=== PATIENT | male | born 1970 | race Caucasian/White ===

== ENCOUNTER 2016-06-27 03:46 | Emergency (ER) | payer OTHER, MEDICARE ==
[~2016-06-27] VITALS: Ht 172.7 cm; Wt 83.0 kg
[~2016-06-27 03:46] MED LIST: CEPH500C PO; D-ME118S7 PO; IBP800T PO; LISI-591 PO; MECL-106 PO; PRD20T PO
[2016-06-27] MEDS ORDERED: KETOROLAC 30 MG/ML VIAL IVP STA (04:07)
[2016-06-27] MEDS ORDERED: NS IV 1000 ML 1,000 ML IV ONE ×2 (04:07→04:50)
--- NOTE | 2016-06-27 04:14 | ED Neurological Problem ---
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 they then became tingly et got numb. symptoms are improved, but not resolved at this time. Nursing Sepsis Screen: No Definite Risk Source: patient Exam Limitations: no limitations History of Present Illness Time seen by provider: 03:59 Initial Comments Here with report of bilateral arms that are numb and cramping and started at work approximately one hour ago. This is his third night at the [employer]. 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 He states that he lifts approximately 10 bags of melena and works 12 hour shifts. After the first night he states he was sore but he was feeling better tonight and then was at work when he started feeling pain in his arms and then the tingling. He states that is better now. Retains full range of motion and strength. Timing/Duration: 1 hour Severity: moderate Associated Symptoms: No fever/chills, No numbness in legs/feet, paresthesiaNo slurred speech, No tingling in legs/feet, No trouble walking Allergies and Home Medications Allergies Coded Allergies: Penicillins (Unverified Adverse Reaction, Unknown, 06/27/16) Home Medications Lisinopril/Hydrochlorothiazide 1 Each Tablet #14 1 EACH PO DAILY Prescribed by: SHARMILA BE on 03/20/16 1330 Constitutional: see HPI Eyes: No Symptoms Reported Ears, Nose, Mouth, Throat: no symptoms reported Respiratory: no symptoms reported Cardiovascular: no symptoms reported Gastrointestinal: no symptoms reported Genitourinary: no symptoms reported Musculoskeletal: see HPI muscle pain muscle stiffness muscle cramps Skin: no symptoms reported Psychiatric/Neurological: See HPI Numbness Tingling Past Fbquocg-[id number]-[id number] Hx Patient Social History Alcohol Use: Denies Use Recreational Drug Use: No Smoking Status: Never a Smoker Type Used: Smokeless Tobacco Recent Foreign Travel: No Contact w/Someone Who Travel: No Recent Infectious Disease Expo: No Recent Hopitalizations: No Physical Abuse Screen: No Sexual Abuse: No Immunizations Up To Date Date of Influenza Vaccine: Apr 01, 2012 Seasonal Allergies Seasonal Allergies: Yes Surgeries HX Surgeries: Yes (Esophagus surgery for hernia) Surgeries: Abdominal Respiratory Hx Respiratory Disorders: No Cardiovascular Hx Cardiac Disorders: No Neurological Hx Neurological Disorders: No Reproductive System Hx Reproductive Disorders: No Genitourinary Hx Genitourinary Disorders: Yes Genitourinary Disorders: Kidney Stones Gastrointestinal Hx Gastrointestinal Disorders: Yes Gastrointestinal Disorders: Gastroesophageal Reflux, Hiatal Hernia Musculoskeletal Hx Musculoskeletal Disorders: No Endocrine Hx Endocrine Disorders: No HEENT HX ENT Disorders: No Cancer Hx Cancer: No Psychosocial Hx Psychiatric Problems: No Integumentary HX Skin/Integumentary Disorder: No Blood Transfusions Hx Blood Disorders: No Reviewed Nursing Assessment Reviewed/Agree w Nursing PMH: Yes Family Medical History Significant Family History: No Pertinent Family Hx Physical Exam Vital Signs Vital Sign - Last 12Hours 06/27/16 03:54 Temp 97.0 Pulse 122 Resp 16 B/P 134/102 Capillary Refill : Less Than 3 Seconds General Appearance: WD/WN no apparent distress HEENT: PERRL/EOMI pharynx normal Neck: full range of motion supple Respiratory: lungs clear normal breath sounds Cardiovascular: no murmur tachycardia Gastrointestinal: non tender soft Back: normal inspection no CVA tenderness no vertebral tenderness Extremities: normal range of motion other (tender along the anterior arm bilateral from biceps to forearm.) 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 as tested alertNo motor weakness, sensory deficit (reports some tingling in his hands bilateral) Crainal Nerves: normal hearing normal speech PERRL Coordination/Gait: normal gait Motor/Sensory: no motor deficit no pronator drift Skin: normal color warm/dry Progress/Results/Core Measures Results/Orders Lab Results Laboratory Tests Test 06/27/16 04:05 Range/Units Alanine Aminotransferase (ALT/SGPT) 29 0-55 U/L Albumin 4.8 H 3.2-4.5 G/DL Alkaline Phosphatase 38 L 40-136 U/L Anion Gap 13 5-14 MMOL/L Aspartate Amino Transf (AST/SGOT) 45 H 5-34 U/L BUN/Creatinine Ratio 26 Band Neutrophils 2 % Basophils # (Auto) 0.2 H 0.0-0.1 10^3/uL Basophils % (Manual) 1 % Basophils (%) (Auto) 1 0-10 % Blood Morphology Comment NORMAL Blood Urea Nitrogen 30 H 7-18 MG/DL Calcium Level 9.8 8.5-10.1 MG/DL Carbon Dioxide Level 22 21-32 MMOL/L Chloride Level 105 98-107 MMOL/L Creatinine 1.17 0.60-1.30 MG/DL Eosinophils # (Auto) 0.0 0.0-0.3 10^3/uL Eosinophils % (Manual) 0 % Eosinophils (%) (Auto) 0 0-10 % Estimat Glomerular Filtration Rate > 60 Glucose Level 98 70-105 MG/DL Hematocrit 45 40-54 % Hemoglobin 15.8 13.3-17.7 G/DL Lymphocytes # (Auto) 1.0 1.0-4.0 X 10^3 Lymphocytes % (Manual) 8 % Lymphocytes (%) (Auto) 7 L 12-44 % Mean Corpuscular Hemoglobin 30 25-34 PG Mean Corpuscular Hemoglobin Concent 35 32-36 G/DL Mean Corpuscular Volume 84 80-99 FL Mean Platelet Volume 10.6 H 7.4-10.4 FL Monocytes # (Auto) 1.0 0.0-1.0 X 10^3 Monocytes % (Manual) 5 % Monocytes (%) (Auto) 7 0-12 % Neutrophils # (Auto) 13.5 H 1.8-7.8 X 10^3 Neutrophils % (Manual) 78 % Neutrophils (%) (Auto) 86 H 42-75 % Platelet Count 448 H 130-400 10^3/uL Potassium Level 4.4 3.6-5.0 MMOL/L Reactive Lymphocytes 6 % Red Blood Count 5.32 4.35-5.85 10^6/uL Red Cell Distribution Width 13.5 10.0-14.5 % Sodium Level 140 135-145 MMOL/L Total Bilirubin 0.8 0.1-1.0 MG/DL Total Creatine Kinase 1056 H 30-200 U/L Total Protein 7.5 6.4-8.2 G/DL Troponin I < 0.30 <0.30 NG/ML White Blood Count 15.7 H 4.3-11.0 10^3/uL My Orders Orders-TESSIE BEARD MD Cbc With Automated Diff (06/27/16 04:07) Comprehensive Metabolic Panel (06/27/16 04:07) Creatine Kinase (06/27/16 04:07) Saline Lock/Iv-Start (06/27/16 04:07) Ns Iv 1000 Ml (Sodium Chloride 0.9%) (06/27/16 04:07) Ketorolac Injection (Toradol Injection) (06/27/16 04:07) Manual Differential (06/27/16 04:05) Ns Iv 1000 Ml (Sodium Chloride 0.9%) (06/27/16 04:50) Ekg Tracing (06/27/16 04:50) Troponin I (06/27/16 04:50) Medications Given in ED Current Medications Medications Dose Ordered Sig/Yobany Route Start Time Stop Time Status Last Admin Dose Admin Sodium Chloride 1,000 ml @ 0 mls/hr Q0M ONCE IV 06/27/16 04:07 06/27/16 04:09 DC 06/27/16 04:16 1,000 MLS/HR Sodium Chloride 1,000 ml @ 0 mls/hr Q0M ONCE IV 06/27/16 04:50 06/27/16 04:51 DC 06/27/16 05:05 1,000 MLS/HR Vital Signs/I&O Vital Sign - Last 12Hours 06/27/16 03:54 Temp 97.0 Pulse 122 Resp 16 B/P 134/102 Blood Pressure Mean: 113 Progress Note : Progress Note Seen and evaluated. IV, labs and normal saline 1 L bolus. Toradol 30 mg IV. Monitor patient. Concerns for symptoms related to new occupational exposure of lifting quite a bit repetitively. Heart rate would indicate potential for dehydration. Normal saline ordered. We will check CK. 0530: Total CK noted to be elevated. Repeat normal saline 1 L bolus ordered. Kidney function is okay. Patient did have resolution of his numbness on the right arm. Stroke scale is 0. 0545: Patient is much better. Discharged home with return precautions. Patient verbalize understanding instructions and agreement with plan. ECG Initial ECG Impression Date: Jun 27, 2016 Initial ECG Impression Time: 04:57 Initial ECG Rate: 100 Initial ECG Rhythm: S.Tach Comment Sinus tachycardia with a rate of 100. Normal axis. No evidence of ST elevation IN. Similar to previous but increased rate. Interpreted by me. Departure Impression Impression: Primary Impression: Rhabdomyolysis Qualified Code: M62.82 - Rhabdomyolysis Additional Impression: Dehydration Disposition: 01 HOME, SELF-CARE Condition: Improved Departure-Patient Inst. Decision time for Depature: 05:52 Referrals: SONA MCKINNEY MD (PCP/Family) Primary Care Physician Patient Instructions: Dehydration, Rhabdomyolysis (DC) Add. Discharge Instructions: All discharge instructions reviewed with patient and/or family. Voiced understanding. Drink plenty of fluids. Avoid caffeinated beverages. Follow up with your Dr. in a few days for recheck. Return for worse pain, fever, vomiting, weakness, breathing problems or other concerns as needed. Work/School Note: Work Release Form Date Seen in the Emergency Department: Jun 27, 2016 Return to Work: Jun 27, 2016 Restrictions: No Restrictions TESSIE BEARD MD Jun 27, 2016 04:13
[2016-06-27 04:18] LABS: BASOPHILS # (AUTO) 0.2 10^3/uL (0.0-0.1); BASOPHILS % (AUTO) 1 % (0-10); EOSINOPHILS % (AUTO) 0 % (0-10); LYMPHOCYTES % (AUTO) 7 % (12-44); MEAN CORPUSCULAR HEMOGLOBIN 30 PG (25-34); MEAN CORPUSCULAR HGB CONC 35 G/DL (32-36); MEAN CORPUSCULAR VOLUME 84 FL (80-99); MEAN PLATELET VOLUME 10.6 FL (7.4-10.4); MONOCYTES % (AUTO) 7 % (0-12); NEUTROPHILS # (AUTO) 13.5 X 10^3 (1.8-7.8); NEUTROPHILS % (AUTO) 86 % (42-75); PLATELET COUNT 448 10^3/uL (130-400); RED BLOOD COUNT 5.32 10^6/uL (4.35-5.85); RED CELL DISTRIBUTION WIDTH 13.5 % (10.0-14.5); WHITE BLOOD COUNT 15.7 10^3/uL (4.3-11.0)
[2016-06-27 04:42] LABS: ALANINE AMINOTRANSFERASE 29 U/L (0-55); ALBUMIN 4.8 G/DL (3.2-4.5); ANION GAP 13 MMOL/L (5-14); ASPARTATE AMINO TRANSFERASE 45 U/L (5-34); BILIRUBIN,TOTAL 0.8 MG/DL (0.1-1.0); BLOOD UREA NITROGEN 30 MG/DL (7-18); BUN/CREATININE RATIO 26; CALCIUM 9.8 MG/DL (8.5-10.1); CARBON DIOXIDE 22 MMOL/L (21-32); CHLORIDE 105 MMOL/L (98-107); CREATINE KINASE 1056 U/L (30-200); CREATININE SERUM 1.17 MG/DL (0.60-1.30); GFR ESTIMATED > 60; GLUCOSE 98 MG/DL (70-105); POTASSIUM 4.4 MMOL/L (3.6-5.0); SODIUM 140 MMOL/L (135-145); TOTAL PROTEIN 7.5 G/DL (6.4-8.2)
[2016-06-27 04:47] LABS: BAND NEUTROPHILS 2 %; BASOPHILS % (MANUAL) 1 %; EOSINOPHILS % (MANUAL) 0 %; LYMPHOCYTES % (MANUAL) 8 %; NEUTROPHILS % (MANUAL) 78 %; REACTIVE LYMPHOCYTES 6 %
[2016-06-27 06:00] VITALS: BP 126/91
== END 2016-06-27 06:04 | disposition home or self-care (01) ==
LOC: EDUNIT# 03:46 → ER 03:49
DX: M62.82 Rhabdomyolysis (principal); E86.0 Dehydration
CPT/HCPCS: 36415; 80053; 82550; 84484; 85007; 85027; 93005; 96361; 96374

== ENCOUNTER 2016-07-24 04:19 | Observation (INO) | payer MEDICARE, OTHER ==
[2016-07-24] VITALS (8 sets, daily range): BP systolic 104–136; BP diastolic 68–89
[~2016-07-24] VITALS: Ht 172.7 cm; Wt 80.9 kg
--- OUTSIDE RECORDS SUMMARY | 2016-07-24 04:24 | XMS REPORT | Continuity of Care Document ---
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 Name Role Phone SONA MCKINNEY MD PCP Insurance Providers Payer Name Policy Number Subscriber Name Relationship [employer] [id number] Aries Lazaro Self / Same As Patient Wps Medicare [id number] Aries Lazaro Self / Same As Patient Advance Directives Directive Response Recorded Date/Time Advance Directives No 06/27/16 3:58am Health Care Power of Loin Trimmer No 06/27/16 3:58am Organ Donor No 06/27/16 3:58am Resuscitation Status Full Code 06/27/16 3:58am Chief Complaint and Reason for Visit Chief Complaint Neurological Problems Reason for Visit Rhabdomyolysis Dehydration Problems Active Problems Medical Problem Onset Date Status Bronchitis Unknown Acute Dehydration Unknown Acute Hypertensive urgency Unknown Acute Rhabdomyolysis Unknown Acute Medications Current Home Medications Medication Dose Units Route Directions Days/Qty Instructions Start Date Lisinopril/Hydrochlorothiazide 1 Each 1 Each Oral Daily 14 03/20/16 Past Home Medications Medication Directions Ordered Status Ibuprofen 800 Mg Tab, 800 Mg Oral Give Every 8 Hrs On Schedule as needed Discontinued Meclizine Hcl 25 Mg Tablet, 25 Mg Oral Daily 03/20/16 Discontinued Cephalexin 500 Mg Capsule, 500 Mg Oral Three Times A Day 04/19/16 Discontinued D-Methorphan Hb/Prometh Hcl 118 Ml Syrup, 5 Ml Oral Every 6 Hours as needed for Cough 04/19/16 Discontinued Prednisone 20 Mg Tab, 40 Mg Oral Daily 04/19/16 Discontinued Social History Social History Problem Response Recorded Date/Time Alcohol Use Denies Use 11/03/2014 11:51pm Recreational Drug Use No 11/03/2014 11:51pm Recent Foreign Travel No 06/27/2016 3:54am Recent Infectious Disease Exposure No 06/27/2016 3:54am Smoking Status Never a Smoker 06/27/2016 3:58am Type Used Smokeless Tobacco 06/27/2016 3:58am Recent Hopitalizations No 04/19/2016 10:28pm Query Response Start Date Stop Date Smoking Status Never a Smoker Hospital Discharge Instructions No hospital discharge instructions. Plan of Care Discharge Date 06/27/16 6:04am Disposition 01 HOME, SELF-CARE Condition at Discharge Improved Instructions/Education Provided Dehydration Rhabdomyolysis (DC) Forms Provided Work Release Form Prescriptions See Medication Section Referrals SONA MCKINNEY MD - Primary Care Physician Additional Instructions/Education All discharge instructions reviewed with patient and/or family. Voiced understanding. Drink plenty of fluids. Avoid caffeinated beverages. Follow up with your Dr. in a few days for recheck. Return for worse pain, fever, vomiting, weakness, breathing problems or other concerns as needed. Functional Status Query Response Date Recorded Patient Orientation Person Time Situation June 27, 2016 4:22am Comprehension Ability Understands Concepts June 27, 2016 4:22am Allergies, Adverse Reactions, Alerts Allergen Type Severity Reaction Status Last Updated Penicillins ([id number]) Adverse Reaction Unknown Active 06/27/16 Immunizations No immunization records. Vital Signs Acute Vital Signs Vital Response Date/Time Temperature (Fahrenheit) 97.0 degrees F (97.6 - 99.5) 06/27/2016 3:54am Temperature (Calculated Celsius) 36.77947 degrees C (36.4 - 37.5) 06/27/2016 3:54am Pulse Rate (adult) 122 bpm (60 - 90) 06/27/2016 3:54am Respiratory Rate 16 bpm (12 - 24) 06/27/2016 3:54am Blood Pressure 134/102 mm Hg 06/27/2016 3:54am Blood Pressure Mean 113 mm Hg 06/27/2016 3:54am Pain Numeric Pain Scale 9 06/27/2016 4:16am Height (Feet) 5 feet 06/27/2016 3:54am Height (Inches) 8 inches 06/27/2016 3:54am Height (Calculated Centimeters) 172.901236 cm 06/27/2016 3:54am Weight (Pounds) 183 pounds 06/27/2016 3:54am Weight (Calculated Kilograms) 83.551388 kilograms 06/27/2016 3:54am Capillary Refill Capillary Refill Less Than 3 Seconds 06/27/2016 3:54am Height 5 ft 8 in Weight 183 lb Body Mass Index 27.8 kg/m^2 Results Laboratory Results Test Name Result Units Flags Reference Collection Date/Time Result Date/ Time Comments White Blood Count 15.7 10^3/uL H 4.3-11.0 06/27/2016 4:05am 06/27/2016 4: 22am Red Blood Count 5.32 10^6/uL 4.35-5.85 06/27/2016 4:05am 06/27/2016 4: 22am Hemoglobin 15.8 G/DL 13.3-17.7 06/27/2016 4:05am 06/27/2016 4:22am Hematocrit 45 % 40-54 06/27/2016 4:05am 06/27/2016 4:22am Mean Corpuscular Volume 84 FL 80-99 06/27/2016 4:05am 06/27/2016 4: 22am Mean Corpuscular Hemoglobin 30 PG 25-34 06/27/2016 4:05am 06/27/2016 4: 22am Mean Corpuscular Hemoglobin Concent 35 G/DL 32-36 06/27/2016 4:05am 4:22am Red Cell Distribution Width 13.5 % 10.0-14.5 06/27/2016 4:05am 2016 4:22am Platelet Count 448 10^3/uL H 130-400 06/27/2016 4:05am 06/27/2016 4:22am Mean Platelet Volume 10.6 FL H 7.4-10.4 06/27/2016 4:05am 06/27/2016 4: 22am Neutrophils (%) (Auto) 86 % H 42-75 06/27/2016 4:05am 06/27/2016 4:22am Lymphocytes (%) (Auto) 7 % L 12-44 06/27/2016 4:05am 06/27/2016 4:22am Monocytes (%) (Auto) 7 % 0-12 06/27/2016 4:05am 06/27/2016 4:22am Eosinophils (%) (Auto) 0 % 0-10 06/27/2016 4:05am 06/27/2016 4:22am Basophils (%) (Auto) 1 % 0-10 06/27/2016 4:05am 06/27/2016 4:22am Neutrophils # (Auto) 13.5 X 10^3 H 1.8-7.8 06/27/2016 4:05am 06/27/2016 4 :22am Lymphocytes # (Auto) 1.0 X 10^3 1.0-4.0 06/27/2016 4:05am 06/27/2016 4: 22am Monocytes # (Auto) 1.0 X 10^3 0.0-1.0 06/27/2016 4:05am 06/27/2016 4: 22am Eosinophils # (Auto) 0.0 10^3/uL 0.0-0.3 06/27/2016 4:05am 06/27/2016 4 :22am Basophils # (Auto) 0.2 10^3/uL H 0.0-0.1 06/27/2016 4:05am 06/27/2016 4: 22am Neutrophils % (Manual) 78 % 06/27/2016 4:05am 06/27/2016 4:47am Band Neutrophils 2 % 06/27/2016 4:05am 06/27/2016 4:47am Lymphocytes % (Manual) 8 % 06/27/2016 4:05am 06/27/2016 4:47am Monocytes % (Manual) 5 % 06/27/2016 4:05am 06/27/2016 4:47am Eosinophils % (Manual) 0 % 06/27/2016 4:05am 06/27/2016 4:47am Basophils % (Manual) 1 % 06/27/2016 4:05am 06/27/2016 4:47am Reactive Lymphocytes 6 % 06/27/2016 4:05am 06/27/2016 4:47am Blood Morphology Comment NORMAL 06/27/2016 4:05am 06/27/2016 4: 47am Sodium Level 140 MMOL/L 135-145 06/27/2016 4:05am 06/27/2016 4:44am Potassium Level 4.4 MMOL/L 3.6-5.0 06/27/2016 4:0506/27/2016 4:44am Chloride Level 105 MMOL/L 98-107 06/27/2016 4:0506/27/2016 4:44am Carbon Dioxide Level 22 MMOL/L 21-32 06/27/2016 4:0506/27/2016 4: 44am Anion Gap 13 MMOL/L 5-14 06/27/2016 4:06/27/2016 4:44am Blood Urea Nitrogen 30 MG/DL H 7-18 06/27/2016 4:0506/27/2016 4:44am Creatinine 1.17 MG/DL 0.60-1.30 06/27/2016 4:06/27/2016 4:44am BUN/Creatinine Ratio 06/27/2016 4:0506/27/2016 4:44am Estimat Glomerular Filtration Rate > 60 06/27/2016 4:2016 4:44am GFR INTERPRETIVE DATA UNITS FOR ESTIMATED GFR (eGFR): mL/min/1.73 M2 REFERENCE RANGE FOR ESTIMATED GFR (eGFR) eGFR NORMAL eGFR >60 MODERATELY DECREASED eGFR 30-59 SEVERLY DECREASED eGFR 15-29 KIDNEY FAILURE <15 (OR DIALYSIS) Glucose Level 98 MG/DL 70-105 06/27/2016 4:06/27/2016 4:44am Calcium Level 9.8 MG/DL 8.5-10.1 06/27/2016 4:06/27/2016 4:44am Total Bilirubin 0.8 MG/DL 0.1-1.0 06/27/2016 4:06/27/2016 4:44am Alkaline Phosphatase 38 U/L L 40-136 06/27/2016 4:0506/27/2016 4:44am Aspartate Amino Transf (AST/SGOT) 45 U/L H 5-34 06/27/2016 4:052016 4:44am Alanine Aminotransferase (ALT/SGPT) 29 U/L 0-55 06/27/2016 4:0506/27 4:44am Total Creatine Kinase 1056 U/L H 30-200 06/27/2016 4:0506/27/2016 4: 44am Troponin I < 0.30 NG/ML <0.30 06/27/2016 4:05am 06/27/2016 5:18am Total Protein 7.5 G/DL 6.4-8.2 06/27/2016 4:05am 06/27/2016 4:44am Albumin 4.8 G/DL H 3.2-4.5 06/27/2016 4:05am 06/27/2016 4:44am Procedures Procedure Status Date Provider(s) Tracing only of electrocardiogram Active 06/27/16 TESSIE BEARD MD Encounters Encounter Location Arrival/Admit Date Discharge/Depart Date Attending Provider Registered Emergency Room [facility] 06/27/16 3:49am TESSIE BEARD MD Recent Diagnosis
[2016-07-24] MEDS ORDERED: NS IV 1000 ML 1,000 ML IV ONE (04:33)
[2016-07-24 04:40] LABS: BASOPHILS # (AUTO) 0.2 10^3/uL (0.0-0.1); BASOPHILS % (AUTO) 2 % (0-10); EOSINOPHILS # (AUTO) 0.1 10^3/uL (0.0-0.3); EOSINOPHILS % (AUTO) 1 % (0-10); LYMPHOCYTES # (AUTO) 1.6 X 10^3 (1.0-4.0); LYMPHOCYTES % (AUTO) 12 % (12-44); MEAN CORPUSCULAR HEMOGLOBIN 30 PG (25-34); MEAN CORPUSCULAR HGB CONC 35 G/DL (32-36); MEAN CORPUSCULAR VOLUME 85 FL (80-99); MEAN PLATELET VOLUME 10.8 FL (7.4-10.4); MONOCYTES % (AUTO) 7 % (0-12); NEUTROPHILS # (AUTO) 10.7 X 10^3 (1.8-7.8); NEUTROPHILS % (AUTO) 79 % (42-75); PLATELET COUNT 508 10^3/uL (130-400); RED BLOOD COUNT 5.41 10^6/uL (4.35-5.85); RED CELL DISTRIBUTION WIDTH 13.3 % (10.0-14.5); WHITE BLOOD COUNT 13.6 10^3/uL (4.3-11.0)
--- NOTE | 2016-07-24 04:43 | ED Cardiac General ---
History of Present Illness General Chief Complaint: Chest Pain Stated Complaint: CP Nursing Triage Note: patient reports chest pain starting at 0300, patient denies pain radiating or other symptoms. patient reports pain is intermittent Source: patient Exam Limitations: no limitations (TESSIE BEARD MD) History of Present Illness Time seen by provider: 04:27 Initial Comments Here with report of left-sided chest pain that started at approximately 3 am and has continued until now. Reports that it is left sided and moves across the lower chest. Denies nausea, vomiting, dizziness or sweating. Occurred while at work at [employer]. Timing/Duration: 1-3 hours Severity: moderate Location: central Activities at Onset: activity Prior CP/Workup: non-cardiac, stress test Modifying Factors: improves with exercise NTG SL WATER INSPECTOR: No ASA po WATER INSPECTOR: No Associated Systoms: Chest Pain (TESSIE BEARD MD) Allergies and Home Medications Allergies Coded Allergies: Penicillins (Unverified Adverse Reaction, Unknown, 06/27/16) Home Medications Lisinopril/Hydrochlorothiazide 1 Each Tablet #14 1 EACH PO DAILY Prescribed by: SHARMILA BE on 03/20/16 1330 Review of Systems Constitutional: see HPINo chills, No diaphoresis, No fever EENTM: No Symptoms Reported Respiratory: No Symptoms ReportedDenies Shortness of Air, Denies Wheezing Cardiovascular: Chest PainDenies Edema, Denies Palpitations Gastrointestinal: No Symptoms ReportedDenies Nausea, Denies Vomiting Genitourinary: No Symptoms Reported Musculoskeletal: No back pain, muscle painNo neck pain Skin: no symptoms reportedNo change in color Psychiatric/Neurological: No Symptoms ReportedDenies Headache, Denies Numbness , Denies Tingling, Denies Weakness Endocrine: No Symptoms Reported (TESSIE BEARD MD) All Other Systems Reviewed Negative Unless Noted: Yes (TESSIE BEARD MD) Past Dekiaxy-Kgqijr-Hyvrrg Hx Patient Social History Alcohol Use: Denies Use Recreational Drug Use: No Smoking Status: Former Smoker Type Used: Smokeless Tobacco Recent Foreign Travel: No Contact w/Someone Who Travel: No Recent Infectious Disease Expo: No Recent Hopitalizations: No (TESSIE BEARD MD) Immunizations Up To Date Date of Influenza Vaccine: Apr 01, 2012 (TESSIE BEARD MD) Seasonal Allergies Seasonal Allergies: Yes (TESSIE BEARD MD) Surgeries HX Surgeries: Yes (Esophagus surgery for hernia) Surgeries: Abdominal (TESSIE BEARD MD) Respiratory Hx Respiratory Disorders: No (TESSIE BEARD MD) Cardiovascular Hx Cardiac Disorders: No (TESSIE BEARD MD) Cardiac Disorders: Hypertension (SONA STEVEN DO) Neurological Hx Neurological Disorders: No (TESSIE BEARD MD) Reproductive System Hx Reproductive Disorders: No (TESSIE BEARD MD) Genitourinary Hx Genitourinary Disorders: Yes Genitourinary Disorders: Kidney Stones (TESSIE BEARD MD) Gastrointestinal Hx Gastrointestinal Disorders: Yes Gastrointestinal Disorders: Gastroesophageal Reflux, Hiatal Hernia (TESSIE BEARD MD) Musculoskeletal Hx Musculoskeletal Disorders: No (TESSIE BEARD MD) Endocrine Hx Endocrine Disorders: No (TESSIE BEARD MD) HEENT HX ENT Disorders: No (TESSIE BEARD MD) Cancer Hx Cancer: No (TESSIE BEARD MD) Psychosocial Hx Psychiatric Problems: No (TESSIE BEARD MD) Integumentary HX Skin/Integumentary Disorder: No (TESSIE BEARD MD) Blood Transfusions Hx Blood Disorders: No (TESSIE BEARD MD) Reviewed Nursing Assessment Reviewed/Agree w Nursing PMH: Yes (TESSIE BEARD MD) Family Medical History Significant Family History: No Pertinent Family Hx (TESSIE BEARD MD) Physical Exam Vital Signs Vital Sign - Last 12Hours 07/24/16 07/24/16 04:25 04:28 Temp 99.0 Pulse 96 Resp 24 B/P 114/92 Pulse Ox 95 O2 Delivery Room Air (BERTO STEVENA K DO) Vital Signs Capillary Refill : Less Than 3 Seconds (TESSIE BEARD MD) General Appearance: No Apparent Distress WD/WN HEENT: PERRL/EOMI Pharynx Normal Neck: Non Tender Supple Respiratory: Lungs Clear Normal Breath Sounds Cardiovascular: Regular Rate, Rhythm No Murmur Gastrointestinal: Non Tender Soft Extremity: Normal Range of Motion Non Tender No Calf Tenderness Neurologic/Psychiatric: Alert Oriented x3 Skin: Normal Color Warm/Dry (TESSIE BEARD MD) Progress/Results/Core Measures Results/Orders Lab Results Laboratory Tests Test 07/24/16 04:25 Range/Units Activated Partial Thromboplast Time 25 24-35 SEC Alanine Aminotransferase (ALT/SGPT) 23 0-55 U/L Albumin 5.3 H 3.2-4.5 G/DL Alkaline Phosphatase 42 40-136 U/L Amylase Level 43 25-125 U/L Anion Gap 16 H 5-14 MMOL/L Aspartate Amino Transf (AST/SGOT) 25 5-34 U/L BUN/Creatinine Ratio 20 Basophils # (Auto) 0.2 H 0.0-0.1 10^3/uL Basophils (%) (Auto) 2 0-10 % Blood Urea Nitrogen 26 H 7-18 MG/DL Calcium Level 10.2 H 8.5-10.1 MG/DL Carbon Dioxide Level 19 L 21-32 MMOL/L Chloride Level 104 98-107 MMOL/L Creatinine 1.32 H 0.60-1.30 MG/DL D-Dimer 0.57 H 0.00-0.49 UG/ML Eosinophils # (Auto) 0.1 0.0-0.3 10^3/uL Eosinophils (%) (Auto) 1 0-10 % Estimat Glomerular Filtration Rate 58 Glucose Level 87 70-105 MG/DL Hematocrit 46 40-54 % Hemoglobin 16.2 13.3-17.7 G/DL INR Comment 1.0 0.8-1.4 Lipase 13 8-78 U/L Lymphocytes # (Auto) 1.6 1.0-4.0 X 10^3 Lymphocytes (%) (Auto) 12 12-44 % Magnesium Level 3.0 H 1.8-2.4 MG/DL Mean Corpuscular Hemoglobin 30 25-34 PG Mean Corpuscular Hemoglobin Concent 35 32-36 G/DL Mean Corpuscular Volume 85 80-99 FL Mean Platelet Volume 10.8 H 7.4-10.4 FL Monocytes # (Auto) 1.0 0.0-1.0 X 10^3 Monocytes (%) (Auto) 7 0-12 % Myoglobin 137.4 H 10.0-92.0 NG/ML Neutrophils # (Auto) 10.7 H 1.8-7.8 X 10^3 Neutrophils (%) (Auto) 79 H 42-75 % Platelet Count 508 H 130-400 10^3/uL Potassium Level 4.1 3.6-5.0 MMOL/L Prothrombin Time 13.1 12.2-14.7 SEC Red Blood Count 5.41 4.35-5.85 10^6/uL Red Cell Distribution Width 13.3 10.0-14.5 % Sodium Level 139 135-145 MMOL/L Total Bilirubin 0.6 0.1-1.0 MG/DL Total Protein 8.3 H 6.4-8.2 G/DL Troponin I < 0.30 <0.30 NG/ML White Blood Count 13.6 H 4.3-11.0 10^3/uL (MAURIZIO,SONA K DO) Lab Results Laboratory Tests Test 07/24/16 04:25 Range/Units Activated Partial Thromboplast Time 25 24-35 SEC Alanine Aminotransferase (ALT/SGPT) 23 0-55 U/L Albumin 5.3 H 3.2-4.5 G/DL Alkaline Phosphatase 42 40-136 U/L Amylase Level 43 25-125 U/L Anion Gap 16 H 5-14 MMOL/L Aspartate Amino Transf (AST/SGOT) 25 5-34 U/L BUN/Creatinine Ratio 20 Basophils # (Auto) 0.2 H 0.0-0.1 10^3/uL Basophils (%) (Auto) 2 0-10 % Blood Urea Nitrogen 26 H 7-18 MG/DL Calcium Level 10.2 H 8.5-10.1 MG/DL Carbon Dioxide Level 19 L 21-32 MMOL/L Chloride Level 104 98-107 MMOL/L Creatinine 1.32 H 0.60-1.30 MG/DL D-Dimer 0.57 H 0.00-0.49 UG/ML Eosinophils # (Auto) 0.1 0.0-0.3 10^3/uL Eosinophils (%) (Auto) 1 0-10 % Estimat Glomerular Filtration Rate 58 Glucose Level 87 70-105 MG/DL Hematocrit 46 40-54 % Hemoglobin 16.2 13.3-17.7 G/DL INR Comment 1.0 0.8-1.4 Lipase 13 8-78 U/L Lymphocytes # (Auto) 1.6 1.0-4.0 X 10^3 Lymphocytes (%) (Auto) 12 12-44 % Magnesium Level 3.0 H 1.8-2.4 MG/DL Mean Corpuscular Hemoglobin 30 25-34 PG Mean Corpuscular Hemoglobin Concent 35 32-36 G/DL Mean Corpuscular Volume 85 80-99 FL Mean Platelet Volume 10.8 H 7.4-10.4 FL Monocytes # (Auto) 1.0 0.0-1.0 X 10^3 Monocytes (%) (Auto) 7 0-12 % Myoglobin 137.4 H 10.0-92.0 NG/ML Neutrophils # (Auto) 10.7 H 1.8-7.8 X 10^3 Neutrophils (%) (Auto) 79 H 42-75 % Platelet Count 508 H 130-400 10^3/uL Potassium Level 4.1 3.6-5.0 MMOL/L Prothrombin Time 13.1 12.2-14.7 SEC Red Blood Count 5.41 4.35-5.85 10^6/uL Red Cell Distribution Width 13.3 10.0-14.5 % Sodium Level 139 135-145 MMOL/L Total Bilirubin 0.6 0.1-1.0 MG/DL Total Protein 8.3 H 6.4-8.2 G/DL Troponin I < 0.30 <0.30 NG/ML White Blood Count 13.6 H 4.3-11.0 10^3/uL (TESSIE BEARD MD) My Orders Orders-SONA STEVEN DO Iohexol Injection (Omnipaque 350 Mg/Ml 1 (07/24/16 06:15) Ns (Ivpb) (Sodium Chloride 0.9% Ivpb Bag (07/24/16 06:15) Morphine Injection (Morphine Injection (07/24/16 06:44) (SONA STEVEN DO) Medications Given in ED Current Medications Medications Dose Ordered Sig/Yobany Route Start Time Stop Time Status Last Admin Dose Admin Al Hydrox/Mg Hydrox/ Simethicone 30 ml 30 ml ONCE ONCE PO 07/24/16 05:00 07/24/16 05:01 DC 07/24/16 04:56 30 ML Aspirin 324 mg 324 mg ONCE ONCE PO 07/24/16 04:45 07/24/16 04:46 DC 07/24/16 04:43 324 MG Iohexol 150 ml ONCE ONCE IV 07/24/16 06:15 07/24/16 06:16 DC 07/24/16 06:03 125 ML Lidocaine HCl 15 ml ONCE ONCE PO 07/24/16 05:00 07/24/16 05:01 DC 07/24/16 04:56 15 ML Nitroglycerin 0.4 mg UD ONCE SL 07/24/16 04:45 07/24/16 04:46 DC 07/24/16 04:43 0.4 MG Sodium Chloride 100 ml ONCE ONCE IV 07/24/16 06:15 07/24/16 06:16 DC 07/24/16 06:03 80 ML Sodium Chloride 500 ml @ 0 mls/hr Q0M ONCE IV 07/24/16 05:36 07/24/16 05:38 DC 07/24/16 05:41 0 MLS/HR Sodium Chloride 1,000 ml @ 0 mls/hr Q0M ONCE IV 07/24/16 04:33 07/24/16 04:36 DC 07/24/16 04:43 0 MLS/HR (SONA STEVEN DO) Medications Given in ED Current Medications Medications Dose Ordered Sig/Yobany Route Start Time Stop Time Status Last Admin Dose Admin Al Hydrox/Mg Hydrox/Simethicone 30 ml ONCE ONCE PO 07/24/16 05:00 07/24/16 05:01 DC 07/24/16 04:56 30 ML Aspirin 324 mg 324 mg ONCE ONCE PO 07/24/16 04:45 07/24/16 04:46 DC 07/24/16 04:43 324 MG Lidocaine HCl 15 ml ONCE ONCE PO 07/24/16 05:00 07/24/16 05:01 DC 07/24/16 04:56 15 ML Nitroglycerin 0.4 mg UD ONCE SL 07/24/16 04:45 07/24/16 04:46 DC 07/24/16 04:43 0.4 MG Sodium Chloride 1,000 ml @ 0 mls/hr Q0M ONCE IV 07/24/16 04:33 07/24/16 04:36 DC 07/24/16 04:43 0 MLS/HR (TESSIE BEARD MD) Vital Signs/I&O Vital Sign - Last 12Hours 07/24/16 07/24/16 07/24/16 07/24/16 04:25 04:28 04:31 05:34 Temp 99.0 Pulse 96 80 Resp 24 14 B/P 114/92 117/79 Pulse Ox 95 98 O2 Delivery Room Air Room Air Room Air (SONA STEVEN DO) Blood Pressure Mean: 99 Progress Note : Progress Note Seen and evaluated. IV, labs, EKG, chest x-ray, ASA 324 mg by mouth and nitroglycerin sublingual ordered. Normal saline 1 L bolus. Monitor patient. Toradol 30 mg IV and GI cocktail given. 0530: Patient states the pain is better but then rates it at the same level. He then states it is better. Patient does have some reproducible left anterior chest wall pain. Due to conflicting symptoms and mildly elevated d-dimer, we will get CT angiogram chest. He will need repeat enzymes evaluated as well. Patient does have history of stress test in the past 2 years ago that was negative at this time. (TESSIE BEARD MD) Progress Note : Progress Note 0600--ASSUMED CARE FROM DR. BEARD, CT CHEST ANGIOGRAM PENDING. STILL RATING PAIN 6-7/10, STATES "A LITTLE BETTER", BUT PT IS RESTING QUIETLY AND DOES NOT APPEAR TO BE IN ANY DISCOMFORT (SONA STEVEN DO) ECG Initial ECG Impression Date: Jul 24, 2016 Initial ECG Impression Time: 04:25 Initial ECG Rate: 95 Initial ECG Rhythm: Normal Sinus Comment Sinus rhythm with normal axis. No evidence of ST elevation [place]. Similar to previous done 06/27/16. Interpreted by me. (TESSIE BEARD MD) Diagnostic Imaging Diagonstic Imaging: Xray Plain Films/CT/US/NM/MRI: chest Comments No acute findings Reviewed: Reviewed by Me (TESSIE BEARD MD) Comments CT CHEST ANGIOGRAM--NO ACUTE PROCESS, NO P.E. PER [facility] VIA FAX @ [id number] Reviewed: Reviewed by Me (SONA STEVEN DO) Departure Communication Progress Notes 0643--SPOKE WITH DR. EVANS, ACCEPTS PT FOR ADMIT. WILL CONSULT CARDIOLOGY 0645--ATTEMPTING TO CONTACT DR. LOWE, MESSAGE LEFT ON CELL 0705--SPOKE WITH DR. LOWE, INFORMED HIM OF CONSULT. NO ADDITIONAL ORDERS AT THIS TIME (SONA STEVEN DO) Impression Impression: Primary Impression: Chest pain Disposition: ADMITTED INPATIENT Condition: Stable Decision to Admit Reason: Admit from ER (General) Decision to Admit/Date: Jul 24, 2016 Time/Decision to Admit Time: 06:45 (SONA STEVEN DO) Departure-Patient Inst. Referrals: SONA MCKINNEY MD (PCP/Family) Primary Care Physician TESSIE BEARD MD Jul 24, 2016 04:42 SONA STEVEN DO Jul 24, 2016 06:00
[2016-07-24 04:45] LABS: PROTHROMBIN TIME PATIENT 13.1 SEC (12.2-14.7)
[2016-07-24] MEDS ORDERED: RX-NITROGLYCERIN 0.4 MG TAB BTL 25'S SL ONE (04:45)
[2016-07-24] MEDS ORDERED: ASPIRIN 81 MG CHEW (CHILDREN'S ASA) PO ONE (04:45)
[2016-07-24] MEDS ORDERED: KETOROLAC 30 MG/ML VIAL IVP STA (04:50)
[2016-07-24 04:54] LABS: ALANINE AMINOTRANSFERASE 23 U/L (0-55); ALBUMIN 5.3 G/DL (3.2-4.5); AMYLASE 43 U/L (25-125); ANION GAP 16 MMOL/L (5-14); ASPARTATE AMINO TRANSFERASE 25 U/L (5-34); BILIRUBIN,TOTAL 0.6 MG/DL (0.1-1.0); BLOOD UREA NITROGEN 26 MG/DL (7-18); BUN/CREATININE RATIO 20; CALCIUM 10.2 MG/DL (8.5-10.1); CARBON DIOXIDE 19 MMOL/L (21-32); CHLORIDE 104 MMOL/L (98-107); CREATININE SERUM 1.32 MG/DL (0.60-1.30); GFR ESTIMATED 58; GLUCOSE 87 MG/DL (70-105); LIPASE 13 U/L (8-78); POTASSIUM 4.1 MMOL/L (3.6-5.0); SODIUM 139 MMOL/L (135-145); TOTAL PROTEIN 8.3 G/DL (6.4-8.2)
[2016-07-24] MEDS ORDERED: ANTACID SUSP 30 ML UDC (MYLANTA) PO ONE (05:00)
[2016-07-24] MEDS ORDERED: LIDOCAINE 2% VISCOUS 15 ML UDC PO ONE (05:00)
[2016-07-24 05:01] LABS: MYOGLOBIN SERUM 137.4 NG/ML (10.0-92.0)
[2016-07-24] MEDS ORDERED: NS IV 500 ML 500 ML IV ONE (05:36)
--- NOTE | 2016-07-24 06:00 | Diagnostic Imaging Report ---
INDICATION: New onset chest pain.. TECHNIQUE: Single view chest 4:40 AM. CORRELATION STUDY: 03/20/2016 FINDINGS: Heart size and mediastinum relatively stable given differences in technique. Minimal atelectasis right mid lung. Lungs are clear of infiltrate. No pleural effusion. IMPRESSION: 1. Relatively stable chest apart from minimal right perihilar atelectasis. Dictated by: Dictated on workstation # [id number]
[2016-07-24] MEDS ORDERED: NS 100 ML (IVPB) BAG IV ONE (06:15)
[2016-07-24] MEDS ORDERED: IOHEXOL 350 MG/ML 150 ML (OMNIPAQUE 350) VIAL IV ONE (06:15)
[2016-07-24] MEDS ORDERED: morphine INJ 10 MG/ML 1ML (SYR OR VIAL) IVP STA (06:44)
[2016-07-24] MEDS ORDERED: ENOXAPARIN 100 MG/1 ML (LOVENOX) SYR SC ONE (07:00)
--- NOTE | 2016-07-24 07:31 | Diagnostic Imaging Report ---
PROCEDURE: CT angiography of the chest with contrast. TECHNIQUE: Multiple contiguous axial images were obtained through the chest after uneventful bolus administration of intravenous contrast. Reconstructed CTA MIP acquisitions were also performed. INDICATION: Chest pain starting 3 hours prior. FINDINGS: Pulmonary arteries without filling defect to suggest pulmonary embolism. Thoracic aorta unremarkable. Heart size normal. A 14 x 11 mm nodule in the anterior mediastinum anterior to the aortic arch is present. Lung garces are clear of infiltrate. No significant pleural or pericardial effusion. Visualized portion of the upper abdomen demonstrate hepatic steatosis. Probable small hepatic cyst at the dome. IMPRESSION: No CT evidence for pulmonary embolism or otherwise acute findings of the chest. Nodule in the anterior mediastinum nonspecific, but favors a borderline enlarged lymph node. Followup imaging evaluation would be recommended. Dictated by: Dictated on workstation # [id number]
[2016-07-24] MEDS ORDERED: LISI1TAB8 PO (09:30)
[2016-07-24] MEDS ORDERED: NITROGLYCERIN SUBLINGUAL 0.4 MG TAB (NITROSTAT) SL PRN (09:30)
[2016-07-24] MEDS ORDERED: FLU TRIvalent (5 YOA+) 2016-17 (AFLURIA) 0.5 ML IM ONE (09:30)
[2016-07-24] MEDS ORDERED: morphine INJ 4 MG/ML 1 ML (VIAL/SYRINGE) IV PRN (09:30)
--- NOTE | 2016-07-24 10:00 | Consultation-Cardiology ---
HPI-Cardiology Cardiology Consultation: Date of Consultation 07/24/16 Date of Admission Attending Physician Lynette Yoo DO Admitting Physician Chary Noriega MD Consulting Physician Dat MARINELLI MD HPI: Chief Complaint: Prolonged chest pain This is a 45-year-old gentleman with history of hypertension. He presents with a prolonged episode of chest pain. Chest pain lasted for 2 hours. It was substernal with no radiation. There was no exacerbation or relieving factors. However it was brought on after he was lifting boxes. No other associated cardiac symptoms. This is his first episode. Patient denies smoking, diabetes , hyperlipidemia. Since he was adopted he does not know his family history of premature coronary artery disease. Review of Systems-Cardiology Review of Systems Constitutional: No As described under HPI, No no symptoms reported, No chills, No fever, No lightheadedness, No malaise, No tiredness, No weight loss, No weight gain, No other Eyes: No As described under HPI, No no symptoms reported, No blindness, No blurred vision, No contact lenses, No drainage, No decreased acuity, No foreign body sensation, No glasses, No inflammation, No pain, No photophobia, No previous injury, No shadows, No tunnel vision, No other, No vision change Ears/Nose/Throat: No As described under HPI, No no symptoms reported, No chronic hearing loss, No epistaxis, No ear discharge, No ear pain, No loose teeth, No mouth pain, No mouth swelling, No nasal drainage, No nose pain, No recent hearing loss, No throat pain, No throat swelling, No ulcerations, No other Respiratory: No no symptoms reported, No As described under HPI, No cough, No orthopnea, No shortness of breath, No SOB with excertion, No SOB at rest, No stridor, No wheezing, No other Cardiovascular: No no symptoms reported, No As described under HPI, chest painNo edema, No irregular heart rate, No lightheadedness, No palpitations, No syncope, No other Gastrointestinal: No no symptoms reported, No As described under HPI, No abdomen distended, No abdominal pain, No blood streaked bowels, No constipation , No diarrhea, No difficulty swallowing, No nausea, No poor appetite, No poor fluid intake, No rectal bleeding, No vomiting, No other, No nausea/vomiting/ diarrhea, No stool coloration changes Genitourinary: No no symptoms reported, No As described under HPI, No burning, No dysuria, No discharge, No frequency, No flank pain, No hematuria, No incontinence, No pain, No urgency, No other, No urine frequency changes, No urine coloration changes Musculoskeletal: No no symptoms reported, No As describe under HPI, No back pain, No gout, No joint pain, No joint swelling, No muscle pain, No muscle stiffness, No neck pain, No other Skin: No no symptoms reported, No As described under HPI, No change in color, No change in hair/nails, No dryness, No lesions, No lumps, No rash, No other, No skin related problems, No ulcerations, No rash on exposed areas, No ulcerations on exposed areas Psychiatric/Neurological: No As described under HPI, No anxiety, No depression , No emotional problems, No focal weakness, No headache, No no symptoms reported , No numbness, No other, No pre-existing deficit, No seizure, No syncope, No tingling, No tremors, No weakness All Other Systems Reviewed Negative Unless Noted: Yes ZLE-Jjzcrl-Whycxj Hx Patient Social History Alcohol Use: Denies Use Recreational Drug Use: No Smoking Status: Never a Smoker Type Used: Smokeless Tobacco Recent Foreign Travel: No Recent Infectious Disease Expo: No Hospitalization with Isolation: Denies Physical Abuse Screen: No Sexual Abuse: No Immunizations Up To Date Date of Influenza Vaccine: Apr 01, 2012 Past Medical History PMH As described under Assessment. Allergies and Home Medications Allergies Coded Allergies: Penicillins (Unverified Adverse Reaction, Unknown, 06/27/16) Home Medications Lisinopril/Hydrochlorothiazide 1 Each Tablet 1 TAB PO DAILY@1700 (Reported) Physical Exam-Cardiology Physical Exam Vital Signs/I&O Vital Sign - Last 12Hours 07/24/16 07/24/16 07/24/16 07/24/16 04:25 04:28 04:31 05:34 Temp 99.0 Pulse 96 80 Resp 24 14 B/P 114/92 117/79 Pulse Ox 95 98 O2 Delivery Room Air Room Air Room Air 07/24/16 07/24/16 08:07 08:51 Temp 97.4 Pulse 79 80 Resp 18 18 B/P 136/89 Pulse Ox 98 96 O2 Delivery Room Air Capillary Refill : Less Than 3 Seconds Constitutional: No appears stated age, No AAO x 3, No apparent distress, No PERRL, No well-developed, No well-nourished, No other HEENT: No PERRL, No normal ENT inspection, No TMs normal, No pharynx normal, No scleral icterus (R), No scleral icterus (L), No pale conjunctivae (R), No pale conjunctivae (L), No photophobia, No TM abnormal (R), No TM abnormal (L), No pharyngeal erythema, No tonsillar exudate, No other, No discharge, No EOMI, No hearing is well preserved, No hard of hearing, No oral hygience is good, No ulceration, No xanthelasmas are seen Neck: No non-tender, No full range of motion, No supple, No normal inspection, No carotid bruit, No limited range of motion, No lymphadenopathy (R), No lymphadenopathy (L), No tender lateral, No tender midline, No thyromegaly, No other, No carotid pulses are 2 + bilaterally, No with good upstrokes Respiratory: No accessory muscle use, No respiratory distress, No chest tender , No chest expansion is symmetric, No chest is bilaterally symmetric, No lungs clear to percussion, No lungs clear to auscultation, No crackles, No rhonchi, No rales, No stridor, No wheezing, No pleural rub, No other Cardiovascular: No regular rate-rhythm, No irregularly irregular, No extra beats, No parasternal heave is noted, No JVD, No edema, No bradycardia, No tachycardia, No point of maximal impulse, No cardiac thrills are palpable, No S1 and S2, No gallop/S3, No gallop/S4, No diastolic murmur, No systolic murmur, No friction rub, No click, No other Gastrointestinal: No tender, No soft, No round, No distended, No pulsatile mass , No organomegaly, No guarding, No rebound, No tenderness, No hernia, No mass, No audible bowel sounds, No abnormal bowel sounds, No abdominal bruits, No spleenomegaly, No other Rectal: deferred Extremities: No normal range of motion, No non-tender, No normal inspection, No pedal edema, No calf tenderness, No normal capillary refill, No pelvis stable , No calf tenderness, No inflammation, No pedal edema, No slow capillary refill , No swelling, No other, No abrasion, No clubbing, No cyanosis, No ecchymosis, No laceration, No no lower extremity edema bilateral, No significant edema, No tenderness, No wound Neurologic/Psychiatric: No materials analyst II-XII nml as tested, No no motor/sensory deficits, No alert, No normal mood/affect, No oriented x 3, No abnormal cerebellar tests, No abnormal materials analyst II-XII, No abnormal gait, No aphasia, No EOM palsy, No facial droop, No motor weakness, No sensory deficit, No depressed affect, No disoriented x 3, No other, No grossly intact, No power is 5/5 both on sides Skin: No normal color, No warm/dry, No cyanosis, No cool, No diaphoresis, No damp, No ecchymosis, No jaundice, No mottled, No pallor, No rash, No tattoos/ piercings, No ulcerations, No rash on exposed areas, No ulcerations on exposed areas, No other Data Review Labs Laboratory Tests 07/24/16 04:25: Activated Partial Thromboplast Time 25, Alanine Aminotransferase (ALT/SGPT) 23, Albumin 5.3H, Alkaline Phosphatase 42, Amylase Level 43, Anion Gap 16H, Aspartate Amino Transf (AST/SGOT) 25, BUN/Creatinine Ratio 20, Basophils # (Auto ) 0.2H, Basophils (%) (Auto) 2, Blood Urea Nitrogen 26H, Calcium Level 10.2H, Carbon Dioxide Level 19L, Chloride Level 104, Creatinine 1.32H, D-Dimer 0.57H, Eosinophils # (Auto) 0.1, Eosinophils (%) (Auto) 1, Estimat Glomerular Filtration Rate 58, Glucose Level 87, Hematocrit 46, Hemoglobin 16.2, INR Comment 1.0, Lipase 13, Lymphocytes # (Auto) 1.6, Lymphocytes (%) (Auto) 12, Magnesium Level 3.0H, Mean Corpuscular Hemoglobin 30, Mean Corpuscular Hemoglobin Concent 35, Mean Corpuscular Volume 85, Mean Platelet Volume 10.8H, Monocytes # (Auto) 1.0, Monocytes (%) (Auto) 7, Myoglobin 137.4H, Neutrophils # (Auto) 10.7H, Neutrophils (%) (Auto) 79H, Platelet Count 508H, Potassium Level 4.1, Prothrombin Time 13.1, Red Blood Count 5.41, Red Cell Distribution Width 13.3, Sodium Level 139, Total Bilirubin 0.6, Total Protein 8.3H, Troponin I < 0.30, White Blood Count 13.6H ECG Impression ECG Initial ECG Rhythm: Normal Sinus A/P-Cardiology Assessment/Admission Diagnosis Prolonged chest pain, hypertension Plan Plavix 600 mg 1 Troponin in 6 hours. Lexiscan nuclear stress test tomorrow. No caffeine. Continue outpatient medications lisinopril/hydrochlorothiazide for hypertension. Thank you for your consultation. Please call me if you have any questions. Saul Marinelli MD, FACP, FACC, FSCAI, FHRS, CCDS Interventional Cardiology Cardiac Electrophysiology Vascular Medicine and Endovascular Interventions Clinical Quality Measures AMI/AHF: ASA po Prior to arrival: No DVT/VTE Risk/Contraindication: Risk Factor Score Per Nursin RFS Level Per Nursing on Admit: 1=Low/No VTE PPX Dat MARINELLI MD Jul 24, 2016 09:59
[2016-07-24] MEDS ORDERED: CLOPIDOGREL 300 MG (PLAVIX) TABLET PO NR (10:12)
[2016-07-24 11:03] LABS: CHOLESTEROL 129 MG/DL (< 200); DIRECT LDL 95 MG/DL (1-129); TRIGLYCERIDES 53 MG/DL (<150); VLDL CHOLESTEROL 11 MG/DL (5-40)
[2016-07-24] MEDS: 1/2 NS IV SOLUTION 1,000 ML IV SCH ×3 (11:07→21:19)
--- NOTE | 2016-07-24 11:11 | Short Stay Summary-Hospitalist ---
HPI History of Present Illness: HPI/Chief Complaint CC: Chest pain HPI: This is a 45yoWM that began to experience chest pain early this morning at 3AM while at work. Pain worsened, and pt let work at 4AM and came to [facility]. Chart Review: No fever Vitals stable WBC 13.6 Platelets 508 Creat 1.32 Ca 10.2 Troponin negative Albumin elevated at 5.3 Patient Interview: Pt states that PCP is Dr. Mckinney. Pt sees Dr. Mckinney prn. Pt states that he no longer has chest pain. Pt denies hx of cardiac or lung complications. Pt denies smoking and drinking excessive ETOH. Pt works at [employer]. Pt states that he was at work during the evening shift and began to experience chest pain around 3am. Pt lives with his at home. Physical exam stable. Scribed by Sachin Gregorio under the direct supervision of Dr. Evans. Source: patient Date Seen 07/24/16 Attending Physician Lynette Evans Lisa A MD Referring Physician Date of Admission Jul 24, 2016 at 06:45 Home Medications & Allergies Home Medications Reviewed patient Home Medication Reconciliation Form Allergies Coded Allergies: Penicillins (Unverified Adverse Reaction, Unknown, 06/27/16) Past Cgiqezk-Tmaqfz-Skyobt Hx Patient Social History Marrital Status: Employed/Student: employed ([employer]) Alcohol Use: Denies Use Recreational Drug Use: No Smoking Status: Never a Smoker Type Used: Smokeless Tobacco Physical Abuse Screen: No Sexual Abuse: No Recent Foreign Travel: No Contact w/other who traveled: No Recent Hopitalizations: No Recent Infectious Disease Expo: No Immunizations Up To Date Date of Influenza Vaccine: Apr 01, 2012 Seasonal Allergies Seasonal Allergies: Yes Surgeries HX Surgeries: Yes (Esophagus surgery for hernia Gabriel) Surgeries: Abdominal Respiratory Hx Respiratory Disorders: No Cardiovascular Hx Cardiovascular Disorders: Yes Cardiac Disorders: Hypertension Neurological Hx Neurological Disorders: No Reproductive System Hx Reproductive Disorders: No Genitourinary Hx Genitourinary Disorders: Yes Genitourinary Disorders: Kidney Stones Gastrointestinal Hx Gastrointestinal Disorders: Yes Gastrointestinal Disorders: Gastroesophageal Reflux, Hiatal Hernia Musculoskeletal Hx Musculoskeletal Disorders: No Endocrine Hx Endocrine Disorders: No HEENT HX ENT Disorders: No Cancer Hx Cancer: No Psychosocial Hx Psychiatric Problems: No Integumentary HX Skin/Integumentary Disorder: No Blood Transfusions Hx Blood Disorders: No Reviewed Nursing Assessment Reviewed/Agree w Nursing PMH: Yes Family Medical History Significant Family History: No Pertinent Family Hx Review of Systems Constitutional: see HPI EENTM: no symptoms reported Respiratory: no symptoms reported Cardiovascular: chest pain Gastrointestinal: no symptoms reported Genitourinary: no symptoms reported Musculoskeletal: no symptoms reported Skin: no symptoms reported Psychiatric/Neurological: No Symptoms Reported All Other Systems Reviewed Negative Unless Noted: Yes Physical Exam Physical Exam Vital Signs Vital Sign - Last 12Hours 07/24/16 07/24/16 04:25 04:28 Temp 99.0 Pulse 96 Resp 24 B/P 114/92 Pulse Ox 95 O2 Delivery Room Air Capillary Refill : Less Than 3 Seconds General Appearance: No Apparent Distress WD/WN Eyes: Bilateral Eye Normal Inspection, Bilateral Eye PERRL HEENT: PERRL/EOMI Normal ENT Inspection Pharynx Normal Neck: Full Range of Motion Normal Inspection Non Tender Supple Carotid Bruit Respiratory: Chest Non Tender Lungs Clear Normal Breath Sounds No Accessory Muscle Use No Respiratory Distress Cardiovascular: Regular Rate, Rhythm No Edema No Gallop No JVD No Murmur Normal Peripheral Pulses Gastrointestinal: Normal Bowel Sounds No Organomegaly No Pulsatile Mass Non Tender Soft Back: Normal Inspection No CVA Tenderness No Vertebral Tenderness Extremity: Normal Capillary Refill Normal Inspection Normal Range of Motion Non Tender No Calf Tenderness No Pedal Edema Neurologic/Psychiatric: Alert Oriented x3 No Motor/Sensory Deficits Normal Mood/Affect Skin: Normal Color Warm/Dry Lymphatic: No Adenopathy Results Results/Procedures Lab Laboratory Tests 07/24/16 04:25 Short Stay Diagnosis Discharge Diagnosis-Short Stay Admission Diagnosis Assessment: Chest pain of uncertain etiology Leukocytosis Thrombocytosis GERD s/p Gabriel HTN Final Discharge Diagnosis Assessment: Chest pain of uncertain etiology Leukocytosis Thrombocytosis GERD s/p Gabriel HTN Conclusion Plan Plan: Stress test check labs in a.m. due to leukocytosis and thrombocytosis may be subtle lab abnormality only Copy Copies To 1: SONA MCKINNEY MD Clinical Quality Measures AMI/AHF: ASA po Prior to arrival: No DVT/VTE Risk/Contraindication: Risk Factor Score Per Nursin RFS Level Per Nursing on Admit: 1=Low/No VTE PPX LYNETTE EVANS DO Jul 24, 2016 11:11
[2016-07-24] MEDS ORDERED: PATIENT MAY USE OWN MEDS, ALL MC SCH (12:00)
[2016-07-24] MEDS: CATHETER FLUSH 10 ML SYR IV PRN ×2 (12:32→13:26)
[2016-07-24] MEDS ORDERED: REGADENOSON 0.4 MG/5 ML SYR (LEXISCAN) IV ONE ×2 (13:20→13:30)
[2016-07-24] MEDS ORDERED: HYDROCHLOROTHIAZIDE 12.5 MG (HCTZ) CAP PO SCH (17:00)
[2016-07-24] MEDS ORDERED: LISINOPRIL/HCTZ 20/12.5 MG TABLET PO SCH (17:00)
[2016-07-24] MEDS ORDERED: lisINopril 20 MG (ZESTRIL) TAB PO SCH (17:00)
[2016-07-25] VITALS: BP 108/71
[2016-07-25] MEDS: 1/2 NS IV SOLUTION 1,000 ML IV SCH (03:45)
[2016-07-25 04:00] VITALS: BP 106/68
[2016-07-25 04:50] LABS: BASOPHILS # (AUTO) 0.2 10^3/uL (0.0-0.1); BASOPHILS % (AUTO) 3 % (0-10); EOSINOPHILS # (AUTO) 0.2 10^3/uL (0.0-0.3); EOSINOPHILS % (AUTO) 4 % (0-10); LYMPHOCYTES # (AUTO) 1.5 X 10^3 (1.0-4.0); LYMPHOCYTES % (AUTO) 25 % (12-44); MEAN CORPUSCULAR HEMOGLOBIN 30 PG (25-34); MEAN CORPUSCULAR HGB CONC 34 G/DL (32-36); MEAN CORPUSCULAR VOLUME 87 FL (80-99); MONOCYTES # (AUTO) 0.5 X 10^3 (0.0-1.0); MONOCYTES % (AUTO) 8 % (0-12); NEUTROPHILS # (AUTO) 3.5 X 10^3 (1.8-7.8); NEUTROPHILS % (AUTO) 60 % (42-75); PLATELET COUNT 345 10^3/uL (130-400); RED BLOOD COUNT 4.57 10^6/uL (4.35-5.85); RED CELL DISTRIBUTION WIDTH 13.3 % (10.0-14.5); WHITE BLOOD COUNT 5.9 10^3/uL (4.3-11.0)
[2016-07-25 05:11] LABS: ALANINE AMINOTRANSFERASE 16 U/L (0-55); ALBUMIN 3.4 G/DL (3.2-4.5); ANION GAP 7 MMOL/L (5-14); ASPARTATE AMINO TRANSFERASE 16 U/L (5-34); BILIRUBIN,TOTAL 0.6 MG/DL (0.1-1.0); BLOOD UREA NITROGEN 11 MG/DL (7-18); BUN/CREATININE RATIO 14; CALCIUM 8.2 MG/DL (8.5-10.1); CARBON DIOXIDE 23 MMOL/L (21-32); CHLORIDE 108 MMOL/L (98-107); CREATININE SERUM 0.76 MG/DL (0.60-1.30); GFR ESTIMATED > 60; GLUCOSE 99 MG/DL (70-105); POTASSIUM 4.4 MMOL/L (3.6-5.0); SODIUM 138 MMOL/L (135-145); TOTAL PROTEIN 5.3 G/DL (6.4-8.2)
[2016-07-25 08:00] VITALS: BP 122/73
[2016-07-25] MEDS ORDERED: ASPIRIN E.C. 325 MG (ECOTRIN) TABLET PO SCH (09:00)
--- NOTE | 2016-07-25 11:54 | Discharge Summary-Hospitalist ---
Diagnosis/Chief Complaint Date of Admission Jul 24, 2016 at 06:45 Date of Discharge Discharge Date: Jul 25, 2016 Admission Diagnosis Assessment: Chest pain of uncertain etiology Leukocytosis Thrombocytosis GERD s/p Gabriel HTN Discharge Diagnosis Assessment: Chest pain of uncertain etiology w/normal EST Leukocytosis resolved Thrombocytosis resolved GERD s/p Gabriel HTN Plan: Stress test check labs in a.m. due to leukocytosis and thrombocytosis may be subtle lab abnormality only Reason Hospital Visit/Course CC: Chest pain HPI: This is a 45yoWM that began to experience chest pain early this morning at 3AM while at work. Pain worsened, and pt let work at 4AM and came to [facility]. Chart Review: No fever Vitals stable WBC 13.6 Platelets 508 Creat 1.32 Ca 10.2 Troponin negative Albumin elevated at 5.3 Patient Interview: Pt states that PCP is Dr. Noriega. Pt sees Dr. Noriega prn. Pt states that he no longer has chest pain. Pt denies hx of cardiac or lung complications. Pt denies smoking and drinking excessive ETOH. Pt works at [employer]. Pt states that he was at work during the evening shift and began to experience chest pain around 3am. Pt lives with his at home. Physical exam stable. Scribed by Sachin Gregorio under the direct supervision of Dr. Yoo. Notes from 07/25/2016: Chart Review: WBC normal now, down from 13.5 to 5.9 Platelets 345k Cholesterol panel stable Stress test normal Patient Interview: Pt states that he would like to go home. Physical exam stable. Dr. Yoo discusses lab results with pt, which have normalized. Plan: DC to home with PCP follow-up Scribed by Sachin Gregorio under the direct supervision of Dr. Yoo. Discharge Summary Discharge Physical Examination Allergies: Coded Allergies: Penicillins (Unverified Adverse Reaction, Unknown, 06/27/16) Vitals & I&Os Vital Signs Date Time Temp Pulse Resp B/P Pulse Ox O2 Delivery O2 Flow Rate FiO2 07/25/16 11:05 99 07/25/16 08:00 98.2 67 20 122/73 Room Air Hospital Course Labs (last 24 hrs) Pending Labs Discharge Home Medications: Active Scripts Active Reported Lisinopril-Hctz 20-12.5 mg Tab (Lisinopril/Hydrochlorothiazide) 1 Each Tablet 1 Tab PO DAILY@1700 Instructions to patient/family Please see electonic discharge instructions given to patient. Clinical Quality Measures AMI/AHF: ASA po Prior to arrival: No DVT/VTE Risk/Contraindication: Risk Factor Score Per Nursin RFS Level Per Nursing on Admit: 1=Low/No VTE PPX MANOLO YOO DO Jul 25, 2016 11:54 Protein 5.3 Discharge Home Medications: Active Scripts Active Reported Lisinopril-Hctz 20-12.5 mg Tab (Lisinopril/Hydrochlorothiazide) 1 Each Tablet 1 Tab PO DAILY@1700 Instructions to patient/family Please see electonic discharge instructions given to patient. Clinical Quality Measures AMI/AHF: ASA po Prior to arrival: No DVT/VTE Risk/Contraindication: Risk Factor Score Per Nursin RFS Level Per Nursing on Admit: 1=Low/No VTE PPX MANOLO YOO DO Jul 25, 2016 11:54
--- NOTE | 2016-07-26 08:16 | STRESS TEST ---
PROCEDURE PHYSICIAN: RAMAN MARINELLI DATE OF PROCEDURE: 07/24/2016 PHARMACOLOGICAL STRESS TEST REPORT: ATTENDING PHYSICIAN: Dr. Lynette oYo. PRIMARY PHYSICIAN: Dr. Chary Noriega PERFORMING PHYSICIAN: Dr. Saul Marinelli. INDICATION: Chest pain. PROCEDURE: The patient was brought to the stress lab after informed consent was taken. Lexiscan stress test was administered according to the protocol. Low grade exercise was performed with Lexiscan administration. 0.4 mg of Lexiscan was given intravenously. Baseline electrocardiogram showed sinus rhythm with a heart rate of 69 bpm. Blood pressure was 122/71 mmHg. Maximum heart rate was 123 bpm and blood pressure was 133/73 mmHg. The patient did not complain of any chest pain during the stress test. The stress test was stopped secondary to completion of protocol. No ST changes were noted. There were no arrhythmias. Radionuclide isotope was given at peak vasodilatation for stress images. 9.28 mCi of Myoview were given for rest and 28 mCi of Myoview for stress imaging. Review of myocardial perfusion imaging shows TID of 0.93. Gated images show an EF of 75% with no wall motion abnormality. No perfusion abnormalities were noted at rest or stress. CONCLUSIONS: 1. Pharmacological stress test was negative for ischemia. 2. Myocardial perfusion imaging shows no infarct or ischemia. Job ID: [id number] Dictated Date: 07/25/2016 10:02:11 Beef Trimmer Date: 07/26/2016 08:12:14 / verónica
== END 2016-07-25 11:12 | disposition home or self-care (01) ==
LOC: EDUNIT# 04:19 → ER 04:21 → CSD 06:45 → UNDOADMOB 06:45 → CSD 08:20 → ICU 07-25 03:29 → UNDODISOB 07-25 11:40
PROVIDERS: ADMIT Internal Medicine; ATTEND Internal Medicine
DX: R07.9 Chest pain, unspecified (principal); I10 Essential (primary) hypertension; D72.829 Elevated white blood cell count, unspecified; D47.3 Essential (hemorrhagic) thrombocythemia
CPT/HCPCS: 36415; 71010; 71275; 78452; 80053; 80061; 82150; 83690; 83735; 83874; 84484; 85025; 85379; 85610; 85730; 93005; 93017; 93041; 96361; 96372; 96374; 96376; G0378

== ENCOUNTER 2018-06-23 13:15 | Emergency (ER) | payer BC, MEDICARE ==
[~2018-06-23] VITALS: Ht 172.7 cm; Wt 78.9 kg
[~2018-06-23 13:15] MED LIST changes: +LISI1TAB8 PO
--- OUTSIDE RECORDS SUMMARY | 2018-06-23 13:22 | XMS REPORT | Continuity of Care Document ---
Author Author [facility] Address Unknown Phone Unavailable Allergies Active Description Code Type Severity Reaction Onset Reported/Identified Relationship to Patient Clinical Status Yes PENICILLIN PENICILLIN MODERATE Yes NO KNOWN DRUG ALLERGIES UNKNOWN NO KNOWN DRUG ALLERG Yes PENICILLIN MODERATE DERMATOLOGICAL - THEODORE Yes No Known Drug Allergies [id number] Drug Allergy Unknown N/A 06/21/2012 Yes Penicillins [id number] Drug Allergy Unknown N/A 06/27/2016 Medications Medication Packaging Start Date Stop Date Route Dosage Sig NITROSTAT 0.4MG TAB SL 201610/24/2016 SL 0.4 MG .STK-MED LACTATED RINGERS 1000CC IV BAG INJ ml 12/15/2017 12/15/2017 ONCE&1408 KETOROLAC VIAL INJ 30 MG/CC (TORADOL VIAL) MG 12/15/2017 12/15/2017 ONCE&1539 METOPROLOL TAB 25 MG (LOPRESSOR) MG 12/16/2017 12/22/2017 Daily&0900 LACTATED RINGERS 1000CC IV BAG INJ ml 01/29/2018 01/29/2018 ONCE&1440 LACTATED RINGERS 500CC IV BAG INJ ml 01/29/2018 01/29/2018 ONCE&1529 KETOROLAC VIAL INJ 30 MG/CC (TORADOL VIAL) MG 01/29/2018 01/29/2018 ONCE&1532 KETOROLAC VIAL INJ 30 MG/CC (TORADOL VIAL) MG 03/29/2018 03/29/2018 ONCE&1058 Problems Date Dx Coded Attending Type Code Diagnosis Diagnosed By 06/21/2012 Ot 487.1 FLU W RESP MANIFEST NEC 06/21/2012 Ot 780.60 FEVER, UNSPECIFIED 11/04/2014 JACK NORMAN MD Ot 786.50 CHEST PAIN NOS 11/04/2014 JACK NORMAN MD Ot 786.52 PAINFUL RESPIRATION 12/05/2014 CARMELO ALICEA APRN Ot 530.81 12/05/2014 NWAGWU, ISIDORE O SHELL ASSEMBLER Ot 786.59 12/13/2014 NWAGWU, ISIDORE O SHELL ASSEMBLER Ot 530.81 12/13/2014 NWAGWU, ISIDORE O SHELL ASSEMBLER Ot 786.59 12/14/2014 NWAGWU, ISIDORE O SHELL ASSEMBLER Ot 530.81 12/14/2014 NWAGWU, ISIDORE O SHELL ASSEMBLER Ot 786.59 03/20/2016 [place] LEZAMA, SHARMILA A Ot I16.0 HYPERTENSIVE URGENCY 03/20/2016 [place] LEZAMA, SHARMILA A Ot R07.9 CHEST PAIN, UNSPECIFIED 03/20/2016 NWAGWU, ISIDORE O SHELL ASSEMBLER Ot 530.81 ESOPHAGEAL REFLUX 03/20/2016 NWAGWU, ISIDORE O SHELL ASSEMBLER Ot 786.59 CHEST PAIN NEC 03/21/2016 [place] LEZAMA, SHARMILA A Ot I16.0 HYPERTENSIVE URGENCY 03/21/2016 [place] LEZAMA, SHARMILA A Ot R07.9 CHEST PAIN, UNSPECIFIED 03/22/2016 NWAGWU, ISIDORE O SHELL ASSEMBLER Ot 530.81 ESOPHAGEAL REFLUX 03/22/2016 NWAGWU, ISIDORE O SHELL ASSEMBLER Ot 786.59 CHEST PAIN NEC 04/19/2016 GISELL HOU Ot J40 BRONCHITIS, NOT SPECIFIED ACUTE OR CH 04/19/2016 GISELL HOU Ot R05 COUGH 04/22/2016 GISELL HOU Ot J40 BRONCHITIS, NOT SPECIFIED ACUTE OR CH 04/22/2016 GISELL HOU Ot R05 COUGH 06/27/2016 NWAGWU, ISIDORE O SHELL ASSEMBLER Ot 530.81 ESOPHAGEAL REFLUX 06/27/2016 NWAGWU, ISIDORE O SHELL ASSEMBLER Ot 786.59 CHEST PAIN NEC 06/27/2016 TESSIE BEARD MD Ot E86.0 DEHYDRATION 06/27/2016 TESSIE BEARD MD Ot M62.82 RHABDOMYOLYSIS 06/27/2016 TESSIE BERAD MD Ot R20.0 ANESTHESIA OF SKIN 07/04/2016 TESSIE BEARD MD Ot E86.0 DEHYDRATION 07/04/2016 TESSIE BEARD MD Ot M62.82 RHABDOMYOLYSIS 07/04/2016 TESSIE BEARD MD Ot R20.0 ANESTHESIA OF SKIN 07/25/2016 EVANSMANOLO SOTELO DO Ot 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 (HEMORRHAGIC) THROMBOCYTHEMIA 07/25/2016 EVANSMANOLO SOTELO DO Ot D72.829 ELEVATED WHITE BLOOD CELL COUNT, UNSPECI 07/25/2016 EVANS DO MANOLO Ot I10 ESSENTIAL (PRIMARY) HYPERTENSION 07/25/2016 EVANSASHLEIGH DO MANOLO Ot R07.9 CHEST PAIN, UNSPECIFIED 07/31/2016 TESSIE BEARD MD Ot E86.0 DEHYDRATION 07/31/2016 TESSIE BEARD MD Ot M62.82 RHABDOMYOLYSIS 07/31/2016 TESSIE BEARD MD Ot R20.0 ANESTHESIA OF SKIN 10/24/2016 FRANKLYN BENTLEY MD Other I10 ESSENTIAL (PRIMARY) HYPERTENSION 10/24/2016 FRANKLYN BENTLEY MD Other K21.9 GASTRO-ESOPHAGEAL REFLUX DISEASE WITHOUT ESOPHAGITIS 10/24/2016 FRANKLYN BENTLEY MD Other R07.9 CHEST PAIN, UNSPECIFIED 10/24/2016 FRANKLYN BENTLEY MD Other S29.011A STRAIN OF MUSCLE AND TENDON OF FRONT WALL OF THORAX, INIT 10/24/2016 FRANKLYN BENTLEY MD Other X50.9XXA OTHER AND UNSPECIFIED OVREXRTN OR STRNOUS MOVE/PSTR, INIT 10/24/2016 FRANKLYN BENTLEY MD Other Y92.[address] OF OCCURRENCE OF THE EXTERNAL CAUSE 10/24/2016 FRANKLYN BENTLEY MD Other Y93.89 ACTIVITY, OTHER SPECIFIED 10/24/2016 FRANKLYN BENTLEY MD Other Y99.0 CIVILIAN ACTIVITY DONE FOR INCOME OR PAY 03/12/2017 Inna Mar 785.1 PALPITATIONS 03/12/2017 Inna Mar R00.2 PALPITATIONS 07/12/2017 Ramakrishna Marcelino 466.0 ACUTE BRONCHITIS 07/12/2017 Ramakrishna Marcelino J20.9 ACUTE BRONCHITIS, UNSPECIFIED 12/15/2017 Aelx Baig 276.51 DEHYDRATION 12/15/2017 Alex Baig 992.5 HEAT EXHAUSTION, UNSPECIFIED 12/15/2017 Alex Baig E86.0 DEHYDRATION 12/15/2017 Alex Baig T67.5XXA HEAT EXHAUSTION, UNSPECIFIED, INITIAL ENCOUNTER 01/29/2018 Alex Baig 276.51 DEHYDRATION 01/29/2018 Alex Baig 786.5 CHEST PAIN 01/29/2018 Alex Baig E86.0 DEHYDRATION 01/29/2018 Alex Baig R07.89 OTHER CHEST PAIN 03/29/2018 AGUSTO OROZCO 786.52 PAINFUL RESPIRATION 03/29/2018 AGUSTO OROZCO R07.81 PLEURODYNIA Procedures There is no data. Results Test Result Range Complete blood count (CBC) with automated white blood cell (WBC) differential - 03/20/16 12:34 Blood leukocytes automated count (number/volume) 8.0 10*3/uL 4.3-11.0 Blood erythrocytes automated count (number/volume) 5.41 10*6/uL 4.35-5.85 Venous blood hemoglobin measurement (mass/volume) 16.0 g/dL 13.3-17.7 Blood hematocrit (volume fraction) 46 % 40-54 Automated erythrocyte mean corpuscular volume 86 [foz_us] 80-99 Automated erythrocyte mean corpuscular hemoglobin (mass per erythrocyte) 30 pg 25-34 Automated erythrocyte mean corpuscular hemoglobin concentration measurement ( mass/volume) 35 g/dL 32-36 Automated erythrocyte distribution width ratio 13.3 % 10.0-14.5 Automated blood platelet count (count/volume) 359 10*3/uL 130-400 Automated blood platelet mean volume measurement 11.1 [foz_us] 7.4-10.4 Automated blood neutrophils/100 leukocytes 73 % 42-75 Automated blood lymphocytes/100 leukocytes 15 % 12-44 Blood monocytes/100 leukocytes 7 % 0-12 Automated blood eosinophils/100 leukocytes 3 % 0-10 Automated blood basophils/100 leukocytes 2 % 0-10 Blood neutrophils automated count (number/volume) 5.8 10*3 1.8-7.8 Blood lymphocytes automated count (number/volume) 1.2 10*3 1.0-4.0 Blood monocytes automated count (number/volume) 0.6 10*3 0.0-1.0 Automated eosinophil count 0.2 10*3/uL 0.0-0.3 Automated blood basophil count (count/volume) 0.2 10*3/uL 0.0-0.1 PT panel in platelet poor plasma by coagulation assay - 03/20/16 12:34 Prothrombin time (PT) in platelet poor plasma by coagulation assay 13.4 s 12.2-14.7 INR in platelet poor plasma or blood by coagulation assay 1.1 0.8-1.4 Activated partial thromboplastin time (aPTT) in platelet poor plasma bycoagulation assay - 03/20/16 12:34 Activated partial thromboplastin time (aPTT) in platelet poor plasma bycoagulation assay 26 s 24-35 Comprehensive metabolic panel - 03/20/16 12:34 Serum or plasma sodium measurement (moles/volume) 139 mmol/L 135-145 Serum or plasma potassium measurement (moles/volume) 4.2 mmol/L 3.6-5.0 Serum or plasma chloride measurement (moles/volume) 106 mmol/L 98-107 Carbon dioxide 28 mmol/L 21-32 Serum or plasma anion gap determination (moles/volume) 5 mmol/L 5-14 Serum or plasma urea nitrogen measurement (mass/volume) 12 mg/dL 7-18 Serum or plasma creatinine measurement (mass/volume) 0.83 mg/dL 0.60-1.30 Serum or plasma urea nitrogen/creatinine mass ratio 14 NRG Serum or plasma creatinine measurement with calculation of estimated glomerular filtration rate > NRG Serum or plasma glucose measurement (mass/volume) 88 mg/dL 70-105 Serum or plasma calcium measurement (mass/volume) 9.1 mg/dL 8.5-10.1 Serum or plasma total bilirubin measurement (mass/volume) 0.7 mg/dL 0.1-1.0 Serum or plasma alkaline phosphatase measurement (enzymatic activity/volume) 37 U/L 40-136 Serum or plasma aspartate aminotransferase measurement (enzymatic activity/ volume) 27 U/L 5-34 Serum or plasma alanine aminotransferase measurement (enzymatic activity/volume ) 21 U/L 0-55 Serum or plasma protein measurement (mass/volume) 7.2 g/dL 6.4-8.2 Serum or plasma albumin measurement (mass/volume) 4.5 g/dL 3.2-4.5 Magnesium - 03/20/16 12:34 Magnesium 2.4 mg/dL 1.8-2.4 Serum or plasma troponin i.cardiac measurement (mass/volume) - 03/20/16 12:34 Serum or plasma troponin i.cardiac measurement (mass/volume) < ng/ mL <0.30 Complete blood count (CBC) with automated white blood cell (WBC) differential - 06/27/16 04:05 Blood leukocytes automated count (number/volume) 15.7 10*3/uL 4.3-11.0 Blood erythrocytes automated count (number/volume) 5.32 10*6/uL 4.35-5.85 Venous blood hemoglobin measurement (mass/volume) 15.8 g/dL 13.3-17.7 Blood hematocrit (volume fraction) 45 % 40-54 Automated erythrocyte mean corpuscular volume 84 [foz_us] 80-99 Automated erythrocyte mean corpuscular hemoglobin (mass per erythrocyte) 30 pg 25-34 Automated erythrocyte mean corpuscular hemoglobin concentration measurement ( mass/volume) 35 g/dL 32-36 Automated erythrocyte distribution width ratio 13.5 % 10.0-14.5 Automated blood platelet count (count/volume) 448 10*3/uL 130-400 Automated blood platelet mean volume measurement 10.6 [foz_us] 7.4-10.4 Automated blood neutrophils/100 leukocytes 86 % 42-75 Automated blood lymphocytes/100 leukocytes 7 % 12-44 Blood monocytes/100 leukocytes 7 % 0-12 Automated blood eosinophils/100 leukocytes 0 % 0-10 Automated blood basophils/100 leukocytes 1 % 0-10 Blood neutrophils automated count (number/volume) 13.5 10*3 1.8-7.8 Blood lymphocytes automated count (number/volume) 1.0 10*3 1.0-4.0 Blood monocytes automated count (number/volume) 1.0 10*3 0.0-1.0 Automated eosinophil count 0.0 10*3/uL 0.0-0.3 Automated blood basophil count (count/volume) 0.2 10*3/uL 0.0-0.1 Comprehensive metabolic panel - 06/27/16 04:05 Serum or plasma sodium measurement (moles/volume) 140 mmol/L 135-145 Serum or plasma potassium measurement (moles/volume) 4.4 mmol/L 3.6-5.0 Serum or plasma chloride measurement (moles/volume) 105 mmol/L 98-107 Carbon dioxide 22 mmol/L 21-32 Serum or plasma anion gap determination (moles/volume) 13 mmol/L 5-14 Serum or plasma urea nitrogen measurement (mass/volume) 30 mg/dL 7-18 Serum or plasma creatinine measurement (mass/volume) 1.17 mg/dL 0.60-1.30 Serum or plasma urea nitrogen/creatinine mass ratio 26 NRG Serum or plasma creatinine measurement with calculation of estimated glomerular filtration rate > NRG Serum or plasma glucose measurement (mass/volume) 98 mg/dL 70-105 Serum or plasma calcium measurement (mass/volume) 9.8 mg/dL 8.5-10.1 Serum or plasma total bilirubin measurement (mass/volume) 0.8 mg/dL 0.1-1.0 Serum or plasma alkaline phosphatase measurement (enzymatic activity/volume) 38 U/L 40-136 Serum or plasma aspartate aminotransferase measurement (enzymatic activity/ volume) 45 U/L 5-34 Serum or plasma alanine aminotransferase measurement (enzymatic activity/volume ) 29 U/L 0-55 Serum or plasma protein measurement (mass/volume) 7.5 g/dL 6.4-8.2 Serum or plasma albumin measurement (mass/volume) 4.8 g/dL 3.2-4.5 Serum or plasma creatine kinase measurement (enzymatic activity/volume) - 06/27 04:05 Serum or plasma creatine kinase measurement (enzymatic activity/volume) 1056 U/L 30-200 Blood manual differential performed detection - 06/27/16 04:05 Blood monocytes/100 leukocytes 5 % NRG Manual blood segmented neutrophils/100 leukocytes 78 % NRG Blood band neutrophils/100 leukocytes 2 % NRG Manual blood lymphocytes/100 leukocytes 8 % NRG Manual eosinophils/100 leukocytes in nose 0 % NRG Manual blood basophils/100 leukocytes 1 % NRG Blood lymphocytes variant/100 leukocytes 6 % NRG Blood erythrocyte morphology finding identification NORMAL NRG Serum or plasma troponin i.cardiac measurement (mass/volume) - 06/27/16 04:05 Serum or plasma troponin i.cardiac measurement (mass/volume) < ng/ mL <0.30 Complete blood count (CBC) with automated white blood cell (WBC) differential - 07/24/16 04:25 Blood leukocytes automated count (number/volume) 13.6 10*3/uL 4.3-11.0 Blood erythrocytes automated count (number/volume) 5.41 10*6/uL 4.35-5.85 Venous blood hemoglobin measurement (mass/volume) 16.2 g/dL 13.3-17.7 Blood hematocrit (volume fraction) 46 % 40-54 Automated erythrocyte mean corpuscular volume 85 [foz_us] 80-99 Automated erythrocyte mean corpuscular hemoglobin (mass per erythrocyte) 30 pg 25-34 Automated erythrocyte mean corpuscular hemoglobin concentration measurement ( mass/volume) 35 g/dL 32-36 Automated erythrocyte distribution width ratio 13.3 % 10.0-14.5 Automated blood platelet count (count/volume) 508 10*3/uL 130-400 Automated blood platelet mean volume measurement 10.8 [foz_us] 7.4-10.4 Automated blood neutrophils/100 leukocytes 79 % 42-75 Automated blood lymphocytes/100 leukocytes 12 % 12-44 Blood monocytes/100 leukocytes 7 % 0-12 Automated blood eosinophils/100 leukocytes 1 % 0-10 Automated blood basophils/100 leukocytes 2 % 0-10 Blood neutrophils automated count (number/volume) 10.7 10*3 1.8-7.8 Blood lymphocytes automated count (number/volume) 1.6 10*3 1.0-4.0 Blood monocytes automated count (number/volume) 1.0 10*3 0.0-1.0 Automated eosinophil count 0.1 10*3/uL 0.0-0.3 Automated blood basophil count (count/volume) 0.2 10*3/uL 0.0-0.1 PT panel in platelet poor plasma by coagulation assay - 07/24/16 04:25 Prothrombin time (PT) in platelet poor plasma by coagulation assay 13.1 s 12.2-14.7 INR in platelet poor plasma or blood by coagulation assay 1.0 0.8-1.4 Activated partial thromboplastin time (aPTT) in platelet poor plasma bycoagulation assay - 07/24/16 04:25 Activated partial thromboplastin time (aPTT) in platelet poor plasma bycoagulation assay 25 s 24-35 Comprehensive metabolic panel - 07/24/16 04:25 Serum or plasma sodium measurement (moles/volume) 139 mmol/L 135-145 Serum or plasma potassium measurement (moles/volume) 4.1 mmol/L 3.6-5.0 Serum or plasma chloride measurement (moles/volume) 104 mmol/L 98-107 Carbon dioxide 19 mmol/L 21-32 Serum or plasma anion gap determination (moles/volume) 16 mmol/L 5-14 Serum or plasma urea nitrogen measurement (mass/volume) 26 mg/dL 7-18 Serum or plasma creatinine measurement (mass/volume) 1.32 mg/dL 0.60-1.30 Serum or plasma urea nitrogen/creatinine mass ratio 20 NRG Serum or plasma creatinine measurement with calculation of estimated glomerular filtration rate 58 NRG Serum or plasma glucose measurement (mass/volume) 87 mg/dL 70-105 Serum or plasma calcium measurement (mass/volume) 10.2 mg/dL 8.5-10.1 Serum or plasma total bilirubin measurement (mass/volume) 0.6 mg/dL 0.1-1.0 Serum or plasma alkaline phosphatase measurement (enzymatic activity/volume) 42 U/L 40-136 Serum or plasma aspartate aminotransferase measurement (enzymatic activity/ volume) 25 U/L 5-34 Serum or plasma alanine aminotransferase measurement (enzymatic activity/volume ) 23 U/L 0-55 Serum or plasma protein measurement (mass/volume) 8.3 g/dL 6.4-8.2 Serum or plasma albumin measurement (mass/volume) 5.3 g/dL 3.2-4.5 Magnesium - 07/24/16 04:25 Magnesium 3.0 mg/dL 1.8-2.4 Serum or plasma troponin i.cardiac measurement (mass/volume) - 07/24/16 04:25 Serum or plasma troponin i.cardiac measurement (mass/volume) < ng/ mL <0.30 Myoglobin, serum - 07/24/16 04:25 Myoglobin, serum 137.4 ng/mL 10.0-92.0 Fibrin D-dimer FEU measurement in platelet poor plasma (mass/volume) - 04:25 Fibrin D-dimer FEU measurement in platelet poor plasma (mass/volume) 0.57 ug/mL 0.00-0.49 Serum or plasma amylase measurement (enzymatic activity/volume) - 07/24/16 04: 25 Serum or plasma amylase measurement (enzymatic activity/volume) 43 U /L 25-125 Lipase - 07/24/16 04:25 Lipase 13 U/L 8-78 Lipid 1996 panel - 07/24/16 10:38 Serum or plasma triglyceride measurement (mass/volume) 53 mg/dL <150 Serum or plasma cholesterol measurement (mass/volume) 129 mg/dL < 200 Serum or plasma cholesterol in HDL measurement (mass/volume) 27 mg/ dL 40-60 Cholesterol in LDL [mass/volume] in serum or plasma by direct assay 95 mg/dL 1-129 Serum or plasma cholesterol in VLDL measurement (mass/volume) 11 mg/ dL 5-40 Serum or plasma troponin i.cardiac measurement (mass/volume) - 07/24/16 10:38 Serum or plasma troponin i.cardiac measurement (mass/volume) < ng/ mL <0.30 Serum or plasma troponin i.cardiac measurement (mass/volume) - 07/24/16 16:45 Serum or plasma troponin i.cardiac measurement (mass/volume) < ng/ mL <0.30 Complete blood count (CBC) with automated white blood cell (WBC) differential - 07/25/16 04:23 Blood leukocytes automated count (number/volume) 5.9 10*3/uL 4.3-11.0 Blood erythrocytes automated count (number/volume) 4.57 10*6/uL 4.35-5.85 Venous blood hemoglobin measurement (mass/volume) 13.6 g/dL 13.3-17.7 Blood hematocrit (volume fraction) 40 % 40-54 Automated erythrocyte mean corpuscular volume 87 [foz_us] 80-99 Automated erythrocyte mean corpuscular hemoglobin (mass per erythrocyte) 30 pg 25-34 Automated erythrocyte mean corpuscular hemoglobin concentration measurement ( mass/volume) 34 g/dL 32-36 Automated erythrocyte distribution width ratio 13.3 % 10.0-14.5 Automated blood platelet count (count/volume) 345 10*3/uL 130-400 Automated blood platelet mean volume measurement 11.0 [foz_us] 7.4-10.4 Automated blood neutrophils/100 leukocytes 60 % 42-75 Automated blood lymphocytes/100 leukocytes 25 % 12-44 Blood monocytes/100 leukocytes 8 % 0-12 Automated blood eosinophils/100 leukocytes 4 % 0-10 Automated blood basophils/100 leukocytes 3 % 0-10 Blood neutrophils automated count (number/volume) 3.5 10*3 1.8-7.8 Blood lymphocytes automated count (number/volume) 1.5 10*3 1.0-4.0 Blood monocytes automated count (number/volume) 0.5 10*3 0.0-1.0 Automated eosinophil count 0.2 10*3/uL 0.0-0.3 Automated blood basophil count (count/volume) 0.2 10*3/uL 0.0-0.1 Comprehensive metabolic panel - 07/25/16 04:33 Serum or plasma sodium measurement (moles/volume) 138 mmol/L 135-145 Serum or plasma potassium measurement (moles/volume) 4.4 mmol/L 3.6-5.0 Serum or plasma chloride measurement (moles/volume) 108 mmol/L 98-107 Carbon dioxide 23 mmol/L 21-32 Serum or plasma anion gap determination (moles/volume) 7 mmol/L 5-14 Serum or plasma urea nitrogen measurement (mass/volume) 11 mg/dL 7-18 Serum or plasma creatinine measurement (mass/volume) 0.76 mg/dL 0.60-1.30 Serum or plasma urea nitrogen/creatinine mass ratio 14 NRG Serum or plasma creatinine measurement with calculation of estimated glomerular filtration rate > NRG Serum or plasma glucose measurement (mass/volume) 99 mg/dL 70-105 Serum or plasma calcium measurement (mass/volume) 8.2 mg/dL 8.5-10.1 Serum or plasma total bilirubin measurement (mass/volume) 0.6 mg/dL 0.1-1.0 Serum or plasma alkaline phosphatase measurement (enzymatic activity/volume) 25 U/L 40-136 Serum or plasma aspartate aminotransferase measurement (enzymatic activity/ volume) 16 U/L 5-34 Serum or plasma alanine aminotransferase measurement (enzymatic activity/volume ) 16 U/L 0-55 Serum or plasma protein measurement (mass/volume) 5.3 g/dL 6.4-8.2 Serum or plasma albumin measurement (mass/volume) 3.4 g/dL 3.2-4.5 Creatine Kinase - 07/26/16 15:32 CK 84 U/L 26-174 CBC - 10/24/16 09:11 DIFFTYPE AUTOMATED NRG WBC # Bld Auto 11.6 4.5-10.5 RBC # Bld Auto 5.03 ng/mL{rbc} 4.60-6.20 Hgb Bld-mCnc 14.8 g/dL 13.0-19.0 Hct VFr Bld Auto 43.3 %{vol} 39.0-55.0 MCV RBC Auto 86.1 fL 80.0-97.0 MCH RBC Qn Auto 29.4 pg 27.0-31.0 MCHC RBC Auto-mCnc 34.2 g/dL 31.0-36.0 RDW RBC Auto-Rto 13.8 %{vol} 11.5-14.5 Platelet # Bld Auto 451 150-450 MPV Bld Auto 10.5 fL 8.0-11.0 Neutrophils NFr Bld Auto 79.9 %{vol} 55.0-75.0 Lymphocytes NFr Bld Auto 10.0 %{vol} 20.0-40.0 Monocytes NFr Bld Auto 8.2 %{vol} 0.0-9.0 Eosinophil NFr Bld Auto 1.0 %{vol} 0.0-4.0 Basophils NFr Bld Auto 0.9 %{vol} 0.0-1.0 Neutrophils # Bld Auto 9.2 2.5-7.8 Lymphocytes # Bld Auto 1.2 0.9-4.7 Monocytes # Bld Auto 1.0 0.0-0.7 Eosinophil # Bld Auto 0.1 0.0-0.3 Basophils # Bld Auto 0.1 0.0-0.1 D-DIMER - 10/24/16 09:11 D-Dimer 0.20 mg/L 0.19-0.50 COMPREHENSIVE METABOLIC PANEL - 10/24/16 09:11 SERUM OSMOLALITY 273 mosm/L 266-301 Sodium SerPl-sCnc 136 mmol/L 136-145 Potassium SerPl-sCnc 3.6 mmol/L 3.5-5.1 Chloride SerPl-sCnc 102 mmol/L 98-107 CO2 SerPl-sCnc 24.0 mmol/L 22.0-29.0 BUN SerPl-mCnc 19.0 mg/dL 8.9-20.6 Creat SerPl-mCnc 0.82 mg/dL 0.72-1.25 Glucose SerPl-mCnc 83 mg/dL 70-110 Calcium SerPl-mCnc 8.9 mg/dL 9.0-10.6 Prot SerPl-mCnc 7.0 g/dL 6.0-8.3 Albumin SerPl-mCnc 4.1 g/dL 3.5-5.0 AST SerPl-cCnc 19 U/L 5-34 ALT SerPl-cCnc 18 U/L 0-55 ALP SerPl-cCnc 29 U/L 40-150 Bilirub SerPl-mCnc 0.8 mg/dL 0.2-1.2 Anion Gap SerPl-sCnc 13.6 10-20 BUN/Creat SerPl-mRto 23.20 9.00-30.00 GFR/BSA.pred SerPl MDRD-ArVRat >=60 NRG CK SerPl-cCnc - 10/24/16 09:11 CK SerPl-cCnc 181 U/L 30-199 Magnesium SerPl-mCnc - 10/24/16 09:11 Magnesium SerPl-mCnc 2.5 mg/dL 1.6-2.6 BNP SerPl-mCnc - 10/24/16 09:11 BNP SerPl-mCnc 17 pg/mL 0-100 Troponin I Bld-mCnc - 10/24/16 09:11 Troponin I Bld-mCnc <0.03 ng/mL 0-0.60 Drug Screen + ETOH - 03/10/17 10:44 Manager Management Aye Awan Donor ID By Photo ID Ethanol, Urine <10.00 mg/dL 20.00-80.00 Location [employer] Reason For Test Pre-Employment Temperature In Range YES Deg F 90.00-100.00 Urine Amphetamines NEGATIVE Urine Barbiturates NEGATIVE Urine Benzodiazepines NEGATIVE Urine Cocaine NEGATIVE Urine MDMA NEGATIVE Urine Methadone NEGATIVE Urine Methamphetamines NEGATIVE Urine Opiates NEGATIVE Urine Oxycodone NEGATIVE Urine PCP NEGATIVE Urine THC Metabolite NEGATIVE Urinalysis - 03/12/17 15:50 Icotest N/A Negative Urine Volume Urine Volume Sufficient (10mL) Urine Yeast No Yeast present Urine-Appearance Clear Clear Urine-Bacteria Negative Urine-Bilirubin Negative Negative Urine-Blood Negative Negative Urine-Color Yellow Colorless-Lt. Yellow Urine-Epithelial Cells 0-5/HPF Urine-Glucose Negative Negative Urine-Ketones Negative Negative Urine-Leukocytes Negative Negative Urine-Mucus 1+ Urine-Nitrite Negative Negative Urine-Other Urine Saved if Culture Needed (48hrs from time of collection) Urine-pH 6.0 5-8.5 Urine-Protein Negative Negative Urine-RBC Negative Urine-Specific [place] 1.025 1.000-1.030 Urine-WBC Negative Urobilinogen 1.0 0.2-1.0 Troponin I - 12/15/17 14:08 Troponin <0.020 ng/mL 0.0-0.4 EKG - 01/29/18 13:33 EKG Complete Troponin I - 01/29/18 15:40 Troponin <0.020 ng/mL 0.0-0.4 BMP - 01/30/18 08:35 Anion Gap 13 6-14 BUN 18 mg/dL 5-25 Calcium 9.4 mg/dL 8.3-10.4 Chloride 101 mmol/L 95-114 CO2 28 mEq/L 22-33 Creat 0.87 mg/dL 0.50-1.50 eGFR 94 mL/min/1.73m2 >59 Glucose 93 mg/dL 70-110 Osmo 285 280-295 Potassium 5.0 mmol/L 3.5-5.3 Sodium 137 mmol/L 134-148 Encounters ACCT No. Visit Date/Time Discharge Status Pt. Type Provider Facility Loc./Unit Complaint [id number] 04/02/2012 09:45:25 04/02/2012 23:59:59 CLS Outpatient PHONG DOBAUTISTA Deanna [id number] 03/29/2018 10:34:00 03/29/2018 12:32:00 DIS Outpatient ERNESTO [facility] ER [id number] 02/26/2018 12:20:00 02/26/2018 23:59:00 DIS Outpatient SELF, PHY [id number] 01/30/2018 08:31:00 01/30/2018 23:59:00 DIS Outpatient Chary Noriega [id number] 01/29/2018 13:07:00 01/29/2018 16:42:00 [id number] 12/15/2017 13:42:00 12/15/2017 16[facility]17[id number] 07/12/2017 10:52:00 07/12/2017 11:24:00 DIS Outpatient Ryland [facility] ER [id number] 03/12/2017 14:52:00 03/12/2017 17:25:00 DIS Outpatient Inna Mar [facility] ER [id number] 03/10/2017 10:32:00 03/10/2017 23:59:00 DIS Outpatient UNLISTED, DEEJAYISTED [id number] 07/26/2016 15:21:00 07/26/2016 23:59:00 DIS Outpatient Chary Noriega [id number] 12/15/2017 14:09:49 Document Registration [id number] 07/24/2016 06:45:00 07/25/2016 11:40:00 DIS Inpatient MANOLO EVANS DO [facility] ICU CHEST PAIN [id number] 06/27/2016 03:49:00 06/27/2016 06:04:00 DIS Emergency KISHA LEZAMA, TESSIE Rangel [facility] ER BOTH ARMS NUMB [id number] 04/19/2016 22:20:00 04/19/2016 23:27:00 DIS Emergency GISELL HOU [facility] ER PRODUCTIVE COUGH [id number] 03/20/2016 12:29:00 03/20/2016 14:33:00 DIS Emergency SHARMILA BE MD [facility] ER ELEV BP CHEST PAIN [id number] 11/11/2014 08:00:00 11/11/2014 23:59:59 CLS Outpatient CARMELO ALICEA APRN [facility] CARD CP, ESOPHOGEAL REFLUX [id number] 11/03/2014 23:28:00 11/04/2014 01:38:00 DIS Emergency ESTER LEZAMA, JACK Coleman [facility] ER CHEST PAIN [id number] 06/21/2012 14:08:00 Document Registration [id number] 10/24/2016 09:00:00 10/24/2016 10:10:00 DIS Emergency MC LEZAMA, FRANKLYN [facility] ED
[2018-06-23] MEDS ORDERED: ASPIRIN 81 MG CHEW (CHILDREN'S ASA) PO ONE (13:30)
[2018-06-23 13:37] LABS: BASOPHILS # (AUTO) 0.2 10^3/uL (0.0-0.1); BASOPHILS % (AUTO) 2 % (0-10); EOSINOPHILS # (AUTO) 0.3 10^3/uL (0.0-0.3); EOSINOPHILS % (AUTO) 4 % (0-10); HEMATOCRIT 48 % (40-54); HEMOGLOBIN 16.6 G/DL (13.3-17.7); LYMPHOCYTES # (AUTO) 1.3 X 10^3 (1.0-4.0); LYMPHOCYTES % (AUTO) 17 % (12-44); MEAN CORPUSCULAR HEMOGLOBIN 30 PG (25-34); MEAN CORPUSCULAR HGB CONC 35 G/DL (32-36); MEAN CORPUSCULAR VOLUME 85 FL (80-99); MONOCYTES # (AUTO) 0.7 X 10^3 (0.0-1.0); MONOCYTES % (AUTO) 9 % (0-12); NEUTROPHILS # (AUTO) 5.3 X 10^3 (1.8-7.8); NEUTROPHILS % (AUTO) 68 % (42-75); PLATELET COUNT 431 10^3/uL (130-400); RED BLOOD COUNT 5.61 10^6/uL (4.35-5.85); RED CELL DISTRIBUTION WIDTH 13.6 % (10.0-14.5); WHITE BLOOD COUNT 7.9 10^3/uL (4.3-11.0)
[2018-06-23 13:43] LABS: PROTHROMBIN TIME PATIENT 13.5 SEC (12.2-14.7)
[2018-06-23 13:50] LABS: ALANINE AMINOTRANSFERASE 15 U/L (0-55); ALBUMIN 4.4 GM/DL (3.2-4.5); ALKALINE PHOSPHATASE 33 U/L (40-136); BILIRUBIN,TOTAL 0.7 MG/DL (0.1-1.0); BUN/CREATININE RATIO 18; CALCIUM 9.7 MG/DL (8.5-10.1); CARBON DIOXIDE 31 MMOL/L (21-32); CHLORIDE 107 MMOL/L (98-107); CREATININE SERUM 0.94 MG/DL (0.60-1.30); GFR ESTIMATED > 60; GLUCOSE 74 MG/DL (70-105); LIPASE 12 U/L (8-78); MAGNESIUM 2.5 MG/DL (1.8-2.4); POTASSIUM 4.8 MMOL/L (3.6-5.0); SODIUM 144 MMOL/L (135-145); TOTAL PROTEIN 7.2 GM/DL (6.4-8.2)
--- NOTE | 2018-06-23 13:54 | Diagnostic Imaging Report ---
INDICATION: Chest pain and left arm numbness. TIME OF EXAMINATION: 01:38 p.m. COMPARISON: Correlation is made with prior study from 07/24/2016. FINDINGS: The heart size is normal. The pulmonary vascularity is unremarkable. The lungs are clear. No infiltrate, effusion or pneumothorax is detected. IMPRESSION: No acute cardiopulmonary process is detected. Dictated by: Dictated on workstation # [id number]
[2018-06-23 13:56] LABS: MYOGLOBIN SERUM 47.5 NG/ML (10.0-92.0)
[2018-06-23] MEDS ORDERED: ANTACID SUSP 30 ML UDC (MYLANTA) PO ONE (14:30)
[2018-06-23] MEDS ORDERED: LIDOCAINE 2% VISCOUS 15 ML UDC PO ONE (14:30)
--- NOTE | 2018-06-23 15:06 | ED Chest Pain ---
General Chief Complaint: Chest Pain Stated Complaint: CHEST/LEFT ARM PAIN IRR HEART RATE Nursing Triage Note: pt presents to ed with complaints of cp since yesterday. pt reports l sided cp with l arm numbness. Pt was seen in [place] ER last night and released home. Nursing Sepsis Screen: No Definite Risk History of Present Illness Date Seen by Provider: Jun 23, 2018 Time Seen by Provider: 13:25 Initial Comments 47-year-old male presents for chest and left arm pain. He reports feeling palpations. He was seen at [place] ED for similar symptoms and released to home, last evening. He does report having an EKG and lab work. He denies a history of cardiac disease and no family known history of cardiac disease. He does have a history of heartburn and has taken PPIs over the years, he reports the symptoms to be different at this time. He denies any nausea vomiting or diaphoresis. He has not taken aspirin today. He does have increased stress in life related to financial issues. Timing/Duration: 1-2 days Severity/Quality: dull Location: substernal Radiation: arms (left arm) Prior CP/Workup: other (ED visit in [place] yesterday. ) ASA po BROOMCORN SCRAPER: No NTG SL BROOMCORN SCRAPER: No Associated Symptoms: denies symptoms Allergies and Home Medications Allergies Coded Allergies: Penicillins (Unverified Adverse Reaction, Unknown, 06/23/18) Home Medications Lisinopril/Hydrochlorothiazide 1 Each Tablet, 1 TAB PO DAILY@1700, (Reported) Patient Home Medication List Home Medication List Reviewed: Yes Review of Systems Review of Systems Constitutional: no symptoms reported, see HPI Cardiovascular: See HPI, Chest Pain All Other Systems Reviewed Negative Unless Noted: Yes Past Lhdtfyu-Wycgee-Etdcly Hx Past Med/Social Hx: Reviewed Nursing Past Med/Soc Hx Patient Social History Alcohol Use: Denies Use Recreational Drug Use: No Type Used: Smokeless Tobacco Former Smoker, Quit: Jun 02, 2011 Recent Foreign Travel: No Contact w/Someone Who Travel: No Recent Infectious Disease Expo: No Recent Hopitalizations: No Physical Abuse: No Sexual Abuse: No Immunizations Up To Date Date of Influenza Vaccine: Apr 01, 2018 Seasonal Allergies Seasonal Allergies: Yes Past Medical History Surgeries: Yes (Esophagus surgery for hernia) Abdominal Respiratory: No Cardiac: Yes Hypertension Neurological: No Reproductive Disorders: No Genitourinary: No Kidney Stones Gastrointestinal: Yes Gastroesophageal Reflux, Hiatal Hernia Musculoskeletal: No Endocrine: No HEENT: No Cancer: No Psychosocial: No Integumentary: No Blood Disorders: No Family Medical History No Pertinent Family Hx Physical Exam Vital Signs Vital Signs - First Documented 06/23/18 13:22 Temp 98.4 Pulse 77 Resp 18 B/P (MAP) 127/79 (95) Pulse Ox 97 O2 Delivery Room Air Capillary Refill : Less Than 3 Seconds Height, Weight, BMI Height: 5'8.00" Weight: 174lbs. 5.0oz. [id number]; 28.3 BMI Method:Stated General Appearance: No Apparent Distress, WD/WN HEENT: PERRL/EOMI, TMs Normal, Normal ENT Inspection, Pharynx Normal Neck: Full Range of Motion, Normal Inspection, Non Tender Respiratory: Lungs Clear, Normal Breath Sounds Cardiovascular: Regular Rate, Rhythm, No Edema, No Murmur, Normal Peripheral Pulses, Other (Tender to palpation along left mid-sternal border, patient reports this is the pain he is feeling. ) Gastrointestinal: Normal Bowel Sounds, Non Tender, Soft Extremity: Normal Capillary Refill, Normal Inspection, Normal Range of Motion, Non Tender Neurologic/Psychiatric: Alert, Oriented x3, No Motor/Sensory Deficits, Normal Mood/Affect Skin: Normal Color, Warm/Dry Progress/Results/Core Measures Results/Orders Lab Results Laboratory Tests Test 06/23/18 13:20 Range/Units White Blood Count 7.9 4.3-11.0 10^3/uL Red Blood Count 5.61 4.35-5.85 10^6/uL Hemoglobin 16.6 13.3-17.7 G/DL Hematocrit 48 40-54 % Mean Corpuscular Volume 85 80-99 FL Mean Corpuscular Hemoglobin 30 25-34 PG Mean Corpuscular Hemoglobin Concent 35 32-36 G/DL Red Cell Distribution Width 13.6 10.0-14.5 % Platelet Count 431 H 130-400 10^3/uL Mean Platelet Volume 11.0 H 7.4-10.4 FL Neutrophils (%) (Auto) 68 42-75 % Lymphocytes (%) (Auto) 17 12-44 % Monocytes (%) (Auto) 9 0-12 % Eosinophils (%) (Auto) 4 0-10 % Basophils (%) (Auto) 2 0-10 % Neutrophils # (Auto) 5.3 1.8-7.8 X 10^3 Lymphocytes # (Auto) 1.3 1.0-4.0 X 10^3 Monocytes # (Auto) 0.7 0.0-1.0 X 10^3 Eosinophils # (Auto) 0.3 0.0-0.3 10^3/uL Basophils # (Auto) 0.2 H 0.0-0.1 10^3/uL Prothrombin Time 13.5 12.2-14.7 SEC INR Comment 1.0 0.8-1.4 Activated Partial Thromboplast Time 28 24-35 SEC D-Dimer 0.28 0.00-0.49 UG/ML Sodium Level 144 135-145 MMOL/L Potassium Level 4.8 3.6-5.0 MMOL/L Chloride Level 107 98-107 MMOL/L Carbon Dioxide Level 31 21-32 MMOL/L Anion Gap 6 5-14 MMOL/L Blood Urea Nitrogen 17 7-18 MG/DL Creatinine 0.94 0.60-1.30 MG/DL Estimat Glomerular Filtration Rate > 60 BUN/Creatinine Ratio 18 Glucose Level 74 70-105 MG/DL Calcium Level 9.7 8.5-10.1 MG/DL Corrected Calcium 9.4 8.5-10.1 MG/DL Magnesium Level 2.5 H 1.8-2.4 MG/DL Total Bilirubin 0.7 0.1-1.0 MG/DL Aspartate Amino Transf (AST/SGOT) 21 5-34 U/L Alanine Aminotransferase (ALT/SGPT) 15 0-55 U/L Alkaline Phosphatase 33 L 40-136 U/L Myoglobin 47.5 10.0-92.0 NG/ML Troponin I < 0.028 <0.028 NG/ML Total Protein 7.2 6.4-8.2 GM/DL Albumin 4.4 3.2-4.5 GM/DL Lipase 12 8-78 U/L My Orders Orders - RANDOLPH KENNEDY Lidocaine 2% Viscous 15 Ml (Xylocaine Vi (06/23/18 14:30) Antacid Suspension (Mylanta Suspension (06/23/18 14:30) Ketorolac Injection (Toradol Injection) (06/23/18 15:25) Medications Given in ED Current Medications Medications Dose Ordered Sig/Yobany Route Start Time Stop Time Status Last Admin Dose Admin Al Hydrox/Mg Hydrox/Simethicone 30 ml ONCE ONCE PO 06/23/18 14:30 06/23/18 14:31 DC 06/23/18 14:31 30 ML Aspirin 324 mg ONCE ONCE PO 06/23/18 13:30 06/23/18 13:31 DC 06/23/18 13:37 324 MG Lidocaine HCl 15 ml ONCE ONCE PO 06/23/18 14:30 06/23/18 14:31 DC 06/23/18 14:32 15 ML Vital Signs/I&O 06/23/18 06/23/18 06/23/18 13:22 13:22 16:30 Temp 98.4 98.4 Pulse 77 64 Resp 18 20 B/P (MAP) 127/79 (95) 108/71 (83) Pulse Ox 97 98 O2 Delivery Room Air Room Air Blood Pressure Mean: 95 Progress Progress Note : Time: 13:25 Progress Note Patient seen and evaluated, will obtain labs, chest x-ray and EKG. aspirin 324 mg orally. 1415 all of his workup is normal to this point, we'll try a GI cocktail and reevaluate. 1445 agent had minimal improvement after the GI cocktail. Since the pain is palpable and probably from costochondritis will try Toradol 30 mg IV. 1515 patient reports symptoms are improving slightly. 1530 discharge instructions and return precautions reviewed with the patient. All questions answered. Initial ECG Impression Date: Jun 23, 2018 Initial ECG Impression Time: 13:20 Initial ECG Rate: 73 Initial ECG Rhythm: Normal Sinus Initial ECG Intervals: Normal Initial ECG Intervals [place] 132, QRSD 84, QT 356, QTC 393. [place] P 23, QRS 6, T 38. Initial ECG Impression: Normal Initial ECG Comparisson: No Previous ECG Available Comment Reviewed with Dr. Beard, agreed with interpretation. Diagnostic Imaging Diagonstic Imaging: Xray Plain Films/CT/US/NM/MRI: chest Comments NAME: ARIES LAZARO MED REC#: [id number] PT STATUS: REG ER : 1970 PHYSICIAN: TESSIE BEARD MD ADMIT DATE: 06/23/18/ER Draft Date of Exam:06/23/18 CHEST 1 VIEW, AP/PA ONLY INDICATION: Chest pain and left arm numbness. TIME OF EXAMINATION: 01:38 p.m. COMPARISON: Correlation is made with prior study from 07/24/2016. FINDINGS: The heart size is normal. The pulmonary vascularity is unremarkable. The lungs are clear. No infiltrate, effusion or pneumothorax is detected. IMPRESSION: No acute cardiopulmonary process is detected. Dictated on workstation # [id number] Dict: 06/23/18 1349 Trans: 06/23/18 1354 [facility] [id number] Interpreted by: MARTIN Reviewed: Reviewed by Me Departure Impression Primary Impression: Costochondral chest pain Disposition: HOME, SELF-CARE Condition: Improved Departure-Patient Inst. Decision time for Depature: 15:30 Referrals: SONA MCKINNEY MD (PCP/Family) Primary Care Physician Patient Instructions: Chest Pain That Is Not Caused by the Heart (DC), Costochondritis (DC) Add. Discharge Instructions: Continue to take aspirin 81 mg once daily. Take ibuprofen 600 mg every 8 hours. For additional pain he may take Tylenol 650 mg every 6 hours. Follow-up with Dr. Mckinney. Return to emergency department if symptoms worsen, new complaints or concerns. All discharge instructions reviewed with patient and/or family. Voiced understanding. Work/School Note: Work Release Form Date Seen in the Emergency Department: Jun 23, 2018 Return to Work: Jun 25, 2018 Restrictions: No Restrictions RANDOLPH KENNEDY Jun 23, 2018 15:06
[2018-06-23] MEDS ORDERED: KETOROLAC 30 MG/ML VIAL IVP STA (15:25)
[2018-06-23 16:30] VITALS: BP 108/71
== END 2018-06-23 16:38 | disposition home or self-care (01) ==
LOC: EDUNIT# 13:15 → ER 13:17
DX: R07.1 Chest pain on breathing (principal); I10 Essential (primary) hypertension; K21.9 Gastro-esophageal reflux disease without esophagitis; Z87.442 Personal history of urinary calculi; Z87.19 Personal history of other diseases of the digestive system; Z88.0 Allergy status to penicillin; Z87.891 Personal history of nicotine dependence; Z98.890 Other specified postprocedural states
CPT/HCPCS: 36415; 71045; 80053; 83690; 83735; 83874; 84484; 85025; 85379; 85610; 85730; 93005; 93041

== ENCOUNTER 2018-11-05 07:00 | Emergency (ER) | payer MEDICARE, BC ==
[~2018-11-05] VITALS: Ht 172.7 cm; Wt 77.1 kg
[2018-11-05] MEDS: NITROGLYCERIN 0.4 MG SL TABS BTL 25'S SL PRN ×2 (07:11→07:18)
[2018-11-05] MEDS ORDERED: ASPIRIN 81 MG CHEW (CHILDREN'S ASA) PO ONE (07:15)
--- NOTE | 2018-11-05 07:18 | NUR ---
Pt now reports CP 12/09. Second nitro given.
--- NOTE | 2018-11-05 07:20 | ED Chest Pain ---
General Chief Complaint: Chest Pain Stated Complaint: CHEST PAIN;LEFT ARM NUMBNESS Source: patient Exam Limitations: no limitations History of Present Illness Date Seen by Provider: Nov 05, 2018 Time Seen by Provider: 07:00 Initial Comments The patient presents to ER by private conveyance with chief complaint of chest pain that started when he woke up in his left chest 1-1/2 hours prior to arrival radiated to his left shoulder and also had some numbness and tingling down his left arm. Had some nausea but none right now. No sweats chills shortness of breath cough fever. No history of lung disease. Does not smoke but used to. No history of heart disease. Family history significant for stroke and his brother when he was in his 50s. No hypercholesterolemia, hypothyroidism but he does have a history of high blood pressure and takes lisinopril. He also uses omeprazole. He said he used to have a problem with indigestion but had a scope and some medicines and now he just takes the omeprazole routinely. Movement of his left arm and shoulder or direct palpation make the chest pain worse. He does not remember any particular injury or trauma. He rates the pain as a 9 out of 10. Allergies and Home Medications Allergies Coded Allergies: Penicillins (Unverified Adverse Reaction, Unknown, 06/23/18) Home Medications Lisinopril/Hydrochlorothiazide 1 Each Tablet, 1 TAB PO DAILY@1700, (Reported) Patient Home Medication List Home Medication List Reviewed: Yes Review of Systems Review of Systems Constitutional: No chills, No diaphoresis EENTM: No Blurred Vision, No Double Vision Respiratory: Denies Cough, Denies Shortness of Air Cardiovascular: See HPI, Chest Pain; Denies Edema, Denies Irregular Heart Rate, Denies Lightheadedness Gastrointestinal: Denies Abdominal Pain, Denies Constipated, Denies Diarrhea, Denies Nausea Genitourinary: Denies Burning, Denies Discharge Musculoskeletal: No back pain, No joint pain Past [place]-Vgdohx-Onglas Hx Patient Social History Alcohol Use: Denies Use Recreational Drug Use: No Smoking Status: Former Smoker Type Used: Smokeless Tobacco Former Smoker, Quit: Jun 02, 2011 Recent Foreign Travel: No Contact w/Someone Who Travel: No Recent Hopitalizations: No Immunizations Up To Date Date of Influenza Vaccine: Apr 01, 2018 Seasonal Allergies Seasonal Allergies: Yes Past Medical History Surgeries: Yes (Esophagus surgery for hernia) Abdominal Respiratory: No Cardiac: Yes Hypertension Neurological: No Reproductive Disorders: No Genitourinary: No Kidney Stones Gastrointestinal: Yes Gastroesophageal Reflux, Hiatal Hernia Musculoskeletal: No Endocrine: No HEENT: No Cancer: No Psychosocial: No Integumentary: No Blood Disorders: No Family Medical History No Pertinent Family Hx Physical Exam Vital Signs Vital Signs - First Documented Capillary Refill : Height, Weight, BMI Height: 5'8.00" Weight: 174lbs. 5.0oz. 78.367601ux; 28.3 BMI Method:Stated General Appearance: WD/WN, Anxious HEENT: PERRL/EOMI, Normal ENT Inspection, Pharynx Normal, Moist Mucous Membranes Neck: Full Range of Motion, Normal Inspection Respiratory: No Chest Non Tender; Lungs Clear, Normal Breath Sounds, No Accessory Muscle Use, No Respiratory Distress Cardiovascular: Regular Rate, Rhythm, No Edema, No JVD, No Murmur, Normal Peripheral Pulses Gastrointestinal: Normal Bowel Sounds, Non Tender, Soft Extremity: Normal Capillary Refill, Normal Inspection, No Calf Tenderness, No Pedal Edema Neurologic/Psychiatric: Alert, Oriented x3, No Motor/Sensory Deficits Skin: Normal Color, Warm/Dry Progress/Results/Core Measures Results/Orders Lab Results Laboratory Tests Test 11/05/18 07:04 11/05/18 09:00 Range/Units White Blood Count 7.7 4.3-11.0 10^3/uL Red Blood Count 5.31 4.35-5.85 10^6/uL Hemoglobin 15.6 13.3-17.7 G/DL Hematocrit 45 40-54 % Mean Corpuscular Volume 85 80-99 FL Mean Corpuscular Hemoglobin 29 25-34 PG Mean Corpuscular Hemoglobin Concent 35 32-36 G/DL Red Cell Distribution Width 13.8 10.0-14.5 % Platelet Count 433 H 130-400 10^3/uL Mean Platelet Volume 11.0 H 7.4-10.4 FL Neutrophils (%) (Auto) 66 42-75 % Lymphocytes (%) (Auto) 20 12-44 % Monocytes (%) (Auto) 9 0-12 % Eosinophils (%) (Auto) 3 0-10 % Basophils (%) (Auto) 2 0-10 % Neutrophils # (Auto) 5.1 1.8-7.8 X 10^3 Lymphocytes # (Auto) 1.5 1.0-4.0 X 10^3 Monocytes # (Auto) 0.7 0.0-1.0 X 10^3 Eosinophils # (Auto) 0.2 0.0-0.3 10^3/uL Basophils # (Auto) 0.1 0.0-0.1 10^3/uL Prothrombin Time 13.4 12.2-14.7 SEC INR Comment 1.0 0.8-1.4 Activated Partial Thromboplast Time 28 24-35 SEC Sodium Level 141 135-145 MMOL/L Potassium Level 4.0 3.6-5.0 MMOL/L Chloride Level 107 98-107 MMOL/L Carbon Dioxide Level 23 21-32 MMOL/L Anion Gap 11 5-14 MMOL/L Blood Urea Nitrogen 18 7-18 MG/DL Creatinine 0.82 0.60-1.30 MG/DL Estimat Glomerular Filtration Rate > 60 BUN/Creatinine Ratio 22 Glucose Level 105 70-105 MG/DL Calcium Level 9.4 8.5-10.1 MG/DL Corrected Calcium 9.0 8.5-10.1 MG/DL Magnesium Level 2.2 1.8-2.4 MG/DL Total Bilirubin 0.5 0.1-1.0 MG/DL Aspartate Amino Transf (AST/SGOT) 25 5-34 U/L Alanine Aminotransferase (ALT/SGPT) 20 0-55 U/L Alkaline Phosphatase 40 40-136 U/L Myoglobin 74.0 10.0-92.0 NG/ML Troponin I < 0.028 0.028 <0.028 NG/ML Total Protein 7.3 6.4-8.2 GM/DL Albumin 4.5 3.2-4.5 GM/DL My Orders Orders - ANA LYONS Cbc With Automated Diff (11/05/18 07:07) Magnesium (11/05/18 07:07) Chest 1 View, Ap/Pa Only (11/05/18 07:07) Ekg Tracing (11/05/18 07:07) Cardiac Profile 1 (11/05/18 07:07) Comprehensive Metabolic Panel (11/05/18 07:07) Myoglobin Serum (11/05/18 07:07) Protime With Inr (11/05/18 07:07) Partial Thromboplastin Time (11/05/18 07:07) O2 (11/05/18 07:07) Monitor-Rhythm Ecg Trace Only (11/05/18 07:07) Lipid Panel (11/06/18 06:00) Ed Iv/Invasive Line Start (11/05/18 07:07) Nitroglycerin 0.4 Mg Btl 25's (Nitrostat (11/05/18 07:15) Aspirin Chewable Tablet (Baby Aspirin Ch (11/05/18 07:15) Albuterol/Ipra Inhalation Soln (Duoneb I (11/05/18 07:30) Svn Small Volume Nebulizer (11/05/18 07:29) Ketorolac Injection (Toradol Injection) (11/05/18 08:00) Troponin I (11/05/18 09:00) Morphine Injection (Morphine Injection (11/05/18 08:41) Ns Iv 1000 Ml (Sodium Chloride 0.9%) (11/05/18 09:24) Ed Iv/Invasive Line Start (11/05/18 09:30) Ns Iv 1000 Ml (Sodium Chloride 0.9%) (11/05/18 09:30) Medications Given in ED Current Medications Medications Dose Ordered Sig/Yobany Route Start Time Stop Time Status Last Admin Dose Admin Albuterol/ Ipratropium 3 ml ONCE ONCE INH 11/05/18 07:30 11/05/18 07:31 DC 11/05/18 07:42 3 ML Aspirin 324 mg ONCE ONCE PO 11/05/18 07:15 11/05/18 07:16 DC 11/05/18 07:11 324 MG Ketorolac Tromethamine 30 mg ONCE ONCE IVP 11/05/18 08:00 11/05/18 08:01 DC 11/05/18 08:14 30 MG Nitroglycerin 0.4 mg UD PRN SL 11/05/18 07:15 11/05/18 07:18 0.4 MG Vital Signs/I&O 11/05/18 11/05/18 07:00 07:00 Temp 97.7 Pulse 70 Resp 14 B/P (MAP) 135/96 (109) Pulse Ox 98 O2 Delivery Room Air Room Air Progress Progress Note #1: Time: 07:17 Progress Note Patient presents with pain to direct palpation or movement of his chest which places Musculoskeletal on the top of the list. He rates his pain as a 9 out of 10 and after being given nitroglycerin he says it's about a 10 out of 10 sharp spasms that are intermittent. Lung sounds are clear. He has a history of GERD. His pains are in the mornings also as possible could be reflux driven bronchospasm. Heart rate and oxygen saturation are good. No EKG changes. DuoNeb. First troponin was drawn about an hour and a half after the initiation of pain so we'll need a delta troponin. Discussed the case and plan with his over the phone and answered questions. Patient was here in June, 5 months ago with same report of chest and left arm pain and palpitations. The night Prior to that he was seen in [place] ED for similar symptoms and was released. He was diagnosed with costochondral pain at that time. 18 months ago the patient was here for chest pain at a history of GERD status post Gabriel fundoplication. Negative Stress test was performed at that time. 19 months ago the patient presented to the ER for numbness in bilateral arms. With his numbness tingling and musculoskeletal chest pain in addition to his history multiple workups for chest pain and upper extremity paresthesias it would be reasonable to work him up for possible cervical radiculopathy outpatient. ED ACS score is 9 points. Low risk by the EDACS Score. If the patient also has: (1) EKG without new ischemic changes and (2) negative initial and 2-hour troponins, then this patient is safe for discharge to early outpatient follow-up investigation (or proceed to earlier inpatient testing). If EKG with ischemic changes or positive troponin, they are not low risk and require normal risk stratification. Progress Note #2: Time: 09:28 Progress Note Patient's pain was nitroglycerin, duoneb or Toradol 60 mg morphine his pain completely away. Blood pressure little softer morphine so we'll give him a liter fluids while he waits for the results of the troponin. Initial ECG Impression Date: Nov 05, 2018 Initial ECG Impression Time: 07:06 Initial ECG Rate: 69 Initial ECG Rhythm: Normal Sinus Initial ECG Intervals: Normal Initial ECG Impression: Normal Initial ECG Comparisson: Unchanged Comment No significant ST elevation or depression. Diagnostic Imaging Diagonstic Imaging: Xray Plain Films/CT/US/NM/MRI: chest (1v) Comments No acute cardiopulmonary process noted. [facility] [place], [place] NAME: ARIES LAZARO [facility] REC#: [id number] PT STATUS: REG ER : 1970 PHYSICIAN: ANA LYONS MD ADMIT DATE: 11/05/18/ER Draft Date of Exam:11/05/18 CHEST 1 VIEW, AP/PA ONLY INDICATION: Chest pain. Comparison made with prior examination 06/23/2018. FINDINGS: The heart size, mediastinal configuration, and pulmonary vascularity are within normal limits. There is no pleural effusion, pneumothorax, or pneumonia. The osseous structures are unremarkable. IMPRESSION: No acute cardiopulmonary abnormality. Dictated on workstation # [id number] Dict: 11/05/1831 Trans: 11/05/18 0733 [id number] Interpreted by: ALYCE MORALES MD Electronically signed by: Reviewed: Reviewed by Me Departure Impression Primary Impression: Paresthesia of left upper extremity Additional Impressions: Chest wall pain Costochondritis, acute Disposition: HOME, SELF-CARE Condition: Improved Departure-Patient Inst. Decision time for Depature: 09:35 Referrals: ROSARIO OJEDA MD, LISA A MD (PCP/Family) Primary Care Physician Patient Instructions: Chest Pain That Is Not Caused by the Heart (DC), Costochondritis Add. Discharge Instructions: Use Tylenol one thousand milligrams every 8 hours for your chest wall and shoulder pain. Follow-up with your primary doctor to discuss possibility of a neck related nerve compression syndrome. Call the sleep technologist and request an appointment within next week to continue working up the possibility of any heart disease. Pick the prescription Naprosyn one capsule twice a day for the next 2 weeks. You can also use cgjs-zrb-qnzytfu 2 tablets twice a day for the next 2 weeks. Take the tramadol 1 tablet every 6 hours as necessary for breakthrough pain. All discharge instructions reviewed with patient and/or family. Voiced understanding. Scripts Tramadol HCl (Tramadol HCl) 50 Mg Tablet 50 MG PO Q6H PRN for BREAKTHROUGH PAIN, #20 TAB 0 Refills Prov: ANA LYONS 11/05/18 Work/School Note: Work Release Form Date Seen in the Emergency Department: Nov 05, 2018 Return to Work: Nov 06, 2018 Restrictions: Need Release from Doctor Other Restrictions Listed Below: Do not lift more than 20 pounds with the left arm until 11/12/18. Copy Copies To 1: ROSARIO OJEDA MD, TITUS J Nov 05, 2018 07:20
[2018-11-05 07:22] LABS: BASOPHILS # (AUTO) 0.1 10^3/uL (0.0-0.1); BASOPHILS % (AUTO) 2 % (0-10); EOSINOPHILS # (AUTO) 0.2 10^3/uL (0.0-0.3); EOSINOPHILS % (AUTO) 3 % (0-10); HEMATOCRIT 45 % (40-54); HEMOGLOBIN 15.6 G/DL (13.3-17.7); LYMPHOCYTES # (AUTO) 1.5 X 10^3 (1.0-4.0); LYMPHOCYTES % (AUTO) 20 % (12-44); MEAN CORPUSCULAR HEMOGLOBIN 29 PG (25-34); MEAN CORPUSCULAR HGB CONC 35 G/DL (32-36); MEAN CORPUSCULAR VOLUME 85 FL (80-99); MONOCYTES # (AUTO) 0.7 X 10^3 (0.0-1.0); MONOCYTES % (AUTO) 9 % (0-12); NEUTROPHILS # (AUTO) 5.1 X 10^3 (1.8-7.8); NEUTROPHILS % (AUTO) 66 % (42-75); PLATELET COUNT 433 10^3/uL (130-400); RED CELL DISTRIBUTION WIDTH 13.8 % (10.0-14.5); WHITE BLOOD COUNT 7.7 10^3/uL (4.3-11.0)
--- NOTE | 2018-11-05 07:25 | NUR ---
Pt reports increase of pain 8/10 after second nitro.
[2018-11-05 07:26] LABS: PROTHROMBIN TIME PATIENT 13.4 SEC (12.2-14.7)
[2018-11-05] MEDS ORDERED: RT-ALBUTEROL/IPRATROPIUM 3 ML (DUONEB) VIAL INH ONE (07:30)
[2018-11-05 07:33] LABS: ALANINE AMINOTRANSFERASE 20 U/L (0-55); ALBUMIN 4.5 GM/DL (3.2-4.5); ALKALINE PHOSPHATASE 40 U/L (40-136); BILIRUBIN,TOTAL 0.5 MG/DL (0.1-1.0); BUN/CREATININE RATIO 22; CALCIUM 9.4 MG/DL (8.5-10.1); CARBON DIOXIDE 23 MMOL/L (21-32); CHLORIDE 107 MMOL/L (98-107); CREATININE SERUM 0.82 MG/DL (0.60-1.30); GFR ESTIMATED > 60; GLUCOSE 105 MG/DL (70-105); MAGNESIUM 2.2 MG/DL (1.8-2.4); SODIUM 141 MMOL/L (135-145); TOTAL PROTEIN 7.3 GM/DL (6.4-8.2)
--- NOTE | 2018-11-05 07:34 | Diagnostic Imaging Report ---
INDICATION: Chest pain. Comparison made with prior examination 06/23/2018. FINDINGS: The heart size, mediastinal configuration, and pulmonary vascularity are within normal limits. There is no pleural effusion, pneumothorax, or pneumonia. The osseous structures are unremarkable. IMPRESSION: No acute cardiopulmonary abnormality. Dictated by: Dictated on workstation # [id number]
--- NOTE | 2018-11-05 07:51 | NUR ---
Pt reports minor relief after breathing treatment. Pt now reports feeling dizzy. Dr. Reddy in room.
[2018-11-05] MEDS ORDERED: KETOROLAC 30 MG/ML VIAL IVP ONE (08:00)
--- NOTE | 2018-11-05 08:39 | NUR ---
Called to pt room, where pt reports increase in chest discomfort. Pt repositioned. Dr. Reddy notified.
[2018-11-05] MEDS ORDERED: morphine INJ 10 MG/ML 1ML (SYR OR VIAL) IVP STA (08:41)
--- NOTE | 2018-11-05 08:59 | NUR ---
Pt reports 0/[address] this time[address] Dr[address] Reddy notified.
[2018-11-05] MEDS ORDERED: NS IV 1000 ML 1,000 ML ONE (09:24)
[2018-11-05] MEDS ORDERED: NS IV 1000 ML 1,000 ML IV SCH (09:30)
[2018-11-05] MEDS ORDERED: TRAM50TA2 PO (09:45)
[2018-11-05] MEDS ORDERED: NAPR-1071 PO (09:56)
[2018-11-05 10:25] VITALS: BP 101/74
== END 2018-11-05 10:25 | disposition home or self-care (01) ==
LOC: EDUNIT# 07:00 → ER 07:01
DX: R07.89 Other chest pain (principal); M94.0 Chondrocostal junction syndrome [Tietze]; R20.2 Paresthesia of skin; I10 Essential (primary) hypertension; K21.9 Gastro-esophageal reflux disease without esophagitis; Z87.19 Personal history of other diseases of the digestive system; Z87.442 Personal history of urinary calculi; Z88.0 Allergy status to penicillin; Z87.891 Personal history of nicotine dependence; Z98.890 Other specified postprocedural states
CPT/HCPCS: 36415; 71045; 80053; 83735; 83874; 84484; 85025; 85610; 85730; 93005; 93041; 96361; 96374; 96375

== ENCOUNTER 2019-02-07 16:48 | Emergency (ER) | payer MEDICARE, BC ==
[~2019-02-07] VITALS: Ht 177.8 cm; Wt 81.2 kg
[~2019-02-07 16:48] MED LIST changes: -D-ME118S7 PO; +NAPR-1071 PO; +PROM118S4 PO; +TRAM50TA2 PO
--- NOTE | 2019-02-07 17:21 | ED EENT ---
History of Present Illness General Chief Complaint: Dental Problems/Pain Stated Complaint: DENTAL PAIN Nursing Triage Note: Pt presents with C/O left sided dental pain x1 wk, rating pain 9/10. Pt reports taking ibuprofen for the pain but is unrelieved. Source: patient Exam Limitations: no limitations History of Present Illness Date Seen by Provider: Feb 07, 2019 Time Seen by Provider: 17:16 Initial Comments This 48-year-old white male presents with dental caries. Patient is complaining of pain in the left second molar in the maxillary area. He's had no purulent drainage. He's had no difficulty with his secretions or oral swelling. He's had no headache, photophobia, or stiff neck. Allergies and Home Medications Allergies Coded Allergies: Penicillins (Unverified Adverse Reaction, Unknown, 06/23/18) Home Medications Lisinopril/Hydrochlorothiazide 1 Each Tablet, 1 TAB PO DAILY@1700, (Reported) Naproxen 500 Mg Tablet, 500 MG PO BID Prescribed by: ANA LYONS on 11/05/18 0956 Tramadol HCl 50 Mg Tablet, 50 MG PO Q6H PRN for BREAKTHROUGH PAIN Prescribed by: ANA LYONS on 11/05/18 0945 Patient Home Medication List Home Medication List Reviewed: Yes Review of Systems Review of Systems Constitutional: No chills, No fever Eyes: Denies Blurred Vision Ears: Denies Dizziness Nose: denies clots, denies epistaxis Mouth: see HPI, other (dental caries) Throat: denies pain, denies swelling Respiratory: No cough Cardiovascular: No chest pain Gastrointestinal: No abdominal pain, No diarrhea, No nausea, No vomiting Musculoskeletal: no symptoms reported; No back pain Skin: no symptoms reported Neurological: No Symptoms Reported Hematologic/Lymphatic: No Symptoms Reported Immunological/Allergic: no symptoms reported Past Kxvpmui-Exubps-Hodpmm Hx Past Med/Social Hx: Reviewed Nursing Past Med/Soc Hx Patient Social History Alcohol Use: Denies Use Recreational Drug Use: No Smoking Status: Never a Smoker Type Used: Smokeless Tobacco Former Smoker, Quit: Jun 02, 2011 2nd Hand Smoke Exposure: No Recent Foreign Travel: No Contact w/Someone Who Travel: No Recent Infectious Disease Expo: No Recent Hopitalizations: No Physical Abuse: No Sexual Abuse: No Mistreated: No Fear: No Immunizations Up To Date Date of Influenza Vaccine: Apr 01, 2018 Seasonal Allergies Seasonal Allergies: Yes Past Medical History Surgeries: Yes (Esophagus surgery for hernia) Abdominal Respiratory: No Cardiac: Yes Hypertension Neurological: No Reproductive Disorders: No Genitourinary: No Kidney Stones Gastrointestinal: Yes Gastroesophageal Reflux, Hiatal Hernia Musculoskeletal: No Endocrine: No HEENT: No Cancer: No Psychosocial: No Integumentary: No Blood Disorders: No Family Medical History No Pertinent Family Hx Physical Exam Vital Signs Vital Signs - First Documented 02/07/19 16:52 Temp 99.6 Pulse 102 Resp 18 B/P (MAP) 128/80 (96) Pulse Ox 98 O2 Delivery Room Air Height, Weight, BMI Height: 5'10.00" Weight: 179lbs. 5.0oz. 81.097553pq; 28.3 BMI Method:Stated General Appearance: WD/WN, no apparent distress Eyes: bilateral eye normal inspection Ears: bilateral ear auricle normal Nose: normal inspection Mouth/Throat: dental tenderness (left second molar in the maxillary area); No pharynx swelling, No tongue swollen Neck: non-tender, normal inspection Cardiovascular: regular rate, rhythm Respiratory: lungs clear Gastrointestinal: normal bowel sounds Neurologic/Psychiatric: no motor/sensory deficits, alert Skin: normal color, warm/dry Progress/Results/Core Measures Results/Orders Vital Signs/I&O 02/07/19 16:52 Temp 99.6 Pulse 102 Resp 18 B/P (MAP) 128/80 (96) Pulse Ox 98 O2 Delivery Room Air Blood Pressure Mean: 96 Progress Progress Note : Time: 17:18 Progress Note I discussed treatment options with the patient. [facility]. I place patient on clindamycin and Vicodin. Has equal return if any problems or questions. Departure Impression Primary Impression: Dental caries Disposition: HOME, SELF-CARE Condition: Unchanged Departure-Patient Inst. Decision time for Depature: 17:19 Referrals: SONA MCKINNEY MD (PCP/Family) Primary Care Physician Patient Instructions: Dental Pain Add. Discharge Instructions: Vicodin and clindamycin as prescribed. Close follow-[facility] with [facility]. Return with any problems or questions. All discharge inst ructions reviewed with patient and/or family. Voiced understanding. Scripts Hydrocodone/Acetaminophen (Vicodin 5-300 mg Tablet) 1 Each Tablet 1-2 EACH PO Q6H PRN for PAIN-MODERATE MDD 10 for 7 Days, #20 TAB Prov: DWAYNE SULLIVAN MD 02/07/19 Clindamycin HCl (Clindamycin HCl) 300 Mg Capsule 600 MG PO TID for 10 Days, #60 CAP Prov: DWAYNE SULLIVAN MD 02/07/19 DWAYNE SULLIVAN MD Feb 07, 2019 17:21
[2019-02-07] MEDS ORDERED: CLIN300C11 PO (17:22)
[2019-02-07] MEDS ORDERED: HYDR-3455 PO (17:22)
[2019-02-07 17:25] VITALS: BP 128/80
== END 2019-02-07 17:25 | disposition home or self-care (01) ==
LOC: EDUNIT# 16:48 → ER 16:49
DX: K02.9 Dental caries, unspecified (principal); I10 Essential (primary) hypertension; K21.9 Gastro-esophageal reflux disease without esophagitis; Z87.442 Personal history of urinary calculi; Z88.0 Allergy status to penicillin; Z87.891 Personal history of nicotine dependence
CPT/HCPCS: 99282

== ENCOUNTER 2019-03-18 22:44 | Emergency (ER) | payer BC, MEDICARE ==
[~2019-03-18] VITALS: Ht 177.8 cm; Wt 72.7 kg
[~2019-03-18 22:44] MED LIST changes: +CLIN300C11 PO; +HYDR-3455 PO
--- NOTE | 2019-03-18 23:04 | NUR ---
INFORMED PT ERP IN DOING PROCEDURE WITH ANOTHER PATIENT ET. UNKNOWN WAIT TIME TO BE SEEN. NO NEEDS AT THIS TIME.
[2019-03-18] MEDS ORDERED: BUSP15TA60 (23:10)
[2019-03-18] MEDS ORDERED: LISI-552 (23:10)
[2019-03-19] MEDS ORDERED: RX-ONDANSETRON 4 MG ODT (ZOFRAN) PPK #4 PO STA (00:04)
[2019-03-19] MEDS ORDERED: ONDA4TAB11 PO (00:09)
--- NOTE | 2019-03-19 00:10 | ED Cough/URI ---
General Chief Complaint: Fever-Adult/Adol Stated Complaint: FEVER/VOMITING Nursing Triage Note: FEVER TODAY, VOMITTING X1, NAUSEA. Sepsis Screen: Possible Severe Sepsis Risk Source: patient Exam Limitations: no limitations History of Present Illness Date Seen by Provider: Mar 18, 2019 Time Seen by Provider: 23:58 Initial Comments Patient presents to ER by private conveyance with chief complaint that this morning he woke up not feeling well fever 100.6F. He has had some runny nose and congestion. He denies a sore throat. He's had nausea off and on and vomited once today. No significant medical history. No history of pulmonary disease, cough, shortness of breath. He says his daughter had similar symptoms last week and it lasted 2-3 days and went away. Allergies and Home Medications Allergies Coded Allergies: Penicillins (Unverified Adverse Reaction, Unknown, 06/23/18) Home Medications Ondansetron 4 Mg Tab.rapdis, 4 MG PO Q6H PRN for NAUSEA/VOMITING Prescribed by: ANA LYONS on 03/19/19 0009 Patient Home Medication List Home Medication List Reviewed: Yes Review of Systems Review of Systems Constitutional: chills; No diaphoresis; fever, malaise EENTM: see HPI; No ear discharge, No ear pain Respiratory: No cough, No short of breath Cardiovascular: No chest pain, No edema Gastrointestinal: No abdominal pain; nausea, vomiting Genitourinary: No discharge, No dysuria Past Rnaewhl-Ratsco-Vhkzak Hx Patient Social History Alcohol Use: Denies Use Recreational Drug Use: No Smoking Status: Never a Smoker Type Used: Smokeless Tobacco Former Smoker, Quit: Jun 02, 2011 2nd Hand Smoke Exposure: No Recent Foreign Travel: No Contact w/Someone Who Travel: No Recent Infectious Disease Expo: No Recent Hopitalizations: No Physical Abuse: No Sexual Abuse: No Mistreated: No Fear: No Immunizations Up To Date Tetanus Booster (TDap): Unknown Date of Influenza Vaccine: Apr 01, 2018 Seasonal Allergies Seasonal Allergies: Yes Past Medical History Surgeries: Yes (Esophagus surgery for hernia) Abdominal Respiratory: No Cardiac: Yes Hypertension Neurological: No Reproductive Disorders: No Genitourinary: No Kidney Stones Gastrointestinal: Yes Gastroesophageal Reflux, Hiatal Hernia Musculoskeletal: No Endocrine: No HEENT: No Cancer: No Psychosocial: Yes Anxiety Integumentary: No Blood Disorders: No Family Medical History No Pertinent Family Hx Physical Exam Vital Signs - First Documented 03/18/19 23:04 Temp 37.8 Pulse 94 Resp 18 B/P (MAP) 134/90 (105) Pulse Ox 97 O2 Delivery Room Air Capillary Refill : Less Than 3 Seconds Height: 5'10.00" Weight: 179lbs. 5.0oz. 81.992278xy; 22.00 BMI Method:Stated General Appearance: WD/WN, no apparent distress Eyes: Bilateral Eye Normal Inspection, Bilateral Eye PERRL, Bilateral Eye EOMI HEENT: PERRL/EOMI, normal ENT inspection, pharynx normal, TM abnormal (L) (left canal with cerumen impaction but no tenderness or erythema) Neck: non-tender, full range of motion Respiratory: lungs clear, normal breath sounds, no respiratory distress, no accessory muscle use Cardiovascular: normal peripheral pulses, regular rate, rhythm Gastrointestinal: non tender, soft Progress/Results/Core Measures Suspected Sepsis Recent Fever Within 48 Hours: Yes Infection Criteria Present: Suspected New Infection New/Unexplained Altered Menta: No Sepsis Screen: Possible Severe Sepsis Risk SIRS Temperature: Pulse: 94 Respiratory Rate: 18 Blood Pressure 134 /90 Mean: 105 Results/Orders Micro Results Microbiology 03/18/19 Influenza Types A,B Antigen (SÁNCHEZ) - Final, Complete My Orders Orders - ANA LYONS Influenza A And B Antigens (03/18/19 23:30) Rx-Ondansetron Po (Rx-Zofran Po) (03/19/19 00:04) Vital Signs/I&O 03/18/19 23:04 Temp 37.8 Pulse 94 Resp 18 B/P (MAP) 134/90 (105) Pulse Ox 97 O2 Delivery Room Air Capillary Refill : Less Than 3 Seconds Blood Pressure Mean: 105 Progress Note : Progress Note Zofran now. He is afebrile with normal vital signs. We will check an influenza swab and if it's negative treat him presumptively that he has the same viral illnesses daughter had. Departure Impression Primary Impression: Viral upper respiratory tract infection Disposition: 01 HOME, SELF-CARE Condition: Stable Departure-Patient Inst. Decision time for Depature: 00:15 Referrals: SONA MCKINNEY MD (PCP/Family) Primary Care Physician Patient Instructions: Viral Upper Respiratory Infection, Adult (DC) Add. Discharge Instructions: Drink plenty of fluids. Get some rest. Tylenol 1000 g every 8 hours as needed for body aches or fever. Ibuprofen 800 mg every 8 hours as needed for body aches and fever. Zofran 1 tablet every 6 hours as needed for nausea. All discharge instructions reviewed with patient and/or family. Voiced understanding. Scripts Ondansetron (Ondansetron Odt) 4 Mg Tab.rapdis 4 MG PO Q6H PRN for NAUSEA/VOMITING, #8 TAB 0 Refills Prov: ANA LYONS 03/19/19 Work/School Note: Work Release Form Date Seen in the Emergency Department: Mar 19, 2019 Return to Work: Mar 22, 2019 Restrictions: Return-No Fever (24hrs) ANA LYONS Mar 19, 2019 00:10
[2019-03-19 00:16] VITALS: BP 140/86
== END 2019-03-19 00:19 | disposition home or self-care (01) ==
LOC: EDUNIT# 22:44 → ER 22:45
DX: J06.9 Acute upper respiratory infection, unspecified (principal); I10 Essential (primary) hypertension; K21.9 Gastro-esophageal reflux disease without esophagitis; F41.9 Anxiety disorder, unspecified; Z87.442 Personal history of urinary calculi; Z88.0 Allergy status to penicillin; Z87.891 Personal history of nicotine dependence
CPT/HCPCS: 87804

== ENCOUNTER 2019-07-11 20:39 | Emergency (ER) | payer BC, MEDICARE ==
[~2019-07-11] VITALS: Ht 175.3 cm; Wt 80.9 kg
[~2019-07-11 20:39] MED LIST changes: +BUSP15TA60; +LISI-552; +LISI1TAB25 PO; -LISI1TAB8 PO; +ONDA4TAB11 PO; -TRAM50TA2 PO; +TRM50T PO
[2019-07-11] MEDS ORDERED: NITROGLYCERIN 2% OINT 1 GM UNIT DOSE PACKET TOP STA (20:52)
--- NOTE | 2019-07-11 20:56 | ED Chest Pain ---
General Chief Complaint: Fever-Adult/Adol Stated Complaint: CHEST PAIN RADIATING INTO LEFT ARM Source: patient History of Present Illness Date Seen by Provider: Jul 11, 2019 Time Seen by Provider: 20:43 Initial Comments 48-year-old male presenting with complaints of chest pain radiating into his left arm. He states this came on suddenly for him at home when he was resting in his chair. He denies doing anything when the pain came on. It has been constant since onset. He did not take anything for the pain at home. It is not made worse by anything. Nothing tried to make it any better. He states that he had similar symptoms with elevated blood pressure when he was first diagnosed. He has no nausea or vomiting. He denies any shortness of breath or diaphoresis. The pain does not radiate into his back, neck or jaw. He denies any family history of cardiac disease. Allergies and Home Medications Allergies Coded Allergies: Penicillins (Unverified Adverse Reaction, Unknown, 06/23/18) Home Medications Ondansetron 4 Mg Tab.rapdis, 4 MG PO Q6H PRN for NAUSEA/VOMITING Prescribed by: ANA LYONS on 03/19/19 0009 Patient Home Medication List Home Medication List Reviewed: Yes Review of Systems Review of Systems Constitutional: No chills, No diaphoresis, No dizziness, No fever, No malaise, No weakness EENTM: No Symptoms Reported Respiratory: No Symptoms Reported Cardiovascular: See HPI Gastrointestinal: No Symptoms Reported Genitourinary: No Symptoms Reported Musculoskeletal: no symptoms reported Skin: no symptoms reported Psychiatric/Neurological: Anxiety; Denies Headache, Denies Numbness, Denies Weakness Endocrine: No Symptoms Reported Past Teuwpkf-Ifwsfp-Amytdu Hx Past Med/Social Hx: Reviewed Nursing Past Med/Soc Hx Patient Social History Alcohol Use: Denies Use Recreational Drug Use: No Smoking Status: Never a Smoker Type Used: Smokeless Tobacco Former Smoker, Quit: Jun 02, 2011 2nd Hand Smoke Exposure: No Recent Foreign Travel: No Contact w/Someone Who Travel: No Recent Hopitalizations: No Physical Abuse: No Sexual Abuse: No Mistreated: No Fear: No Immunizations Up To Date Tetanus Booster (TDap): Unknown Date of Influenza Vaccine: Apr 01, 2018 Seasonal Allergies Seasonal Allergies: Yes Past Medical History Surgeries: Yes (Esophagus surgery for hernia) Abdominal Respiratory: No Cardiac: Yes Hypertension Neurological: No Reproductive Disorders: No Genitourinary: No Kidney Stones Gastrointestinal: Yes Gastroesophageal Reflux, Hiatal Hernia Musculoskeletal: No Endocrine: No HEENT: No Cancer: No Psychosocial: Yes Anxiety Integumentary: No Blood Disorders: No Family Medical History No Pertinent Family Hx Physical Exam Vital Signs Vital Signs - First Documented Capillary Refill : Height, Weight, BMI Height: 5'10.00" Weight: 179lbs. 5.0oz. 81.391681pu; 22.00 BMI Method:Stated General Appearance: No Apparent Distress, WD/WN HEENT: PERRL/EOMI, Normal ENT Inspection, Pharynx Normal Neck: Full Range of Motion, Normal Inspection, Non Tender, Supple; No Carotid Bruit Respiratory: Chest Non Tender, Lungs Clear, Normal Breath Sounds, No Accessory Muscle Use, No Respiratory Distress Cardiovascular: Regular Rate, Rhythm, No Edema, No Gallop, No JVD, No Murmur, Normal Peripheral Pulses Gastrointestinal: Normal Bowel Sounds, No Organomegaly, No Pulsatile Mass, Non Tender, Soft Rectal: Deferred Extremity: Normal Capillary Refill, Normal Inspection, No Pedal Edema Neurologic/Psychiatric: Alert, Oriented x3, No Motor/Sensory Deficits, Normal Mood/Affect, precision filer hand II-XII Norm as Tested Skin: Normal Color, Warm/Dry Progress/Results/Core Measures Results/Orders Lab Results Laboratory Tests Test 07/11/19 20:25 07/11/19 20:45 07/11/19 22:50 Range/Units Prothrombin Time 13.1 12.2-14.7 SEC INR Comment 1.0 0.8-1.4 Activated Partial Thromboplast Time 25 24-35 SEC Sodium Level 140 135-145 MMOL/L Potassium Level 4.2 3.6-5.0 MMOL/L Chloride Level 102 98-107 MMOL/L Carbon Dioxide Level 27 21-32 MMOL/L Anion Gap 11 5-14 MMOL/L Blood Urea Nitrogen 18 7-18 MG/DL Creatinine 1.12 0.60-1.30 MG/DL Estimat Glomerular Filtration Rate > 60 BUN/Creatinine Ratio 16 Glucose Level 71 70-105 MG/DL Calcium Level 9.1 8.5-10.1 MG/DL Corrected Calcium 8.9 8.5-10.1 MG/DL Magnesium Level 2.1 1.6-2.4 MG/DL Total Bilirubin 0.2 0.1-1.0 MG/DL Aspartate Amino Transf (AST/SGOT) 17 5-34 U/L Alanine Aminotransferase (ALT/SGPT) 22 0-55 U/L Alkaline Phosphatase 50 40-136 U/L Troponin I < 0.30 < 0.30 <0.30 NG/ML Pro-B-Type Natriuretic Peptide 52.7 <75.0 PG/ML Total Protein 7.0 6.4-8.2 GM/DL Albumin 4.3 3.2-4.5 GM/DL Lipase 36 8-78 U/L White Blood Count 10.5 4.3-11.0 10^3/uL Red Blood Count 5.26 4.35-5.85 10^6/uL Hemoglobin 15.3 13.3-17.7 G/DL Hematocrit 46 40-54 % Mean Corpuscular Volume 87 80-99 FL Mean Corpuscular Hemoglobin 29 25-34 PG Mean Corpuscular Hemoglobin Concent 34 32-36 G/DL Red Cell Distribution Width 13.2 10.0-14.5 % Platelet Count 431 H 130-400 10^3/uL Mean Platelet Volume 10.5 H 7.4-10.4 FL Neutrophils (%) (Auto) 69 42-75 % Lymphocytes (%) (Auto) 17 12-44 % Monocytes (%) (Auto) 8 0-12 % Eosinophils (%) (Auto) 3 0-10 % Basophils (%) (Auto) 1 0-10 % Neutrophils # (Auto) 7.2 1.8-7.8 X 10^3 Lymphocytes # (Auto) 1.8 1.0-4.0 X 10^3 Monocytes # (Auto) 0.9 0.0-1.0 X 10^3 Eosinophils # (Auto) 0.3 0.0-0.3 10^3/uL Basophils # (Auto) 0.2 H 0.0-0.1 10^3/uL My Orders Orders - TYLER BLOCK MD Cbc With Automated Diff (07/11/19 20:52) Magnesium (07/11/19 20:52) Chest 1 View Ap/Pa Only (07/11/19 20:52) Ekg Tracing (07/11/19 20:52) Comprehensive Metabolic Panel (07/11/19 20:52) Protime With Inr (07/11/19 20:52) Partial Thromboplastin Time (07/11/19 20:52) O2 (07/11/19 20:52) Monitor-Rhythm Ecg Trace Only (07/11/19 20:52) Aspirin Chewable Tablet (Baby Aspirin Ch (07/11/19 21:00) Ed Iv/Invasive Line Start (07/11/19 20:52) Lipase (07/11/19 20:52) Troponin I Fs (07/11/19 20:52) Probnp Fs (07/11/19 20:52) Nitroglycerin Ointment (Nitrobid Ointme (07/11/19 20:52) Troponin I Fs (07/11/19 22:40) Medications Given in ED Current Medications Medications Dose Ordered Sig/Yobany Route Start Time Stop Time Status Last Admin Dose Admin Aspirin 324 mg ONCE ONCE PO 07/11/19 21:00 07/11/19 21:01 DC 07/11/19 21:18 324 MG Vital Signs/I&O 07/11/19 07/11/19 07/11/19 20:48 20:48 23:45 Temp 36.5 Pulse 80 78 Resp 20 19 B/P (MAP) 142/82 (102) 131/81 Pulse Ox 97 98 O2 Delivery Room Air Room Air Room Air Progress Progress Note #1: Progress Note Obtain basic labs as well as electrocardiogram and chest x-ray. Give aspirin 324 mg as well as Nitropaste for his symptoms. Progress Note #2: Time: 21:33 Progress Note Electrocardiogram and labs as well as chest x-ray are not showing any acute significant abnormality. He has no signs of an acute CT. His symptoms are improv ed with treatment in the ED. He reports that he does have some residual sharp pain in his chest but it is improved from when he first arrived. His EKG does not show any ST elevation. His initial troponin is 0. His chest x-ray and other labs are all clear as well. Will obtain a repeat troponin at the two-hour jaspreet. He had no change in his symptoms with getting up to walk to the bathroom or moving around in the ED. Progress Note #3: Time: 23:23 Progress Note Reviewed with the patient that his repeat troponin was still negative. Counseled on follow-up and return precautions. Advised that he may need to have an EGD or stress test or other testing done. At this point there was no signs that he was having an acute CT. Counseled on follow-up and return precautions if he was having worsening symptoms or need to call 911 Initial ECG Impression Date: Jul 11, 2019 Initial ECG Impression Time: 20:46 Initial ECG Rate: 86 Initial ECG Rhythm: Normal Sinus Initial ECG Comparisson: No Previous ECG Available Comment Sinus rhythm with a heart rate of 86 beats for minute. There are PVCs present. OH interval of [address] elevation. QT interval 349 ms and a QTc interval 418 ms. There are no prior tracings available for comparison. Diagnostic Imaging Diagonstic Imaging: Xray Plain Films/CT/US/NM/MRI: chest Comments [facility], [place] NAME: ARIES LAZARO [facility] REC#: [id number] PT STATUS: REG ER : 1970 PHYSICIAN: TYLER BLOCK MD ADMIT DATE: 07/11/19/ER FS Signed Date of Exam:07/11/19 CHEST 1 VIEW AP/PA ONLY INDICATION: Chest pain and left upper extremity paresthesia. EXAMINATION: AP portable upright view of the chest was obtained. COMPARISON: Examination of 11/05/2018. FINDINGS: Heart size and pulmonary vascularity are within normal limits and the lungs are clear, bilaterally. IMPRESSION: Unremarkable chest. Dictated by: Dictated on workstation # [id number] Dict: 07/11/[id number] Trans: 07/11/192200 PJE [id number] Interpreted by: HEATH DICKINSON MD Electronically signed by: HEATH DICKINSON MD 07/11/192200 Departure Impression Primary Impression: Chest pain Qualified Codes: R07.9 - Chest pain, unspecified Disposition: 01 HOME, SELF-CARE Condition: Stable Departure-Patient Inst. Decision time for Depature: 23:44 Referrals: SONA MCKINNEY MD (PCP/Family) Primary Care Physician Patient Instructions: Chest Pain (DC), Chest Pain That Is Not Caused by the Heart (DC) Add. Discharge Instructions: Check back with the clinic about your pain. You may need to have an EGD or scope to look at your esophagus and stomach or your doctor may want to do other testing to evaluate your heart with a stress test. You could try calling Dr. Meehan with cardiology directly about having a stress test or go through your primary provider. You could try calling Dr. Granado with surgery directly about having EGD or scope to look for other sources for your pain as well, or go through your primary provider. Return immediately or call 911 if you have worsening chest pains or break out in a sweat with chest pains, nausea and shortness of breath. All discharge instructions reviewed with patient and/or family. Voiced understanding. TYLER BLOCK MD Jul 11, 2019 20:56
[2019-07-11 20:59] LABS: BASOPHILS % (AUTO) 1 % (0-10); EOSINOPHILS % (AUTO) 3 % (0-10); HEMATOCRIT 46 % (40-54); HEMOGLOBIN 15.3 G/DL (13.3-17.7); LYMPHOCYTES # (AUTO) 1.8 X 10^3 (1.0-4.0); LYMPHOCYTES % (AUTO) 17 % (12-44); MEAN CORPUSCULAR HEMOGLOBIN 29 PG (25-34); MEAN CORPUSCULAR HGB CONC 34 G/DL (32-36); MEAN CORPUSCULAR VOLUME 87 FL (80-99); MEAN PLATELET VOLUME 10.5 FL (7.4-10.4); MONOCYTES # (AUTO) 0.9 X 10^3 (0.0-1.0); MONOCYTES % (AUTO) 8 % (0-12); NEUTROPHILS # (AUTO) 7.2 X 10^3 (1.8-7.8); NEUTROPHILS % (AUTO) 69 % (42-75); PLATELET COUNT 431 10^3/uL (130-400); RED CELL DISTRIBUTION WIDTH 13.2 % (10.0-14.5); WHITE BLOOD COUNT 10.5 10^3/uL (4.3-11.0)
[2019-07-11 21:00] LABS: BASOPHILS # (AUTO) 0.2 10^3/uL (0.0-0.1); EOSINOPHILS # (AUTO) 0.3 10^3/uL (0.0-0.3)
[2019-07-11] MEDS ORDERED: ASPIRIN 81 MG CHEW (CHILDREN'S ASA) PO ONE (21:00)
--- NOTE | 2019-07-11 21:06 | Diagnostic Imaging Report ---
INDICATION: Chest pain and left upper extremity paresthesia. EXAMINATION: AP portable upright view of the chest was obtained. COMPARISON: Examination of 11/05/2018. FINDINGS: Heart size and pulmonary vascularity are within normal limits and the lungs are clear, bilaterally. IMPRESSION: Unremarkable chest. Dictated by: Dictated on workstation # [id number]
[2019-07-11 21:11] LABS: PROTHROMBIN TIME PATIENT 13.1 SEC (12.2-14.7)
[2019-07-11 21:14] LABS: ALANINE AMINOTRANSFERASE 22 U/L (0-55); ALBUMIN 4.3 GM/DL (3.2-4.5); ALKALINE PHOSPHATASE 50 U/L (40-136); BILIRUBIN,TOTAL 0.2 MG/DL (0.1-1.0); BUN/CREATININE RATIO 16; CALCIUM 9.1 MG/DL (8.5-10.1); CARBON DIOXIDE 27 MMOL/L (21-32); CHLORIDE 102 MMOL/L (98-107); CREATININE SERUM 1.12 MG/DL (0.60-1.30); GFR ESTIMATED > 60; GLUCOSE 71 MG/DL (70-105); LIPASE 36 U/L (8-78); MAGNESIUM 2.1 MG/DL (1.6-2.4); POTASSIUM 4.2 MMOL/L (3.6-5.0); SODIUM 140 MMOL/L (135-145)
[2019-07-11 23:45] VITALS: BP 131/81
== END 2019-07-11 23:45 | disposition home or self-care (01) ==
LOC: EDUNIT# 20:39 → ER FS 20:41
DX: R07.9 Chest pain, unspecified (principal); Z88.0 Allergy status to penicillin; Z87.891 Personal history of nicotine dependence
CPT/HCPCS: 36415; 71045; 80053; 83690; 83735; 83880; 84484; 85025; 85610; 85730; 93005; 93041

== ENCOUNTER → 2019-07-23 | Outpatient (CLI) | payer BC ==
[~2019-07-23] MED LIST changes: -MECL-106 PO; +MECL-149 PO
[2019-07-23 14:25] LABS: CHOLESTEROL 166 MG/DL (< 200); HDL CHOLESTEROL 34 MG/DL (40-60); TRIGLYCERIDES 83 MG/DL (<150); VLDL CHOLESTEROL 17 MG/DL (5-40)
== END ==
LOC: LAB FS 08:02
PROVIDERS: ATTEND Internal Medicine Cardiovascular Disease
DX: I10 Essential (primary) hypertension (principal); R07.9 Chest pain, unspecified
CPT/HCPCS: 36415; 80061

== ENCOUNTER → 2019-07-28 | Outpatient (CLI) | payer BC, MEDICARE ==
[~2019-07-28] VITALS: Ht 177 cm; Wt 84.0 kg
[~2019-07-28] MED LIST changes: +CATHETER FLUSH 10 ML SYR IV PRN
[2019-07-28 13:29] VITALS: BP 131/75
--- NOTE | 2019-07-28 17:49 | STRESS TEST ---
DATE OF SERVICE: 07/28/2019 EXERCISE MYOVIEW STRESS TEST REPORT REFERRING PHYSICIAN: Chary Noriega MD Baseline heart rate is 81, baseline blood pressure 131/75. Baseline EKG is sinus rhythm with no significant abnormality. In summary, the patient was injected with 10.19 mCi of technetium-99 Myoview and the resting images were obtained. Then, the patient started exercising with a baseline heart rate, blood pressure and EKG mentioned above. The patient was able to exercise for a total of 5 minutes on standard Vicente protocol. With peak exercise level, EKG was showing [address] depression in II, III, aVF, V4 and V5. During recovery, heart rate and blood pressure returned to baseline. EKG returned to baseline. The resting and stress images were reviewed and compared in the short axis, horizontal long axis, and vertical long axis views. Review of the images showed good radiotracer uptake with no significant ischemia or infarction. SSS is 2, SDS 1. TID value 0.85. On the gated images, the left ventricle appeared to be normal size with normal contractility. Calculated ejection fraction 68%. CONCLUSION: 1. Fair exercise tolerance for a total of 5 minutes on standard Vicente protocol, 7 METS achieving 95% of maximum expected heart rate. 2. Nondiagnostic EKG changes with exercise returned to baseline during recovery. 3. Mild hypertensive response to exercise with peak blood pressure 174/79 returned to baseline during recovery. 4. Diaphragmatic attenuation with no significant ischemia or infarction on SPECT images. 5. Normal left ventricular size with normal contractility. Calculated ejection fraction 68%. Job ID: [id number] DocumentID: [id number] Dictated Date: 07/28/2019 15:28:11 Chassis Engineer Date: 07/28/2019 17:48:48 Dictated By: ROSARIO OJEDA MD
== END ==
LOC: CARD 11:25
PROVIDERS: ATTEND Internal Medicine Cardiovascular Disease
DX: I10 Essential (primary) hypertension (principal); R07.9 Chest pain, unspecified
CPT/HCPCS: 78452; 93017

== ENCOUNTER → 2019-08-02 | Outpatient (CLI) | payer BC, MEDICARE ==
[~2019-08-02] MED LIST changes: -CATHETER FLUSH 10 ML SYR IV PRN
== END ==
LOC: CARD 13:39
PROVIDERS: ATTEND Internal Medicine Cardiovascular Disease
DX: I11.0 Hypertensive heart disease with heart failure (principal)
CPT/HCPCS: 93306

== ENCOUNTER 2019-09-21 11:04 | Emergency (ER) | payer MEDICARE ==
[~2019-09-21] VITALS: Ht 177.8 cm; Wt 86.9 kg
[2019-09-21 11:42] LABS: HEMATOCRIT 44 % (40-54); MEAN CORPUSCULAR HEMOGLOBIN 29 PG (25-34); MEAN CORPUSCULAR HGB CONC 34 G/DL (32-36); MEAN CORPUSCULAR VOLUME 85 FL (80-99); MEAN PLATELET VOLUME 10.4 FL (7.4-10.4); PLATELET COUNT 422 10^3/uL (130-400); RED CELL DISTRIBUTION WIDTH 13.3 % (10.0-14.5); WHITE BLOOD COUNT 9.2 10^3/uL (4.3-11.0)
[2019-09-21 11:43] LABS: BASOPHILS # (AUTO) 0.1 10^3/uL (0.0-0.1); BASOPHILS % (AUTO) 1 % (0-10); EOSINOPHILS # (AUTO) 0.1 10^3/uL (0.0-0.3); EOSINOPHILS % (AUTO) 1 % (0-10); LYMPHOCYTES # (AUTO) 1.3 X 10^3 (1.0-4.0); LYMPHOCYTES % (AUTO) 14 % (12-44); MONOCYTES # (AUTO) 0.7 X 10^3 (0.0-1.0); MONOCYTES % (AUTO) 8 % (0-12); NEUTROPHILS % (AUTO) 76 % (42-75)
--- NOTE | 2019-09-21 11:47 | ED General ---
General Stated Complaint: N,V Source of Information: Patient Exam Limitations: No Limitations History of Present Illness Date Seen by Provider: Sep 21, 2019 Time Seen by Provider: 11:25 Initial Comments The patient is a pleasant 48-year-old male who presents for evaluation of nausea which occurred at work today. He states that he was not exerting himself when this began. He did not have breakfast before work but states that this is normal for him. 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 He says he had one episode of dry heaving. Upon arrival in the emergency department he reports a small amount of nausea but no other complaints. He denies fevers or chills, chest pain or shortness of breath, diarrhea, abdominal or back pain, urinary complaints, headache, vision changes, fatigue, diaphoresis, dizziness, palpitations, or syncope. He is alert and oriented 4, calm, and appears to be in no distress at this time. He states that he felt completely normal yesterday. He has a history of anxiety but denies being anxious or under any increased stress today. Severity: Mild Associated Systoms: No Chest Pain, No Cough, No Diaphoresis, No Fever/Chills, No Headaches; Nausea/Vomiting; No Shortness of Air, No Syncope Allergies and Home Medications Allergies Coded Allergies: Penicillins (Unverified Adverse Reaction, Unknown, 06/23/18) Home Medications Ondansetron 4 Mg Tab.rapdis, 4 MG PO Q6H PRN for NAUSEA/VOMITING Prescribed by: ANA LYONS on 03/19/19 0009 Patient Home Medication List Home Medication List Reviewed: Yes Review of Systems Review of Systems Constitutional: no symptoms reported EENTM: no symptoms reported Respiratory: no symptoms reported Cardiovascular: no symptoms reported Gastrointestinal: nausea Genitourinary: no symptoms reported Musculoskeletal: no symptoms reported Skin: no symptoms reported Psychiatric/Neurological: No Symptoms Reported Hematologic/Lymphatic: No Symptoms Reported Immunological/Allergic: no symptoms reported All Other Systems Reviewed Negative Unless Noted: Yes Past Qjmppgw-Xfudja-Rebolw Hx Past Med/Social Hx: Reviewed Nursing Past Med/Soc Hx Patient Social History Type Used: Smokeless Tobacco Former Smoker, Quit: Jun 02, 2011 2nd Hand Smoke Exposure: No Recent Foreign Travel: No Contact w/Someone Who Travel: No Recent Hopitalizations: No Immunizations Up To Date Tetanus Booster (TDap): Unknown Date of Influenza Vaccine: Apr 01, 2018 Seasonal Allergies Seasonal Allergies: Yes Past Medical History Surgeries: Yes (Esophagus surgery for hernia) Abdominal Respiratory: No Cardiac: Yes Hypertension Neurological: No Reproductive Disorders: No Genitourinary: No Kidney Stones Gastrointestinal: Yes Gastroesophageal Reflux, Hiatal Hernia Musculoskeletal: No Endocrine: No HEENT: No Cancer: No Psychosocial: Yes Anxiety Integumentary: No Blood Disorders: No Family Medical History No Pertinent Family Hx Physical Exam Vital Signs Vital Signs - First Documented 09/21/19 11:06 Temp 36.1 Pulse 82 Resp 17 B/P (MAP) 145/85 (105) Pulse Ox 96 O2 Delivery Room Air Capillary Refill : Height, Weight, BMI Height: 5'10.00" Weight: 179lbs. 5.0oz. [id number]; 26.81 BMI Method:Stated General Appearance: No Apparent Distress, WD/WN HEENT: PERRL/EOMI, Pharynx Normal Respiratory: Chest Non Tender, Normal Breath Sounds Cardiovascular: Regular Rate, Rhythm, No Edema, No Murmur Gastrointestinal: Normal Bowel Sounds, No Pulsatile Mass, Non Tender, Soft Extremity: Normal Capillary Refill Neurologic/Psychiatric: Alert, Oriented x3, No Motor/Sensory Deficits, Normal Mood/Affect Skin: Normal Color, Warm/Dry Progress/Results/Core Measures Suspected Sepsis SIRS Temperature: Pulse: Respiratory Rate: Laboratory Tests 09/21/19 11:30: White Blood Count 9.2 Blood Pressure / Mean: Laboratory Tests 09/21/19 11:30: Creatinine 0.80, Platelet Count 422H, Total Bilirubin 0.8 Results/Orders Lab Results Laboratory Tests Test 09/21/19 11:30 Range/Units White Blood Count 9.2 4.3-11.0 10^3/uL Red Blood Count 5.14 4.35-5.85 10^6/uL Hemoglobin 15.0 13.3-17.7 G/DL Hematocrit 44 40-54 % Mean Corpuscular Volume 85 80-99 FL Mean Corpuscular Hemoglobin 29 25-34 PG Mean Corpuscular Hemoglobin Concent 34 32-36 G/DL Red Cell Distribution Width 13.3 10.0-14.5 % Platelet Count 422 H 130-400 10^3/uL Mean Platelet Volume 10.4 7.4-10.4 FL Neutrophils (%) (Auto) 76 H 42-75 % Lymphocytes (%) (Auto) 14 12-44 % Monocytes (%) (Auto) 8 0-12 % Eosinophils (%) (Auto) 1 0-10 % Basophils (%) (Auto) 1 0-10 % Neutrophils # (Auto) 7.0 1.8-7.8 X 10^3 Lymphocytes # (Auto) 1.3 1.0-4.0 X 10^3 Monocytes # (Auto) 0.7 0.0-1.0 X 10^3 Eosinophils # (Auto) 0.1 0.0-0.3 10^3/uL Basophils # (Auto) 0.1 0.0-0.1 10^3/uL Sodium Level 142 135-145 MMOL/L Potassium Level 4.0 3.6-5.0 MMOL/L Chloride Level 105 98-107 MMOL/L Carbon Dioxide Level 25 21-32 MMOL/L Anion Gap 12 5-14 MMOL/L Blood Urea Nitrogen 19 H 7-18 MG/DL Creatinine 0.80 0.60-1.30 MG/DL Estimat Glomerular Filtration Rate > 60 BUN/Creatinine Ratio 24 Glucose Level 107 H 70-105 MG/DL Calcium Level 9.4 8.5-10.1 MG/DL Corrected Calcium 9.0 8.5-10.1 MG/DL Total Bilirubin 0.8 0.1-1.0 MG/DL Aspartate Amino Transf (AST/SGOT) 39 H 5-34 U/L Alanine Aminotransferase (ALT/SGPT) 29 0-55 U/L Alkaline Phosphatase 37 L 40-136 U/L Troponin I < 0.30 <0.30 NG/ML Total Protein 7.2 6.4-8.2 GM/DL Albumin 4.5 3.2-4.5 GM/DL My Orders Orders - LISA PUENTE DO Cbc With Automated Diff (09/21/19 11:22) Comprehensive Metabolic Panel (09/21/19 11:22) Troponin I Fs (09/21/19 11:22) Ekg Tracing (09/21/19 11:22) 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 Her complaints and is asking to be discharged home. Advised patient to follow up with his PCP in the next 1-2 days and to take the prescribed medicine as directed, as needed. The patient expresses verbal understanding and agreement with the plan and is stable for discharge home. ECG Comment @1115 - normal sinus rhythm, rate of 88, normal axis, no acute ischemic findings noted, no STEMI, reviewed and interpreted by myself Departure Impression Primary Impression: Nausea alone Disposition: 01 HOME, SELF-CARE Condition: Stable Departure-Patient Inst. Decision time for Depature: 12:26 Referrals: [facility] [place] (PCP/Family) Primary Care Physician Patient Instructions: Nausea and Vomiting, Adult Add. Discharge Instructions: Take the prescribed medicine as directed, as needed. Follow-up with your doctor in the next 1-2 days. Return to the emergency department immediately for new or worsening symptoms. Scripts Ondansetron (Ondansetron Odt) 4 Mg Tab.rapdis 4 MG PO Q6H PRN for NAUSEA/VOMITING, #20 TAB 0 Refills Prov: LISA PUENTE DO 09/21/19 Work/School Note: Work Release Form Date Seen in the Emergency Department: Sep 21, 2019 Return to Work: Sep 22, 2019 Restrictions: No Restrictions LISA PUENTE DO Sep 21, 2019 11:47
[2019-09-21 12:05] LABS: BUN/CREATININE RATIO 24; CARBON DIOXIDE 25 MMOL/L (21-32); CHLORIDE 105 MMOL/L (98-107); GFR ESTIMATED > 60; SODIUM 142 MMOL/L (135-145)
[2019-09-21 12:06] LABS: ALANINE AMINOTRANSFERASE 29 U/L (0-55); ALBUMIN 4.5 GM/DL (3.2-4.5); ALKALINE PHOSPHATASE 37 U/L (40-136); BILIRUBIN,TOTAL 0.8 MG/DL (0.1-1.0); CALCIUM 9.4 MG/DL (8.5-10.1); GLUCOSE 107 MG/DL (70-105); TOTAL PROTEIN 7.2 GM/DL (6.4-8.2)
[2019-09-21] MEDS ORDERED: ONDANSETRON 4 MG/2 ML (SDV) Z0FRAN IVP ONE (12:15)
[2019-09-21] MEDS ORDERED: ONDA4TAB11 PO (12:27)
[2019-09-21 12:42] VITALS: BP 150/85
== END 2019-09-21 12:42 | disposition home or self-care (01) ==
LOC: EDUNIT# 11:04 → ER FS 11:08
DX: R11.0 Nausea (principal); I10 Essential (primary) hypertension; E78.5 Hyperlipidemia, unspecified; F41.9 Anxiety disorder, unspecified; Z88.0 Allergy status to penicillin; Z87.891 Personal history of nicotine dependence; K21.9 Gastro-esophageal reflux disease without esophagitis; Z87.442 Personal history of urinary calculi
CPT/HCPCS: 36415; 80053; 84484; 85025

== ENCOUNTER → 2019-11-06 | Outpatient (CLI) | payer MEDICARE ==
[~2019-11-06] MED LIST changes: -PROM118S4 PO; +PROM118S5 PO
[2019-11-06 10:22] LABS: CHLORIDE 106 MMOL/L (98-107); POTASSIUM 4.8 MMOL/L (3.6-5.0); SODIUM 139 MMOL/L (135-145)
[2019-11-06 10:23] LABS: ALANINE AMINOTRANSFERASE 18 U/L (0-55); ALKALINE PHOSPHATASE 43 U/L (40-136); BILIRUBIN,TOTAL 0.3 MG/DL (0.1-1.0); BUN/CREATININE RATIO 19; CARBON DIOXIDE 26 MMOL/L (21-32); CREATININE SERUM 0.79 MG/DL (0.60-1.30); GFR ESTIMATED > 60; GLUCOSE 109 MG/DL (70-105); TOTAL PROTEIN 6.8 GM/DL (6.4-8.2)
[2019-11-06 10:24] LABS: ALBUMIN 4.1 GM/DL (3.2-4.5)
[2019-11-06 16:03] LABS: TRIGLYCERIDES 70 MG/DL (<150); VLDL CHOLESTEROL 14 MG/DL (5-40)
[2019-11-06 16:08] LABS: CHOLESTEROL 110 MG/DL (< 200)
[2019-11-06 16:09] LABS: HDL CHOLESTEROL 30 MG/DL (40-60)
== END ==
LOC: LAB FS 09:28
PROVIDERS: ATTEND Physician Assistant
DX: E78.2 Mixed hyperlipidemia (principal); I10 Essential (primary) hypertension
CPT/HCPCS: 36415; 80053; 80061

== ENCOUNTER 2020-04-07 03:21 | Emergency (ER) | payer BC, MEDICARE ==
[~2020-04-07] VITALS: Ht 177.8 cm; Wt 87.0 kg
[~2020-04-07 03:21] MED LIST changes: -LISI1TAB25 PO; +LISI1TAB46 PO
--- NOTE | 2020-04-07 03:41 | ED GI ---
General Chief Complaint: Abdominal/GI Problems Stated Complaint: NAUSEA,SPITTING UP BLOOD Source of Information: Patient Exam Limitations: No Limitations History of Present Illness Date Seen by Provider: Apr 07, 2020 Time Seen by Provider: 03:20 Initial Comments Patient presents ER by private conveyance from work with chief complaint that within the last hour he started experiencing some nausea and retching and spitting up a little red bloody material. No active emesis. He still has some mild nausea. Last oral intake was chili for dinner at 1830 yesterday evening. He says he was just sitting at work watching gauges when this happened. He does have a history of GERD and has had a surgery for his esophagus in the past although he does not recall exactly what it was. No other abdominal surgeries. No workup of the gallbladder. No diarrhea constipation fever or chills. He does take some medicines for high blood pressure and follows with a community health doctor at [place]. He also admits to a history of anxiety. Records show he has a history of hypertension, hyperlipidemia but no coronary disease. He was here and August, 7 months ago with similar complaints of nausea while at work. He does admit to a history of anxiety. Apparently he's had endoscopy and used to be on PPIs for indigestion. Allergies and Home Medications Allergies Coded Allergies: Penicillins (Unverified Adverse Reaction, Unknown, 06/23/18) Home Medications Ondansetron 4 Mg Tab.rapdis, 4 MG PO Q6H PRN for NAUSEA/VOMITING Prescribed by: ANA LYONS on 03/19/19 0009 Ondansetron 4 Mg Tab.rapdis, 4 MG PO Q6H PRN for NAUSEA/VOMITING Prescribed by: LISA PUENTE on 09/21/19 1227 Patient Home Medication List Home Medication List Reviewed: Yes Review of Systems Review of Systems Constitutional: No chills, No fever, No malaise EENTM: No Blurred Vision, No Double Vision Respiratory: Denies Cough, Denies Shortness of Air Cardiovascular: Denies Chest Pain, Denies Edema, Denies Lightheadedness Gastrointestinal: See HPI; Denies Constipated, Denies Diarrhea; Nausea, Vomiting Genitourinary: Denies Burning, Denies Discharge Musculoskeletal: No back pain, No joint pain Psychiatric/Neurological: Anxiety; Denies Depressed All Other Systems Reviewed Negative Unless Noted: Yes Past Iexjzur-Uvbzij-Cuvgve Hx Patient Social History Alcohol Use: Denies Use Recreational Drug Use: No Smoking Status: Former Smoker Type Used: Smokeless Tobacco Former Smoker, Quit: Jun 02, 2011 2nd Hand Smoke Exposure: No Recent Foreign Travel: No Contact w/Someone Who Travel: No Recent Hopitalizations: No Immunizations Up To Date Tetanus Booster (TDap): Unknown Date of Influenza Vaccine: Apr 01, 2018 Seasonal Allergies Seasonal Allergies: Yes Past Medical History Surgeries: Yes (Esophagus surgery for hernia) Abdominal Respiratory: No Cardiac: Yes High Cholesterol, Hypertension Neurological: No Reproductive Disorders: No Genitourinary: No Kidney Stones Gastrointestinal: Yes Gastroesophageal Reflux, Hiatal Hernia Musculoskeletal: No Endocrine: No HEENT: No Cancer: No Psychosocial: Yes Anxiety Integumentary: No Blood Disorders: No Family Medical History No Pertinent Family Hx Physical Exam Vital Signs Vital Signs - First Documented 04/07/20 03:29 Temp 36.4 Pulse 84 Resp 16 B/P (MAP) 122/92 (102) Pulse Ox 95 O2 Delivery Room Air Capillary Refill : Height/Weight/BMI Height: 5'10.00" Weight: 179lbs. 5.0oz. 81.413954ds; 27.00 BMI Method:Stated General Appearance: WD/WN, mild distress (mildly anxious) HEENT: PERRL/EOMI, normal ENT inspection, pharynx normal Neck: full range of motion, normal inspection Respiratory: lungs clear, normal breath sounds, no respiratory distress, no accessory muscle use Cardiovascular: normal peripheral pulses, regular rate, rhythm, no edema Peripheral Pulses: 2+ Radial Pulses (R), 2+ Radial Pulses (L) Gastrointestinal: soft; No rebound; tenderness (right lower quadrant without re bound tenderness or mesenteric signs.), other (negative for psoas sign, Rovsing sign) Neurologic/Psychiatric: no motor/sensory deficits, alert, oriented x 3, other (anxious affect) Skin: normal color, warm/dry Progress/Results/Core Measures Results/Orders Lab Results Laboratory Tests Test 04/07/20 03:35 Range/Units White Blood Count 12.8 H 4.3-11.0 10^3/uL Red Blood Count 5.15 4.30-5.52 10^6/uL Hemoglobin 15.2 13.3-17.7 g/dL Hematocrit 45 40-54 % Mean Corpuscular Volume 88 80-99 fL Mean Corpuscular Hemoglobin 30 25-34 pg Mean Corpuscular Hemoglobin Concent 34 32-36 g/dL Red Cell Distribution Width 12.7 10.0-14.5 % Platelet Count 418 H 130-400 10^3/uL Mean Platelet Volume 11.0 9.0-12.2 fL Immature Granulocyte % (Auto) 0 % Neutrophils (%) (Auto) 79 H 42-75 % Lymphocytes (%) (Auto) 9 L 12-44 % Monocytes (%) (Auto) 8 0-12 % Eosinophils (%) (Auto) 2 0-10 % Basophils (%) (Auto) 1 0-10 % Neutrophils # (Auto) 10.1 H 1.8-7.8 10^3/uL Lymphocytes # (Auto) 1.1 1.0-4.0 10^3/uL Monocytes # (Auto) 1.1 H 0.0-1.0 10^3/uL Eosinophils # (Auto) 0.3 0.0-0.3 10^3/uL Basophils # (Auto) 0.1 0.0-0.1 10^3/uL Immature Granulocyte # (Auto) 0.1 0.0-0.1 10^3/uL Sodium Level 137 135-145 MMOL/L Potassium Level 4.4 3.6-5.0 MMOL/L Chloride Level 101 98-107 MMOL/L Carbon Dioxide Level 25 21-32 MMOL/L Anion Gap 11 5-14 MMOL/L Blood Urea Nitrogen 16 7-18 MG/DL Creatinine 0.99 0.60-1.30 MG/DL Estimat Glomerular Filtration Rate > 60 BUN/Creatinine Ratio 16 Glucose Level 112 H 70-105 MG/DL Calcium Level 9.1 8.5-10.1 MG/DL Corrected Calcium 8.7 8.5-10.1 MG/DL Total Bilirubin 0.5 0.1-1.0 MG/DL Aspartate Amino Transf (AST/SGOT) 21 5-34 U/L Alanine Aminotransferase (ALT/SGPT) 20 0-55 U/L Alkaline Phosphatase 41 40-136 U/L C-Reactive Protein High Sensitivity 0.46 0.00-0.50 MG/DL Total Protein 7.3 6.4-8.2 GM/DL Albumin 4.5 3.2-4.5 GM/DL Lipase 19 8-78 U/L My Orders Orders - ANA LYONS Cbc With Automated Diff (04/07/20 03:34) Comprehensive Metabolic Panel (04/07/20 03:34) Hs C Reactive Protein (04/07/20 03:34) Lipase (04/07/20 03:34) Pantoprazole Injection (Protonix Injecti (04/07/20 03:45) Ondansetron Injection (Zofran Injectio (04/07/20 03:45) Ed Iv/Invasive Line Start (04/07/20 03:34) Medications Given in ED Current Medications Medications Dose Ordered Sig/Yobany Route Start Time Stop Time Status Last Admin Dose Admin Ondansetron HCl 4 mg ONCE ONCE IVP 04/07/20 03:45 04/07/20 03:46 DC 04/07/20 03:45 4 MG Pantoprazole 40 mg ONCE ONCE IV 04/07/20 03:45 04/07/20 03:46 DC 04/07/20 03:45 40 MG Vital Signs/I&O 04/07/20 03:29 Temp 36.4 Pulse 84 Resp 16 B/P (MAP) 122/92 (102) Pulse Ox 95 O2 Delivery Room Air Progress Progress Note #1: Time: 03:44 Progress Note Nausea and will he denies abdominal pain he does have some tenderness and right lower quadrant which could be related to intra-abdominal infection versus hernia versus abdominal wall pain etc. At rest he is denying any pain. Plan to give him some ondansetron for his nausea and pantoprazole. Unclear if he's had esophageal surgery or an EGD. No history or reports of surgery are on file. We'll check some labs including a CRP and lipase. If his blood work is okay and his symptoms are improved then we can send him home get an ultrasound of his right upper quadrant and follow-up with general surgery. We'll give him good return precautions should his right lower quadrant abdominal pain resume spontaneously. Progress Note #2: Time: 04:19 Progress Note On reexamination the patient's symptoms are benign he has aseptic vital signs and an nonsurgical abdominal exam. We have discussed setting up follow-up with Dr. Leon as well as an ultrasound of his right upper quadrant. We have discussed return precautions. Regarding give him a prescription for some nausea medicine and omeprazole. Departure Impression Primary Impression: Nausea alone Disposition: HOME, SELF-CARE Condition: Improved Departure-Patient Inst. Decision time for Depature: 04:20 Referrals: [facility] [place]) Primary Care Physician NIKO LEON DO Patient Instructions: Nausea and Vomiting, Adult Add. Discharge Instructions: Ondansetron one tablet under the tongue every 6 hours as necessary for nausea or vomiting. Omeprazole 20 mg twice a day for the next [address] Leon, General Surgery and request a follow-up appointment to workup your nausea. Call the schedulers on the outpatient order form to set up an appointment for ultrasound of your gallbladder. All discharge instructions reviewed with patient and/or family. Voiced understanding. Scripts Omeprazole (Omeprazole) 20 Mg Tablet. 20 MG PO BID for 30 Days, #60 TAB 0 Refills Prov: ANA LYONS 04/07/20 Ondansetron (Ondansetron Odt) 4 Mg Tab.rapdis 4 MG PO Q6H PRN for NAUSEA/VOMITING, #8 TAB 0 Refills Prov: ANA LYONS 04/07/20 Work/School Note: Work Release Form Date Seen in the Emergency Department: Apr 07, 2020 Return to Work: Apr 08, 2020 Restrictions: No Restrictions Copy Copies To 1: NIKO LEON TITUS J Apr 07, 2020 03:41
[2020-04-07] MEDS ORDERED: ONDANSETRON 4 MG/2 ML (SDV) Z0FRAN IVP ONE (03:45)
[2020-04-07] MEDS ORDERED: PANTOPRAZOLE 40 MG (PROTONIX) VIAL IV ONE (03:45)
[2020-04-07 03:56] LABS: BASOPHILS # (AUTO) 0.1 10^3/uL (0.0-0.1); BASOPHILS % (AUTO) 1 % (0-10); EOSINOPHILS # (AUTO) 0.3 10^3/uL (0.0-0.3); EOSINOPHILS % (AUTO) 2 % (0-10); HEMATOCRIT 45 % (40-54); HEMOGLOBIN 15.2 g/dL (13.3-17.7); LYMPHOCYTES # (AUTO) 1.1 10^3/uL (1.0-4.0); LYMPHOCYTES % (AUTO) 9 % (12-44); MEAN CORPUSCULAR HEMOGLOBIN 30 pg (25-34); MEAN CORPUSCULAR HGB CONC 34 g/dL (32-36); MEAN CORPUSCULAR VOLUME 88 fL (80-99); MONOCYTES # (AUTO) 1.1 10^3/uL (0.0-1.0); MONOCYTES % (AUTO) 8 % (0-12); NEUTROPHILS # (AUTO) 10.1 10^3/uL (1.8-7.8); NEUTROPHILS % (AUTO) 79 % (42-75); PLATELET COUNT 418 10^3/uL (130-400); WHITE BLOOD COUNT 12.8 10^3/uL (4.3-11.0)
[2020-04-07 03:59] LABS: ALBUMIN 4.5 GM/DL (3.2-4.5); CHLORIDE 101 MMOL/L (98-107); POTASSIUM 4.4 MMOL/L (3.6-5.0); SODIUM 137 MMOL/L (135-145)
[2020-04-07 04:00] LABS: CALCIUM 9.1 MG/DL (8.5-10.1)
[2020-04-07 04:01] LABS: GLUCOSE 112 MG/DL (70-105); TOTAL PROTEIN 7.3 GM/DL (6.4-8.2)
[2020-04-07 04:02] LABS: CARBON DIOXIDE 25 MMOL/L (21-32)
[2020-04-07 04:03] LABS: BILIRUBIN,TOTAL 0.5 MG/DL (0.1-1.0)
[2020-04-07 04:05] LABS: ALKALINE PHOSPHATASE 41 U/L (40-136); CREATININE SERUM 0.99 MG/DL (0.60-1.30); GFR ESTIMATED > 60
[2020-04-07 04:06] LABS: BUN/CREATININE RATIO 16
[2020-04-07 04:08] LABS: ALANINE AMINOTRANSFERASE 20 U/L (0-55)
[2020-04-07 04:09] LABS: LIPASE 19 U/L (8-78)
[2020-04-07] MEDS ORDERED: ONDA4TAB11 PO (04:22)
[2020-04-07] MEDS ORDERED: OMEP20TA7 PO (04:22)
[2020-04-07 04:26] VITALS: BP 124/92
== END 2020-04-07 04:28 | disposition home or self-care (01) ==
LOC: EDUNIT# 03:21 → ER 03:25
DX: R11.0 Nausea (principal); F41.9 Anxiety disorder, unspecified; Z87.891 Personal history of nicotine dependence; Z88.0 Allergy status to penicillin
CPT/HCPCS: 36415; 80053; 83690; 85025; 86141

== ENCOUNTER → 2020-04-10 | Outpatient (CLI) | payer BC, MEDICARE ==
[~2020-04-10] MED LIST changes: +OMEP20TA7 PO
--- NOTE | 2020-04-10 10:59 | Diagnostic Imaging Report ---
PROCEDURE: US Gallbladder. TECHNIQUE: Multiple real-time grayscale images were obtained over the right upper quadrant in various projections. INDICATION: Abdominal pain with nausea and vomiting. COMPARISON: None available. FINDINGS: The liver measures approximately 15 cm in length. Due to overlying rib shadow and patient body habitus, portions of the liver are suboptimally seen. Where visualized, liver demonstrates normal echogenicity and is without focal lesion. Portal vein is patent with normal direction of flow. Gallbladder appears contracted without pericholecystic fluid. Gallbladder wall thickening is secondary due to incomplete distention. Common bile duct is obscured by overlying bowel gas. The majority of the pancreas is obscured by overlying bowel gas. The right kidney is normal in size. No hydronephrosis, shadowing calculi, or suspicious mass lesion. IMPRESSION: 1. Contracted gallbladder is likely due to recent eating or drinking. No gallstones are appreciated or pericholecystic fluid. 2. Due to moderate volume of bowel gas, the common bile duct is obscured. Dictated by: Dictated on workstation # [id number]
== END ==
LOC: RAD 08:15
PROVIDERS: ATTEND Emergency Medicine
DX: R11.2 Nausea with vomiting, unspecified (principal); K83.8 Other specified diseases of biliary tract; R10.9 Unspecified abdominal pain
CPT/HCPCS: 76705

== ENCOUNTER 2020-04-29 05:52 | Emergency (ER) | payer SELFPAY ==
[~2020-04-29] VITALS: Ht 177.8 cm; Wt 84.8 kg
[2020-04-29 06:29] LABS: ALBUMIN 4.3 GM/DL (3.2-4.5); BASOPHILS # (AUTO) 0.1 10^3/uL (0.0-0.1); BASOPHILS % (AUTO) 2 % (0-10); CHLORIDE 104 MMOL/L (98-107); EOSINOPHILS # (AUTO) 0.3 10^3/uL (0.0-0.3); EOSINOPHILS % (AUTO) 4 % (0-10); HEMATOCRIT 46 % (40-54); LYMPHOCYTES # (AUTO) 1.2 10^3/uL (1.0-4.0); LYMPHOCYTES % (AUTO) 15 % (12-44); MEAN CORPUSCULAR HEMOGLOBIN 29 pg (25-34); MEAN CORPUSCULAR HGB CONC 33 g/dL (32-36); MEAN CORPUSCULAR VOLUME 90 fL (80-99); MEAN PLATELET VOLUME 10.9 fL (9.0-12.2); MONOCYTES # (AUTO) 0.5 10^3/uL (0.0-1.0); MONOCYTES % (AUTO) 7 % (0-12); NEUTROPHILS # (AUTO) 5.6 10^3/uL (1.8-7.8); NEUTROPHILS % (AUTO) 72 % (42-75); PLATELET COUNT 362 10^3/uL (130-400); POTASSIUM 4.5 MMOL/L (3.6-5.0); SODIUM 138 MMOL/L (135-145); WHITE BLOOD COUNT 7.7 10^3/uL (4.3-11.0)
[2020-04-29 06:31] LABS: CALCIUM 8.8 MG/DL (8.5-10.1)
[2020-04-29 06:32] LABS: GLUCOSE 111 MG/DL (70-105); TOTAL PROTEIN 7.1 GM/DL (6.4-8.2)
[2020-04-29 06:33] LABS: CARBON DIOXIDE 25 MMOL/L (21-32)
[2020-04-29 06:34] LABS: BILIRUBIN,TOTAL 0.2 MG/DL (0.1-1.0)
[2020-04-29 06:35] LABS: ALKALINE PHOSPHATASE 41 U/L (40-136); CREATININE SERUM 0.85 MG/DL (0.60-1.30); GFR ESTIMATED > 60
[2020-04-29 06:36] LABS: BUN/CREATININE RATIO 15
[2020-04-29 06:38] LABS: ALANINE AMINOTRANSFERASE 18 U/L (0-55); MAGNESIUM 2.3 MG/DL (1.6-2.4)
[2020-04-29 06:42] LABS: FIBRIN DEGRADATION PRODUCTS < 0.27 UG/ML (0.00-0.49); INR 0.9 (0.8-1.4); PARTIAL THROMBOPLASTIN TIME 27 SEC (24-35); PROTHROMBIN TIME PATIENT 12.9 SEC (12.2-14.7)
--- NOTE | 2020-04-29 06:47 | ED Chest Pain ---
General Chief Complaint: Chest Pain Stated Complaint: CP,SOB,DIZZY Source: patient Exam Limitations: no limitations History of Present Illness Date Seen by Provider: Apr 29, 2020 Time Seen by Provider: 06:05 Initial Comments Here with report of chest pain, shortness of breath, tingling hands arms that started at about 3:30 AM and has been changing over time. States better now. He tried resting and that did help. Ultimately spoke with his boss and then ultimately was transported here via EMS. States he had a similar episode last year but no definitive diagnosis. Follows with [facility] the [facility]. Denies nausea, vomiting, sore throat, runny nose or other upper respiratory symptoms or exposure to COVID-19. 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) NTG SL NEWBORN PHOTOGRAPHER: No Associated Symptoms: No abdominal pain, No back pain, No diaphoresis; dizziness; No fatigue, No fever/chills, No nausea/vomiting; shortness of breath; No weakness Allergies and Home Medications Allergies Coded Allergies: Penicillins (Unverified Adverse Reaction, Unknown, 06/23/18) Home Medications Omeprazole 20 Mg Tablet.dr, 20 MG PO BID Prescribed by: ANA LYONS on 04/07/20421 Ondansetron 4 Mg Tab.rapdis, 4 MG PO Q6H PRN for NAUSEA/VOMITING Prescribed by: ANA LYONS on 03/19/19 0009 Ondansetron 4 Mg Tab.rapdis, 4 MG PO Q6H PRN for NAUSEA/VOMITING Prescribed by: LISA PUENTE on 09/21/19 1227 Ondansetron 4 Mg Tab.rapdis, 4 MG PO Q6H PRN for NAUSEA/VOMITING Prescribed by: ANA LYONS on 04/07/20421 Patient Home Medication List Home Medication List Reviewed: Yes Review of Systems Review of Systems Constitutional: see HPI EENTM: No Symptoms Reported Respiratory: See HPI, Shortness of Air; Denies Wheezing Cardiovascular: Chest Pain; Denies Edema Gastrointestinal: Denies Abdominal Pain, Denies Nausea, Denies Vomiting Genitourinary: No Symptoms Reported Musculoskeletal: no symptoms reported Psychiatric/Neurological: No Symptoms Reported All Other Systems Reviewed Negative Unless Noted: Yes Past Mqksdte-Jaqear-Nbmkim Hx Past Med/Social Hx: Reviewed Nursing Past Med/Soc Hx Patient Social History Alcohol Use: Denies Use Recreational Drug Use: No Smoking Status: Former Smoker Type Used: Smokeless Tobacco Former Smoker, Quit: Jun 02, 2011 2nd Hand Smoke Exposure: No Recent Hopitalizations: No Immunizations Up To Date Tetanus Booster (TDap): Unknown Date of Influenza Vaccine: Apr 01, 2018 Seasonal Allergies Seasonal Allergies: Yes Past Medical History Surgeries: Yes (hernia) Abdominal Respiratory: No Cardiac: Yes High Cholesterol, Hypertension Neurological: No Reproductive Disorders: No Genitourinary: Yes Kidney Stones Gastrointestinal: Yes Gastroesophageal Reflux, Hiatal Hernia Musculoskeletal: No Endocrine: No HEENT: No Cancer: No Psychosocial: Yes Anxiety Integumentary: No Blood Disorders: No Family Medical History Reviewed Nursing Family Hx No Pertinent Family Hx Physical Exam Vital Signs Vital Signs - First Documented 04/29/20 05:55 Temp 36.8 Pulse 70 Resp 20 B/P (MAP) 123/83 (96) Pulse Ox 97 O2 Delivery Room Air Capillary Refill : Height, Weight, BMI Height: 5'10.00" Weight: 179lbs. 5.0oz. 81.790711wa; 27.00 BMI Method:Stated General Appearance: No Apparent Distress, WD/WN HEENT: PERRL/EOMI, Pharynx Normal Neck: Non Tender, Supple Respiratory: Lungs Clear, Normal Breath Sounds Cardiovascular: Regular Rate, Rhythm, No Murmur Gastrointestinal: Non Tender, Soft Extremity: Normal Range of Motion, Non Tender Neurologic/Psychiatric: Alert, Oriented x3 Skin: Normal Color, Warm/Dry Progress/Results/Core Measures Results/Orders Lab Results Laboratory Tests Test 04/29/20 06:00 04/29/20 07:43 Range/Units White Blood Count 7.7 4.3-11.0 10^3/uL Red Blood Count 5.10 4.30-5.52 10^6/uL Hemoglobin 15.0 13.3-17.7 g/dL Hematocrit 46 40-54 % Mean Corpuscular Volume 90 80-99 fL Mean Corpuscular Hemoglobin 29 25-34 pg Mean Corpuscular Hemoglobin Concent 33 32-36 g/dL Red Cell Distribution Width 12.7 10.0-14.5 % Platelet Count 362 130-400 10^3/uL Mean Platelet Volume 10.9 9.0-12.2 fL Immature Granulocyte % (Auto) 0 % Neutrophils (%) (Auto) 72 42-75 % Lymphocytes (%) (Auto) 15 12-44 % Monocytes (%) (Auto) 7 0-12 % Eosinophils (%) (Auto) 4 0-10 % Basophils (%) (Auto) 2 0-10 % Neutrophils # (Auto) 5.6 1.8-7.8 10^3/uL Lymphocytes # (Auto) 1.2 1.0-4.0 10^3/uL Monocytes # (Auto) 0.5 0.0-1.0 10^3/uL Eosinophils # (Auto) 0.3 0.0-0.3 10^3/uL Basophils # (Auto) 0.1 0.0-0.1 10^3/uL Immature Granulocyte # (Auto) 0.0 0.0-0.1 10^3/uL Erythrocyte Sedimentation Rate 3 0-30 MM/HR Prothrombin Time 12.9 12.2-14.7 SEC INR Comment 0.9 0.8-1.4 Activated Partial Thromboplast Time 27 24-35 SEC D-Dimer < 0.27 0.00-0.49 UG/ML Sodium Level 138 135-145 MMOL/L Potassium Level 4.5 3.6-5.0 MMOL/L Chloride Level 104 98-107 MMOL/L Carbon Dioxide Level 25 21-32 MMOL/L Anion Gap 9 5-14 MMOL/L Blood Urea Nitrogen 13 7-18 MG/DL Creatinine 0.85 0.60-1.30 MG/DL Estimat Glomerular Filtration Rate > 60 BUN/Creatinine Ratio 15 Glucose Level 111 H 70-105 MG/DL Calcium Level 8.8 8.5-10.1 MG/DL Corrected Calcium 8.6 8.5-10.1 MG/DL Magnesium Level 2.3 1.6-2.4 MG/DL Total Bilirubin 0.2 0.1-1.0 MG/DL Aspartate Amino Transf (AST/SGOT) 20 5-34 U/L Alanine Aminotransferase (ALT/SGPT) 18 0-55 U/L Alkaline Phosphatase 41 40-136 U/L Myoglobin 26.6 10.0-92.0 NG/ML Troponin I < 0.028 < 0.028 <0.028 NG/ML C-Reactive Protein High Sensitivity 0.05 0.00-0.50 MG/DL Total Protein 7.1 6.4-8.2 GM/DL Albumin 4.3 3.2-4.5 GM/DL Procalcitonin 0.03 <0.10 NG/ML My Orders Orders - TESSIE BEARD MD Cbc With Automated Diff (04/29/20 06:19) Magnesium (04/29/20 06:19) Chest 1 View, Ap/Pa Only (04/29/20 06:19) Ekg Tracing (04/29/20 06:19) Comprehensive Metabolic Panel (04/29/20 06:19) Myoglobin Serum (04/29/20 06:19) Protime With Inr (04/29/20 06:19) Partial Thromboplastin Time (04/29/20 06:19) O2 (04/29/20 06:19) Monitor-Rhythm Ecg Trace Only (04/29/20 06:19) Lipid Panel (04/30/20 06:00) Ed Iv/Invasive Line Start (04/29/20 06:19) Troponin I (04/29/20 06:19) Procalcitonin (Pct) (04/29/20 06:19) Hs C Reactive Protein (04/29/20 06:19) Erythrocyte Sedimentation Rate (04/29/20 06:19) Fibrin Degradation Products (04/29/20 06:00) Troponin I (04/29/20 07:39) Lidocaine 2% Viscous 15 Ml (Xylocaine Vi (04/29/20 07:45) Antacid Suspension (Mylanta Suspension (04/29/20 07:45) Medications Given in ED Current Medications Medications Dose Ordered Sig/Yobany Route Start Time Stop Time Status Last Admin Dose Admin Al Hydrox/Mg Hydrox/Simethicone 30 ml ONCE ONCE PO 04/29/20 07:45 04/29/20 07:46 DC 04/29/20 07:44 30 ML Lidocaine HCl 15 ml ONCE ONCE PO 04/29/20 07:45 04/29/20 07:46 DC 04/29/20 07:44 15 ML Vital Signs/I&O 04/29/20 04/29/20 05:55 05:55 Temp 36.8 Pulse 70 Resp 20 B/P (MAP) 123/83 (96) Pulse Ox 97 O2 Delivery Room Air Room Air Progress Progress Note : Progress Note Seen and evaluated. Labs, chest x-ray and EKG ordered. Reviewed previous history which shows multiple stress tests and echocardiograms. These have been fine. Patient did receive aspirin 324 mg p.o. by EMS. Monitor patient. 0750: Overall doing better. GI cocktail ordered. Repeat troponin ordered. Initial set of evaluation is all negative and not concerning. Monitor patient. 0840: Repeat troponin negative. Patient without complaint. Discharged home with return precautions. Patient verbalized understanding of instructions and agreement with plan. Initial ECG Impression Date: Apr 29, 2020 Initial ECG Impression Time: 06:16 Initial ECG Rate: 71 Initial ECG Rhythm: Normal Sinus Initial ECG Impression: Normal Initial ECG Comparisson: Unchanged Comment Sinus rhythm with normal axis. No evidence of ST elevation [place]. Similar to previous of 09/21/2019. Interpreted by me. Diagnostic Imaging Diagonstic Imaging: Xray Plain Films/CT/US/NM/MRI: chest Comments [facility], [place] NAME: ARIES LAZARO [facility] REC#: [id number] PT STATUS: REG ER : 1970 PHYSICIAN: TESSIE BEARD MD ADMIT DATE: 04/29/20/ER Signed Date of Exam:04/29/20 CHEST 1 VIEW, AP/PA ONLY EXAMINATION: Chest 1 view HISTORY: Chest pain. COMPARISON: 07/11/2019. FINDINGS: The lung volumes are normal. No focal consolidation is seen. No large pleural effusion or pneumothorax is seen. The cardiomediastinal silhouette is normal in size and contour. No acute osseous abnormality is seen. IMPRESSION: 1. No acute pleuroparenchymal process. Dictated by: Dictated on workstation # [id number] Dict: 04/29/20724 Trans: 04/29/20726 [facility] [id number] Interpreted by: LISA MCGUIRE DO Electronically signed by: LISA MCGUIRE DO 04/29/2027 Departure Impression Primary Impression: Chest pain Qualified Codes: R07.9 - Chest pain, unspecified Disposition: 01 HOME, SELF-CARE Condition: Improved Departure-Patient Inst. Decision time for Depature: 08:41 Referrals: [facility] (PCP/Family) Primary Care Physician Patient Instructions: Chest Pain (DC) Add. Discharge Instructions: All discharge instructions reviewed with patient and/or family. Voiced understanding. It is important that you follow-up with your doctor this week for recheck and further evaluation and for referral to cardiology as needed. Return for worse pain, fever, vomiting, weakness, breathing problems or other concerns as needed. Continue home medications as previously prescribed. Work/School Note: Work Release Form Date Seen in the Emergency Department: Apr 29, 2020 Return to Work: Apr 29, 2020 Restrictions: No Restrictions Copy Copies To 1: BAUTISTA DARLING TIMOTHY D MD Apr 29, 2020 06:47
--- NOTE | 2020-04-29 07:25 | NUR ---
ASSUMED CARE OF PT.
--- NOTE | 2020-04-29 07:27 | Diagnostic Imaging Report ---
EXAMINATION: Chest 1 view HISTORY: Chest pain. COMPARISON: 07/11/2019. FINDINGS: The lung volumes are normal. No focal consolidation is seen. No large pleural effusion or pneumothorax is seen. The cardiomediastinal silhouette is normal in size and contour. No acute osseous abnormality is seen. IMPRESSION: 1. No acute pleuroparenchymal process. Dictated by: Dictated on workstation # [id number]
[2020-04-29] MEDS ORDERED: LIDOCAINE 2% VISCOUS 15 ML UDC PO ONE (07:45)
[2020-04-29] MEDS ORDERED: ANTACID SUSP 30 ML UDC (MYLANTA) PO ONE (07:45)
--- NOTE | 2020-04-29 08:40 | NUR ---
IN TALKING TO THE PT AT THIS TIME.
[2020-04-29 08:51] VITALS: BP 119/88
== END 2020-04-29 08:51 | disposition home or self-care (01) ==
LOC: EDUNIT# 05:52 → ER 05:53
DX: R07.9 Chest pain, unspecified (principal); K21.9 Gastro-esophageal reflux disease without esophagitis; Z87.891 Personal history of nicotine dependence; Z88.0 Allergy status to penicillin
CPT/HCPCS: 36415; 71045; 80053; 83735; 83874; 84145; 84484; 85025; 85379; 85610; 85652; 85730; 86141; 93005; 93041

== ENCOUNTER 2020-05-02 05:04 | Emergency (ER) | payer SELFPAY ==
[~2020-05-02] VITALS: Ht 177 cm; Wt 95.0 kg
--- NOTE | 2020-05-02 05:10 | NUR ---
Pt arrives after having a syncopal episode at work; pt states he started having chest/epigastric pain just prior to the syncopal epiosode. Pt denies injury from the loc and denies pain or trauma. No obvious signs of injury or trauma are noted on exam. Pt is A&Ox4 with GCS of 15. Pt reports epigastric pain which he describes as sharp and burning. States he started "breathing fast" and his fingers started to turn numb when he passed out. Pt does have hx of panic attacks.
[2020-05-02] MEDS ORDERED: FAMOTIDINE 20MG/2ML IV (PEPCID) IV STA (05:18)
[2020-05-02 05:29] LABS: BASOPHILS # (AUTO) 0.2 10^3/uL (0.0-0.1); BASOPHILS % (AUTO) 2 % (0-10); EOSINOPHILS # (AUTO) 0.4 10^3/uL (0.0-0.3); EOSINOPHILS % (AUTO) 4 % (0-10); HEMATOCRIT 45 % (40-54); HEMOGLOBIN 15.4 g/dL (13.3-17.7); LYMPHOCYTES # (AUTO) 1.2 10^3/uL (1.0-4.0); LYMPHOCYTES % (AUTO) 13 % (12-44); MEAN CORPUSCULAR HEMOGLOBIN 30 pg (25-34); MEAN CORPUSCULAR HGB CONC 34 g/dL (32-36); MEAN CORPUSCULAR VOLUME 89 fL (80-99); MEAN PLATELET VOLUME 10.8 fL (9.0-12.2); MONOCYTES # (AUTO) 0.6 10^3/uL (0.0-1.0); MONOCYTES % (AUTO) 6 % (0-12); NEUTROPHILS # (AUTO) 7.1 10^3/uL (1.8-7.8); NEUTROPHILS % (AUTO) 75 % (42-75); PLATELET COUNT 400 10^3/uL (130-400); WHITE BLOOD COUNT 9.5 10^3/uL (4.3-11.0)
[2020-05-02] MEDS ORDERED: ANTACID SUSP 30 ML UDC (MYLANTA) PO ONE (05:30)
[2020-05-02] MEDS ORDERED: ONDANSETRON 4 MG/2 ML (SDV) Z0FRAN IVP ONE (05:30)
[2020-05-02] MEDS ORDERED: LIDOCAINE 2% VISCOUS 15 ML UDC PO ONE (05:30)
[2020-05-02 05:38] LABS: ALBUMIN 4.2 GM/DL (3.2-4.5)
[2020-05-02 05:39] LABS: CHLORIDE 109 MMOL/L (98-107); POTASSIUM 5.7 MMOL/L (3.6-5.0); SODIUM 141 MMOL/L (135-145)
[2020-05-02 05:40] LABS: CALCIUM 8.4 MG/DL (8.5-10.1)
--- NOTE | 2020-05-02 05:40 | ED Chest Pain ---
General Chief Complaint: General Problems/Pain Stated Complaint: SOB,HANDS MATTHEW Nursing Triage Note: Pt here by EMS after having onset of epigastric pain followed by syncopal episode. Nursing Sepsis Screen: No Definite Risk Source: patient, old records Exam Limitations: no limitations (JACK NORMAN MD) History of Present Illness Date Seen by Provider: May 02, 2020 Time Seen by Provider: 05:07 Initial Comments This 49-year-old gentleman presents to the emergency room with complaints of chest pain followed by a syncopal episode while at work. He had a similar episode of chest pain on April 29 for which he was seen in the emergency room. He was given cardiac clearance after serial troponin measurements. Review of chart reveals 3 separate stress test performed over the last 5 years, all of which were negative for ischemia. He also has pain and tenderness in the epigastric region. He has a history of acid reflux. He also seemed anxious at the time and had tingling in the extremities. He reports no trauma with his sy ncope. He slid to the floor without significant impact. (JACK NORMAN MD) Allergies and Home Medications Allergies Coded Allergies: Penicillins (Unverified Adverse Reaction, Unknown, 06/23/18) Home Medications Omeprazole 20 Mg Tablet.dr, 20 MG PO BID Prescribed by: ANA LYONS on 04/07/20421 Ondansetron 4 Mg Tab.rapdis, 4 MG PO Q6H PRN for NAUSEA/VOMITING Prescribed by: ANA LYONS on 03/19/19 0009 Ondansetron 4 Mg Tab.rapdis, 4 MG PO Q6H PRN for NAUSEA/VOMITING Prescribed by: LISA PUENTE on 09/21/19 1227 Ondansetron 4 Mg Tab.rapdis, 4 MG PO Q6H PRN for NAUSEA/VOMITING Prescribed by: ANA LYONS on 04/07/20421 Patient Home Medication List Home Medication List Reviewed: Yes (JACK NORMAN MD) Review of Systems Review of Systems Constitutional: no symptoms reported EENTM: No Symptoms Reported Respiratory: No Symptoms Reported Cardiovascular: See HPI Gastrointestinal: See HPI Genitourinary: No Symptoms Reported Musculoskeletal: no symptoms reported Skin: no symptoms reported Psychiatric/Neurological: See HPI Endocrine: No Symptoms Reported Hematologic/Lymphatic: No Symptoms Reported (JACK NORMAN MD) Past Wwsujwk-Whgfts-Ujnllq Hx Past Med/Social Hx: Reviewed Nursing Past Med/Soc Hx (JACK NORMAN MD) Patient Social History Recreational Drug Use: No Type Used: Smokeless Tobacco Former Smoker, Quit: Jun 02, 2011 2nd Hand Smoke Exposure: No Recent Foreign Travel: No Contact w/Someone Who Travel: No Recent Infectious Disease Expo: No Recent Hopitalizations: No (JACK NORMAN MD) Immunizations Up To Date Tetanus Booster (TDap): Unknown Date of Influenza Vaccine: Apr 01, 2018 (JACK NORMAN MD) Seasonal Allergies Seasonal Allergies: Yes (JACK NORMAN MD) Past Medical History Surgeries: Yes (hernia) Abdominal Respiratory: No Cardiac: Yes High Cholesterol, Hypertension Neurological: No Reproductive Disorders: No Genitourinary: Yes Kidney Stones Gastrointestinal: Yes Gastroesophageal Reflux, Hiatal Hernia Musculoskeletal: No Endocrine: No HEENT: No Cancer: No Psychosocial: Yes Anxiety, Depression Integumentary: No Blood Disorders: No (JACK NORMAN MD) Family Medical History No Pertinent Family Hx (JACK NORMAN MD) Physical Exam Vital Signs Vital Signs - First Documented 05/02/20 05:18 Temp 36.4 Pulse 101 Resp 18 B/P (MAP) 135/90 (105) Pulse Ox 97 O2 Delivery Room Air (TESSIE BEARD MD) Vital Signs Capillary Refill : Less Than 3 Seconds (JACK NORMAN MD) Height, Weight, BMI Height: 5'10.00" Weight: 179lbs. 5.0oz. 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 Norm as Tested Skin: Normal Color, Warm/Dry (JACK NORMAN MD) Progress/Results/Core Measures Results/Orders Lab Results Laboratory Tests Test 05/02/20 05:20 Range/Units White Blood Count 9.5 4.3-11.0 10^3/uL Red Blood Count 5.08 4.30-5.52 10^6/uL Hemoglobin 15.4 13.3-17.7 g/dL Hematocrit 45 40-54 % Mean Corpuscular Volume 89 80-99 fL Mean Corpuscular Hemoglobin 30 25-34 pg Mean Corpuscular Hemoglobin Concent 34 32-36 g/dL Red Cell Distribution Width 12.9 10.0-14.5 % Platelet Count 400 130-400 10^3/uL Mean Platelet Volume 10.8 9.0-12.2 fL Immature Granulocyte % (Auto) 1 % Neutrophils (%) (Auto) 75 42-75 % Lymphocytes (%) (Auto) 13 12-44 % Monocytes (%) (Auto) 6 0-12 % Eosinophils (%) (Auto) 4 0-10 % Basophils (%) (Auto) 2 0-10 % Neutrophils # (Auto) 7.1 1.8-7.8 10^3/uL Lymphocytes # (Auto) 1.2 1.0-4.0 10^3/uL Monocytes # (Auto) 0.6 0.0-1.0 10^3/uL Eosinophils # (Auto) 0.4 H 0.0-0.3 10^3/uL Basophils # (Auto) 0.2 H 0.0-0.1 10^3/uL Immature Granulocyte # (Auto) 0.1 0.0-0.1 10^3/uL Prothrombin Time 13.4 12.2-14.7 SEC INR Comment 1.0 0.8-1.4 Activated Partial Thromboplast Time 29 24-35 SEC Sodium Level 141 135-145 MMOL/L Potassium Level 5.7 H 3.6-5.0 MMOL/L Chloride Level 109 H 98-107 MMOL/L Carbon Dioxide Level 21 21-32 MMOL/L Anion Gap 11 5-14 MMOL/L Blood Urea Nitrogen 20 H 7-18 MG/DL Creatinine 1.16 0.60-1.30 MG/DL Estimat Glomerular Filtration Rate > 60 BUN/Creatinine Ratio 17 Glucose Level 112 H 70-105 MG/DL Calcium Level 8.4 L 8.5-10.1 MG/DL Corrected Calcium 8.2 L 8.5-10.1 MG/DL Magnesium Level 2.4 1.6-2.4 MG/DL Total Bilirubin 0.2 0.1-1.0 MG/DL Aspartate Amino Transf (AST/SGOT) 43 H 5-34 U/L Alanine Aminotransferase (ALT/SGPT) 28 0-55 U/L Alkaline Phosphatase 56 40-136 U/L Myoglobin 30.0 10.0-92.0 NG/ML Troponin I < 0.028 <0.028 NG/ML Total Protein 8.7 H 6.4-8.2 GM/DL Albumin 4.2 3.2-4.5 GM/DL Lipase 28 8-78 U/L (TESSIE BEARD MD) Medications Given in ED Current Medications Medications Dose Ordered Sig/Yobany Route Start Time Stop Time Status Last Admin Dose Admin Al Hydrox/Mg Hydrox/Simethicone 30 ml ONCE ONCE PO 05/02/20 05:30 05/02/20 05:31 DC 05/02/20 05:27 30 ML Fentanyl Citrate 50 mcg ONCE ONCE IVP 05/02/20 06:30 05/02/20 06:31 AK 05/02/20 06:23 50 MCG Iohexol 100 ml ONCE ONCE IV 05/02/20 07:00 05/02/20 07:01 AK 05/02/20 06:50 100 ML Lidocaine HCl 15 ml ONCE ONCE PO 05/02/20 05:30 05/02/20 05:31 AK 05/02/20 05:27 15 ML Ondansetron HCl 4 mg ONCE ONCE IVP 05/02/20 05:30 05/02/20 05:31 DC 05/02/20 05:27 4 MG Sodium Chloride 80 ml ONCE ONCE IV 05/02/20 07:00 05/02/20 07:01 DC 05/02/20 06:50 80 ML Sodium Chloride 1,000 ml @ 0 mls/hr Q0M ONCE IV 05/02/20 06:03 05/02/20 06:04 DC 05/02/20 06:07 1,000 MLS/HR (TESSIE BEARD MD) Vital Signs/I&O 05/02/20 05:18 Temp 36.4 Pulse 101 Resp 18 B/P (MAP) 135/90 (105) Pulse Ox 97 O2 Delivery Room Air (TESSIE BERAD MD) Blood Pressure Mean: 105 Progress Progress Note #1: Time: 05:42 Progress Note Chest pain work-up in progress. He received aspirin by EMS. EKG unremarkable. GI cocktail, Pepcid, and Zofran are being given. Progress Note #2: Time: 06:19 Progress Note GI medications improved his pain a little bit but did not resolve. He is shredder tender in the epigastrium and left upper quadrant. Gaseous distention of the stomach was noted on the abdominal portion of the chest x-ray. Patient is being given fentanyl to treat the remainder of his pain. Options were discussed with the patient. He would like to pursue evaluation of the etiology further with CT scan. Bedside checkout was performed with Dr. Beard who is now assuming care. Patient asserts that he continues to be able to belch, pass gas, and have a bowel movements. Potassium was mildly elevated. There was question of hemolysis on the specimen. A liter of IV fluid is being infused. (JACK NORMAN MD) Progress Note : Progress Note 0630: Assumed care of the patient from Dr. Wise pending CT scan. Patient is doing a little better. Bedside checkup performed. Monitor patient. 0730: Patient doing a little better and tolerating p.o. fluids. CT scan negative. Encouraged him for follow-up. Discharged home with return precautions. Patient verbalized understanding of instructions and agreement with plan. (TESSIE BEARD MD) Initial ECG Impression Date: May 02, 2020 Initial ECG Impression Time: 05:09 Initial ECG Rate: 99 Initial ECG Rhythm: Normal Sinus Initial ECG Intervals: Normal Initial ECG Impression: Normal Comment Normal sinus rhythm with no ST elevation or depression. No abnormal intervals or axis deviation. (JACK NORMAN MD) Diagnostic Imaging Diagonstic Imaging: Xray Plain Films/CT/US/NM/MRI: chest Comments Chest x-ray viewed by me and report reviewed. Gaseous distention of the stomach noted. See report below: NAME: ARIES LAZRAO MED REC#: [id number] PT STATUS: REG ER : 1970 PHYSICIAN: JACK NORMAN MD ADMIT DATE: 05/02/20/ER Draft Date of Exam:05/02/20 CHEST 1 VIEW, AP/PA ONLY INDICATION: Chest pain. TECHNIQUE: Single view chest 5:47 AM. CORRELATION STUDY: 04/29/2020 FINDINGS: Given the limited depth of inspiration, heart size me stem are relatively stable. The lungs are clear with no consolidating infiltrate. There is no significant effusion or pneumothorax. There is prominent gas distention of the stomach. IMPRESSION: 1. Negative for acute abnormality of the chest. Dictated on workstation # [id number] Dict: 05/02/20 0549 Trans: 05/02/20 0550 DO [id number] Interpreted by: PHYLLIS HENDRIX DO (JACK NORMAN MD) Diagonstic Imaging: CT Plain Films/CT/US/NM/MRI: abdomen, pelvis Comments [facility]. [place], [place] NAME: ARIES LAZARO [facility] REC#: [id number] PT STATUS: REG ER : 1970 PHYSICIAN: JACK NORMAN MD ADMIT DATE: 05/02/20/ER Draft Date of Exam:05/02/20 CT ABDOMEN/PELVIS W PROCEDURE: CT abdomen and pelvis with contrast. TECHNIQUE: Multiple contiguous axial images were obtained through the abdomen and pelvis after administration of intravenous contrast. Auto Exposure Controls were utilized during the CT exam to meet ALARA standards for radiation dose reduction. All CT scans use one or more of the following dose optimizing techniques: automated exposure control, MA and/or KvP adjustment based on patient size and exam type or iterative reconstruction. INDICATION: Abdominal pain. COMPARISON: Limited overlapped views obtained during a chest CT 07/24/2016. FINDINGS: The appendix visualized and normal. There is no diverticulitis. There is no hydroureteronephrosis. Urinary tracts nonacute. Scattered hepatic cysts noted with no bile duct dilatation. No visualized gallstone. Spleen, adrenals and pancreas are unremarkable. No pneumatosis or free air. No focal inflammatory changes. No ascites, abscess, hematoma or acute fluid collection. No aneurysm adenopathy or mass. IMPRESSION: No acute-appearing abnormality. Dictated on workstation # [id number] Dict: 05/02/20704 Trans: 05/02/20 0709 [facility] [id number] Interpreted by: HEATH MCGINNIS Electronically signed by: (TESSIE BEARD MD) Departure Impression Primary Impression: Upper abdominal pain Additional Impression: Syncope Qualified Codes: R55 - Syncope and collapse Disposition: 01 HOME, SELF-CARE Condition: Stable Departure-Patient Inst. Decision time for Depature: 07:31 (TESSIE BEARD MD) Referrals: [facility] [place] Primary Care Physician NIKO LEON DO Patient Instructions: Syncope (Fainting) (DC), Severe Abdominal Pain Add. Discharge Instructions: All discharge instructions reviewed with patient and/or family. Voiced understanding. Follow-up with your doctor for recheck and further evaluation. You should follow-up with the surgeon listed or of your choosing for recheck and further evaluation as well as you may need upper and lower endoscopy (scope). Clear liquid or light diet today and then advance as tolerated. Return for worse pain, fever, vomiting, weakness, breathing problems or other concerns as needed. Work/School Note: Work Release Form Date Seen in the Emergency Department: May 02, 2020 Return to Work: May 04, 2020 Restrictions: No Restrictions JACK NORMAN MD May 02, 2020 05:40 TESSIE BEARD MD May 02, 2020 07:34
[2020-05-02 05:41] LABS: GLUCOSE 112 MG/DL (70-105); TOTAL PROTEIN 8.7 GM/DL (6.4-8.2)
[2020-05-02 05:42] LABS: CARBON DIOXIDE 21 MMOL/L (21-32)
[2020-05-02 05:43] LABS: BILIRUBIN,TOTAL 0.2 MG/DL (0.1-1.0)
[2020-05-02 05:44] LABS: ALKALINE PHOSPHATASE 56 U/L (40-136)
[2020-05-02 05:45] LABS: CREATININE SERUM 1.16 MG/DL (0.60-1.30); GFR ESTIMATED > 60
[2020-05-02 05:46] LABS: BUN/CREATININE RATIO 17
[2020-05-02 05:48] LABS: ALANINE AMINOTRANSFERASE 28 U/L (0-55); MAGNESIUM 2.4 MG/DL (1.6-2.4); PROTHROMBIN TIME PATIENT 13.4 SEC (12.2-14.7)
[2020-05-02 05:49] LABS: LIPASE 28 U/L (8-78)
--- NOTE | 2020-05-02 05:50 | NUR ---
Pt reports he is feeling better. Pain is down to 7/10.
--- NOTE | 2020-05-02 05:51 | Diagnostic Imaging Report ---
INDICATION: Chest pain. TECHNIQUE: Single view chest 5:47 AM. CORRELATION STUDY: 04/29/2020 FINDINGS: Given the limited depth of inspiration, heart size me stem are relatively stable. The lungs are clear with no consolidating infiltrate. There is no significant effusion or pneumothorax. There is prominent gas distention of the stomach. IMPRESSION: 1. Negative for acute abnormality of the chest. Dictated by: Dictated on workstation # [id number]
[2020-05-02] MEDS ORDERED: NS IV 1000 ML 1,000 ML IV ONE (06:03)
[2020-05-02] MEDS ORDERED: fentaNYL INJECTION 100 MCG/2 ML AMP IVP ONE (06:30)
[2020-05-02] MEDS ORDERED: NS 100 ML (IVPB) BAG IV ONE (07:00)
[2020-05-02] MEDS ORDERED: HOLD METFORMIN - RECEIVED CONTRAST 20 ML VIAL IV SCH (07:00)
[2020-05-02] MEDS ORDERED: IOHEXOL 350 MG/ML 100 ML (OMNIPAQUE 350) VIAL IV ONE (07:00)
--- NOTE | 2020-05-02 07:09 | Diagnostic Imaging Report ---
PROCEDURE: CT abdomen and pelvis with contrast. TECHNIQUE: Multiple contiguous axial images were obtained through the abdomen and pelvis after administration of intravenous contrast. Auto Exposure Controls were utilized during the CT exam to meet ALARA standards for radiation dose reduction. All CT scans use one or more of the following dose optimizing techniques: automated exposure control, MA and/or KvP adjustment based on patient size and exam type or iterative reconstruction. INDICATION: Abdominal pain. COMPARISON: Limited overlapped views obtained during a chest CT 07/24/2016. FINDINGS: The appendix visualized and normal. There is no diverticulitis. There is no hydroureteronephrosis. Urinary tracts nonacute. Scattered hepatic cysts noted with no bile duct dilatation. No visualized gallstone. Spleen, adrenals and pancreas are unremarkable. No pneumatosis or free air. No focal inflammatory changes. No ascites, abscess, hematoma or acute fluid collection. No aneurysm adenopathy or mass. IMPRESSION: No acute-appearing abnormality. Dictated by: Dictated on workstation # [id number]
[2020-05-02 07:41] VITALS: BP 102/67
== END 2020-05-02 07:41 | disposition home or self-care (01) ==
LOC: EDUNIT# 05:04 → ER 05:07
DX: R10.13 Epigastric pain (principal); R55 Syncope and collapse; K21.9 Gastro-esophageal reflux disease without esophagitis; Z87.891 Personal history of nicotine dependence; Z88.0 Allergy status to penicillin
CPT/HCPCS: 36415; 71045; 74177; 80053; 83690; 83735; 83874; 84484; 85025; 85610; 85730; 93005; 93041

== ENCOUNTER 2020-05-08 08:25 | Day surgery (SDC) | payer SELFPAY ==
[~2020-05-08] VITALS: Ht 178 cm; Wt 85.0 kg
[~2020-05-08 08:25] MED LIST changes: -CLIN300C11 PO; +CLIN300C12 PO
[2020-05-08] MEDS ORDERED: LIDOCAINE 1% INJ 20 ML 20 ML VIAL INJ ONE (08:30)
[2020-05-08] MEDS ORDERED: LIDOCAINE 1% INJ 20 ML 20 ML VIAL ONE (08:34)
[2020-05-08 08:50] VITALS: BP 114/78
--- NOTE | 2020-05-08 09:09 | Implantation of Loop Monitor ---
Implant of Loop Monitior IMPLANTATION OF LOOP MONITOR REPORT DATE OF PROCEDURE: 05/08/20 PREOP DIAGNOSIS: Syncope POSTOP DIAGNOSIS: Syncope PROCEDURE DETAILS: The patient is a 49 male with history of syncope, increased risk or malignant arrhythmia. Therefore implantable loop recorder was discussed and agreed with the patient. Informed consent was taken. All risks and complications were discussed at length. The patient was draped and prepped in the usual sterile fashion. Local anesthesia was lidocaine, which was given in the substernal area close to the 4th intercostal space. Loop monitor NUVETA with serial number [id number] was implanted according to the protocol. Steri-Strips were placed at the end of the procedure. There were no complications and the patient tolerated the procedure well. The device was interrogated with a voltage of. ANESTHESIA: Local anesthesia with lidocaine. COMPLICATIONS: None CONTRAST/FLUOROSCOPY: None CONCLUSION: Successful implantation of flu monitor with no complication FINAL DIAGNOSIS: Syncope ROSARIO OJEDA MD May 08, 2020 9:09 am
== END 2020-05-08 09:35 | disposition home or self-care (01) ==
LOC: CATH 08:25
PROVIDERS: ATTEND Internal Medicine Cardiovascular Disease
DX: R55 Syncope and collapse (principal); I10 Essential (primary) hypertension; E78.2 Mixed hyperlipidemia; R07.89 Other chest pain; F41.9 Anxiety disorder, unspecified; F32.9 Major depressive disorder, single episode, unspecified; K21.9 Gastro-esophageal reflux disease without esophagitis; Z79.82 Long term (current) use of aspirin; Z79.899 Other long term (current) drug therapy; Z88.0 Allergy status to penicillin
CPT/HCPCS: 33285; C1764

== ENCOUNTER 2020-05-12 03:05 | Emergency (ER) | payer SELFPAY ==
[~2020-05-12] VITALS: Ht 177 cm; Wt 85.0 kg
[2020-05-12 03:29] LABS: BASOPHILS # (AUTO) 0.2 10^3/uL (0.0-0.1); BASOPHILS % (AUTO) 2 % (0-10); EOSINOPHILS # (AUTO) 0.6 10^3/uL (0.0-0.3); EOSINOPHILS % (AUTO) 6 % (0-10); HEMATOCRIT 46 % (40-54); HEMOGLOBIN 15.3 g/dL (13.3-17.7); LYMPHOCYTES # (AUTO) 1.7 10^3/uL (1.0-4.0); LYMPHOCYTES % (AUTO) 18 % (12-44); MEAN CORPUSCULAR HEMOGLOBIN 30 pg (25-34); MEAN CORPUSCULAR HGB CONC 34 g/dL (32-36); MEAN CORPUSCULAR VOLUME 88 fL (80-99); MEAN PLATELET VOLUME 10.6 fL (9.0-12.2); MONOCYTES # (AUTO) 0.8 10^3/uL (0.0-1.0); MONOCYTES % (AUTO) 8 % (0-12); NEUTROPHILS # (AUTO) 6.6 10^3/uL (1.8-7.8); NEUTROPHILS % (AUTO) 67 % (42-75); PLATELET COUNT 418 10^3/uL (130-400); WHITE BLOOD COUNT 9.8 10^3/uL (4.3-11.0)
[2020-05-12 03:30] LABS: ALBUMIN 4.2 GM/DL (3.2-4.5); CHLORIDE 105 MMOL/L (98-107); POTASSIUM 4.2 MMOL/L (3.6-5.0); SODIUM 138 MMOL/L (135-145)
[2020-05-12 03:31] LABS: CALCIUM 8.7 MG/DL (8.5-10.1)
[2020-05-12 03:33] LABS: GLUCOSE 117 MG/DL (70-105); PROTHROMBIN TIME PATIENT 13.4 SEC (12.2-14.7)
[2020-05-12 03:34] LABS: CARBON DIOXIDE 24 MMOL/L (21-32)
[2020-05-12 03:35] LABS: BILIRUBIN,TOTAL 0.4 MG/DL (0.1-1.0)
[2020-05-12 03:36] LABS: ALKALINE PHOSPHATASE 50 U/L (40-136); CREATININE SERUM 0.91 MG/DL (0.60-1.30); GFR ESTIMATED > 60
[2020-05-12 03:37] LABS: BUN/CREATININE RATIO 19
[2020-05-12 03:39] LABS: ALANINE AMINOTRANSFERASE 20 U/L (0-55); MAGNESIUM 2.1 MG/DL (1.6-2.4)
--- NOTE | 2020-05-12 05:57 | Diagnostic Imaging Report ---
INDICATION: Chest pain. TECHNIQUE: Single view chest 3:51 AM. CORRELATION STUDY: 05/02/2020 FINDINGS: Loop recorder device has been placed projecting over the left hilum. Heart size enlarged and mediastinum mildly prominent. Vasculature overall within normal limits. The lungs are clear with no consolidating infiltrate. There is no significant effusion or pneumothorax. IMPRESSION: 1. Borderline cardiac enlargement without overt heart failure. Dictated by: Dictated on workstation # [id number]
--- NOTE | 2020-05-12 06:30 | NUR ---
Lab at the bedside drawing second troponin. Patient is resting comfortably at this time.
--- NOTE | 2020-05-12 07:27 | ED Chest Pain ---
General Chief Complaint: Chest Pain Stated Complaint: CP,SOB Nursing Triage Note: Patient presented to the ER today via EMS with complaints of sudden onset chest pain and shortness of breath. Patient had a loop device placed on friday per Dr. Hernandez. Nursing Sepsis Screen: No Definite Risk Source: patient Exam Limitations: no limitations History of Present Illness Date Seen by Provider: May 12, 2020 Time Seen by Provider: 03:07 Initial Comments This 49-year-old. gentleman presents to the emergency room via EMS from work where he experienced an episode of lightheadedness followed by chest pressure at approximately 02: 15. He is not experiencing pain now. He has had numerous cardiac work-ups in the recent past including multiple stress test. No cardiac pathology has been identified. Most recently he had a loop recorder placed by Dr. Hernandez. EMS administered aspirin. Allergies and Home Medications Allergies Coded Allergies: Penicillins (Unverified Adverse Reaction, Unknown, 06/23/18) Home Medications Omeprazole 20 Mg Tablet.dr, 20 MG PO BID Prescribed by: ANA LYONS on 04/07/20 0422 Ondansetron 4 Mg Tab.rapdis, 4 MG PO Q6H PRN for NAUSEA/VOMITING Prescribed by: ANA LYONS on 03/19/19 0009 Ondansetron 4 Mg Tab.rapdis, 4 MG PO Q6H PRN for NAUSEA/VOMITING Prescribed by: LISA PUENTE on 09/21/19 1227 Ondansetron 4 Mg Tab.rapdis, 4 MG PO Q6H PRN for NAUSEA/VOMITING Prescribed by: ANA LYONS on 04/07/20 0422 Patient Home Medication List Home Medication List Reviewed: Yes Review of Systems Review of Systems Constitutional: no symptoms reported EENTM: No Symptoms Reported Respiratory: No Symptoms Reported Cardiovascular: See HPI Gastrointestinal: No Symptoms Reported Genitourinary: No Symptoms Reported Musculoskeletal: no symptoms reported Skin: no symptoms reported Psychiatric/Neurological: No Symptoms Reported Endocrine: No Symptoms Reported Past Breozuu-Xlcsxk-Dzdnyg Hx Past Med/Social Hx: Reviewed Nursing Past Med/Soc Hx Patient Social History Alcohol Use: Denies Use Recreational Drug Use: No Type Used: Smokeless Tobacco Former Smoker, Quit: Jun 02, 2011 2nd Hand Smoke Exposure: No Recent Foreign Travel: No Contact w/Someone Who Travel: No Recent Infectious Disease Expo: No Recent Hopitalizations: No Immunizations Up To Date Tetanus Booster (TDap): Unknown Date of Influenza Vaccine: Apr 01, 2018 Seasonal Allergies Seasonal Allergies: Yes Past Medical History Surgeries: Yes (hernia) Abdominal Respiratory: No Cardiac: Yes High Cholesterol, Hypertension Neurological: No Reproductive Disorders: No Genitourinary: Yes Kidney Stones Gastrointestinal: Yes Gastroesophageal Reflux, Hiatal Hernia Musculoskeletal: No Endocrine: No HEENT: No Cancer: No Psychosocial: Yes Anxiety, Depression Integumentary: No Blood Disorders: No Family Medical History No Pertinent Family Hx Physical Exam Vital Signs Vital Signs - First Documented 05/12/20 03:09 Temp 36.8 Pulse 62 Resp 14 B/P (MAP) 125/88 (100) Pulse Ox 98 O2 Delivery Room Air Capillary Refill : Less Than 3 Seconds Height, Weight, BMI Height: 5'10.00" Weight: 179lbs. 5.0oz. 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 Skin: Normal Color, Warm/Dry Progress/Results/Core Measures Results/Orders Lab Results Laboratory Tests Test 05/12/20 03:14 05/12/20 06:20 Range/Units White Blood Count 9.8 4.3-11.0 10^3/uL Red Blood Count 5.18 4.30-5.52 10^6/uL Hemoglobin 15.3 13.3-17.7 g/dL Hematocrit 46 40-54 % Mean Corpuscular Volume 88 80-99 fL Mean Corpuscular Hemoglobin 30 25-34 pg Mean Corpuscular Hemoglobin Concent 34 32-36 g/dL Red Cell Distribution Width 13.0 10.0-14.5 % Platelet Count 418 H 130-400 10^3/uL Mean Platelet Volume 10.6 9.0-12.2 fL Immature Granulocyte % (Auto) 1 % Neutrophils (%) (Auto) 67 42-75 % Lymphocytes (%) (Auto) 18 12-44 % Monocytes (%) (Auto) 8 0-12 % Eosinophils (%) (Auto) 6 0-10 % Basophils (%) (Auto) 2 0-10 % Neutrophils # (Auto) 6.6 1.8-7.8 10^3/uL Lymphocytes # (Auto) 1.7 1.0-4.0 10^3/uL Monocytes # (Auto) 0.8 0.0-1.0 10^3/uL Eosinophils # (Auto) 0.6 H 0.0-0.3 10^3/uL Basophils # (Auto) 0.2 H 0.0-0.1 10^3/uL Immature Granulocyte # (Auto) 0.1 0.0-0.1 10^3/uL Prothrombin Time 13.4 12.2-14.7 SEC INR Comment 1.0 0.8-1.4 Activated Partial Thromboplast Time 29 24-35 SEC Sodium Level 138 135-145 MMOL/L Potassium Level 4.2 3.6-5.0 MMOL/L Chloride Level 105 98-107 MMOL/L Carbon Dioxide Level 24 21-32 MMOL/L Anion Gap 9 5-14 MMOL/L Blood Urea Nitrogen 17 7-18 MG/DL Creatinine 0.91 0.60-1.30 MG/DL Estimat Glomerular Filtration Rate > 60 BUN/Creatinine Ratio 19 Glucose Level 117 H 70-105 MG/DL Calcium Level 8.7 8.5-10.1 MG/DL Corrected Calcium 8.5 8.5-10.1 MG/DL Magnesium Level 2.1 1.6-2.4 MG/DL Total Bilirubin 0.4 0.1-1.0 MG/DL Aspartate Amino Transf (AST/SGOT) 25 5-34 U/L Alanine Aminotransferase (ALT/SGPT) 20 0-55 U/L Alkaline Phosphatase 50 40-136 U/L Myoglobin 59.4 10.0-92.0 NG/ML Troponin I < 0.028 < 0.028 <0.028 NG/ML Total Protein 7.0 6.4-8.2 GM/DL Albumin 4.2 3.2-4.5 GM/DL My Orders Orders - JACK NORMAN MD Cbc With Automated Diff (05/12/20 03:10) Magnesium (05/12/20 03:10) Chest 1 View, Ap/Pa Only (05/12/20 03:10) Ekg Tracing (05/12/20 03:10) Comprehensive Metabolic Panel (05/12/20 03:10) Myoglobin Serum (05/12/20 03:10) Protime With Inr (05/12/20 03:10) Partial Thromboplastin Time (05/12/20 03:10) O2 (05/12/20 03:10) Monitor-Rhythm Ecg Trace Only (05/12/20 03:10) Ed Iv/Invasive Line Start (05/12/20 03:10) Troponin I (05/12/20 06:15) Troponin I (05/12/20 03:14) Vital Signs/I&O 05/12/20 05/12/20 05/12/20 05/12/20 03:09 03:09 03:09 08:07 Temp 36.8 36.8 Pulse 62 66 Resp 14 14 B/P (MAP) 125/88 (100) 102/76 (100) Pulse Ox 98 98 98 O2 Delivery Room Air Room Air Room Air Blood Pressure Mean: 100 Progress Progress Note : Progress Note Patient had no further significant symptoms. A repeat troponin drawn at 4 hours from onset was negative. Loop recorder was interrogated and there were no adverse events. Initial ECG Impression Date: May 12, 2020 Initial ECG Impression Time: 03:13 Initial ECG Rate: 63 Initial ECG Rhythm: Normal Sinus Initial ECG Intervals: Normal Initial ECG Impression: Normal Comment Normal sinus rhythm with no ST elevation or depression. No abnormal intervals or axis deviation. Diagnostic Imaging Diagonstic Imaging: Xray Plain Films/CT/US/NM/MRI: chest Comments Chest x-ray viewed by me and report reviewed. See report below: NAME: ARIES LAZARO [facility] REC#: [id number] PT STATUS: REG ER : 1970 PHYSICIAN: JACK NORMAN MD ADMIT DATE: 05/12/20/ER Draft Date of Exam:05/12/20 CHEST 1 VIEW, AP/PA ONLY INDICATION: Chest pain. TECHNIQUE: Single view chest 3:51 AM. CORRELATION STUDY: 05/02/2020 FINDINGS: Loop recorder device has been placed projecting over the left hilum. Heart size enlarged and mediastinum mildly prominent. Vasculature overall within normal limits. The lungs are clear with no consolidating infiltrate. There is no significant effusion or pneumothorax. IMPRESSION: 1. Borderline cardiac enlargement without overt heart failure. Dictated on workstation # [id number] Dict: 05/12/20 0548 Trans: 05/12/20 0556 [id number] Interpreted by: PHYLLIS HENDRIX DO Departure Impression Primary Impression: Chest pain Qualified Codes: R07.9 - Chest pain, unspecified Disposition: HOME, SELF-CARE Condition: Improved Departure-Patient Inst. Decision time for Depature: 07:54 Referrals: [facility] [place] (PCP/Family) Primary Care Physician Patient Instructions: Chest Pain, Adult ED Add. Discharge Instructions: Continue with your current medications as previously prescribed. Follow-up with the cardiology clinic with a phone call today for further instructions. Return to the emergency room if you have persistent or worsening chest pain or pain accompanied by other symptoms such as shortness of breath, fever, etc. All discharge instructions reviewed with patient and/or family. Voiced understanding. Work/School Note: Work Release Form Date Seen in the Emergency Department: May 12, 2020 Return to Work: May 13, 2020 Restrictions: No Restrictions Copy Copies To 1: ROSARIO HERNANDEZ MD Copies To 2: BAUTISTA DARLING JOSHUA T MD May 12, 2020 07:27
[2020-05-12 08:07] VITALS: BP 102/76
== END 2020-05-12 08:07 | disposition home or self-care (01) ==
LOC: EDUNIT# 03:05 → ER 03:07
DX: R07.9 Chest pain, unspecified (principal); K21.9 Gastro-esophageal reflux disease without esophagitis; Z87.891 Personal history of nicotine dependence; Z88.0 Allergy status to penicillin
CPT/HCPCS: 36415; 71045; 80053; 83735; 83874; 84484; 85025; 85610; 85730; 93005; 93041

== ENCOUNTER 2020-05-28 03:35 | Emergency (ER) | payer SELFPAY ==
--- NOTE | 2020-05-28 03:40 | NUR ---
LOOP RECORDER INTERROGATED.
[2020-05-28 04:05] LABS: BASOPHILS # (AUTO) 0.1 10^3/uL (0.0-0.1); BASOPHILS % (AUTO) 2 % (0-10); EOSINOPHILS # (AUTO) 0.5 10^3/uL (0.0-0.3); EOSINOPHILS % (AUTO) 6 % (0-10); HEMATOCRIT 42 % (40-54); HEMOGLOBIN 13.9 g/dL (13.3-17.7); LYMPHOCYTES # (AUTO) 1.5 10^3/uL (1.0-4.0); LYMPHOCYTES % (AUTO) 18 % (12-44); MEAN CORPUSCULAR HEMOGLOBIN 29 pg (25-34); MEAN CORPUSCULAR HGB CONC 33 g/dL (32-36); MEAN CORPUSCULAR VOLUME 88 fL (80-99); MEAN PLATELET VOLUME 10.8 fL (9.0-12.2); MONOCYTES # (AUTO) 0.6 10^3/uL (0.0-1.0); MONOCYTES % (AUTO) 7 % (0-12); NEUTROPHILS # (AUTO) 5.7 10^3/uL (1.8-7.8); NEUTROPHILS % (AUTO) 67 % (42-75); PLATELET COUNT 365 10^3/uL (130-400); WHITE BLOOD COUNT 8.6 10^3/uL (4.3-11.0)
[2020-05-28 04:09] LABS: CHLORIDE 106 MMOL/L (98-107); POTASSIUM 4.4 MMOL/L (3.6-5.0); SODIUM 141 MMOL/L (135-145)
[2020-05-28 04:11] LABS: PROTHROMBIN TIME PATIENT 13.9 SEC (12.2-14.7)
[2020-05-28 04:12] LABS: GLUCOSE 110 MG/DL (70-105); TOTAL PROTEIN 6.7 GM/DL (6.4-8.2)
[2020-05-28 04:13] LABS: CARBON DIOXIDE 26 MMOL/L (21-32)
[2020-05-28 04:14] LABS: BILIRUBIN,TOTAL 0.3 MG/DL (0.1-1.0)
[2020-05-28 04:15] LABS: ALKALINE PHOSPHATASE 43 U/L (40-136); GFR ESTIMATED > 60
[2020-05-28 04:16] LABS: BUN/CREATININE RATIO 19
[2020-05-28 04:18] LABS: ALANINE AMINOTRANSFERASE 17 U/L (0-55); MAGNESIUM 2.2 MG/DL (1.6-2.4)
--- NOTE | 2020-05-28 04:48 | ED Chest Pain ---
General Chief Complaint: Chest Pain Stated Complaint: CHEST PAIN / LIGHTHEADEDNESS Nursing Triage Note: TO ED VIA [facility] FROM WORK. PT WAS WALKING AND DEVELOPED CHEST PAIN 10 A LITTLE ABOUT 0300. 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 DENIES CHEST PAIN ON ARRIVAL TO ER. RECENT LOOP RECORDER PLACEMENT. Nursing Sepsis Screen: No Definite Risk Source: patient, EMS, old records Exam Limitations: no limitations (JACK NORMAN MD) History of Present Illness Date Seen by Provider: May 28, 2020 Time Seen by Provider: 03:36 Initial Comments This 49-year-old gentleman presents to the emergency room after having an episode of chest pain and lightheadedness resulting in collapse without injury at work around 02:45. He has been seen in this ER for similar episodes in the past. He recently had a loop recorder placed on May 08. He was given aspirin and nitroglycerin by EMS with resolution of his pain. (JACK NORMAN MD) Allergies and Home Medications Allergies Coded Allergies: Penicillins (Unverified Adverse Reaction, Unknown, 06/23/18) Home Medications Omeprazole 20 Mg Tablet.dr, 20 MG PO BID Prescribed by: ANA LYONS on 04/07/20421 Ondansetron 4 Mg Tab.rapdis, 4 MG PO Q6H PRN for NAUSEA/VOMITING Prescribed by: ANA LYONS on 03/19/19 0009 Ondansetron 4 Mg Tab.rapdis, 4 MG PO Q6H PRN for NAUSEA/VOMITING Prescribed by: LISA PUENTE on 09/21/19 1227 Ondansetron 4 Mg Tab.rapdis, 4 MG PO Q6H PRN for NAUSEA/VOMITING Prescribed by: ANA LYONS on 04/07/20421 Patient Home Medication List Home Medication List Reviewed: Yes (JACK NORMAN MD) Review of Systems Review of Systems Constitutional: no symptoms reported EENTM: No Symptoms Reported Respiratory: No Symptoms Reported Cardiovascular: See HPI Gastrointestinal: No Symptoms Reported Genitourinary: No Symptoms Reported Musculoskeletal: no symptoms reported Skin: no symptoms reported Psychiatric/Neurological: No Symptoms Reported Endocrine: No Symptoms Reported (JACK NORMAN MD) Past Bjdxyxy-Jajoeb-Dukdcl Hx Past Med/Social Hx: Reviewed Nursing Past Med/Soc Hx (JACK NORMAN MD) Patient Social History Alcohol Use: Denies Use Recreational Drug Use: No Smoking Status: Former Smoker Type Used: Smokeless Tobacco Former Smoker, Quit: Jun 02, 2011 2nd Hand Smoke Exposure: No Recent Foreign Travel: No Contact w/Someone Who Travel: No Recent Infectious Disease Expo: No Recent Hopitalizations: No Physical Abuse: No Sexual Abuse: No Mistreated: No Fear: No (JACK NORMAN MD) Immunizations Up To Date Tetanus Booster (TDap): Unknown Date of Influenza Vaccine: Apr 01, 2018 (JACK NORMAN MD) Seasonal Allergies Seasonal Allergies: Yes (JACK NORMAN MD) Past Medical History Surgeries: Yes (hernia, LOOP RECORDER PLACEMENT) Abdominal Respiratory: No Cardiac: Yes High Cholesterol, Hypertension, Syncope Neurological: No Reproductive Disorders: No Genitourinary: Yes Kidney Stones Gastrointestinal: Yes Gastroesophageal Reflux, Hiatal Hernia Musculoskeletal: No Endocrine: No HEENT: No Cancer: No Psychosocial: Yes Anxiety, Depression Integumentary: No Blood Disorders: No (JACK NORMAN MD) Family Medical History No Pertinent Family Hx (JACK NORMAN MD) Physical Exam Vital Signs Vital Signs - First Documented 05/28/20 03:39 Temp 36.6 Pulse 71 Resp 16 B/P (MAP) 127/87 (100) O2 Delivery Room Air (TESSIE BEARD MD) Vital Signs Capillary Refill : Less Than 3 Seconds (JACK NORMAN MD) Height, Weight, BMI Height: 5'10.00" Weight: 179lbs. 5.0oz. 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 Norm as Tested Skin: Normal Color, Warm/Dry (JACK NORMAN MD) Progress/Results/Core Measures Results/Orders Lab Results Laboratory Tests Test 05/28/20 03:47 05/28/20 06:45 Range/Units White Blood Count 8.6 4.3-11.0 10^3/uL Red Blood Count 4.77 4.30-5.52 10^6/uL Hemoglobin 13.9 13.3-17.7 g/dL Hematocrit 42 40-54 % Mean Corpuscular Volume 88 80-99 fL Mean Corpuscular Hemoglobin 29 25-34 pg Mean Corpuscular Hemoglobin Concent 33 32-36 g/dL Red Cell Distribution Width 12.8 10.0-14.5 % Platelet Count 365 130-400 10^3/uL Mean Platelet Volume 10.8 9.0-12.2 fL Immature Granulocyte % (Auto) 1 % Neutrophils (%) (Auto) 67 42-75 % Lymphocytes (%) (Auto) 18 12-44 % Monocytes (%) (Auto) 7 0-12 % Eosinophils (%) (Auto) 6 0-10 % Basophils (%) (Auto) 2 0-10 % Neutrophils # (Auto) 5.7 1.8-7.8 10^3/uL Lymphocytes # (Auto) 1.5 1.0-4.0 10^3/uL Monocytes # (Auto) 0.6 0.0-1.0 10^3/uL Eosinophils # (Auto) 0.5 H 0.0-0.3 10^3/uL Basophils # (Auto) 0.1 0.0-0.1 10^3/uL Immature Granulocyte # (Auto) 0.0 0.0-0.1 10^3/uL Prothrombin Time 13.9 12.2-14.7 SEC INR Comment 1.0 0.8-1.4 Activated Partial Thromboplast Time 29 24-35 SEC Sodium Level 141 135-145 MMOL/L Potassium Level 4.4 3.6-5.0 MMOL/L Chloride Level 106 98-107 MMOL/L Carbon Dioxide Level 26 21-32 MMOL/L Anion Gap 9 5-14 MMOL/L Blood Urea Nitrogen 15 7-18 MG/DL Creatinine 0.80 0.60-1.30 MG/DL Estimat Glomerular Filtration Rate > 60 BUN/Creatinine Ratio 19 Glucose Level 110 H 70-105 MG/DL Calcium Level 9.0 8.5-10.1 MG/DL Corrected Calcium 9.0 8.5-10.1 MG/DL Magnesium Level 2.2 1.6-2.4 MG/DL Total Bilirubin 0.3 0.1-1.0 MG/DL Aspartate Amino Transf (AST/SGOT) 17 5-34 U/L Alanine Aminotransferase (ALT/SGPT) 17 0-55 U/L Alkaline Phosphatase 43 40-136 U/L Myoglobin 40.1 10.0-92.0 NG/ML Troponin I < 0.028 < 0.028 <0.028 NG/ML Total Protein 6.7 6.4-8.2 GM/DL Albumin 4.0 3.2-4.5 GM/DL (TESSIE BEARD MD) Vital Signs/I&O 05/28/20 05/28/20 03:39 03:43 Temp 36.6 Pulse 71 Resp 16 B/P (MAP) 127/87 (100) O2 Delivery Room Air Room Air (TESSIE BEARD MD) Blood Pressure Mean: 100 Progress Progress Note : Time: 04:45 Progress Note Patient was seen and examined upon arrival. Loop recorder was interrogated. He has had 4 episodes in the last several days in which he activated his symptom tracker. During those episodes he had mild sinus tachycardia. No arrhythmias were noted. The most recent episode was around the time of his chest pain this morning. Initial work-up was unremarkable and patient was pain-free at the time of arrival. We will obtain a 4-hour troponin from time of onset of symptoms for cardiac rule out. (JACK NORMAN MD) Progress Note : Progress Note 0610: Pending repeat troponin. Patient is resting comfortably without chest pain currently. Monitor patient. 0724: Repeat troponin is negative. Patient has had no return chest pain. He feels comfortable going home. He is asking for work note for tonight which I will give him. He will call Dr. Hernandez tomorrow. Discharged home with return precautions. Patient verbalized unders tanding of instructions and agreement with plan. (TESSIE BEARD MD) Initial ECG Impression Date: May 28, 2020 Initial ECG Impression Time: 03:39 Initial ECG Rate: 62 Initial ECG Rhythm: Normal Sinus Initial ECG Intervals: Normal Initial ECG Impression: Normal Comment Normal sinus rhythm with no ST elevation or depression. No abnormal intervals or axis deviation. (JACK NORMAN MD) Diagnostic Imaging Diagonstic Imaging: Xray Plain Films/CT/US/NM/MRI: chest Comments Chest x-ray viewed by me and report not yet available. No acute abnormalities appreciated. (JACK NORMAN MD) Departure Impression Primary Impression: Chest pain Qualified Codes: R07.9 - Chest pain, unspecified Additional Impression: Lightheadedness Disposition: HOME, SELF-CARE Condition: Stable Departure-Patient Inst. Decision time for Depature: 07:25 (TESSIE BEARD MD) Referrals: [facility] [place]) Primary Care Physician Patient Instructions: Chest Pain (DC) Add. Discharge Instructions: All discharge instructions reviewed with patient and/or family. Voiced understanding. Follow-up with Dr. Wallace for recheck and further evaluation. Return for worse pain, fever, vomiting, weakness, breathing problems or other concerns as needed. Continue home medications as previously prescribed. Eat a normal diet and drink plenty of fluids. Copy Copies To 1: ROSARIO HERNANDEZ MD, JOSHUA T MD May 28, 2020 04:48 TESSIE BEARD MD May 28, 2020 07:26
--- NOTE | 2020-05-28 05:55 | Diagnostic Imaging Report ---
INDICATION: Chest pain. Comparison is made with prior examination from 05/12/2020. FINDINGS: The heart size is stable. The lungs are clear. There is no pleural effusion or pneumothorax. Mediastinum is unremarkable. IMPRESSION: No acute cardiopulmonary abnormality Dictated by: Dictated on workstation # [id number]
[2020-05-28 07:46] VITALS: BP 109/64
== END 2020-05-28 07:46 | disposition home or self-care (01) ==
LOC: EDUNIT# 03:35 → ER 03:36
DX: R07.9 Chest pain, unspecified (principal); R42 Dizziness and giddiness; K21.9 Gastro-esophageal reflux disease without esophagitis; Z87.891 Personal history of nicotine dependence; Z88.0 Allergy status to penicillin
CPT/HCPCS: 36415; 71045; 80053; 83735; 83874; 84484; 85025; 85610; 85730; 93005; 93041

== ENCOUNTER 2020-08-09 19:03 | Emergency (ER) | payer SELFPAY ==
[~2020-08-09] VITALS: Ht 172.7 cm; Wt 82.8 kg
[~2020-08-09 19:03] MED LIST changes: -LISI-552; +LISI20TA26
--- NOTE | 2020-08-09 19:10 | ED Upper Extremity ---
General Chief Complaint: Upper Extremity Stated Complaint: RT WRIST PAIN History of Present Illness Date Seen by Provider: Aug 09, 2020 Time Seen by Provider: 19:07 Initial Comments 49-year-old male presents with right wrist pain. Patient reports that the pain started when he was at work. He reports that he had picked up a pipe and muscle twisted his wrist funny when he went to drop it. And they still continue to have some pain. He has pain with range of motion. No obvious deformity. No direct trauma. Pain is on volar aspect. Allergies and Home Medications Allergies Coded Allergies: Penicillins (Unverified Adverse Reaction, Unknown, 06/23/18) Home Medications Omeprazole 20 Mg Tablet.dr, 20 MG PO BID Prescribed by: ANA LYONS on 04/07/20421 Ondansetron 4 Mg Tab.rapdis, 4 MG PO Q6H PRN for NAUSEA/VOMITING Prescribed by: ANA LYONS on 03/19/19 0009 Ondansetron 4 Mg Tab.rapdis, 4 MG PO Q6H PRN for NAUSEA/VOMITING Prescribed by: LISA PUENTE on 09/21/19 1227 Ondansetron 4 Mg Tab.rapdis, 4 MG PO Q6H PRN for NAUSEA/VOMITING Prescribed by: ANA LYONS on 04/07/20421 Patient Home Medication List Home Medication List Reviewed: Yes Review of Systems Constitutional: No chills, No fever EENTM: no symptoms reported Respiratory: no symptoms reported Cardiovascular: no symptoms reported Gastrointestinal: no symptoms reported Genitourinary: no symptoms reported Musculoskeletal: see HPI Skin: no symptoms reported Psychiatric/Neurological: No Symptoms Reported Past Vvmzoaa-Fqexgm-Vxmodo Hx Past Med/Social Hx: Reviewed Nursing Past Med/Soc Hx Patient Social History Type Used: Smokeless Tobacco Former Smoker, Quit: Jun 02, 2011 2nd Hand Smoke Exposure: No Recent Hopitalizations: No Immunizations Up To Date Tetanus Booster (TDap): Unknown Date of Influenza Vaccine: Apr 01, 2018 Seasonal Allergies Seasonal Allergies: Yes Past Medical History Surgeries: Yes (hernia, LOOP RECORDER PLACEMENT) Abdominal Respiratory: No Cardiac: Yes High Cholesterol, Hypertension, Syncope Neurological: No Reproductive Disorders: No Genitourinary: Yes Kidney Stones Gastrointestinal: Yes Gastroesophageal Reflux, Hiatal Hernia Musculoskeletal: No Endocrine: No HEENT: No Cancer: No Psychosocial: Yes Anxiety, Depression Integumentary: No Blood Disorders: No Family Medical History No Pertinent Family Hx Physical Exam Vital Signs Vital Signs - First Documented 08/09/20 19:13 Temp 37.3 Pulse 106 Resp 16 B/P (MAP) 152/89 (110) Pulse Ox 97 O2 Delivery Room Air Capillary Refill : Height, Weight, BMI Height: 5'10.00" Weight: 179lbs. 5.0oz. 81.054655yh; 27.00 BMI Method:Stated General Appearance: no apparent distress Neck: full range of motion, supple Cardiovascular: normal peripheral pulses, regular rate, rhythm Respiratory: lungs clear, normal breath sounds Gastrointestinal: non tender, soft Elbow/Forearm: normal inspection Wrist: Yes normal ROM; No bone tenderness, No deformity; Yes pain (With range of motion, no evidence of tendon injury), Yes soft tissue tenderness Hand: normal ROM, Right Neurologic/Tendon: normal motor functions, normal tendon functions Neurologic/Psychiatric: alert, normal mood/affect, oriented x 3 Skin: normal color, warm/dry Progress/Results/Core Measures Results/Orders My Orders Orders - JENY SAEZ DO Wrist 2 View Right (08/09/20 19:11) Wrist-[place] (08/09/20 19:11) Vital Signs/I&O 08/09/20 19:13 Temp 37.3 Pulse 106 Resp 16 B/P (MAP) 152/89 (110) Pulse Ox 97 O2 Delivery Room Air Progress Progress Note : Progress Note Patient with negative wrist x-ray. His symptoms are consistent with an acute wrist sprain. He will be placed in universal wrist splint. I recommend he wear it for a week. He can return to work with a wrist splint tomorrow. She follow- up with a primary care provider in 1 week if symptoms not improving. Tylenol ibuprofen for pain Diagnostic Imaging Diagonstic Imaging: Xray Comments [facility], [place] NAME: ARIES LAZARO [facility] REC#: [id number] PT STATUS: REG ER : 1970 PHYSICIAN: JENY SAEZ DO ADMIT DATE: 08/09/20/ER FS Signed Date of Exam:08/09/20 WRIST 2 VIEW RIGHT INDICATION: Right wrist pain. EXAMINATION: Two views of the right wrist. FINDINGS: No fracture, dislocation or other acute abnormality. IMPRESSION: Negative right wrist. Dictated by: Dictated on workstation # [id number] Dict: 08/09/201918 Trans: 08/09/201923 [id number] Reviewed: Reviewed by Me, Reviewed/Discussed Departure Impression Primary Impression: Sprain of right wrist Qualified Codes: S63.501A - Unspecified sprain of right wrist, initial encounter Disposition: HOME, SELF-CARE Condition: Stable Departure-Patient Inst. Referrals: [facility] ([place]) Primary Care Physician Patient Instructions: Common Wrist Injuries, Wrist Sprain ED Add. Discharge Instructions: Ice to affected area Tylenol or ibuprofen as needed for pain Wear brace for 1 week and have your primary care provider reevaluate All discharge instructions reviewed with patient and/or family. Voiced understanding. JENY SAEZ DO Aug 09, 2020 19:10
[2020-08-09 19:13] VITALS: BP 152/89
--- NOTE | 2020-08-09 19:20 | Diagnostic Imaging Report ---
INDICATION: Right wrist pain. EXAMINATION: Two views of the right wrist. FINDINGS: No fracture, dislocation or other acute abnormality. IMPRESSION: Negative right wrist. Dictated by: Dictated on workstation # [id number]
== END 2020-08-09 19:27 | disposition home or self-care (01) ==
LOC: EDUNIT# 19:03 → ER FS 19:04
DX: S63.501A Unspecified sprain of right wrist, initial encounter (principal); K21.9 Gastro-esophageal reflux disease without esophagitis; Z88.0 Allergy status to penicillin; Z87.891 Personal history of nicotine dependence; X50.1XXA Overexertion from prolonged static or awkward postures, initial encounter
CPT/HCPCS: 73100

== ENCOUNTER 2020-08-12 12:07 | Emergency (ER) | payer SELFPAY ==
[~2020-08-12] VITALS: Ht 172.7 cm; Wt 83.0 kg
[~2020-08-12 12:07] MED LIST changes: -BUSP15TA60; +BUSP15TA60 PO
[2020-08-12] MEDS ORDERED: KETOROLAC 30 MG/ML VIAL IVP STA (12:13)
--- NOTE | 2020-08-12 12:13 | ED Chest Pain ---
General Stated Complaint: CHEST PAIN History of Present Illness Date Seen by Provider: Aug 12, 2020 Time Seen by Provider: 12:12 Initial Comments 49-year-old male presents with left-sided chest pain. Reports he was sitting in his chair when the pain started. The pain is reproducible with palpation. He has had recurrent episodes of the same pain in the same area with multiple work-ups. He denies any fever, chills, nausea, vomiting, diaphoresis, shortness of breath or any other associated symptoms. Patient reports his pain is always the same and reproducible. Patient reports that he has a history of anxiety and got a little anxious with chest pain. Allergies and Home Medications Allergies Coded Allergies: Penicillins (Unverified Adverse Reaction, Unknown, 06/23/18) Home Medications Atorvastatin Calcium 10 Mg Tablet, 10 MG PO DAILY, (Reported) Buspirone HCl 15 Mg Tablet, 15 MG PO TID, (Reported) Cetirizine HCl 10 Mg Tablet, 10 MG PO DAILY, (Reported) Citalopram Hydrobromide 20 Mg Tablet, 20 MG PO DAILY, (Reported) Metoprolol Succinate 25 Mg Tab.er.24h, 25 MG PO DAILY, (Reported) Pantoprazole Sodium 40 Mg Tablet.dr, 40 MG PO DAILY, (Reported) Patient Home Medication List Home Medication List Reviewed: Yes Review of Systems Review of Systems Constitutional: No chills, No fever Respiratory: Denies Cough, Denies Shortness of Air Cardiovascular: Chest Pain (chest wall), Irregular Heart Rate, Lightheadedness Gastrointestinal: Denies Abdominal Pain, Denies Diarrhea, Denies Nausea, Denies Vomiting Genitourinary: No Symptoms Reported Musculoskeletal: see HPI Skin: no symptoms reported Psychiatric/Neurological: No Symptoms Reported Endocrine: No Symptoms Reported Hematologic/Lymphatic: No Symptoms Reported Past Nsbbyae-Toeird-Shlvxk Hx Past Med/Social Hx: Reviewed Nursing Past Med/Soc Hx Patient Social History Type Used: Smokeless Tobacco Former Smoker, Quit: Jun 02, 2011 2nd Hand Smoke Exposure: No Recent Hopitalizations: No Immunizations Up To Date Tetanus Booster (TDap): Unknown Date of Influenza Vaccine: Apr 01, 2018 Seasonal Allergies Seasonal Allergies: Yes Past Medical History Surgeries: Yes (hernia, LOOP RECORDER PLACEMENT) Abdominal Respiratory: No Cardiac: Yes High Cholesterol, Hypertension, Syncope Neurological: No Reproductive Disorders: No Genitourinary: Yes Kidney Stones Gastrointestinal: Yes Gastroesophageal Reflux, Hiatal Hernia Musculoskeletal: No Endocrine: No HEENT: No Cancer: No Psychosocial: Yes Anxiety, Depression Integumentary: No Blood Disorders: No Family Medical History No Pertinent Family Hx Physical Exam Vital Signs Vital Signs - First Documented Capillary Refill : Height, Weight, BMI Height: 5'10.00" Weight: 179lbs. 5.0oz. 81.511055cp; 27.00 BMI Method:Stated General Appearance: No Apparent Distress, Anxious Respiratory: Lungs Clear, No Accessory Muscle Use, No Respiratory Distress, Other (Left-sided chest wall pain, very pinpoint in the left chest wall and reproducible. Exact pain he has been feeling) Cardiovascular: Regular Rate, Rhythm, No Edema Gastrointestinal: Non Tender, Soft Extremity: Normal Range of Motion Neurologic/Psychiatric: Alert, Oriented x3, Normal Mood/Affect, strategic sourcing specialist II-XII Norm as Tested Skin: Normal Color, Warm/Dry Progress/Results/Core Measures Results/Orders Lab Results Laboratory Tests Test 08/12/20 12:14 08/12/20 14:14 Range/Units White Blood Count 6.6 4.3-11.0 10^3/uL Red Blood Count 5.24 4.35-5.85 10^6/uL Hemoglobin 15.2 13.3-17.7 G/DL Hematocrit 45 40-54 % Mean Corpuscular Volume 86 80-99 FL Mean Corpuscular Hemoglobin 29 25-34 PG Mean Corpuscular Hemoglobin Concent 34 32-36 G/DL Red Cell Distribution Width 13.2 10.0-14.5 % Platelet Count 387 130-400 10^3/uL Mean Platelet Volume 10.7 H 7.4-10.4 FL Immature Granulocyte % (Auto) 0 % Neutrophils (%) (Auto) 76 H 42-75 % Lymphocytes (%) (Auto) 13 12-44 % Monocytes (%) (Auto) 7 0-12 % Eosinophils (%) (Auto) 3 0-10 % Basophils (%) (Auto) 1 0-10 % Neutrophils # (Auto) 5.0 1.8-7.8 X 10^3 Lymphocytes # (Auto) 0.8 L 1.0-4.0 X 10^3 Monocytes # (Auto) 0.5 0.0-1.0 X 10^3 Eosinophils # (Auto) 0.2 0.0-0.3 10^3/uL Basophils # (Auto) 0.1 0.0-0.1 10^3/uL Immature Granulocyte # (Auto) 0.0 0.0-0.1 10^3/uL Prothrombin Time 13.8 12.2-14.7 SEC INR Comment 1.0 0.8-1.4 Activated Partial Thromboplast Time 26 24-35 SEC Sodium Level 144 135-145 MMOL/L Potassium Level 4.0 3.6-5.0 MMOL/L Chloride Level 107 98-107 MMOL/L Carbon Dioxide Level 27 21-32 MMOL/L Anion Gap 10 5-14 MMOL/L Blood Urea Nitrogen 7 7-18 MG/DL Creatinine 0.81 0.60-1.30 MG/DL Estimat Glomerular Filtration Rate > 60 BUN/Creatinine Ratio 9 Glucose Level 117 H 70-105 MG/DL Calcium Level 8.9 8.5-10.1 MG/DL Corrected Calcium 8.8 8.5-10.1 MG/DL Magnesium Level 2.2 1.6-2.4 MG/DL Total Bilirubin 0.5 0.1-1.0 MG/DL Aspartate Amino Transf (AST/SGOT) 18 5-34 U/L Alanine Aminotransferase (ALT/SGPT) 11 0-55 U/L Alkaline Phosphatase 39 L 40-136 U/L Myoglobin 31.5 10.0-92.0 NG/ML Troponin I < 0.30 < 0.30 <0.30 NG/ML Total Protein 6.6 6.4-8.2 GM/DL Albumin 4.1 3.2-4.5 GM/DL My Orders Orders - SAEZ,JENY L DO Cbc With Automated Diff (08/12/20 12:13) Magnesium (08/12/20 12:13) Chest 1 View Ap/Pa Only (08/12/20 12:13) Ekg Tracing (08/12/20 12:13) Comprehensive Metabolic Panel (08/12/20 12:13) Myoglobin Serum (08/12/20 12:13) Protime With Inr (08/12/20 12:13) Partial Thromboplastin Time (08/12/20 12:13) Monitor-Rhythm Ecg Trace Only (08/12/20 12:13) Lipid Panel (08/13/20 06:00) Aspirin Chewable Tablet (Baby Aspirin Ch (08/12/20 12:15) Ed Iv/Invasive Line Start (08/12/20 12:13) Troponin I Fs (08/12/20 12:13) Ketorolac Injection (Toradol Injection) (08/12/20 12:13) Troponin I Fs (08/12/20 14:05) Medications Given in ED Current Medications Medications Dose Ordered Sig/Yobany Route Start Time Stop Time Status Last Admin Dose Admin Aspirin 324 mg ONCE ONCE PO 08/12/20 12:15 08/12/20 12:16 DC 08/12/20 12:17 324 MG Vital Signs/I&O 08/12/20 08/12/20 12:07 12:07 Temp 37.0 Pulse 74 Resp 20 B/P (MAP) 146/91 (109) Pulse Ox 97 O2 Delivery Room Air Room Air Progress Progress Note : Progress Note Patient with negative EKG, 2 - troponins. Patient symptoms are much more consistent with pleuritic chest pain. I recommend he follow-up with his primary care provider along with cardiology for outpatient evaluation and recheck. Patient stable and discharged Diagnostic Imaging Diagonstic Imaging: Xray Plain Films/CT/US/NM/MRI: chest Comments [facility], [place] NAME: ARIES LAZARO [facility] REC#: [id number] PT STATUS: REG ER : 1970 PHYSICIAN: JENY SAEZ DO ADMIT DATE: 08/12/20/ER FS Signed Date of Exam:08/12/20 CHEST 1 VIEW AP/PA ONLY HISTORY: Chest pain COMPARISON: 05/28/2020 TECHNIQUE: Frontal view of the chest FINDINGS: The lung volumes are normal. No focal consolidation is seen. There is no pleural effusion or pneumothorax. The cardiac silhouette is normal in size. A threat monitoring analyst device is noted. Haziness in the apices is unchanged compared to multiple prior exams. IMPRESSION: 1. No acute pulmonary abnormality. Departure Impression Primary Impression: Pleurisy Disposition: HOME, SELF-CARE Condition: Stable Departure-Patient Inst. Referrals: MACARIO LINCOLN APRN (PCP) Primary Care Physician [facility] (Family) Primary Care Physician Patient Instructions: Pleuritic Chest Pain Add. Discharge Instructions: Follow-up with your primary care provider Follow-up with corporate legal secretary for outpatient evaluation Return to the ER as needed JENY SAEZ DO Aug 12, 2020 12:12
[2020-08-12] MEDS ORDERED: ASPIRIN 81 MG CHEW (CHILDREN'S ASA) PO ONE (12:15)
[2020-08-12 12:21] LABS: BASOPHILS # (AUTO) 0.1 10^3/uL (0.0-0.1); BASOPHILS % (AUTO) 1 % (0-10); EOSINOPHILS # (AUTO) 0.2 10^3/uL (0.0-0.3); EOSINOPHILS % (AUTO) 3 % (0-10); HEMATOCRIT 45 % (40-54); HEMOGLOBIN 15.2 G/DL (13.3-17.7); LYMPHOCYTES # (AUTO) 0.8 X 10^3 (1.0-4.0); LYMPHOCYTES % (AUTO) 13 % (12-44); MEAN CORPUSCULAR HEMOGLOBIN 29 PG (25-34); MEAN CORPUSCULAR HGB CONC 34 G/DL (32-36); MEAN CORPUSCULAR VOLUME 86 FL (80-99); MEAN PLATELET VOLUME 10.7 FL (7.4-10.4); MONOCYTES # (AUTO) 0.5 X 10^3 (0.0-1.0); MONOCYTES % (AUTO) 7 % (0-12); NEUTROPHILS % (AUTO) 76 % (42-75); PLATELET COUNT 387 10^3/uL (130-400); WHITE BLOOD COUNT 6.6 10^3/uL (4.3-11.0)
[2020-08-12 12:35] LABS: PROTHROMBIN TIME PATIENT 13.8 SEC (12.2-14.7)
[2020-08-12 12:38] LABS: SODIUM 144 MMOL/L (135-145)
[2020-08-12 12:39] LABS: ALANINE AMINOTRANSFERASE 11 U/L (0-55); ALBUMIN 4.1 GM/DL (3.2-4.5); ALKALINE PHOSPHATASE 39 U/L (40-136); BILIRUBIN,TOTAL 0.5 MG/DL (0.1-1.0); BUN/CREATININE RATIO 9; CALCIUM 8.9 MG/DL (8.5-10.1); CARBON DIOXIDE 27 MMOL/L (21-32); CHLORIDE 107 MMOL/L (98-107); CREATININE SERUM 0.81 MG/DL (0.60-1.30); GFR ESTIMATED > 60; GLUCOSE 117 MG/DL (70-105); MAGNESIUM 2.2 MG/DL (1.6-2.4); TOTAL PROTEIN 6.6 GM/DL (6.4-8.2)
--- NOTE | 2020-08-12 12:43 | Diagnostic Imaging Report ---
HISTORY: Chest pain COMPARISON: 05/28/2020 TECHNIQUE: Frontal view of the chest FINDINGS: The lung volumes are normal. No focal consolidation is seen. There is no pleural effusion or pneumothorax. The cardiac silhouette is normal in size. A panel monitor device is noted. Haziness in the apices is unchanged compared to multiple prior exams. IMPRESSION: 1. No acute pulmonary abnormality. Dictated by: Dictated on workstation # [id number]
[2020-08-12] MEDS ORDERED: CITA20TA9 PO (13:40)
[2020-08-12] MEDS ORDERED: MTP25TSR PO (13:40)
[2020-08-12] MEDS ORDERED: ATOR10TA66 PO (13:40)
[2020-08-12] MEDS ORDERED: PANT40TA52 PO (13:40)
[2020-08-12] MEDS ORDERED: CETI10TA17 PO (13:40)
[2020-08-12 14:55] VITALS: BP 138/89
== END 2020-08-12 14:55 | disposition home or self-care (01) ==
LOC: EDUNIT# 12:07 → ER FS 12:08
DX: R09.1 Pleurisy (principal); E78.00 Pure hypercholesterolemia, unspecified; I10 Essential (primary) hypertension; K21.9 Gastro-esophageal reflux disease without esophagitis; F41.9 Anxiety disorder, unspecified; F32.9 Major depressive disorder, single episode, unspecified; Z88.0 Allergy status to penicillin; Z87.891 Personal history of nicotine dependence
CPT/HCPCS: 36415; 71045; 80053; 83735; 83874; 84484; 85025; 85610; 85730; 93041

== ENCOUNTER 2020-09-01 20:07 | Emergency (ER) | payer MEDICARE, OTHER ==
[~2020-09-01] VITALS: Ht 177.8 cm; Wt 82.1 kg
[~2020-09-01 20:07] MED LIST changes: +ATOR10TA66 PO; +CETI10TA17 PO; +CITA20TA9 PO; +MTP25TSR PO; +PANT40TA52 PO
--- NOTE | 2020-09-01 20:40 | ED General ---
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 States was on BP med but was taken off some time ago. Nursing Sepsis Screen: No Definite Risk Source of Information: Patient Exam Limitations: No Limitations History of Present Illness Date Seen by Provider: Sep 01, 2020 Time Seen by Provider: 20:20 Initial Comments Patient is a 49-year-old male who presents to the emergency department today with a chief complaint of high blood pressures. Patient states that he had a headache this evening that is bandlike around his head and states that he took his blood pressure and noticed that it was extremely high. Patient states that he called the nurse at his primary provider's office and they advised him to wait a little bit and recheck it and he states it was even higher. Currently the patient's blood pressure is 135/99. He states it was up as high as 160- 170/130. He denies any chest pain, shortness of breath. No vision changes. No speech difficulties or unilateral weakness numbness or tingling. No nausea vomiting diarrhea. He denies any urinary complaints. No swelling in his lower extremities. He states that he used to be on blood pressure pills but was taken off by a remelt pan tank operator about a year ago. Patient denies any history of renal failure or kidney issues. No recent illnesses. He states he did feel little bit under the weather on Friday but his symptoms spontaneously resolved. All other review of systems reviewed and negative except as stated above. Timing/Duration: 4-6 Hours Severity: Moderate Associated Systoms: Headaches Allergies and Home Medications Allergies Coded Allergies: Penicillins (Unverified Adverse Reaction, Unknown, 06/23/18) Home Medications Atorvastatin Calcium 10 Mg Tablet, 10 MG PO DAILY, (Reported) Buspirone HCl 15 Mg Tablet, 15 MG PO TID, (Reported) Cetirizine HCl 10 Mg Tablet, 10 MG PO DAILY, (Reported) Citalopram Hydrobromide 20 Mg Tablet, 20 MG PO DAILY, (Reported) Metoprolol Succinate 25 Mg Tab.er.24h, 25 MG PO DAILY, (Reported) Pantoprazole Sodium 40 Mg Tablet.dr, 40 MG PO DAILY, (Reported) Patient Home Medication List Home Medication List Reviewed: Yes Review of Systems Review of Systems Constitutional: see HPI EENTM: no symptoms reported Respiratory: no symptoms reported Cardiovascular: no symptoms reported Gastrointestinal: no symptoms reported Genitourinary: no symptoms reported Musculoskeletal: no symptoms reported Skin: no symptoms reported Psychiatric/Neurological: Headache All Other Systems Reviewed Negative Unless Noted: Yes Past Pufvbic-Ckygkg-Dmsvwx Hx Patient Social History Alcohol Use: Denies Use Smoking Status: Former Smoker Type Used: Smokeless Tobacco Former Smoker, Quit: Jun 02, 2011 2nd Hand Smoke Exposure: No Recent Infectious Disease Expo: No Recent Hopitalizations: No Immunizations Up To Date Tetanus Booster (TDap): Unknown Date of Influenza Vaccine: Apr 01, 2018 Seasonal Allergies Seasonal Allergies: Yes Past Medical History Surgeries: Yes (HERNIA, LOOP RECORDER PLACEMENT) Abdominal Respiratory: No Cardiac: Yes High Cholesterol, Hypertension, Syncope Neurological: No Reproductive Disorders: No Genitourinary: Yes Kidney Stones Gastrointestinal: Yes Gastroesophageal Reflux, Hiatal Hernia Musculoskeletal: No Endocrine: No HEENT: No Cancer: No Psychosocial: Yes Anxiety, Depression Integumentary: No Blood Disorders: No Family Medical History No Pertinent Family Hx Physical Exam Vital Signs Vital Signs - First Documented 09/01/20 20:11 Temp 37.1 Pulse 96 Resp 16 B/P (MAP) 140/103 (115) O2 Delivery Room Air Capillary Refill : Less Than 3 Seconds Height, Weight, BMI Height: 5'10.00" Weight: 179lbs. 5.0oz. 81.981991zu; 25.00 BMI Method:Stated General Appearance: No Apparent Distress, WD/WN Eyes: Bilateral Eye Normal Inspection, Bilateral Eye PERRL, Bilateral Eye EOMI HEENT: PERRL/EOMI Neck: Full Range of Motion, Normal Inspection Respiratory: Lungs Clear, Normal Breath Sounds, No Accessory Muscle Use, No Respiratory Distress Cardiovascular: Regular Rate, Rhythm Gastrointestinal: Non Tender, Soft Extremity: Normal Inspection, No Calf Tenderness, No Pedal Edema Neurologic/Psychiatric: Alert, Oriented x3, No Motor/Sensory Deficits, Normal Mood/Affect, family law specialist II-XII Norm as Tested Skin: Normal Color, Warm/Dry Progress/Results/Core Measures Suspected Sepsis Recent Fever Within 48 Hours: No Infection Criteria Present: None New/Unexplained Altered Menta: No Sepsis Screen: No Definite Risk SIRS Temperature: Pulse: 96 Respiratory Rate: 16 Blood Pressure 140 /103 Mean: 115 Results/Orders My Orders Orders - DONTE OLIVER MD Acetaminophen Tablet (Tylenol Tablet) (09/01/20 20:45) Lisinopril Tablet (Zestril Tablet) (09/01/20 20:45) Medications Given in ED Current Medications Medications Dose Ordered Sig/Yobany Route Start Time Stop Time Status Last Admin Dose Admin Acetaminophen 1,000 mg ONCE ONCE PO 09/01/20 20:45 09/01/20 20:46 DC 09/01/20 20:48 1,000 MG Lisinopril 10 mg ONCE ONCE PO 09/01/20 20:45 09/01/20 20:46 DC 09/01/20 20:48 10 MG Vital Signs/I&O 09/01/20 20:11 Temp 37.1 Pulse 96 Resp 16 B/P (MAP) 140/103 (115) O2 Delivery Room Air Capillary Refill : Less Than 3 Seconds Blood Pressure Mean: 115 Progress Note : Time: 20:37 Progress Note Patient seen and examined, 49-year-old who presents to the emergency room with a chief complaint of headaches and hypertension. Evaluation today includes a physical exam. Patient does have high blood pressure with a 135/99 currently. As he has had repeated elevated blood pressure readings this evening I am going to go ahead and start him on the low-dose lisinopril, 10 mg. I am going to have him follow-up with his primary care provider on Friday. Patient is counseled on a low-salt diet. Patient has no clinical or objective findings to warrant further studies from the emergency department at this time. All questions were sought and answered. Patient is stable for discharge. Departure Impression Primary Impression: High blood pressure Qualified Codes: I10 - Essential (primary) hypertension Disposition: HOME, SELF-CARE Condition: Stable Departure-Patient Inst. Decision time for Depature: 20:39 Referrals: MACARIO LINCOLN APRN (PCP) Primary Care Physician [facility] (Family) Primary Care Physician Patient Instructions: High Blood Pressure in Adults Add. Discharge Instructions: Start taking the lisinopril, 10 mg every morning. We have given you a dose this evening. Please call and follow-up with your primary care provider on Friday. Come back to the emergency room if you have significantly elevated blood pressures especially with chest pain, shortness of breath, numbness or weakness on one side of your body or any other emergent concerning symptoms. Scripts Lisinopril (Lisinopril) 10 Mg Tablet 10 MG PO DAILY, #14 TAB Prov: DONTE OLIVER MD 09/01/20 DONTE OLIVER MD Sep 01, 2020 20:39
[2020-09-01] MEDS ORDERED: ACETAMINOPHEN 500 MG TAB (TYLENOL) PO ONE (20:45)
[2020-09-01] MEDS ORDERED: lisINopril 10 MG (PRINIVIL) TABLET PO ONE (20:45)
[2020-09-01] MEDS ORDERED: LISI10TA25 PO (21:03)
[2020-09-01 21:05] VITALS: BP 130/89
== END 2020-09-01 21:08 | disposition home or self-care (01) ==
LOC: EDUNIT# 20:07 → ER FS 20:08
DX: I10 Essential (primary) hypertension (principal); E78.00 Pure hypercholesterolemia, unspecified; K21.9 Gastro-esophageal reflux disease without esophagitis; F41.9 Anxiety disorder, unspecified; F32.9 Major depressive disorder, single episode, unspecified; F17.220 Nicotine dependence, chewing tobacco, uncomplicated; Z88.0 Allergy status to penicillin
CPT/HCPCS: 99283

== ENCOUNTER 2020-09-02 11:57 | Emergency (ER) | payer SELFPAY ==
[~2020-09-02] VITALS: Ht 177 cm; Wt 81.6 kg
[~2020-09-02 11:57] MED LIST changes: +LISI10TA25 PO
--- NOTE | 2020-09-02 12:08 | ED Cardiac General ---
History of Present Illness General Chief Complaint: Chest Pain Stated Complaint: CHEST PAIN | SHAKING Source: patient Exam Limitations: no limitations History of Present Illness Date Seen by Provider: Sep 02, 2020 Time Seen by Provider: 12:08 Initial Comments 49-year-old male presents with onset of chest pain an hour and a half prior to arrival to the ER. States that he was in the shower and getting out and felt sharp chest pain in the middle of his chest on the left side that lasted for several minutes and persisted on arrival to the ER, however it is much diminished and nearly gone at this point. Denies any recent illness, fever or chills. Denies cough or shortness of air. He is a non-smoker without a history of any heart disease. He states that a few months ago he was evaluated by cardiology with a stress test as well as a heart monitor for episodes of syncope that he had at work. 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 Currently he takes a blood pressure medicine and a baby aspirin daily, nothing else. He does chew tobacco. Allergies and Home Medications Allergies Coded Allergies: Penicillins (Unverified Adverse Reaction, Unknown, 06/23/18) Home Medications Atorvastatin Calcium 10 Mg Tablet, 10 MG PO DAILY, (Reported) Buspirone HCl 15 Mg Tablet, 15 MG PO TID, (Reported) Cetirizine HCl 10 Mg Tablet, 10 MG PO DAILY, (Reported) Citalopram Hydrobromide 20 Mg Tablet, 20 MG PO DAILY, (Reported) Lisinopril 10 Mg Tablet, 10 MG PO DAILY Prescribed by: DONTE OLIVER on 09/01/202102 Metoprolol Succinate 25 Mg Tab.er.24h, 25 MG PO DAILY, (Reported) Pantoprazole Sodium 40 Mg Tablet.dr, 40 MG PO DAILY, (Reported) Patient Home Medication List Home Medication List Reviewed: Yes Review of Systems Review of Systems Constitutional: no symptoms reported; No fever, No malaise, No weakness EENTM: No Symptoms Reported Respiratory: Denies Cough, Denies Shortness of Air Cardiovascular: See HPI, Chest Pain; Denies Edema, Denies Irregular Heart Rate, Denies Lightheadedness, Denies Palpitations, Denies Syncope Gastrointestinal: Denies Abdominal Pain, Denies Constipated, Denies Diarrhea, Denies Vomiting Genitourinary: No Symptoms Reported Musculoskeletal: No back pain, No joint pain Skin: no symptoms reported Psychiatric/Neurological: No Symptoms Reported Past Tvfzrpz-Zbkxvr-Pbgjgf Hx Past Med/Social Hx: Reviewed Nursing Past Med/Soc Hx Patient Social History Alcohol Use: Denies Use Type Used: Smokeless Tobacco Former Smoker, Quit: Jun 02, 2011 2nd Hand Smoke Exposure: No Recent Hopitalizations: No Substance type: Nicotine Immunizations Up To Date Tetanus Booster (TDap): Unknown Date of Influenza Vaccine: Apr 01, 2018 Seasonal Allergies Seasonal Allergies: Yes Past Medical History Surgeries: Yes (HERNIA, LOOP RECORDER PLACEMENT) Abdominal Respiratory: No Cardiac: Yes High Cholesterol, Hypertension, Syncope Neurological: No Reproductive Disorders: No Genitourinary: Yes Kidney Stones Gastrointestinal: Yes Gastroesophageal Reflux, Hiatal Hernia Musculoskeletal: No Endocrine: No HEENT: No Cancer: No Psychosocial: Yes Anxiety, Depression Integumentary: No Blood Disorders: No Family Medical History No Pertinent Family Hx Physical Exam Vital Signs Vital Signs - First Documented 09/02/20 12:05 Temp 36.4 Pulse 90 Resp 20 B/P (MAP) 129/89 (102) Pulse Ox 93 O2 Delivery Room Air Capillary Refill : Height, Weight, BMI Height: 5'10.00" Weight: 179lbs. 5.0oz. 81.085198ce; 25.00 BMI Method:Stated General Appearance: No Apparent Distress, WD/WN Neck: Normal Inspection, Non Tender, Supple Respiratory: Chest Non Tender, Lungs Clear, Normal Breath Sounds, No Accessory Muscle Use, No Respiratory Distress Cardiovascular: Regular Rate, Rhythm, No Edema, No Gallop, No JVD Gastrointestinal: No Pulsatile Mass, Non Tender, Soft Extremity: Normal Capillary Refill, Normal Inspection, Non Tender Neurologic/Psychiatric: Alert, Oriented x3, No Motor/Sensory Deficits, Normal Mood/Affect Skin: Normal Color, Warm/Dry Progress/Results/Core Measures Results/Orders Lab Results Laboratory Tests Test 09/02/20 12:15 09/02/20 14:22 Range/Units White Blood Count 9.5 4.3-11.0 10^3/uL Red Blood Count 5.59 4.35-5.85 10^6/uL Hemoglobin 16.5 13.3-17.7 G/DL Hematocrit 48 40-54 % Mean Corpuscular Volume 86 80-99 FL Mean Corpuscular Hemoglobin 30 25-34 PG Mean Corpuscular Hemoglobin Concent 24 L 32-36 G/DL Red Cell Distribution Width 12.9 10.0-14.5 % Platelet Count 445 H 130-400 10^3/uL Mean Platelet Volume 10.7 H 7.4-10.4 FL Immature Granulocyte % (Auto) 0 % Neutrophils (%) (Auto) 75 42-75 % Lymphocytes (%) (Auto) 14 12-44 % Monocytes (%) (Auto) 7 0-12 % Eosinophils (%) (Auto) 2 0-10 % Basophils (%) (Auto) 1 0-10 % Neutrophils # (Auto) 7.1 1.8-7.8 X 10^3 Lymphocytes # (Auto) 1.3 1.0-4.0 X 10^3 Monocytes # (Auto) 0.7 0.0-1.0 X 10^3 Eosinophils # (Auto) 0.2 0.0-0.3 10^3/uL Basophils # (Auto) 0.1 0.0-0.1 10^3/uL Immature Granulocyte # (Auto) 0.0 0.0-0.1 10^3/uL Sodium Level 143 135-145 MMOL/L Potassium Level 4.7 3.6-5.0 MMOL/L Chloride Level 108 H 98-107 MMOL/L Carbon Dioxide Level 28 21-32 MMOL/L Anion Gap 7 5-14 MMOL/L Blood Urea Nitrogen 12 7-18 MG/DL Creatinine 0.86 0.60-1.30 MG/DL Estimat Glomerular Filtration Rate > 60 BUN/Creatinine Ratio 14 Glucose Level 95 70-105 MG/DL Calcium Level 9.0 8.5-10.1 MG/DL Corrected Calcium 8.7 8.5-10.1 MG/DL Total Bilirubin 0.7 0.1-1.0 MG/DL Aspartate Amino Transf (AST/SGOT) 20 5-34 U/L Alanine Aminotransferase (ALT/SGPT) 16 0-55 U/L Alkaline Phosphatase 39 L 40-136 U/L Troponin I < 0.30 <0.30 NG/ML Total Protein 7.0 6.4-8.2 GM/DL Albumin 4.4 3.2-4.5 GM/DL My Orders Orders - PEYTON LEYVA DO Ed Iv/Invasive Line Start (09/02/20 12:23) Chest 1 View Ap/Pa Only (09/02/20 12:23) Ekg Tracing (09/02/20 12:23) Cbc With Automated Diff (09/02/20 12:23) Comprehensive Metabolic Panel (09/02/20 12:23) Troponin I Fs (09/02/20 12:23) Aspirin Chewable Tablet (Baby Aspirin Ch (09/02/20 12:30) Troponin I Fs (09/02/20 14:00) Medications Given in ED Current Medications Medications Dose Ordered Sig/Yobany Route Start Time Stop Time Status Last Admin Dose Admin Aspirin 324 mg ONCE ONCE PO 09/02/20 12:30 09/02/20 12:31 DC 09/02/20 13:31 324 MG Vital Signs/I&O 09/02/20 09/02/20 12:05 12:05 Temp 36.4 Pulse 90 Resp 20 B/P (MAP) 129/89 (102) Pulse Ox 93 O2 Delivery Room Air Room Air Progress Progress Note : Progress Note 1300 - Chest pain resolved, discussed initial normal labs and need to repeat Troponin x1. patient understands. Initial ECG Impression Date: Sep 02, 2020 Departure Impression Primary Impression: Chest pain Qualified Codes: R07.9 - Chest pain, unspecified Disposition: HOME, SELF-CARE Condition: Improved (CP resolved) Departure-Patient Inst. Referrals: MACARIO LINCOLN APRN (PCP) Primary Care Physician [facility] (Family) Primary Care Physician Patient Instructions: Chest Pain (DC) Add. Discharge Instructions: Call Dr Hernandez's office on Friday to let then know you were seen in the ER for an episode of chest pain. Return to the ER for any return of chest pain All discharge instructions reviewed with patient and/or family. Voiced understanding. PEYTON LEYVA DO Sep 02, 2020 12:08
[2020-09-02 12:27] LABS: BASOPHILS # (AUTO) 0.1 10^3/uL (0.0-0.1); BASOPHILS % (AUTO) 1 % (0-10); EOSINOPHILS # (AUTO) 0.2 10^3/uL (0.0-0.3); EOSINOPHILS % (AUTO) 2 % (0-10); HEMATOCRIT 48 % (40-54); HEMOGLOBIN 16.5 G/DL (13.3-17.7); LYMPHOCYTES # (AUTO) 1.3 X 10^3 (1.0-4.0); LYMPHOCYTES % (AUTO) 14 % (12-44); MEAN CORPUSCULAR HEMOGLOBIN 30 PG (25-34); MEAN CORPUSCULAR HGB CONC 24 G/DL (32-36); MEAN CORPUSCULAR VOLUME 86 FL (80-99); MEAN PLATELET VOLUME 10.7 FL (7.4-10.4); MONOCYTES # (AUTO) 0.7 X 10^3 (0.0-1.0); MONOCYTES % (AUTO) 7 % (0-12); NEUTROPHILS # (AUTO) 7.1 X 10^3 (1.8-7.8); NEUTROPHILS % (AUTO) 75 % (42-75); PLATELET COUNT 445 10^3/uL (130-400); WHITE BLOOD COUNT 9.5 10^3/uL (4.3-11.0)
[2020-09-02] MEDS ORDERED: ASPIRIN 81 MG CHEW (CHILDREN'S ASA) PO ONE (12:30)
[2020-09-02 12:44] LABS: ALANINE AMINOTRANSFERASE 16 U/L (0-55); ALBUMIN 4.4 GM/DL (3.2-4.5); ALKALINE PHOSPHATASE 39 U/L (40-136); BILIRUBIN,TOTAL 0.7 MG/DL (0.1-1.0); BUN/CREATININE RATIO 14; CARBON DIOXIDE 28 MMOL/L (21-32); CHLORIDE 108 MMOL/L (98-107); CREATININE SERUM 0.86 MG/DL (0.60-1.30); GFR ESTIMATED > 60; GLUCOSE 95 MG/DL (70-105); POTASSIUM 4.7 MMOL/L (3.6-5.0); SODIUM 143 MMOL/L (135-145)
--- NOTE | 2020-09-02 13:54 | Diagnostic Imaging Report ---
INDICATION: Chest pain. COMPARISON: 08/12/2020 FINDINGS: There is cardiomegaly and ectasia of the thoracic aorta. There is no pleural effusion, pneumothorax or pneumonia. Mediastinum is unremarkable. IMPRESSION: Cardiomegaly and some ectasia of the thoracic aorta. Dictated by: Dictated on workstation # [id number]
[2020-09-02 15:13] VITALS: BP 126/76
== END 2020-09-02 15:08 | disposition home or self-care (01) ==
LOC: EDUNIT# 11:57 → ER FS 12:01
DX: R07.89 Other chest pain (principal); I10 Essential (primary) hypertension; E78.00 Pure hypercholesterolemia, unspecified; F41.9 Anxiety disorder, unspecified; F32.9 Major depressive disorder, single episode, unspecified; K21.9 Gastro-esophageal reflux disease without esophagitis; Z79.891 Long term (current) use of opiate analgesic; Z88.0 Allergy status to penicillin; Z79.82 Long term (current) use of aspirin; Z79.899 Other long term (current) drug therapy
CPT/HCPCS: 36415; 71045; 80053; 84484; 85025; 93005

== ENCOUNTER 2020-09-05 00:22 | Emergency (ER) | payer SELFPAY ==
[~2020-09-05] VITALS: Ht 175.3 cm; Wt 78.5 kg
[2020-09-05 00:25] VITALS: BP 141/102
--- NOTE | 2020-09-05 00:38 | ED General ---
General Stated Complaint: WEAK,DIZZY Source of Information: Patient, EMS History of Present Illness Date Seen by Provider: Sep 05, 2020 Time Seen by Provider: 00:32 Initial Comments Presents via EMS for feeling dizzy and hot after drinking 2 beers tonight. Feels better on arrival to ER. Admits to increased stress, he from his current and his best friend won't talk to him. Denies SI or HI. Seen in this ER for Chest pain on 09/02. Denies CP or SOA. Denies abdominal pain, nausea or loss of appetite. Allergies and Home Medications Allergies Coded Allergies: Penicillins (Unverified Adverse Reaction, Unknown, 06/23/18) Home Medications Atorvastatin Calcium 10 Mg Tablet, 10 MG PO DAILY, (Reported) Buspirone HCl 15 Mg Tablet, 15 MG PO TID, (Reported) Cetirizine HCl 10 Mg Tablet, 10 MG PO DAILY, (Reported) Citalopram Hydrobromide 20 Mg Tablet, 20 MG PO DAILY, (Reported) Lisinopril 10 Mg Tablet, 10 MG PO DAILY Prescribed by: DONTE OLIVER on 09/01/202102 Metoprolol Succinate 25 Mg Tab.er.24h, 25 MG PO DAILY, (Reported) Pantoprazole Sodium 40 Mg Tablet.dr, 40 MG PO DAILY, (Reported) Patient Home Medication List Home Medication List Reviewed: Yes Review of Systems Review of Systems Constitutional: No chills, No diaphoresis; dizziness, malaise; No weakness EENTM: no symptoms reported Respiratory: no symptoms reported Cardiovascular: no symptoms reported; No chest pain, No edema, No palpitations, No syncope Gastrointestinal: No abdominal pain, No loss of appetite, No nausea, No vomiting Musculoskeletal: No back pain, No joint pain Skin: No change in color, No rash Psychiatric/Neurological: See HPI, Anxiety, Depressed, Emotional Problems; Denies Headache, Denies Seizure, Denies Tingling, Denies Tremors, Denies Weakness Past Itzwade-Ijtoql-Vjeipz Hx Past Med/Social Hx: Reviewed Nursing Past Med/Soc Hx Patient Social History Type Used: Smokeless Tobacco Former Smoker, Quit: Jun 02, 2011 2nd Hand Smoke Exposure: No Recent Hopitalizations: No Immunizations Up To Date Tetanus Booster (TDap): Unknown Date of Influenza Vaccine: Apr 01, 2018 Seasonal Allergies Seasonal Allergies: Yes Past Medical History Surgeries: Yes (HERNIA, LOOP RECORDER PLACEMENT) Abdominal Respiratory: No Cardiac: Yes High Cholesterol, Hypertension, Syncope Neurological: No Reproductive Disorders: No Genitourinary: Yes Kidney Stones Gastrointestinal: Yes Gastroesophageal Reflux, Hiatal Hernia Musculoskeletal: No Endocrine: No HEENT: No Cancer: No Psychosocial: Yes Anxiety, Depression Integumentary: No Blood Disorders: No Family Medical History No Pertinent Family Hx Physical Exam Vital Signs Capillary Refill : Height, Weight, BMI Height: 5'10.00" Weight: 179lbs. 5.0oz. 81.855503iv; 26.00 BMI Method:Stated General Appearance: No Apparent Distress, WD/WN Eyes: Bilateral Eye Normal Inspection, Bilateral Eye PERRL, Bilateral Eye EOMI HEENT: PERRL/EOMI, Normal ENT Inspection Respiratory: Chest Non Tender, Lungs Clear, Normal Breath Sounds Cardiovascular: Regular Rate, Rhythm, No Edema, No JVD Gastrointestinal: Non Tender, Soft Back: Normal Inspection, No CVA Tenderness Extremity: Normal Capillary Refill, Normal Inspection, Normal Range of Motion, Non Tender Neurologic/Psychiatric: Alert, Oriented x3, No Motor/Sensory Deficits; No Abnormal Gait; Depressed Affect; No Disoriented, No Facial Droop, No Motor Weakness, No Sensory Deficit Skin: Normal Color, Warm/Dry Progress/Results/Core Measures Suspected Sepsis SIRS Temperature: Pulse: Respiratory Rate: Blood Pressure / Mean: Results/Orders Vital Signs/I&O Capillary Refill : Departure Impression Primary Impression: Stress reaction Additional Impression: Depression Qualified Codes: F32.9 - Major depressive disorder, single episode, unspecified Disposition: 01 HOME, SELF-CARE Condition: Stable Departure-Patient Inst. Decision time for Depature: 00:38 Referrals: MACARIO LINCOLN APRN (PCP) Primary Care Physician [facility] (Family) Primary Care Physician Patient Instructions: Depression, Adult (DC), Anxiety, Adult ED Add. Discharge Instructions: Keep your appointment tomorrow as previously scheduled for counseling. See your PCP in 1 week to discuss as well. PEYTON LEYVA DO Sep 05, 2020 00:38
== END 2020-09-05 00:41 | disposition home or self-care (01) ==
LOC: EDUNIT# 00:22 → ER FS 00:24
DX: F43.9 Reaction to severe stress, unspecified (principal); F32.9 Major depressive disorder, single episode, unspecified; I10 Essential (primary) hypertension; F41.9 Anxiety disorder, unspecified; E78.00 Pure hypercholesterolemia, unspecified; K21.9 Gastro-esophageal reflux disease without esophagitis; Z88.0 Allergy status to penicillin; Z87.891 Personal history of nicotine dependence
CPT/HCPCS: 99283

== ENCOUNTER 2020-09-07 18:52 | Emergency (ER) | payer SELFPAY ==
--- NOTE | 2020-09-07 19:02 | ED Psychosocial ---
General Stated Complaint: SUICIDAL THOUGHTS Source: patient Exam Limitations: no limitations History of Present Illness Date Seen by Provider: Sep 07, 2020 Time Seen by Provider: 19:02 Initial Comments 49-year-old male presents with suicidal thoughts. Patient reports he is going through divorce. Patient reports that today he is "almost thinking about ending it" patient reports that he is under a lot of stress. That he has had issues with mental health anxiety in the past. Patient reports he does not have a plan. Patient reports that he was concerned that if he went home and was by himself that it might worsen and he was then progressed further with with a plan. Patient has no physical complaints Allergies and Home Medications Allergies Coded Allergies: Penicillins (Unverified Adverse Reaction, Unknown, 06/23/18) Home Medications Atorvastatin Calcium 10 Mg Tablet, 10 MG PO DAILY, (Reported) Buspirone HCl 15 Mg Tablet, 15 MG PO TID, (Reported) Cetirizine HCl 10 Mg Tablet, 10 MG PO DAILY, (Reported) Citalopram Hydrobromide 20 Mg Tablet, 20 MG PO DAILY, (Reported) Lisinopril 10 Mg Tablet, 10 MG PO DAILY Prescribed by: DONTE OLIVER on 09/01/202102 Metoprolol Succinate 25 Mg Tab.er.24h, 25 MG PO DAILY, (Reported) Pantoprazole Sodium 40 Mg Tablet.dr, 40 MG PO DAILY, (Reported) Patient Home Medication List Home Medication List Reviewed: Yes Review of Systems Constitutional: see HPI EENTM: see HPI Respiratory: no symptoms reported Cardiovascular: no symptoms reported Gastrointestinal: no symptoms reported Genitourinary: no symptoms reported Musculoskeletal: no symptoms reported Skin: no symptoms reported Psychiatric/Neurological: See HPI Past Izwsqea-Ibebzb-Wwrdcs Hx Past Med/Social Hx: Reviewed Nursing Past Med/Soc Hx Patient Social History Type Used: Smokeless Tobacco Former Smoker, Quit: Jun 02, 2011 2nd Hand Smoke Exposure: No Recent Hopitalizations: No Immunizations Up To Date Tetanus Booster (TDap): Unknown Date of Influenza Vaccine: Apr 01, 2018 Seasonal Allergies Seasonal Allergies: Yes Past Medical History Surgeries: Yes (HERNIA, LOOP RECORDER PLACEMENT) Abdominal Respiratory: No Cardiac: Yes High Cholesterol, Hypertension, Syncope Neurological: No Reproductive Disorders: No Genitourinary: Yes Kidney Stones Gastrointestinal: Yes Gastroesophageal Reflux, Hiatal Hernia Musculoskeletal: No Endocrine: No HEENT: No Cancer: No Psychosocial: Yes Anxiety, Depression Integumentary: No Blood Disorders: No Family Medical History No Pertinent Family Hx Physical Exam Vital Signs - First Documented 09/07/20 19:00 Temp 36.9 Pulse 95 Resp 18 B/P (MAP) 157/95 (115) Pulse Ox 99 O2 Delivery Room Air Capillary Refill : Height, Weight, BMI Height: 5'10.00" Weight: 179lbs. 5.0oz. 81.943799sn; 25.00 BMI Method:Stated General Appearance: WD/WN, no apparent distress HEENT: PERRL/EOMI Neck: full range of motion, supple Respiratory: lungs clear, normal breath sounds, no respiratory distress Cardiovascular: normal peripheral pulses, regular rate, rhythm Gastrointestinal: non tender, soft Extremities: non-tender Neurologic/Psychiatric: alert, normal mood/affect, oriented x 3 Appearance/Memory: appropriate appearance, appropriate insight Behavior/Eye Contact: cooperative, good eye contact Thoughts/Hallucinations: other (Possible suicidal thoughts) Skin: normal color, warm/dry Progress/Results/Core Measures Results/Orders Lab Results Laboratory Tests Test 09/07/20 19:05 09/07/20 23:20 Range/Units White Blood Count 10.6 4.3-11.0 10^3/uL Red Blood Count 5.44 4.35-5.85 10^6/uL Hemoglobin 16.1 13.3-17.7 G/DL Hematocrit 47 40-54 % Mean Corpuscular Volume 86 80-99 FL Mean Corpuscular Hemoglobin 30 25-34 PG Mean Corpuscular Hemoglobin Concent 34 32-36 G/DL Red Cell Distribution Width 12.8 10.0-14.5 % Platelet Count 438 H 130-400 10^3/uL Mean Platelet Volume 10.7 H 7.4-10.4 FL Immature Granulocyte % (Auto) 0 % Neutrophils (%) (Auto) 72 42-75 % Lymphocytes (%) (Auto) 17 12-44 % Monocytes (%) (Auto) 7 0-12 % Eosinophils (%) (Auto) 2 0-10 % Basophils (%) (Auto) 1 0-10 % Neutrophils # (Auto) 7.7 1.8-7.8 X 10^3 Lymphocytes # (Auto) 1.8 1.0-4.0 X 10^3 Monocytes # (Auto) 0.8 0.0-1.0 X 10^3 Eosinophils # (Auto) 0.2 0.0-0.3 10^3/uL Basophils # (Auto) 0.2 H 0.0-0.1 10^3/uL Immature Granulocyte # (Auto) 0.0 0.0-0.1 10^3/uL Urine Color YELLOW Urine Clarity CLEAR Urine pH 6.0 5-9 Urine Specific [place] 1.020 1.016-1.022 Urine Protein NEGATIVE NEGATIVE Urine Glucose (UA) NEGATIVE NEGATIVE Urine Ketones NEGATIVE NEGATIVE Urine Nitrite NEGATIVE NEGATIVE Urine Bilirubin NEGATIVE NEGATIVE Urine Urobilinogen 1.0 < = 1.0 MG/DL Urine Leukocyte Esterase NEGATIVE NEGATIVE Urine RBC (Auto) NEGATIVE NEGATIVE Urine RBC NONE /HPF Urine WBC RARE /HPF Urine Squamous Epithelial Cells 0-2 /HPF Urine Crystals NONE /LPF Urine Bacteria NEGATIVE /HPF Urine Casts NONE /LPF Urine Mucus NEGATIVE /LPF Urine Culture Indicated NO Sodium Level 140 135-145 MMOL/L Potassium Level 4.0 3.6-5.0 MMOL/L Chloride Level 105 98-107 MMOL/L Carbon Dioxide Level 25 21-32 MMOL/L Anion Gap 10 5-14 MMOL/L Blood Urea Nitrogen 7 7-18 MG/DL Creatinine 0.86 0.60-1.30 MG/DL Estimat Glomerular Filtration Rate > 60 BUN/Creatinine Ratio 8 Glucose Level 112 H 70-105 MG/DL Calcium Level 9.5 8.5-10.1 MG/DL Corrected Calcium 8.5-10.1 MG/DL Total Bilirubin 0.4 0.1-1.0 MG/DL Aspartate Amino Transf (AST/SGOT) 22 5-34 U/L Alanine Aminotransferase (ALT/SGPT) 15 0-55 U/L Alkaline Phosphatase 48 40-136 U/L Total Protein 7.0 6.4-8.2 GM/DL Albumin 4.6 H 3.2-4.5 GM/DL Salicylates Level < 0.3 L 5.0-20.0 MG/DL Urine Opiates Screen NEGATIVE NEGATIVE Urine Oxycodone Screen NEGATIVE NEGATIVE Urine Methadone Screen NEGATIVE NEGATIVE Urine Propoxyphene Screen NEGATIVE NEGATIVE Acetaminophen Level < 10 L 10-30 UG/ML Urine Barbiturates Screen NEGATIVE NEGATIVE Ur Tricyclic Antidepressants Screen NEGATIVE NEGATIVE Urine Phencyclidine Screen NEGATIVE NEGATIVE Urine Amphetamines Screen NEGATIVE NEGATIVE Urine Methamphetamines Screen NEGATIVE NEGATIVE Urine Benzodiazepines Screen NEGATIVE NEGATIVE Urine Cocaine Screen NEGATIVE NEGATIVE Urine Cannabinoids Screen NEGATIVE NEGATIVE Serum Alcohol < 10 <10 MG/DL Coronavirus 2019 ([facility]) Negative Negative My Orders Orders - JENY SAEZ DO Cbc With Automated Diff (09/07/20 18:56) Comprehensive Metabolic Panel (09/07/20 18:56) Alcohol (09/07/20 18:56) Salicylate (09/07/20 18:56) Acetaminophen (09/07/20 18:56) Ua Culture If Indicated (09/07/20 18:56) Drug Screen Stat (Urine) (09/07/20 18:56) Ekg Tracing (09/07/20 19:09) Covid 19 Inhouse Test (09/07/20 22:24) Vital Signs/I&O 09/07/20 09/07/20 19:00 23:58 Temp 36.9 Pulse 95 80 Resp 18 18 B/P (MAP) 157/95 (115) 130/85 (100) Pulse Ox 99 98 O2 Delivery Room Air Room Air Progress Progress Note : Progress Note Patient screened by [facility]. They help find patient placement at [facility] to Dr. Cancino. Patient transferred in stable condition Initial ECG Impression Date: Sep 07, 2020 Initial ECG Impression Time: 19:04 Initial ECG Rate: 89 Initial ECG Rhythm: Normal Sinus Comment NSR, no acute changes Departure Impression Primary Impression: Depression with suicidal ideation Disposition: XFER SHT-TRM HOSP Condition: Stable Transfer Transfer Reason: Exceeds level of care Time Spoke to Accepting Phy: 01:00 Transfer Progress Notes Patient accepted by Dr. Cancino [facility] per [facility] Transfer [facility] Method of Transfer: Private Vehicle Departure-Patient Inst. Referrals: MACARIO LINCOLN APRN (PCP) Primary Care Physician [facility] (Family) Primary Care Physician JENY SAEZ DO Sep 07, 2020 19:02
[2020-09-07 19:11] LABS: BASOPHILS % (AUTO) 1 % (0-10); EOSINOPHILS % (AUTO) 2 % (0-10); HEMATOCRIT 47 % (40-54); HEMOGLOBIN 16.1 G/DL (13.3-17.7); LYMPHOCYTES % (AUTO) 17 % (12-44); MEAN CORPUSCULAR HEMOGLOBIN 30 PG (25-34); MEAN CORPUSCULAR HGB CONC 34 G/DL (32-36); MEAN CORPUSCULAR VOLUME 86 FL (80-99); MEAN PLATELET VOLUME 10.7 FL (7.4-10.4); MONOCYTES % (AUTO) 7 % (0-12); NEUTROPHILS % (AUTO) 72 % (42-75); PLATELET COUNT 438 10^3/uL (130-400); WHITE BLOOD COUNT 10.6 10^3/uL (4.3-11.0)
[2020-09-07 19:12] LABS: BASOPHILS # (AUTO) 0.2 10^3/uL (0.0-0.1); EOSINOPHILS # (AUTO) 0.2 10^3/uL (0.0-0.3); LYMPHOCYTES # (AUTO) 1.8 X 10^3 (1.0-4.0); MONOCYTES # (AUTO) 0.8 X 10^3 (0.0-1.0); NEUTROPHILS # (AUTO) 7.7 X 10^3 (1.8-7.8)
[2020-09-07 19:22] LABS: BILIRUBIN,URINE NEGATIVE (NEGATIVE); CLARITY,URINE CLEAR; COLOR,URINE YELLOW; GLUCOSE, URINE (UA) NEGATIVE (NEGATIVE); KETONES,URINE NEGATIVE (NEGATIVE); LEUKOCYTE ESTERASE ,URINE NEGATIVE (NEGATIVE); NITRITE,URINE NEGATIVE (NEGATIVE); PROTEIN,URINE NEGATIVE (NEGATIVE)
[2020-09-07 19:23] LABS: BACTERIA,URINE NEGATIVE /HPF; SQUAMOUS EPITHELIAL CELL,UR 0-2 /HPF; WBC,URINE RARE /HPF
[2020-09-07 19:26] LABS: AMPHETAMINE SCREEN, URINE NEGATIVE (NEGATIVE); BARBITURATE SCREEN URINE NEGATIVE (NEGATIVE); BENZODIAZEPINES SCREEN URINE NEGATIVE (NEGATIVE); CANNABINOID SCREEN, URINE NEGATIVE (NEGATIVE); COCAINE SCREEN URINE NEGATIVE (NEGATIVE); METHADONE STAT NEGATIVE (NEGATIVE); METHAMPHETAMINE SCREEN URINE S NEGATIVE (NEGATIVE); OPIATE SCREEN URINE NEGATIVE (NEGATIVE); OXYCODONE STAT NEGATIVE (NEGATIVE); PROPOXYPHENE STAT NEGATIVE (NEGATIVE); TRICYCLIC ANTIDEPRESSANTS SCRE NEGATIVE (NEGATIVE)
[2020-09-07 19:32] LABS: ALANINE AMINOTRANSFERASE 15 U/L (0-55); ALKALINE PHOSPHATASE 48 U/L (40-136); BILIRUBIN,TOTAL 0.4 MG/DL (0.1-1.0); BUN/CREATININE RATIO 8; CALCIUM 9.5 MG/DL (8.5-10.1); CARBON DIOXIDE 25 MMOL/L (21-32); CHLORIDE 105 MMOL/L (98-107); CREATININE SERUM 0.86 MG/DL (0.60-1.30); GFR ESTIMATED > 60; GLUCOSE 112 MG/DL (70-105); SODIUM 140 MMOL/L (135-145)
[2020-09-07 19:33] LABS: ACETAMINOPHEN < 10 UG/ML (10-30); ALBUMIN 4.6 GM/DL (3.2-4.5); SALICYLATE < 0.3 MG/DL (5.0-20.0)
[2020-09-08 06:37] VITALS: BP 129/74
== END 2020-09-08 07:54 ==
LOC: EDUNIT# 18:52 → ER FS 18:53
DX: F32.9 Major depressive disorder, single episode, unspecified (principal); R45.851 Suicidal ideations; I10 Essential (primary) hypertension; E78.00 Pure hypercholesterolemia, unspecified; K21.9 Gastro-esophageal reflux disease without esophagitis; F41.9 Anxiety disorder, unspecified; Z88.0 Allergy status to penicillin; Z87.891 Personal history of nicotine dependence; Z20.822 Contact with and (suspected) exposure to COVID-19
CPT/HCPCS: 36415; 80053; 80306; 81000; 85025; 93005; 99283; G0480 ×3; U0002; 80320; 80329; 87635

== ENCOUNTER 2020-09-12 15:03 | Emergency (ER) | payer SELFPAY ==
[~2020-09-12] VITALS: Ht 177.8 cm; Wt 81.8 kg
[2020-09-12 15:04] VITALS: BP 127/94
--- NOTE | 2020-09-12 15:21 | ED General ---
General Chief Complaint: General Problems/Pain Stated Complaint: HYPERTENSION Nursing Triage Note: Patient presents to the ED via EMS with c/o high blood pressure and headache. He reports that he was having a headache so he took his blood pressure and his reading was reportedly 170s/140s. He reports since his blood pressure was high he wanted to be evaluated in the ED. Nursing Sepsis Screen: No Definite Risk Source of Information: Patient History of Present Illness Date Seen by Provider: Sep 12, 2020 Time Seen by Provider: 15:10 Initial Comments 49-year-old male presents via EMS with complaint of elevated blood pressure. States he had a headache at home so he put on his wrist blood pressure device and is blood pressure was elevated 170 over?. States he took his lisinopril this morning (a new medication he started within the past couple weeks). Patient seen in this ER multiple times recently for multiple complaints and primarily stress and anxiety. Patient denies chest pain, shortness of air, fever chills, recent illness, abdominal pain, nausea vomiting or extremity pain. Denies dizziness, weakness or confusion Allergies and Home Medications Allergies Coded Allergies: Penicillins (Unverified Adverse Reaction, Unknown, 06/23/18) Home Medications Atorvastatin Calcium 10 Mg Tablet, 10 MG PO DAILY, (Reported) Buspirone HCl 15 Mg Tablet, 15 MG PO TID, (Reported) Cetirizine HCl 10 Mg Tablet, 10 MG PO DAILY, (Reported) Citalopram Hydrobromide 20 Mg Tablet, 20 MG PO DAILY, (Reported) Lisinopril 10 Mg Tablet, 10 MG PO DAILY Prescribed by: DONTE OLIVER on 09/01/202102 Metoprolol Succinate 25 Mg Tab.er.24h, 25 MG PO DAILY, (Reported) Pantoprazole Sodium 40 Mg Tablet.dr, 40 MG PO DAILY, (Reported) Patient Home Medication List Home Medication List Reviewed: Yes Review of Systems Review of Systems Constitutional: see HPI; No fever, No malaise, No weakness EENTM: no symptoms reported Respiratory: no symptoms reported Cardiovascular: no symptoms reported Gastrointestinal: no symptoms reported Musculoskeletal: No back pain, No joint pain Psychiatric/Neurological: Anxiety, Depressed, Emotional Problems, Headache; Denies Numbness, Denies Paresthesia, Denies Tremors, Denies Weakness Past Frbnqii-Gznmxp-Mvcoaf Hx Past Med/Social Hx: Reviewed Nursing Past Med/Soc Hx Patient Social History Alcohol Use: Denies Use Smoking Status: Former Smoker Type Used: Smokeless Tobacco Former Smoker, Quit: Jun 02, 2011 2nd Hand Smoke Exposure: No Recent Infectious Disease Expo: No Recent Hopitalizations: No Immunizations Up To Date Tetanus Booster (TDap): Unknown Date of Influenza Vaccine: Apr 01, 2018 Seasonal Allergies Seasonal Allergies: Yes Past Medical History Surgeries: Yes (HERNIA, LOOP RECORDER PLACEMENT) Abdominal Respiratory: No Cardiac: Yes High Cholesterol, Hypertension, Syncope Neurological: No Reproductive Disorders: No Genitourinary: Yes Kidney Stones Gastrointestinal: Yes Gastroesophageal Reflux, Hiatal Hernia Musculoskeletal: No Endocrine: No HEENT: No Cancer: No Psychosocial: Yes Anxiety, Depression Integumentary: No Blood Disorders: No Family Medical History No Pertinent Family Hx Physical Exam Vital Signs Vital Signs - First Documented 09/12/20 15:04 Temp 36.6 Pulse 99 Resp 16 B/P (MAP) 127/94 (105) Pulse Ox 97 O2 Delivery Room Air Capillary Refill : Less Than 3 Seconds Height, Weight, BMI Height: 5'10.00" Weight: 179lbs. 5.0oz. 81.320179ku; 25.00 BMI Method:Stated General Appearance: No Apparent Distress, WD/WN Eyes: Bilateral Eye Normal Inspection, Bilateral Eye PERRL, Bilateral Eye EOMI HEENT: PERRL/EOMI, Normal ENT Inspection Neck: Non Tender, Supple Respiratory: Chest Non Tender, Lungs Clear, Normal Breath Sounds Cardiovascular: Regular Rate, Rhythm, No Edema, No Gallop, No JVD, Normal Peripheral Pulses Gastrointestinal: Non Tender, Soft Extremity: Normal Capillary Refill, Non Tender, No Pedal Edema Neurologic/Psychiatric: Alert, Oriented x3, No Motor/Sensory Deficits, Normal Mood/Affect Progress/Results/Core Measures Suspected Sepsis Recent Fever Within 48 Hours: No Infection Criteria Present: None New/Unexplained Altered Menta: No Sepsis Screen: No Definite Risk SIRS Temperature: Pulse: 99 Respiratory Rate: 16 Blood Pressure 127 /94 Mean: 105 Results/Orders Vital Signs/I&O 09/12/20 15:04 Temp 36.6 Pulse 99 Resp 16 B/P (MAP) 127/94 (105) Pulse Ox 97 O2 Delivery Room Air Capillary Refill : Less Than 3 Seconds Blood Pressure Mean: 105 Progress Note : Progress Note Discussed monitoring his blood pressure and not checking at times of feeling poorly or anxious, but rather checking randomly throughout the day when he is feeling well. Patient has an appoint with his PCP in 2 days, advised keeping this appointment to discuss his blood pressure and his anxiety issues. Patient did express that he had had counseling recently and is feeling much better about things. Denies suicidal or homicidal ideation today. Departure Impression Primary Impression: Anxiety Additional Impression: High blood pressure Qualified Codes: I10 - Essential (primary) hypertension Disposition: HOME, SELF-CARE Condition: Stable Departure-Patient Inst. Decision time for Depature: 15:20 Referrals: MACARIO LINCOLN APRN (PCP) Primary Care Physician [facility] (Family) Primary Care Physician Patient Instructions: Anxiety, Adult (DC), High Blood Pressure (DC) Add. Discharge Instructions: Keep your appointment with your doctor to check your blood pressure and medication on this week as previously scheduled. All discharge instructions reviewed with patient and/or family. Voiced understanding. PEYTON LEYVA DO Sep 12, 2020 15:21
== END 2020-09-12 15:24 | disposition home or self-care (01) ==
LOC: EDUNIT# 15:03 → ER FS 15:04
DX: F41.9 Anxiety disorder, unspecified (principal); I10 Essential (primary) hypertension; E78.00 Pure hypercholesterolemia, unspecified; K21.9 Gastro-esophageal reflux disease without esophagitis; F32.9 Major depressive disorder, single episode, unspecified; Z88.0 Allergy status to penicillin; Z87.891 Personal history of nicotine dependence

== ENCOUNTER 2020-09-16 16:24 | Emergency (ER) | payer SELFPAY ==
[~2020-09-16] VITALS: Ht 177.8 cm; Wt 79.6 kg
[2020-09-16 16:32] VITALS: BP 120/86
--- NOTE | 2020-09-16 16:40 | ED General ---
General Chief Complaint: General Problems/Pain Stated Complaint: SHAKING History of Present Illness Date Seen by Provider: Sep 16, 2020 Time Seen by Provider: 16:30 Initial Comments 49-year-old male presents via EMS with complaint of shaking all over crying for the past several hours. Patient recently well known to me as this is the fourth visit to the ER in just a few weeks. Patient does have anxiety and has been treating as an outpatient with [facility], his PCP recently increase the frequency to 3 times daily (he is unsure of the dose). Not taking any other medication, denies any drug use or alcohol. Denies being suicidal or homicidal. Allergies and Home Medications Allergies Coded Allergies: Penicillins (Unverified Adverse Reaction, Unknown, 06/23/18) Home Medications Atorvastatin Calcium 10 Mg Tablet, 10 MG PO DAILY, (Reported) Buspirone HCl 15 Mg Tablet, 15 MG PO TID, (Reported) Cetirizine HCl 10 Mg Tablet, 10 MG PO DAILY, (Reported) Citalopram Hydrobromide 20 Mg Tablet, 20 MG PO DAILY, (Reported) Hydroxyzine Pamoate 25 Mg Capsule, 25 MG PO TID PRN for ANXIETY Prescribed by: PEYTON LEYVA on 09/16/20 1722 Lisinopril 10 Mg Tablet, 10 MG PO DAILY Prescribed by: DONTE OLIVER on 09/01/20 210 Metoprolol Succinate 25 Mg Tab.er.24h, 25 MG PO DAILY, (Reported) Pantoprazole Sodium 40 Mg Tablet.dr, 40 MG PO DAILY, (Reported) Patient Home Medication List Home Medication List Reviewed: Yes Review of Systems Review of Systems Constitutional: No chills, No fever, No malaise, No weakness EENTM: no symptoms reported Respiratory: no symptoms reported Cardiovascular: no symptoms reported Genitourinary: no symptoms reported Musculoskeletal: see HPI; No joint swelling, No muscle pain, No muscle stiffness, No muscle cramps; muscle twitching (hands only); No muscle weakness Skin: No change in color, No lesions, No rash Psychiatric/Neurological: See HPI, Anxiety, Emotional Problems; Denies Headache, Denies Numbness, Denies Paresthesia, Denies Tingling; Tremors; Denies Weakness Past Pbnexcf-Edvmud-Fhshbf Hx Past Med/Social Hx: Reviewed Nursing Past Med/Soc Hx Patient Social History Type Used: Smokeless Tobacco Former Smoker, Quit: Jun 02, 2011 2nd Hand Smoke Exposure: No Recent Hopitalizations: No Immunizations Up To Date Tetanus Booster (TDap): Unknown Date of Influenza Vaccine: Apr 01, 2018 Seasonal Allergies Seasonal Allergies: Yes Past Medical History Surgeries: Yes (HERNIA, LOOP RECORDER PLACEMENT) Abdominal Respiratory: No Cardiac: Yes High Cholesterol, Hypertension, Syncope Neurological: No Reproductive Disorders: No Genitourinary: Yes Kidney Stones Gastrointestinal: Yes Gastroesophageal Reflux, Hiatal Hernia Musculoskeletal: No Endocrine: No HEENT: No Cancer: No Psychosocial: Yes Anxiety, Depression Integumentary: No Blood Disorders: No Family Medical History No Pertinent Family Hx Physical Exam Vital Signs Vital Signs - First Documented 09/16/20 16:32 Temp 37.3 Pulse 76 Resp 18 B/P (MAP) 120/86 (97) Pulse Ox 95 O2 Delivery Room Air Capillary Refill : Height, Weight, BMI Height: 5'10.00" Weight: 179lbs. 5.0oz. 81.878443dq; 25.00 BMI Method:Stated General Appearance: No Apparent Distress, WD/WN Eyes: Bilateral Eye Normal Inspection, Bilateral Eye PERRL, Bilateral Eye EOMI HEENT: PERRL/EOMI, Normal ENT Inspection Neck: Normal Inspection, Non Tender Respiratory: Chest Non Tender, Lungs Clear, Normal Breath Sounds, No Accessory Muscle Use Cardiovascular: Regular Rate, Rhythm, No Edema, No Gallop, No JVD Gastrointestinal: Normal Bowel Sounds, No Organomegaly, Non Tender, Soft Back: Normal Inspection, No CVA Tenderness Extremity: Normal Capillary Refill, Non Tender Neurologic/Psychiatric: Alert, Oriented x3, No Motor/Sensory Deficits, Other (anxious. slight tremor to both hands) Skin: Normal Color, Warm/Dry Progress/Results/Core Measures Suspected Sepsis SIRS Temperature: Pulse: Respiratory Rate: Laboratory Tests 09/16/20 16:45: White Blood Count 9.3 Blood Pressure / Mean: Laboratory Tests 09/16/20 16:45: Creatinine 0.83, Platelet Count 459H, Total Bilirubin 0.3 Results/Orders Lab Results Laboratory Tests Test 09/16/20 16:45 Range/Units White Blood Count 9.3 4.3-11.0 10^3/uL Red Blood Count 5.56 4.35-5.85 10^6/uL Hemoglobin 16.3 13.3-17.7 G/DL Hematocrit 48 40-54 % Mean Corpuscular Volume 86 80-99 FL Mean Corpuscular Hemoglobin 29 25-34 PG Mean Corpuscular Hemoglobin Concent 34 32-36 G/DL Red Cell Distribution Width 12.9 10.0-14.5 % Platelet Count 459 H 130-400 10^3/uL Mean Platelet Volume 10.5 H 7.4-10.4 FL Immature Granulocyte % (Auto) 0 % Neutrophils (%) (Auto) 73 42-75 % Lymphocytes (%) (Auto) 15 12-44 % Monocytes (%) (Auto) 8 0-12 % Eosinophils (%) (Auto) 2 0-10 % Basophils (%) (Auto) 2 0-10 % Neutrophils # (Auto) 6.8 1.8-7.8 X 10^3 Lymphocytes # (Auto) 1.4 1.0-4.0 X 10^3 Monocytes # (Auto) 0.8 0.0-1.0 X 10^3 Eosinophils # (Auto) 0.2 0.0-0.3 10^3/uL Basophils # (Auto) 0.2 H 0.0-0.1 10^3/uL Immature Granulocyte # (Auto) 0.0 0.0-0.1 10^3/uL Sodium Level 141 135-145 MMOL/L Potassium Level 4.7 3.6-5.0 MMOL/L Chloride Level 108 H 98-107 MMOL/L Carbon Dioxide Level 25 21-32 MMOL/L Anion Gap 8 5-14 MMOL/L Blood Urea Nitrogen 10 7-18 MG/DL Creatinine 0.83 0.60-1.30 MG/DL Estimat Glomerular Filtration Rate > 60 BUN/Creatinine Ratio 12 Glucose Level 114 H 70-105 MG/DL Calcium Level 9.0 8.5-10.1 MG/DL Corrected Calcium 8.7 8.5-10.1 MG/DL Total Bilirubin 0.3 0.1-1.0 MG/DL Aspartate Amino Transf (AST/SGOT) 15 5-34 U/L Alanine Aminotransferase (ALT/SGPT) 14 0-55 U/L Alkaline Phosphatase 38 L 40-136 U/L Total Protein 6.8 6.4-8.2 GM/DL Albumin 4.4 3.2-4.5 GM/DL My Orders Orders - ROVENSTINE,PEYTON L DO Cbc With Automated Diff (09/16/20 16:34) Comprehensive Metabolic Panel (09/16/20 16:34) Ed Iv/Invasive Line Start (09/16/20 16:41) Diphenhydramine Injection (Benadryl Inje (09/16/20 16:45) Thyroid Stimulating Hormone (09/16/20 16:45) Medications Given in ED Current Medications Medications Dose Ordered Sig/Yobany Route Start Time Stop Time Status Last Admin Dose Admin Diphenhydramine HCl 25 mg ONCE ONCE IVP 09/16/20 16:45 09/16/20 16:46 DC 09/16/20 16:52 25 MG Vital Signs/I&O 09/16/20 16:32 Temp 37.3 Pulse 76 Resp 18 B/P (MAP) 120/86 (97) Pulse Ox 95 O2 Delivery Room Air Capillary Refill : Progress Note : Progress Note Patient in no distress, mild tremor of both hands, symptoms and HPI consistent with anxiety and stress. His shaking and tremor of his hands subsided after giving Benadryl. Patient becoming well-known to this ER for the same with multiple ER visits. Did advise to decrease his BuSpar to twice daily and to start hydroxyzine as needed. He agrees and expresses understanding will follow up with PCP this week. Departure Impression Primary Impression: Anxiety Disposition: 01 HOME, SELF-CARE Condition: Improved Departure-Patient Inst. Decision time for Depature: 17:21 Referrals: MACARIO LINCOLN APRN (PCP) Primary Care Physician [facility] (Family) Primary Care Physician Patient Instructions: Anxiety, Adult (DC) Add. Discharge Instructions: Decrease your buspirone to twice daily (from three times daily). Take the Hydroxyzine 3 times daily as needed for anxiety. Follow up with your PCP in 2 to 3 days regarding your anxiety. See your counselor this week as well for learning mechanisms to cope with your anxiety. All discharge instructions reviewed with patient and/or family. Voiced understanding. Scripts Hydroxyzine Pamoate (Hydroxyzine Pamoate) 25 Mg Capsule 25 MG PO TID PRN for ANXIETY, #30 CAP Prov: PEYTON LEYVA DO 09/16/20 PEYTON LEYVA DO Sep 16, 2020 16:39
[2020-09-16] MEDS ORDERED: diphenhydrAMINE 50 MG/ML INJ (BENADRYL) IVP ONE (16:45)
[2020-09-16 16:54] LABS: HEMATOCRIT 48 % (40-54); HEMOGLOBIN 16.3 G/DL (13.3-17.7); MEAN CORPUSCULAR HEMOGLOBIN 29 PG (25-34); MEAN CORPUSCULAR HGB CONC 34 G/DL (32-36); MEAN CORPUSCULAR VOLUME 86 FL (80-99); WHITE BLOOD COUNT 9.3 10^3/uL (4.3-11.0)
[2020-09-16 16:55] LABS: BASOPHILS # (AUTO) 0.2 10^3/uL (0.0-0.1); BASOPHILS % (AUTO) 2 % (0-10); EOSINOPHILS # (AUTO) 0.2 10^3/uL (0.0-0.3); EOSINOPHILS % (AUTO) 2 % (0-10); LYMPHOCYTES # (AUTO) 1.4 X 10^3 (1.0-4.0); LYMPHOCYTES % (AUTO) 15 % (12-44); MEAN PLATELET VOLUME 10.5 FL (7.4-10.4); MONOCYTES # (AUTO) 0.8 X 10^3 (0.0-1.0); MONOCYTES % (AUTO) 8 % (0-12); NEUTROPHILS # (AUTO) 6.8 X 10^3 (1.8-7.8); NEUTROPHILS % (AUTO) 73 % (42-75); PLATELET COUNT 459 10^3/uL (130-400)
[2020-09-16 17:14] LABS: ALANINE AMINOTRANSFERASE 14 U/L (0-55); ALBUMIN 4.4 GM/DL (3.2-4.5); ALKALINE PHOSPHATASE 38 U/L (40-136); BILIRUBIN,TOTAL 0.3 MG/DL (0.1-1.0); BUN/CREATININE RATIO 12; CARBON DIOXIDE 25 MMOL/L (21-32); CHLORIDE 108 MMOL/L (98-107); CREATININE SERUM 0.83 MG/DL (0.60-1.30); GFR ESTIMATED > 60; GLUCOSE 114 MG/DL (70-105); POTASSIUM 4.7 MMOL/L (3.6-5.0); SODIUM 141 MMOL/L (135-145); TOTAL PROTEIN 6.8 GM/DL (6.4-8.2)
[2020-09-16] MEDS ORDERED: HYDR-3781 PO (17:22)
== END 2020-09-16 17:29 | disposition home or self-care (01) ==
LOC: EDUNIT# 16:24 → ER FS 16:25
DX: F41.9 Anxiety disorder, unspecified (principal); I10 Essential (primary) hypertension; K21.9 Gastro-esophageal reflux disease without esophagitis; F32.9 Major depressive disorder, single episode, unspecified; E78.00 Pure hypercholesterolemia, unspecified; Z88.0 Allergy status to penicillin; Z87.891 Personal history of nicotine dependence
CPT/HCPCS: 36415; 80053; 84443; 85025

== ENCOUNTER 2020-11-21 19:53 | Emergency (ER) | payer SELFPAY ==
[~2020-11-21 19:53] MED LIST changes: +HYDR-3781 PO
--- NOTE | 2020-11-21 20:03 | ED General ---
General Stated Complaint: LT ARM INSECT BITE Source of Information: Patient History of Present Illness Date Seen by Provider: Nov 21, 2020 Time Seen by Provider: 20:00 Initial Comments Patient with superficial abrasions to bilateral volar wrist/distal forearms. Patient was with pallets at work. Patient noticed abrasions this evening. No swelling bruising or cellulitis appreciated. No medications or therapies prior to ED arrival. Patient is anxious. Timing/Duration: 1-3 Hours Severity: Mild Modifying Factors: improves with Other Associated Systoms: Other Allergies and Home Medications Allergies Coded Allergies: Penicillins (Unverified Adverse Reaction, Unknown, 06/23/18) Home Medications Atorvastatin Calcium 10 Mg Tablet, 10 MG PO DAILY, (Reported) Buspirone HCl 15 Mg Tablet, 15 MG PO TID, (Reported) Cetirizine HCl 10 Mg Tablet, 10 MG PO DAILY, (Reported) Citalopram Hydrobromide 20 Mg Tablet, 20 MG PO DAILY, (Reported) Hydroxyzine Pamoate 25 Mg Capsule, 25 MG PO TID PRN for ANXIETY Prescribed by: PEYTON LEYVA on 09/16/20 1722 Lisinopril 10 Mg Tablet, 10 MG PO DAILY Prescribed by: DONTE OLIVER on 09/01/20 2103 Metoprolol Succinate 25 Mg Tab.er.24h, 25 MG PO DAILY, (Reported) Pantoprazole Sodium 40 Mg Tablet.dr, 40 MG PO DAILY, (Reported) Patient Home Medication List Home Medication List Reviewed: Yes Review of Systems Review of Systems Constitutional: see HPI Respiratory: see HPI Gastrointestinal: no symptoms reported Musculoskeletal: no symptoms reported Skin: no symptoms reported Psychiatric/Neurological: No Symptoms Reported Past Cxpvmcu-Nmccrp-Mhbzde Hx Past Med/Social Hx: Reviewed and Corrections made Patient Social History Type Used: Smokeless Tobacco Former Smoker, Quit: Jun 02, 2011 2nd Hand Smoke Exposure: No Recent Hopitalizations: No Immunizations Up To Date Tetanus Booster (TDap): Unknown Date of Influenza Vaccine: Apr 01, 2018 Seasonal Allergies Seasonal Allergies: Yes Past Medical History Surgeries: Yes (HERNIA, LOOP RECORDER PLACEMENT) Abdominal Respiratory: No Cardiac: Yes High Cholesterol, Hypertension, Syncope Neurological: No Reproductive Disorders: No Genitourinary: Yes Kidney Stones Gastrointestinal: Yes Gastroesophageal Reflux, Hiatal Hernia Musculoskeletal: No Endocrine: No HEENT: No Cancer: No Psychosocial: Yes Anxiety, Depression Integumentary: No Blood Disorders: No Family Medical History No Pertinent Family Hx Physical Exam Vital Signs Capillary Refill : Height, Weight, BMI Height: 5'10.00" Weight: 179lbs. 5.0oz. 81.718125dk; 25.00 BMI Method:Stated General Appearance: Anxious Neurologic/Psychiatric: Alert, Oriented x3, No Motor/Sensory Deficits Progress/Results/Core Measures Suspected Sepsis SIRS Temperature: Pulse: Respiratory Rate: Blood Pressure / Mean: Results/Orders Vital Signs/I&O Capillary Refill : Departure Communication (Admissions) Abrasions to bilateral wrists. Patient recommended soap and water and ibuprofen. Follow-up if needed. Impression Primary Impression: Abrasion of wrist without infection Disposition: HOME, SELF-CARE Condition: Stable Departure-Patient Inst. Decision time for Depature: 20:02 Referrals: AMCARIO LINCOLN APRN (PCP) Primary Care Physician [facility] (Family) Primary Care Physician Patient Instructions: Skin Abrasions Add. Discharge Instructions: Use soap and water. Take ibuprofen as needed. Follow-up with PCP if further concerns. YANET NUNEZ DO Nov 21, 2020 20:03
[2020-11-21 20:05] VITALS: BP 149/87
== END 2020-11-21 20:05 | disposition home or self-care (01) ==
LOC: EDUNIT# 19:53 → ER FS 19:54
DX: S60.812A Abrasion of left wrist, initial encounter (principal); S60.811A Abrasion of right wrist, initial encounter; I10 Essential (primary) hypertension; K21.9 Gastro-esophageal reflux disease without esophagitis; E78.00 Pure hypercholesterolemia, unspecified; F31.9 Bipolar disorder, unspecified; F42.9 Obsessive-compulsive disorder, unspecified; Z87.891 Personal history of nicotine dependence; Z79.899 Other long term (current) drug therapy; X50.0XXA Overexertion from strenuous movement or load, initial encounter
CPT/HCPCS: 99283

== ENCOUNTER 2020-12-27 11:31 | Emergency (ER) | payer MEDICARE ==
[~2020-12-27] VITALS: Ht 172.7 cm; Wt 83.9 kg
[2020-12-27] MEDS ORDERED: LACTATED RINGERS 1,000 ML IV ONE (11:51)
[2020-12-27 11:59] LABS: BASOPHILS # (AUTO) 0.1 10^3/uL (0.0-0.1); BASOPHILS % (AUTO) 1 % (0-10); EOSINOPHILS # (AUTO) 0.2 10^3/uL (0.0-0.3); EOSINOPHILS % (AUTO) 2 % (0-10); HEMATOCRIT 46 % (40-54); HEMOGLOBIN 15.4 g/dL (13.3-17.7); LYMPHOCYTES # (AUTO) 0.9 10^3/uL (1.0-4.0); LYMPHOCYTES % (AUTO) 11 % (12-44); MEAN CORPUSCULAR HEMOGLOBIN 30 pg (25-34); MEAN CORPUSCULAR HGB CONC 34 g/dL (32-36); MEAN CORPUSCULAR VOLUME 89 fL (80-99); MEAN PLATELET VOLUME 10.7 fL (9.0-12.2); MONOCYTES # (AUTO) 0.6 10^3/uL (0.0-1.0); MONOCYTES % (AUTO) 7 % (0-12); NEUTROPHILS # (AUTO) 6.4 10^3/uL (1.8-7.8); NEUTROPHILS % (AUTO) 78 % (42-75); PLATELET COUNT 436 10^3/uL (130-400); WHITE BLOOD COUNT 8.1 10^3/uL (4.3-11.0)
[2020-12-27] MEDS ORDERED: LACTATED RINGERS 1,000 ML IV SCH ×2 (12:00→12:30)
--- NOTE | 2020-12-27 12:04 | ED Lower Extremity ---
General Chief Complaint: Lower Extremity Stated Complaint: LEG CRAMPS;SHAKING Nursing Triage Note: PT AMBULATE TO TRIAGE WITHOUT DIFFICULTY WITH C/O LEG CRAMPS AND BODY SHAKING. PT REPORTS HE WAS AT WORK AND WALKED INTO THE SHADE AND THEN STARTED SHAKING. 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 He went and sat down in the shade and did feel better. He still little shaky but overall much improved. Onset: just prior to arrival Severity: moderate Pain/Injury Location: bilateral leg Method of Injury: unknown Modifying Factors: Worse With Movement (DONYA COOK APRN) Allergies and Home Medications Allergies Coded Allergies: Penicillins (Unverified Adverse Reaction, Unknown, 06/23/18) Home Medications Atorvastatin Calcium 10 Mg Tablet, 10 MG PO DAILY, (Reported) Buspirone HCl 15 Mg Tablet, 15 MG PO TID, (Reported) Cetirizine HCl 10 Mg Tablet, 10 MG PO DAILY, (Reported) Citalopram Hydrobromide 20 Mg Tablet, 20 MG PO DAILY, (Reported) Hydroxyzine Pamoate 25 Mg Capsule, 25 MG PO TID PRN for ANXIETY Prescribed by: PEYTON LEYVA on 09/16/20 172 Lisinopril 10 Mg Tablet, 10 MG PO DAILY Prescribed by: DONTE OLIVER on 09/01/202102 Metoprolol Succinate 25 Mg Tab.er.24h, 25 MG PO DAILY, (Reported) Pantoprazole Sodium 40 Mg Tablet.dr, 40 MG PO DAILY, (Reported) Patient Home Medication List Home Medication List Reviewed: Yes (DONYA COOK APRN) Review of Systems Constitutional: see HPI EENTM: see HPI Respiratory: no symptoms reported Cardiovascular: no symptoms reported Genitourinary: no symptoms reported Musculoskeletal: no symptoms reported Skin: no symptoms reported Psychiatric/Neurological: No Symptoms Reported (DONYA COOK APRN) Past Fkcmhtg-Jmnygb-Bunqvo Hx Patient Social History Tobacco Use?: No Smoking Status: Never a Smoker Substance use?: No Alcohol Use?: No Pt feels they are or have been: No (DONYA COOK APRN) Immunizations Up To Date Tetanus Booster (TDap): Unknown First/Initial COVID19 Vaccinat: NOVEMBER (DONYA COOK APRN) Seasonal Allergies Seasonal Allergies: Yes (DONYA COOK APRN) Past Medical History Surgeries: Yes (HERNIA, LOOP RECORDER PLACEMENT) Abdominal Respiratory: No Cardiac: Yes High Cholesterol, Hypertension, Syncope Neurological: No Reproductive Disorders: No Genitourinary: Yes Kidney Stones Gastrointestinal: Yes Gastroesophageal Reflux, Hiatal Hernia Musculoskeletal: No Endocrine: No HEENT: No Cancer: No Psychosocial: Yes Anxiety, Depression Integumentary: No Blood Disorders: No (DONYA COOK APRN) Family Medical History No Pertinent Family Hx (DONYA COOK APRN) Physical Exam Vital Signs Vital Signs - First Documented 12/27/20 12/27/20 11:41 13:06 Temp 36.9 Pulse 92 Resp 17 B/P (MAP) 105/68 (80) Pulse Ox 97 O2 Delivery Room Air (JACK NORMAN MD) Vital Signs Capillary Refill : Less Than 3 Seconds (DONYA COOK APRN) Height, Weight, BMI Height: 5'10.00" Weight: 179lbs. 5.0oz. 81.810210dv; 28.00 BMI Method:Stated General Appearance: WD/WN, no apparent distress HEENT: PERRL/EOMI, normal ENT inspection Neck: non-tender, full range of motion Respiratory: no respiratory distress, no accessory muscle use Hips: bilateral hip non-tender, bilateral hip normal inspection, bilateral hip normal range of motion Legs: bilateral leg non-tender, bilateral leg normal inspection, bilateral leg normal range of motion Knees: bilateral knee non-tender, bilateral knee normal inspection, bilateral knee normal range of motion Ankles: bilateral ankle non-tender, bilateral ankle normal inspection, bilateral ankle normal range of motion Feet: bilateral foot non-tender, bilateral foot normal inspection, bilateral foot normal range of motion Neurologic/Psychiatric: alert, normal mood/affect, oriented x 3 Skin: normal color, warm/dry (DONYA COOK APRN) Progress/Results/Core Measures Results/Orders Lab Results Laboratory Tests Test 12/27/20 11:54 Range/Units White Blood Count 8.1 4.3-11.0 10^3/uL Red Blood Count 5.18 4.30-5.52 10^6/uL Hemoglobin 15.4 13.3-17.7 g/dL Hematocrit 46 40-54 % Mean Corpuscular Volume 89 80-99 fL Mean Corpuscular Hemoglobin 30 25-34 pg Mean Corpuscular Hemoglobin Concent 34 32-36 g/dL Red Cell Distribution Width 14.0 10.0-14.5 % Platelet Count 436 H 130-400 10^3/uL Mean Platelet Volume 10.7 9.0-12.2 fL Immature Granulocyte % (Auto) 1 % Neutrophils (%) (Auto) 78 H 42-75 % Lymphocytes (%) (Auto) 11 L 12-44 % Monocytes (%) (Auto) 7 0-12 % Eosinophils (%) (Auto) 2 0-10 % Basophils (%) (Auto) 1 0-10 % Neutrophils # (Auto) 6.4 1.8-7.8 10^3/uL Lymphocytes # (Auto) 0.9 L 1.0-4.0 10^3/uL Monocytes # (Auto) 0.6 0.0-1.0 10^3/uL Eosinophils # (Auto) 0.2 0.0-0.3 10^3/uL Basophils # (Auto) 0.1 0.0-0.1 10^3/uL Immature Granulocyte # (Auto) 0.0 0.0-0.1 10^3/uL Sodium Level 143 135-145 MMOL/L Potassium Level 4.6 3.6-5.0 MMOL/L Chloride Level 107 98-107 MMOL/L Carbon Dioxide Level 23 21-32 MMOL/L Anion Gap 13 5-14 MMOL/L Blood Urea Nitrogen 22 H 7-18 MG/DL Creatinine 1.41 H 0.60-1.30 MG/DL Estimat Glomerular Filtration Rate 53 BUN/Creatinine Ratio 16 Glucose Level 113 H 70-105 MG/DL Calcium Level 9.5 8.5-10.1 MG/DL Corrected Calcium 8.5-10.1 MG/DL Total Bilirubin 1.2 H 0.1-1.0 MG/DL Aspartate Amino Transf (AST/SGOT) 24 5-34 U/L Alanine Aminotransferase (ALT/SGPT) 24 0-55 U/L Alkaline Phosphatase 37 L 40-136 U/L Total Creatine Kinase 246 H 30-200 U/L Total Protein 7.6 6.4-8.2 GM/DL Albumin 4.6 H 3.2-4.5 GM/DL (JACK NORMAN MD) Vital Signs/I&O 12/27/20 12/27/20 11:41 13:06 Temp 36.9 Pulse 92 87 Resp 17 18 B/P (MAP) 105/68 (80) 131/72 Pulse Ox 97 O2 Delivery Room Air Room Air (JACK NORMAN MD) Blood Pressure Mean: 80 Departure Impression Primary Impression: Heat exposure Additional Impression: Dehydration Disposition: 01 HOME, SELF-CARE Condition: Stable Departure-Patient Inst. Decision time for Depature: 12:03 (DONYA COOK APRN) Referrals: MACARIO LINCOLN APRN (PCP) Primary Care Physician [facility] (Family) Primary Care Physician Patient Instructions: Heat Illness ED Add. Discharge Instructions: Go home and drink plenty of fluids. Stay off of work today and tomorrow. All discharge instructions reviewed with patient and/or family. Voiced understanding. Work/School Note: Work Release Form Date Seen in the Emergency Department: Dec 27, 2020 Return to Work: Dec 29, 2020 ATTENDING PHYSICIAN NOTE: I was physically present as attending physician in the emergency department during the care of this patient, but I was not directly involved in the decision making or delivery of care for this patient. (JACK NORMAN MD) DONYA COOK APRN Dec 27, 2020 12:03 JACK NORMAN MD Dec 27, 2020 19:10
[2020-12-27 12:12] LABS: ALBUMIN 4.6 GM/DL (3.2-4.5); CHLORIDE 107 MMOL/L (98-107); POTASSIUM 4.6 MMOL/L (3.6-5.0); SODIUM 143 MMOL/L (135-145)
[2020-12-27 12:14] LABS: CALCIUM 9.5 MG/DL (8.5-10.1)
[2020-12-27 12:15] LABS: GLUCOSE 113 MG/DL (70-105); TOTAL PROTEIN 7.6 GM/DL (6.4-8.2)
[2020-12-27 12:16] LABS: CARBON DIOXIDE 23 MMOL/L (21-32)
[2020-12-27 12:17] LABS: BILIRUBIN,TOTAL 1.2 MG/DL (0.1-1.0)
[2020-12-27 12:18] LABS: ALKALINE PHOSPHATASE 37 U/L (40-136); CREATININE SERUM 1.41 MG/DL (0.60-1.30); GFR ESTIMATED 53
[2020-12-27 12:19] LABS: BUN/CREATININE RATIO 16
[2020-12-27 12:21] LABS: ALANINE AMINOTRANSFERASE 24 U/L (0-55); CREATINE KINASE 246 U/L (30-200)
[2020-12-27 13:06] VITALS: BP 131/72
== END 2020-12-27 13:06 | disposition home or self-care (01) ==
LOC: EDUNIT# 11:31 → ER 11:32
DX: T67.5XXA Heat exhaustion, unspecified, initial encounter (principal); I10 Essential (primary) hypertension; E78.00 Pure hypercholesterolemia, unspecified; K21.9 Gastro-esophageal reflux disease without esophagitis; F41.9 Anxiety disorder, unspecified; F32.9 Major depressive disorder, single episode, unspecified; Z79.899 Other long term (current) drug therapy; X30.XXXA Exposure to excessive natural heat, initial encounter
CPT/HCPCS: 36415; 80053; 82550; 85025

== ENCOUNTER 2021-01-15 11:29 | Outpatient (CLI) | payer SELFPAY ==
[2021-01-15] MEDS ORDERED: CASIRIVIMAB/IMDEVIMAB 1,200 MG in NS (IVPB) 250 ML IV ONE (11:30)
[2021-01-15] MEDS ORDERED: ACETAMINOPHEN 500 MG TAB (TYLENOL) PO PRN (11:30)
[2021-01-15] MEDS ORDERED: ONDANSETRON 4 MG/2 ML (SDV) Z0FRAN IV PRN (11:30)
[2021-01-15] MEDS ORDERED: EPINEPHrine INJECTION 1 MG/ML AMP IM PRN (11:30)
[2021-01-15] MEDS ORDERED: diphenhydrAMINE 50 MG/ML INJ (BENADRYL) IV PRN (11:30)
[2021-01-15 11:35] VITALS: BP 125/77
[2021-01-15 12:38] VITALS: BP 116/81
[2021-01-15 13:20] VITALS: BP 121/84
== END 2021-01-15 13:20 | disposition home or self-care (01) ==
LOC: INFUSION 11:29
PROVIDERS: ATTEND Nurse Practitioner Family
DX: Z23 Encounter for immunization (principal); U07.1 COVID-19

== ENCOUNTER 2021-01-24 12:51 | Emergency (ER) | payer SELFPAY ==
[~2021-01-24] VITALS: Ht 178 cm; Wt 86.1 kg
--- NOTE | 2021-01-24 13:06 | ED Chest Pain ---
General Chief Complaint: Chest Pain Stated Complaint: CP Source: patient Exam Limitations: no limitations History of Present Illness Date Seen by Provider: Jan 24, 2021 Time Seen by Provider: 12:55 Initial Comments Patient is a 50-year-old male who presents to the emergency department today with a chief complaint of left-sided sharp chest pain. Patient states he was at work going up and down a ladder when he had a sudden onset of sharp chest pain in the left side of his chest coming down the ladder at about 12:00 this afternoon. He states that coughing makes the pain worse, nothing has really made it any better. He states at its worst it was a "9" and currently it is a "8". Patient denies any associated shortness of breath, nausea, sweating, lightheadedness or dizziness. He states he had similar complaints about a year ago, was referred to cardiology and had a stress test that was normal. Patient tells me he has a history of hypertension and anxiety. He used to smoke. He does not know family history as he is adopted. Recent Covid illness about 2 weeks ago that he states he is recovered from uneventfully. He denies any lower extremity pain or swelling. No history of blood clots. No recent fevers chills GI or complaints. Patient has had one of his covid vaccinations - unsure if Moderna or Pfizer. states he cannot remember when he had the first one. All other review of systems reviewed and negative except as stated. 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: Yes Associated Symptoms: denies symptoms Allergies and Home Medications Allergies Coded Allergies: Penicillins (Unverified Adverse Reaction, Unknown, 06/23/18) Home Medications Atorvastatin Calcium 10 Mg Tablet, 10 MG PO DAILY, (Reported) Buspirone HCl 15 Mg Tablet, 15 MG PO TID, (Reported) Cetirizine HCl 10 Mg Tablet, 10 MG PO DAILY, (Reported) Citalopram Hydrobromide 20 Mg Tablet, 20 MG PO DAILY, (Reported) Hydroxyzine Pamoate 25 Mg Capsule, 25 MG PO TID PRN for ANXIETY Prescribed by: PEYTON LEYVA on 09/16/201721 Lisinopril 10 Mg Tablet, 10 MG PO DAILY Prescribed by: DONTE OLIVER on 09/01/202102 Metoprolol Succinate 25 Mg Tab.er.24h, 25 MG PO DAILY, (Reported) Pantoprazole Sodium 40 Mg Tablet.dr, 40 MG PO DAILY, (Reported) Patient Home Medication List Home Medication List Reviewed: Yes Review of Systems Review of Systems Constitutional: see HPI EENTM: No Symptoms Reported Respiratory: No Symptoms Reported Cardiovascular: Chest Pain Gastrointestinal: No Symptoms Reported Genitourinary: No Symptoms Reported Musculoskeletal: no symptoms reported Skin: no symptoms reported Psychiatric/Neurological: Anxiety All Other Systems Reviewed Negative Unless Noted: Yes Past Okkkbgn-Nmvutw-Cdgfjy Hx Immunizations Up To Date Tetanus Booster (TDap): Unknown Seasonal Allergies Seasonal Allergies: Yes Past Medical History Surgeries: Yes (HERNIA, LOOP RECORDER PLACEMENT) Abdominal Respiratory: No Cardiac: Yes High Cholesterol, Hypertension, Syncope Neurological: No Reproductive Disorders: No Genitourinary: Yes Kidney Stones Gastrointestinal: Yes Gastroesophageal Reflux, Hiatal Hernia Musculoskeletal: No Endocrine: No HEENT: No Cancer: No Psychosocial: Yes Anxiety, Depression Integumentary: No Blood Disorders: No Family Medical History No Pertinent Family Hx Physical Exam Vital Signs Vital Signs - First Documented 01/24/21 13:01 Temp 37.0 Pulse 90 Resp 18 B/P (MAP) 109/84 (92) Pulse Ox 95 O2 Delivery Room Air Capillary Refill : Less Than 3 Seconds Height, Weight, BMI Height: 5'10.00" Weight: 179lbs. 5.0oz. 81.618984wy; 28.00 BMI Method:Stated General Appearance: No Apparent Distress, WD/WN HEENT: PERRL/EOMI Neck: Normal Inspection Progress/Results/Core Measures Results/Orders Lab Results Laboratory Tests Test 01/24/21 13:00 Range/Units White Blood Count 10.6 4.3-11.0 10^3/uL Red Blood Count 5.45 4.30-5.52 10^6/uL Hemoglobin 16.0 13.3-17.7 g/dL Hematocrit 48 40-54 % Mean Corpuscular Volume 88 80-99 fL Mean Corpuscular Hemoglobin 29 25-34 pg Mean Corpuscular Hemoglobin Concent 33 32-36 g/dL Red Cell Distribution Width 13.5 10.0-14.5 % Platelet Count 550 H 130-400 10^3/uL Mean Platelet Volume 10.9 9.0-12.2 fL Immature Granulocyte % (Auto) 2 % Neutrophils (%) (Auto) 80 H 42-75 % Lymphocytes (%) (Auto) 9 L 12-44 % Monocytes (%) (Auto) 7 0-12 % Eosinophils (%) (Auto) 1 0-10 % Basophils (%) (Auto) 1 0-10 % Neutrophils # (Auto) 8.4 H 1.8-7.8 10^3/uL Lymphocytes # (Auto) 1.0 1.0-4.0 10^3/uL Monocytes # (Auto) 0.7 0.0-1.0 10^3/uL Eosinophils # (Auto) 0.1 0.0-0.3 10^3/uL Basophils # (Auto) 0.1 0.0-0.1 10^3/uL Immature Granulocyte # (Auto) 0.2 H 0.0-0.1 10^3/uL Sodium Level 139 135-145 MMOL/L Potassium Level 4.4 3.6-5.0 MMOL/L Chloride Level 106 98-107 MMOL/L Carbon Dioxide Level 24 21-32 MMOL/L Anion Gap 9 5-14 MMOL/L Blood Urea Nitrogen 15 7-18 MG/DL Creatinine 0.95 0.60-1.30 MG/DL Estimat Glomerular Filtration Rate 84 BUN/Creatinine Ratio 16 Glucose Level 106 H 70-105 MG/DL Calcium Level 9.5 8.5-10.1 MG/DL Troponin I < 0.028 <0.028 NG/ML My Orders Orders - DONTE OLIVER MD Ed Iv/Invasive Line Start (01/24/21 13:03) Cbc With Automated Diff (01/24/21 13:03) Basic Metabolic Panel (01/24/21 13:03) Troponin I (01/24/21 13:03) Chest 1 View, Ap/Pa Only (01/24/21 13:03) Ekg Tracing (01/24/21 13:03) Ketorolac Injection (Toradol Injection) (01/24/21 13:45) Vital Signs/I&O 01/24/21 01/24/21 13:01 13:01 Temp 37.0 Pulse 90 Resp 18 B/P (MAP) 109/84 (92) Pulse Ox 95 O2 Delivery Room Air Progress Progress Note : Time: 13:43 Progress Note Patient seen and evaluated, 50-year-old with sharp left precordial chest pain. Patient's labs have been reviewed by me, all are within normal limits, negative troponin as would be expected. EKG is completely unremarkable while the patient is having pain at a "9". Chest x-ray is also unremarkable. Patient is treated in the emergency department with 15 mg of IV Toradol. He will be discharged home with encouragement for NSAIDs and plenty of fluids. Follow-up with his primary care physician. Return to the emergency room if he has any other new, emergent or concerning symptoms. Cardiovascular risk is low and he can be ruled out with one troponin at this time. Patient did have a stress test in July 2019 which was normal. He also just saw Dr. Hernandez's nurse practitioner 2 days ago in clinic and had his loop recorder interrogated. Everything was fine at that time. Initial ECG Impression Date: Jan 24, 2021 Initial ECG Impression Time: 13:09 Initial ECG Rate: 87 Initial ECG Rhythm: Normal Sinus Initial ECG Intervals: Normal Initial ECG Impression: Normal Diagnostic Imaging Diagonstic Imaging: Xray Plain Films/CT/US/NM/MRI: chest Comments [facility]. [place], [place] NAME: ARIES LAZARO [facility] REC#: [id number] PT STATUS: REG ER : 1970 PHYSICIAN: DONTE OLIVER MD ADMIT DATE: 01/24/21/ER Draft Date of Exam:01/24/21 CHEST 1 VIEW, AP/PA ONLY INDICATION: Left-sided chest pain for one hour. TIME OF EXAM: 1:18 p.m. COMPARISON: Correlation is made with prior chest from 09/02/2020. FINDINGS: Cardiac monitoring device overlies the left hilum. Heart size is normal. Lungs are clear. No infiltrates are detected. No effusion or pneumothorax is identified. IMPRESSION: No acute cardiopulmonary process is detected. Dictated on workstation # [id number] Dict: 01/24/21 1320 Trans: 01/24/21 1322 [id number] Interpreted by: SHARON BOLTON MD Electronically signed by: Departure Impression Primary Impression: Chest pain Qualified Codes: R07.82 - Intercostal pain Disposition: 01 HOME, SELF-CARE Condition: Stable Departure-Patient Inst. Decision time for Depature: 13:07 Referrals: MACARIO LINCOLN APRN (PCP) Primary Care Physician [facility] (Family) Primary Care Physician Patient Instructions: Chest Pain That Is Not Caused by the Heart (DC) Add. Discharge Instructions: Drink plenty of fluids to stay well-hydrated. Continue your home daily prescribed medications. Follow-up with your primary care physician later this week or early next week. Come back to the emergency department if you have return of chest pain especially with fever, shortness of breath, nausea, sweating or any other emergent concerning symptoms. DONTE OLIVER MD Jan 24, 2021 13:06
[2021-01-24 13:15] LABS: CHLORIDE 106 MMOL/L (98-107); POTASSIUM 4.4 MMOL/L (3.6-5.0); SODIUM 139 MMOL/L (135-145)
[2021-01-24 13:16] LABS: CALCIUM 9.5 MG/DL (8.5-10.1)
[2021-01-24 13:17] LABS: GLUCOSE 106 MG/DL (70-105)
[2021-01-24 13:18] LABS: BASOPHILS # (AUTO) 0.1 10^3/uL (0.0-0.1); BASOPHILS % (AUTO) 1 % (0-10); CARBON DIOXIDE 24 MMOL/L (21-32); EOSINOPHILS # (AUTO) 0.1 10^3/uL (0.0-0.3); EOSINOPHILS % (AUTO) 1 % (0-10); HEMATOCRIT 48 % (40-54); LYMPHOCYTES % (AUTO) 9 % (12-44); MEAN CORPUSCULAR HEMOGLOBIN 29 pg (25-34); MEAN CORPUSCULAR HGB CONC 33 g/dL (32-36); MEAN CORPUSCULAR VOLUME 88 fL (80-99); MEAN PLATELET VOLUME 10.9 fL (9.0-12.2); MONOCYTES # (AUTO) 0.7 10^3/uL (0.0-1.0); MONOCYTES % (AUTO) 7 % (0-12); NEUTROPHILS # (AUTO) 8.4 10^3/uL (1.8-7.8); NEUTROPHILS % (AUTO) 80 % (42-75); PLATELET COUNT 550 10^3/uL (130-400); WHITE BLOOD COUNT 10.6 10^3/uL (4.3-11.0)
[2021-01-24 13:20] LABS: CREATININE SERUM 0.95 MG/DL (0.60-1.30); GFR ESTIMATED 84
[2021-01-24 13:21] LABS: BUN/CREATININE RATIO 16
--- NOTE | 2021-01-24 13:22 | Diagnostic Imaging Report ---
INDICATION: Left-sided chest pain for one hour. TIME OF EXAM: 1:18 p.m. COMPARISON: Correlation is made with prior chest from 09/02/2020. FINDINGS: Cardiac monitoring device overlies the left hilum. Heart size is normal. Lungs are clear. No infiltrates are detected. No effusion or pneumothorax is identified. IMPRESSION: No acute cardiopulmonary process is detected. Dictated by: Dictated on workstation # [id number]
[2021-01-24] MEDS ORDERED: KETOROLAC 30 MG/ML VIAL IVP ONE (13:45)
[2021-01-24 14:18] VITALS: BP 101/97
== END 2021-01-24 14:18 | disposition home or self-care (01) ==
LOC: EDUNIT# 12:51 → ER 12:53
DX: R07.9 Chest pain, unspecified (principal); I10 Essential (primary) hypertension; E78.00 Pure hypercholesterolemia, unspecified; F41.9 Anxiety disorder, unspecified; F32.9 Major depressive disorder, single episode, unspecified; K21.9 Gastro-esophageal reflux disease without esophagitis; Z86.16 Personal history of COVID-19; Z79.899 Other long term (current) drug therapy
CPT/HCPCS: 36415; 71045; 80048; 84484; 85025; 93005

== ENCOUNTER 2021-02-28 14:21 | Emergency (ER) | payer SELFPAY ==
[~2021-02-28] VITALS: Ht 178 cm; Wt 86.0 kg
[2021-02-28 14:39] LABS: BASOPHILS # (AUTO) 0.1 10^3/uL (0.0-0.1); BASOPHILS % (AUTO) 1 % (0-10); EOSINOPHILS # (AUTO) 0.2 10^3/uL (0.0-0.3); EOSINOPHILS % (AUTO) 2 % (0-10); HEMATOCRIT 47 % (40-54); LYMPHOCYTES % (AUTO) 11 % (12-44); MEAN CORPUSCULAR HEMOGLOBIN 30 pg (25-34); MEAN CORPUSCULAR HGB CONC 34 g/dL (32-36); MEAN CORPUSCULAR VOLUME 88 fL (80-99); MEAN PLATELET VOLUME 10.6 fL (9.0-12.2); MONOCYTES # (AUTO) 0.7 10^3/uL (0.0-1.0); MONOCYTES % (AUTO) 7 % (0-12); NEUTROPHILS # (AUTO) 7.9 10^3/uL (1.8-7.8); NEUTROPHILS % (AUTO) 79 % (42-75); PLATELET COUNT 442 10^3/uL (130-400); WHITE BLOOD COUNT 9.9 10^3/uL (4.3-11.0)
[2021-02-28] MEDS ORDERED: LIDOCAINE 2% VISCOUS 15 ML UDC PO ONE (14:45)
[2021-02-28] MEDS ORDERED: ONDANSETRON 4 MG/2 ML (SDV) Z0FRAN IVP ONE (14:45)
[2021-02-28] MEDS ORDERED: KETOROLAC 30 MG/ML VIAL IVP ONE (14:45)
[2021-02-28] MEDS ORDERED: ASPIRIN 81 MG CHEW (CHILDREN'S ASA) PO ONE (14:45)
[2021-02-28] MEDS ORDERED: ANTACID SUSP 30 ML UDC (MYLANTA) PO ONE (14:45)
[2021-02-28 14:54] LABS: ALBUMIN 4.3 GM/DL (3.2-4.5); INR 1.1 (0.8-1.4); POTASSIUM 4.4 MMOL/L (3.6-5.0); PROTHROMBIN TIME PATIENT 14.2 SEC (12.2-14.7)
[2021-02-28 14:55] LABS: CALCIUM 9.5 MG/DL (8.5-10.1)
[2021-02-28 14:57] LABS: TOTAL PROTEIN 7.4 GM/DL (6.4-8.2)
[2021-02-28 14:59] LABS: BILIRUBIN,TOTAL 0.5 MG/DL (0.1-1.0)
[2021-02-28 15:00] LABS: CREATININE SERUM 0.98 MG/DL (0.60-1.30)
[2021-02-28 15:03] LABS: MAGNESIUM 2.3 MG/DL (1.6-2.4)
--- NOTE | 2021-02-28 15:11 | Diagnostic Imaging Report ---
INDICATION: Chest pain. COMPARISON: 01/24/2021. FINDINGS: A single view of the chest demonstrates clear lungs bilaterally. The heart is prominent but stable. There is a loop recorder overlying the left base. There is no pneumothorax. The osseous structures are stable. IMPRESSION: No acute cardiopulmonary findings. Dictated by: Dictated on workstation # [id number]
[2021-02-28] MEDS ORDERED: TRAM-42 PO (15:59)
[2021-02-28] MEDS ORDERED: OMEP20CA18 PO (15:59)
--- NOTE | 2021-02-28 16:02 | ED Chest Pain ---
General Chief Complaint: Chest Pain Stated Complaint: CP Nursing Triage Note: Pt ambulatory to ED with c/o CP that began a few hours ago. Pt rates pain as 9/10 and describes it as sharp and non-radiating. Pt reports hx of HTN and anxiety and reports having similar CP in the past. 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 Symptoms started about 30 minutes prior to arrival. He denies any associated symptoms such as nausea, lightheadedness, diaphoresis, or shortness of breath. He notes worsening of the pain when he raises his left arm. He denies any other alleviating or exacerbating factors. Pain is reproducible with palpation. He is also noted to have epigastric tenderness on palpation. He is known to have esophageal reflux in the past and he does not take any antacids consistently. Allergies and Home Medications Allergies Coded Allergies: Penicillins (Unverified Adverse Reaction, Unknown, 06/23/18) Patient Home Medication List Home Medication List Reviewed: Yes Atorvastatin Calcium (Atorvastatin Calcium) 10 Mg Tablet, 10 MG PO DAILY, (Reported) Entered as Reported by: PACO EWING on 08/12/20 1340 Buspirone HCl (Buspirone HCl) 15 Mg Tablet, 15 MG PO TID, (Reported) Entered as Reported by: LISA BROWNE on 03/18/19 2310 Cetirizine HCl (Cetirizine HCl) 10 Mg Tablet, 10 MG PO DAILY, (Reported) Entered as Reported by: PACO EWING on 08/12/20 1340 Citalopram Hydrobromide (Citalopram HBr) 20 Mg Tablet, 20 MG PO DAILY, (Reported) Entered as Reported by: PACO EWING on 08/12/20 1340 Hydroxyzine Pamoate (Hydroxyzine Pamoate) 25 Mg Capsule, 25 MG PO TID PRN for ANXIETY Prescribed by: PEYTON LEYVA on 09/16/20 1722 Lisinopril (Lisinopril) 10 Mg Tablet, 10 MG PO DAILY Prescribed by: DONTE OLIVER on 09/01/202102 Metoprolol Succinate (Metoprolol Succinate) 25 Mg Tab.er.24h, 25 MG PO DAILY, (Reported) Entered as Reported by: PACO EWING on 08/12/20 1340 Omeprazole (Omeprazole) 20 Mg Capsule.dr, 20 MG PO BID Prescribed by: JACK IVY on 02/28/21 1559 Pantoprazole Sodium (Pantoprazole Sodium) 40 Mg Tablet.dr, 40 MG PO DAILY, ( Reported) Entered as Reported by: PACO EWING on 08/12/20 1340 Tramadol HCl (Ultram) 50 Mg Tablet, 50 MG PO Q6H PRN for PAIN-BREAKTHROUGH Prescribed by: JACK IVY on 02/28/21 1559 Review of Systems Review of Systems Constitutional: no symptoms reported EENTM: No Symptoms Reported Respiratory: No Symptoms Reported Cardiovascular: See HPI Gastrointestinal: See HPI Genitourinary: No Symptoms Reported Musculoskeletal: see HPI Skin: no symptoms reported Psychiatric/Neurological: No Symptoms Reported Endocrine: No Symptoms Reported Past Rwcrppe-Qpzikj-Nltnhk Hx Patient Social History Tobacco Use?: No Substance use?: No Alcohol Use?: No Immunizations Up To Date Tetanus Booster (TDap): Unknown Seasonal Allergies Seasonal Allergies: Yes Past Medical History Surgery/Hospitalization HX: pmh: htn, anxiety Surgeries: Yes (HERNIA, LOOP RECORDER PLACEMENT) Abdominal (Esophageal) Respiratory: No Cardiac: Yes High Cholesterol, Hypertension, Syncope Neurological: No Reproductive Disorders: No Genitourinary: Yes Kidney Stones Gastrointestinal: Yes Gastroesophageal Reflux, Hiatal Hernia Musculoskeletal: No Endocrine: No HEENT: No Cancer: No Psychosocial: Yes Anxiety, Depression Integumentary: No Blood Disorders: No Family Medical History No Pertinent Family Hx Physical Exam Vital Signs Vital Signs - First Documented 02/28/21 14:38 Temp 36.9 Pulse 105 Resp 23 B/P (MAP) 135/93 (107) Pulse Ox 87 O2 Delivery Room Air Capillary Refill : Less Than 3 Seconds Height, Weight, BMI Height: 5'10.00" Weight: 179lbs. 5.0oz. 81.445310yv; 27.00 BMI Method:Stated General Appearance: No Apparent Distress, WD/WN HEENT: PERRL/EOMI, Normal ENT Inspection, Pharynx Normal Neck: Normal Inspection; No JVD Respiratory: Lungs Clear, Normal Breath Sounds, No Accessory Muscle Use, No Respiratory Distress, Other (Left upper lateral chest tender to palpation and pain noted with abduction and extension of the arm) Cardiovascular: Regular Rate, Rhythm, No Edema, No Murmur Gastrointestinal: Normal Bowel Sounds, Soft, Tenderness (Epigastrium) Extremity: Normal Inspection, No Pedal Edema Neurologic/Psychiatric: Alert, Oriented x3, No Motor/Sensory Deficits, Normal Mood/Affect, watch crystal cutter II-XII Norm as Tested Skin: Normal Color, Warm/Dry Progress/Results/Core Measures Results/Orders Lab Results Laboratory Tests Test 02/28/21 14:30 Range/Units White Blood Count 9.9 4.3-11.0 10^3/uL Red Blood Count 5.35 4.30-5.52 10^6/uL Hemoglobin 16.0 13.3-17.7 g/dL Hematocrit 47 40-54 % Mean Corpuscular Volume 88 80-99 fL Mean Corpuscular Hemoglobin 30 25-34 pg Mean Corpuscular Hemoglobin Concent 34 32-36 g/dL Red Cell Distribution Width 13.4 10.0-14.5 % Platelet Count 442 H 130-400 10^3/uL Mean Platelet Volume 10.6 9.0-12.2 fL Immature Granulocyte % (Auto) 0 % Neutrophils (%) (Auto) 79 H 42-75 % Lymphocytes (%) (Auto) 11 L 12-44 % Monocytes (%) (Auto) 7 0-12 % Eosinophils (%) (Auto) 2 0-10 % Basophils (%) (Auto) 1 0-10 % Neutrophils # (Auto) 7.9 H 1.8-7.8 10^3/uL Lymphocytes # (Auto) 1.0 1.0-4.0 10^3/uL Monocytes # (Auto) 0.7 0.0-1.0 10^3/uL Eosinophils # (Auto) 0.2 0.0-0.3 10^3/uL Basophils # (Auto) 0.1 0.0-0.1 10^3/uL Immature Granulocyte # (Auto) 0.0 0.0-0.1 10^3/uL Prothrombin Time 14.2 12.2-14.7 SEC INR Comment 1.1 0.8-1.4 Activated Partial Thromboplast Time 28 24-35 SEC Sodium Level 140 135-145 MMOL/L Potassium Level 4.4 3.6-5.0 MMOL/L Chloride Level 107 98-107 MMOL/L Carbon Dioxide Level 23 21-32 MMOL/L Anion Gap 10 5-14 MMOL/L Blood Urea Nitrogen 14 7-18 MG/DL Creatinine 0.98 0.60-1.30 MG/DL Estimat Glomerular Filtration Rate 81 BUN/Creatinine Ratio 14 Glucose Level 92 70-105 MG/DL Calcium Level 9.5 8.5-10.1 MG/DL Corrected Calcium 9.3 8.5-10.1 MG/DL Magnesium Level 2.3 1.6-2.4 MG/DL Total Bilirubin 0.5 0.1-1.0 MG/DL Aspartate Amino Transf (AST/SGOT) 22 5-34 U/L Alanine Aminotransferase (ALT/SGPT) 21 0-55 U/L Alkaline Phosphatase 43 40-136 U/L Myoglobin 56.5 10.0-92.0 NG/ML Troponin I < 0.028 <0.028 NG/ML Total Protein 7.4 6.4-8.2 GM/DL Albumin 4.3 3.2-4.5 GM/DL Lipase 16 8-78 U/L My Orders Orders - JACK NORMAN MD Cbc With Automated Diff (02/28/21 14:30) Magnesium (02/28/21 14:30) Chest 1 View, Ap/Pa Only (02/28/21 14:30) Ekg Tracing (02/28/21 14:30) Comprehensive Metabolic Panel (02/28/21 14:30) Myoglobin Serum (02/28/21 14:30) Protime With Inr (02/28/21 14:30) Partial Thromboplastin Time (02/28/21 14:30) O2 (02/28/21 14:30) Monitor-Rhythm Ecg Trace Only (02/28/21 14:30) Ed Iv/Invasive Line Start (02/28/21 14:30) Troponin I (02/28/21 14:30) Aspirin Chewable Tablet (Baby Aspirin Ch (02/28/21 14:45) Ketorolac Injection (Toradol Injection) (02/28/21 14:45) Ondansetron Injection (Zofran Injectio (02/28/21 14:45) Lidocaine 2% Viscous 15 Ml (Xylocaine Vi (02/28/21 14:45) Antacid Suspension (Mylanta Suspension (02/28/21 14:45) Lipase (02/28/21 14:47) Medications Given in ED Vital Signs/I&O 02/28/21 02/28/21 14:38 16:17 Temp 36.9 Pulse 105 89 Resp 23 18 B/P (MAP) 135/93 (107) 146/98 Pulse Ox 87 96 O2 Delivery Room Air Room Air Blood Pressure Mean: 107 Progress Progress Note : Progress Note Work-up was unremarkable. He had modest improvement of the epigastric pain and tenderness with GI cocktail and modest improvement in the chest pain with Toradol. Patient was reexamined and again found to have pain reproducible with palpation. See discharge instructions. Initial ECG Impression Date: Feb 28, 2021 Initial ECG Impression Time: 14:28 Initial ECG Rate: 101 Initial ECG Rhythm: S.Tach Comment Sinus tachycardia with no ST elevation or depression. No abnormal intervals. No axis deviation. Diagnostic Imaging Diagonstic Imaging: Xray Plain Films/CT/US/NM/MRI: chest Comments NAME: ARIES LAZARO MED REC#: [id number] PT STATUS: REG ER : 1970 PHYSICIAN: JACK NORMAN MD ADMIT DATE: 02/28/21/ER Signed Date of Exam:02/28/21 CHEST 1 VIEW, AP/PA ONLY INDICATION: Chest pain. COMPARISON: 01/24/2021. FINDINGS: A single view of the chest demonstrates clear lungs bilaterally. The heart is prominent but stable. There is a loop recorder overlying the left base. There is no pneumothorax. The osseous structures are stable. IMPRESSION: No acute cardiopulmonary findings. Dictated by: Dictated on workstation # [id number] Dict: 02/28/21 1507 Trans: 02/28/21 1516 [id number] Interpreted by: JEREMY ELLIOTT Electronically signed by: JEREMY ELLIOTT 02/28/21 1516 Departure Impression Primary Impression: Chest wall pain Additional Impression: Epigastric pain Disposition: 01 HOME, SELF-CARE Condition: Improved Departure-Patient Inst. Decision time for Depature: 15:57 Referrals: [facility] (PCP/Family) Primary Care Physician Patient Instructions: Abdominal Pain, Adult ED, Chest Pain Add. Discharge Instructions: You may use Tylenol (acetaminophen) up to 1000 mg every 6 hours as needed for pain. Add Ultram (tramadol) as prescribed for pain not controlled by Tylenol. Your abdominal pain may be related to acid reflux or gastritis. This can be treated by using an antacid such as omeprazole along with dietary changes. Please use the omeprazole as prescribed for at least 1 month. In addition avoid the following: Eating large meals, eating close to bedtime, caffeine, carbonation, chocolate, citrus fruits and juices, tomato products, alcohol, tobacco, spicy foods, NSAID medications such as ibuprofen or naproxen, mints, fatty or greasy foods, or anything else you know irritate your stomach. Call with questions or concerns. Follow-up with your primary care provider soon as possible. Return to the ER if you have worsening symptoms. All discharge instructions reviewed with patient and/or family. Voiced understanding. Scripts Omeprazole (Omeprazole) 20 Mg Capsule. 20 MG PO BID, #60 CAP Prov: JACK NORMAN MD 02/28/21 Tramadol HCl (Ultram) 50 Mg Tablet 50 MG PO Q6H PRN for PAIN-BREAKTHROUGH, #10 TAB Prov: JACK NORMAN MD 02/28/21 Copy Copies To 1: BAUTISTA DARLING JOSHUA T MD Feb 28, 2021 16:02
[2021-02-28 16:17] VITALS: BP 146/98
== END 2021-02-28 16:20 | disposition home or self-care (01) ==
LOC: EDUNIT# 14:21 → ER 14:22
DX: R07.89 Other chest pain (principal); R10.13 Epigastric pain; I10 Essential (primary) hypertension; K21.9 Gastro-esophageal reflux disease without esophagitis; F41.9 Anxiety disorder, unspecified; F32.9 Major depressive disorder, single episode, unspecified; E78.00 Pure hypercholesterolemia, unspecified; Z79.899 Other long term (current) drug therapy
CPT/HCPCS: 36415; 71045; 80053; 83690; 83735; 83874; 84484; 85025; 85610; 85730; 93005

== ENCOUNTER → 2021-03-19 | Outpatient (CLI) | payer SELFPAY ==
[~2021-03-19] MED LIST changes: +CATHETER FLUSH 10 ML SYR IV PRN; +HOLD METFORMIN - RECEIVED CONTRAST 20 ML VIAL IV SCH; +IOHEXOL 350 MG/ML 100 ML (OMNIPAQUE 350) VIAL IV ONE; +NS 100 ML (IVPB) BAG IV ONE; +OMEP20CA18 PO; +TRAM-42 PO
[2021-03-19 08:46] LABS: ALBUMIN 3.8 GM/DL (3.2-4.5); BILIRUBIN,TOTAL 0.4 MG/DL (0.1-1.0); CALCIUM 9.3 MG/DL (8.5-10.1); CREATININE SERUM 0.9 MG/DL (0.60-1.30); POTASSIUM 4.7 MMOL/L (3.6-5.0); TOTAL PROTEIN 6.6 GM/DL (6.4-8.2)
--- NOTE | 2021-03-19 09:29 | Diagnostic Imaging Report ---
PROCEDURE: CT chest with contrast only. TECHNIQUE: Multiple contiguous axial images were obtained through the chest after administration of intravenous contrast. Auto Exposure Controls were utilized during the CT exam to meet ALARA standards for radiation dose reduction. INDICATION: Chest pain. FINDINGS: Good opacification of the aorta and pulmonary arteries. No evidence of aortic aneurysm or dissection. There are no filling defects to indicate pulmonary emboli. The lungs are well aerated and clear. No pleural effusion or pericardial effusion. No mediastinal or hilar adenopathy of pathologic size. There is a 2 cm cyst within the dome of the liver. Sagittal reformatted images show good alignment of the thoracic spine. Body height is well maintained. No spinal stenosis. IMPRESSION: Normal CT chest with contrast. Incidentally noted is a 2 cm cyst within the liver. Dictated by: Dictated on workstation # [id number]
== END ==
LOC: RAD 08:45
PROVIDERS: ATTEND Nurse Practitioner Family
DX: K76.89 Other specified diseases of liver (principal)
CPT/HCPCS: 36415; 71260; 80053

== ENCOUNTER 2021-06-05 10:42 | Emergency (ER) | payer SELFPAY ==
[~2021-06-05] VITALS: Ht 175.3 cm; Wt 81.6 kg
[~2021-06-05 10:42] MED LIST changes: -CATHETER FLUSH 10 ML SYR IV PRN; +CLIN-144 PO; -CLIN300C12 PO; -HOLD METFORMIN - RECEIVED CONTRAST 20 ML VIAL IV SCH; -IOHEXOL 350 MG/ML 100 ML (OMNIPAQUE 350) VIAL IV ONE; -NS 100 ML (IVPB) BAG IV ONE
[2021-06-05] MEDS ORDERED: NITROGLYCERIN 0.4 MG SL TABS BTL 25'S SL ONE (10:55)
[2021-06-05] MEDS ORDERED: ASPIRIN 81 MG CHEW (CHILDREN'S ASA) PO ONE (11:00)
[2021-06-05 11:05] LABS: BASOPHILS # (AUTO) 0.1 10^3/uL (0.0-0.1); BASOPHILS % (AUTO) 1 % (0-10); EOSINOPHILS # (AUTO) 0.1 10^3/uL (0.0-0.3); EOSINOPHILS % (AUTO) 1 % (0-10); HEMATOCRIT 49 % (40-54); HEMOGLOBIN 16.4 g/dL (13.3-17.7); LYMPHOCYTES # (AUTO) 0.8 10^3/uL (1.0-4.0); LYMPHOCYTES % (AUTO) 12 % (12-44); MEAN CORPUSCULAR HEMOGLOBIN 30 pg (25-34); MEAN CORPUSCULAR HGB CONC 34 g/dL (32-36); MEAN CORPUSCULAR VOLUME 90 fL (80-99); MEAN PLATELET VOLUME 10.5 fL (9.0-12.2); MONOCYTES # (AUTO) 0.6 10^3/uL (0.0-1.0); MONOCYTES % (AUTO) 8 % (0-12); NEUTROPHILS # (AUTO) 5.7 10^3/uL (1.8-7.8); NEUTROPHILS % (AUTO) 78 % (42-75); PLATELET COUNT 426 10^3/uL (130-400); WHITE BLOOD COUNT 7.3 10^3/uL (4.3-11.0)
--- NOTE | 2021-06-05 11:07 | ED Chest Pain ---
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 Pain is worsened by movement. He denies shortness of breath or nausea. Timing/Duration: 1/2 hour Severity/Quality: moderate Location: central Radiation: no radiation Activities at Onset: none ASA po PROSPECTING DRILLER: No NTG SL PROSPECTING DRILLER: No Associated Symptoms: denies symptoms (DONYA COOK APRN) ATTENDING PHYSICIAN NOTE: I was physically present as attending physician in the emergency department during the care of this patient, but I was not directly involved in the decision making or delivery of care for this patient. (JACK NORMAN MD) Allergies and Home Medications Allergies Coded Allergies: Penicillins (Unverified Adverse Reaction, Unknown, 06/23/18) Patient Home Medication List Home Medication List Reviewed: Yes (DONYA COOK APRN) Atorvastatin Calcium (Atorvastatin Calcium) 10 Mg Tablet, 10 MG PO DAILY, (Reported) Entered as Reported by: PACO EWING on 08/12/20 1340 Buspirone HCl (Buspirone HCl) 15 Mg Tablet, 15 MG PO TID, (Reported) Entered as Reported by: LISA BROWNE on 03/18/19 2310 Cetirizine HCl (Cetirizine HCl) 10 Mg Tablet, 10 MG PO DAILY, (Reported) Entered as Reported by: PACO EWING on 08/12/20 1340 Citalopram Hydrobromide (Citalopram HBr) 20 Mg Tablet, 20 MG PO DAILY, (Report ed) Entered as Reported by: PACO EWING on 08/12/20 1340 Hydroxyzine Pamoate (Hydroxyzine Pamoate) 25 Mg Capsule, 25 MG PO TID PRN for ANXIETY Prescribed by: PEYTON LEYVA on 09/16/20 1722 Lisinopril (Lisinopril) 10 Mg Tablet, 10 MG PO DAILY Prescribed by: DONTE OLIVER on 09/01/202102 Metoprolol Succinate (Metoprolol Succinate) 25 Mg Tab.er.24h, 25 MG PO DAILY, (Reported) Entered as Reported by: PACO EWING on 08/12/20 1340 Omeprazole (Omeprazole) 20 Mg Capsule.dr, 20 MG PO BID Prescribed by: JACK IVY on 02/28/21 1559 Pantoprazole Sodium (Pantoprazole Sodium) 40 Mg Tablet.dr, 40 MG PO DAILY, (Reported) Entered as Reported by: PACO EWING on 08/12/20 1340 Tramadol HCl (Ultram) 50 Mg Tablet, 50 MG PO Q6H PRN for PAIN-BREAKTHROUGH Prescribed by: JACK IVY on 02/28/21 1559 Review of Systems Review of Systems Constitutional: see HPI EENTM: No Symptoms Reported Respiratory: No Symptoms Reported Cardiovascular: See HPI, Chest Pain Gastrointestinal: See HPI Genitourinary: No Symptoms Reported Musculoskeletal: no symptoms reported Skin: no symptoms reported Psychiatric/Neurological: No Symptoms Reported Endocrine: No Symptoms Reported Hematologic/Lymphatic: No Symptoms Reported (DONYA COOK APRN) Past Qbminxx-Frcfag-Rhzwwl Hx Patient Social History Tobacco Use?: No Smoking Status: Never a Smoker Smokeless Tobacco Frequency: Never a User Use of E-Cig and/or Vaping dev: No Use of E-Cig and/or Vaping Rodrigo: Never a User Substance use?: No Alcohol Use?: No Pt feels they are or have been: No (DONYA COOK APRN) Immunizations Up To Date Tetanus Booster (TDap): Unknown (DONYA COOK APRN) Seasonal Allergies Seasonal Allergies: Yes (DONYA COOK APRN) Past Medical History Surgery/Hospitalization HX: pmh: htn, anxiety Surgeries: Yes (HERNIA, LOOP RECORDER PLACEMENT) Abdominal Respiratory: No Cardiac: Yes High Cholesterol, Hypertension, Syncope Neurological: No Reproductive Disorders: No Genitourinary: Yes Kidney Stones Gastrointestinal: Yes Gastroesophageal Reflux, Hiatal Hernia Musculoskeletal: No Endocrine: No HEENT: No Cancer: No Psychosocial: Yes Anxiety, Depression Integumentary: No Blood Disorders: No (DONYA COOK APRN) Family Medical History No Pertinent Family Hx (DONYA COOK APRN) Physical Exam Vital Signs Vital Signs - First Documented 06/05/21 06/05/21 10:46 13:57 Temp 36.2 Pulse 87 Resp 17 B/P (MAP) 120/91 (101) Pulse Ox 98 O2 Delivery Room Air (JACK NORMAN MD) Vital Signs Capillary Refill : Less Than 3 Seconds (DONYA COOK APRN) Height, Weight, BMI Height: 5'10.00" Weight: 179lbs. 5.0oz. 81.000294oi; 27.00 BMI Method:Stated General Appearance: No Apparent Distress, WD/WN, Other ( Left chest wall is tender to palpation. He rates his pain at 10 out of 10 though immediately after that statement he request the TV remote. Upon my entrance into the room he is noted to be taking his healthy with his cell phone. He is not short of breath or dyspneic. His vitals are unremarkable. His EKG is unchanged from prior.) Neck: Full Range of Motion, Normal Inspection Respiratory: No Accessory Muscle Use, No Respiratory Distress Cardiovascular: Regular Rate, Rhythm, Normal Peripheral Pulses Gastrointestinal: Normal Bowel Sounds, Non Tender, Soft Extremity: Normal Capillary Refill, Normal Inspection Neurologic/Psychiatric: Alert, Oriented x3 Skin: Normal Color, Warm/Dry (DONYA COOK APRN) Progress/Results/Core Measures Results/Orders Lab Results Laboratory Tests Test 06/05/21 11:01 06/05/21 13:06 Range/Units White Blood Count 7.3 4.3-11.0 10^3/uL Red Blood Count 5.43 4.30-5.52 10^6/uL Hemoglobin 16.4 13.3-17.7 g/dL Hematocrit 49 40-54 % Mean Corpuscular Volume 90 80-99 fL Mean Corpuscular Hemoglobin 30 25-34 pg Mean Corpuscular Hemoglobin Concent 34 32-36 g/dL Red Cell Distribution Width 13.1 10.0-14.5 % Platelet Count 426 H 130-400 10^3/uL Mean Platelet Volume 10.5 9.0-12.2 fL Immature Granulocyte % (Auto) 0 % Neutrophils (%) (Auto) 78 H 42-75 % Lymphocytes (%) (Auto) 12 12-44 % Monocytes (%) (Auto) 8 0-12 % Eosinophils (%) (Auto) 1 0-10 % Basophils (%) (Auto) 1 0-10 % Neutrophils # (Auto) 5.7 1.8-7.8 10^3/uL Lymphocytes # (Auto) 0.8 L 1.0-4.0 10^3/uL Monocytes # (Auto) 0.6 0.0-1.0 10^3/uL Eosinophils # (Auto) 0.1 0.0-0.3 10^3/uL Basophils # (Auto) 0.1 0.0-0.1 10^3/uL Immature Granulocyte # (Auto) 0.0 0.0-0.1 10^3/uL Prothrombin Time 13.5 12.2-14.7 SEC INR Comment 1.0 0.8-1.4 Activated Partial Thromboplast Time 28 24-35 SEC Sodium Level 139 135-145 MMOL/L Potassium Level 3.8 3.6-5.0 MMOL/L Chloride Level 104 98-107 MMOL/L Carbon Dioxide Level 27 21-32 MMOL/L Anion Gap 8 5-14 MMOL/L Blood Urea Nitrogen 8 7-18 MG/DL Creatinine 0.96 0.60-1.30 MG/DL Estimat Glomerular Filtration Rate 83 BUN/Creatinine Ratio 8 Glucose Level 91 70-105 MG/DL Calcium Level 9.3 8.5-10.1 MG/DL Corrected Calcium 8.9 8.5-10.1 MG/DL Magnesium Level 2.0 1.6-2.4 MG/DL Total Bilirubin 0.6 0.1-1.0 MG/DL Aspartate Amino Transf (AST/SGOT) 26 5-34 U/L Alanine Aminotransferase (ALT/SGPT) 24 0-55 U/L Alkaline Phosphatase 37 L 40-136 U/L Myoglobin 228.7 H 10.0-92.0 NG/ML Troponin I < 0.028 < 0.028 <0.028 NG/ML B-Type Natriuretic Peptide 16.9 <100.0 PG/ML Total Protein 7.6 6.4-8.2 GM/DL Albumin 4.5 3.2-4.5 GM/DL (JACK NORMAN MD) Medications Given in ED Current Medications Medications Dose Ordered Sig/Yobany Route Start Time Stop Time Status Last Admin Dose Admin Aspirin 324 mg ONCE ONCE PO 06/05/21 11:00 06/05/21 11:01 DC 06/05/21 10:57 324 MG (JACK NORMAN MD) Vital Signs/I&O 06/05/21 06/05/21 10:46 13:57 Temp 36.2 Pulse 87 89 Resp 17 16 B/P (MAP) 120/91 (101) 141/91 Pulse Ox 98 O2 Delivery Room Air Room Air (JACK NORMAN MD) Departure Impression Primary Impression: Chest wall pain Disposition: HOME, SELF-CARE Condition: Stable Departure-Patient Inst. Decision time for Depature: 13:36 (DOYNA COOK APRN) Referrals: [facility] [place] Primary Care Physician Patient Instructions: Chest Pain Add. Discharge Instructions: 1. Return to ER for any concerns 2. Tylenol ibuprofen for pain. Follow-up with cardiology. All discharge instructions reviewed with patient and/or family. Voiced understanding. ATTENDING PHYSICIAN NOTE: I was physically present as attending physician in the emergency department during the care of this patient, but I was not directly involved in the decision making or delivery of care for this patient. (JACK NORMAN MD) DONYA COOK APRN Jun 05, 2021 11:07 JACK NORMAN MD Jun 05, 2021 17:36
--- NOTE | 2021-06-05 11:21 | Diagnostic Imaging Report ---
INDICATION: Chest pain. Frontal chest obtained at 11:05 a.m. and compared with 02/28/2021. FINDINGS: Heart and mediastinal silhouette are normal in appearance. The lungs are clear. There is no pneumothorax or pleural fluid. IMPRESSION: Negative chest. Dictated by: Dictated on workstation # [id number]
[2021-06-05 11:22] LABS: ALBUMIN 4.5 GM/DL (3.2-4.5); POTASSIUM 3.8 MMOL/L (3.6-5.0); PROTHROMBIN TIME PATIENT 13.5 SEC (12.2-14.7)
[2021-06-05 11:23] LABS: CALCIUM 9.3 MG/DL (8.5-10.1)
[2021-06-05 11:25] LABS: TOTAL PROTEIN 7.6 GM/DL (6.4-8.2)
[2021-06-05 11:26] LABS: BILIRUBIN,TOTAL 0.6 MG/DL (0.1-1.0)
[2021-06-05 11:28] LABS: CREATININE SERUM 0.96 MG/DL (0.60-1.30)
[2021-06-05 13:57] VITALS: BP 141/91
== END 2021-06-05 13:58 | disposition home or self-care (01) ==
LOC: EDUNIT# 10:42 → ER 10:44
DX: R07.89 Other chest pain (principal); I10 Essential (primary) hypertension; K21.9 Gastro-esophageal reflux disease without esophagitis; E78.00 Pure hypercholesterolemia, unspecified; F41.9 Anxiety disorder, unspecified; F32.9 Major depressive disorder, single episode, unspecified; Z79.899 Other long term (current) drug therapy
CPT/HCPCS: 36415; 71045; 80053; 83735; 83874; 83880; 84484; 85025; 85610; 85730; 93005; 93041

== ENCOUNTER 2021-07-03 12:18 | Emergency (ER) | payer SELFPAY ==
[~2021-07-03] VITALS: Ht 170 cm; Wt 85.0 kg
[2021-07-03 12:18] VITALS: BP 119/73
--- NOTE | 2021-07-03 12:26 | ED General ---
General Stated Complaint: CP Source of Information: Patient Exam Limitations: No Limitations (DONYA COOK APRN) History of Present Illness Date Seen by Provider: Jul 03, 2021 Time Seen by Provider: 12:24 Initial Comments To ER by EMS from work work at [employer] facility with reports of chest pain. This began earlier this morning. Pain is worsened by movement. He frequently visits the emergency room for chest pain. He has never followed up with cardiology as instructed. He was given 1 nitroglycerin which did not help and 4 baby aspirin. Timing/Duration: 1-2 Days Severity: Moderate Associated Systoms: Cough (DONYA COOK APRN) Allergies and Home Medications Allergies Coded Allergies: Penicillins (Unverified Adverse Reaction, Unknown, 06/23/18) Patient Home Medication List Home Medication List Reviewed: Yes (DONYA COOK APRN) Atorvastatin Calcium (Atorvastatin Calcium) 10 Mg Tablet, 10 MG PO DAILY, (Reported) Entered as Reported by: PACO EWING on 08/12/20 1340 Buspirone HCl (Buspirone HCl) 15 Mg Tablet, 15 MG PO TID, (Reported) Entered as Reported by: LISA BROWNE on 03/18/19 2310 Cetirizine HCl (Cetirizine HCl) 10 Mg Tablet, 10 MG PO DAILY, (Reported) Entered as Reported by: PACO EWING on 08/12/20 1340 Citalopram Hydrobromide (Citalopram HBr) 20 Mg Tablet, 20 MG PO DAILY, ( Reported) Entered as Reported by: PACO EWING on 08/12/20 1340 Hydroxyzine Pamoate (Hydroxyzine Pamoate) 25 Mg Capsule, 25 MG PO TID PRN for ANXIETY Prescribed by: PEYTON LEYVA on 09/16/20 1722 Lisinopril (Lisinopril) 10 Mg Tablet, 10 MG PO DAILY Prescribed by: DONTE OLIVER on 09/01/20 2103 Metoprolol Succinate (Metoprolol Succinate) 25 Mg Tab.er.24h, 25 MG PO DAILY, (Reported) Entered as Reported by: PACO EWING on 08/12/20 1340 Omeprazole (Omeprazole) 20 Mg Capsule.dr, 20 MG PO BID Prescribed by: JACK IVY on 02/28/21 1559 Pantoprazole Sodium (Pantoprazole Sodium) 40 Mg Tablet.dr, 40 MG PO DAILY, (Reported) Entered as Reported by: PACO EWING on 08/12/20 1340 Tramadol HCl (Ultram) 50 Mg Tablet, 50 MG PO Q6H PRN for PAIN-BREAKTHROUGH Prescribed by: JACK IVY on 02/28/21 1559 Review of Systems Review of Systems Constitutional: see HPI EENTM: see HPI Respiratory: no symptoms reported Cardiovascular: no symptoms reported Genitourinary: no symptoms reported Musculoskeletal: no symptoms reported Skin: no symptoms reported Psychiatric/Neurological: No Symptoms Reported Hematologic/Lymphatic: No Symptoms Reported Immunological/Allergic: no symptoms reported (DONYA COOK APRN) Past Hgwakir-Zlefzp-Jzzksz Hx Immunizations Up To Date Tetanus Booster (TDap): Unknown (DONYA COOK APRN) Seasonal Allergies Seasonal Allergies: Yes (DONYA COOK APRN) Past Medical History Surgery/Hospitalization HX: pmh: htn, anxiety Surgeries: Yes (HERNIA, LOOP RECORDER PLACEMENT) Abdominal Respiratory: No Cardiac: Yes High Cholesterol, Hypertension, Syncope Neurological: No Reproductive Disorders: No Genitourinary: Yes Kidney Stones Gastrointestinal: Yes Gastroesophageal Reflux, Hiatal Hernia Musculoskeletal: No Endocrine: No HEENT: No Cancer: No Psychosocial: Yes Anxiety, Depression Integumentary: No Blood Disorders: No (DONYA COOK APRN) Family Medical History No Pertinent Family Hx (DONYA COOK APRN) Physical Exam Vital Signs Vital Signs - First Documented 07/03/21 12:18 Temp 36.5 Pulse 94 Resp 18 B/P (MAP) 119/73 (88) Pulse Ox 98 O2 Delivery Room Air (JACK NORMAN MD) Vital Signs Capillary Refill : (DONYA COOK APRN) Height, Weight, BMI Height: 5'10.00" Weight: 179lbs. 5.0oz. 81.434305gv; 26.00 BMI Method:Stated General Appearance: No Apparent Distress, WD/WN Eyes: Bilateral Eye Normal Inspection, Bilateral Eye PERRL, Bilateral Eye EOMI Neck: Full Range of Motion, Normal Inspection Respiratory: Normal Breath Sounds, No Accessory Muscle Use, No Respiratory Distress Cardiovascular: Regular Rate, Rhythm, Normal Peripheral Pulses Gastrointestinal: Normal Bowel Sounds, No Organomegaly, Non Tender, Soft Extremity: Normal Capillary Refill, Normal Inspection Neurologic/Psychiatric: Alert, Oriented x3 Skin: Normal Color, Warm/Dry (DONYA COOK APRN) Progress/Results/Core Measures Suspected Sepsis SIRS Temperature: Pulse: Respiratory Rate: Laboratory Tests 07/03/21 12:27: White Blood Count 8.1 Blood Pressure / Mean: Laboratory Tests 07/03/21 12:27: Creatinine 0.93, INR Comment 1.1, Platelet Count 471H, Total Bilirubin 0.6 (DONYA COOK APRN) Results/Orders Lab Results Laboratory Tests Test 07/03/21 12:27 Range/Units White Blood Count 8.1 4.3-11.0 10^3/uL Red Blood Count 5.40 4.30-5.52 10^6/uL Hemoglobin 16.1 13.3-17.7 g/dL Hematocrit 48 40-54 % Mean Corpuscular Volume 89 80-99 fL Mean Corpuscular Hemoglobin 30 25-34 pg Mean Corpuscular Hemoglobin Concent 34 32-36 g/dL Red Cell Distribution Width 12.8 10.0-14.5 % Platelet Count 471 H 130-400 10^3/uL Mean Platelet Volume 11.1 9.0-12.2 fL Immature Granulocyte % (Auto) 0 % Neutrophils (%) (Auto) 82 H 42-75 % Lymphocytes (%) (Auto) 10 L 12-44 % Monocytes (%) (Auto) 7 0-12 % Eosinophils (%) (Auto) 1 0-10 % Basophils (%) (Auto) 1 0-10 % Neutrophils # (Auto) 6.6 1.8-7.8 10^3/uL Lymphocytes # (Auto) 0.8 L 1.0-4.0 10^3/uL Monocytes # (Auto) 0.5 0.0-1.0 10^3/uL Eosinophils # (Auto) 0.0 0.0-0.3 10^3/uL Basophils # (Auto) 0.1 0.0-0.1 10^3/uL Immature Granulocyte # (Auto) 0.0 0.0-0.1 10^3/uL Prothrombin Time 14.2 12.2-14.7 SEC INR Comment 1.1 0.8-1.4 Activated Partial Thromboplast Time 29 24-35 SEC D-Dimer 0.31 0.00-0.49 UG/ML Sodium Level 140 135-145 MMOL/L Potassium Level 3.7 3.6-5.0 MMOL/L Chloride Level 106 98-107 MMOL/L Carbon Dioxide Level 22 21-32 MMOL/L Anion Gap 12 5-14 MMOL/L Blood Urea Nitrogen 9 7-18 MG/DL Creatinine 0.93 0.60-1.30 MG/DL Estimat Glomerular Filtration Rate 99 BUN/Creatinine Ratio 10 Glucose Level 90 70-105 MG/DL Calcium Level 9.2 8.5-10.1 MG/DL Corrected Calcium 8.8 8.5-10.1 MG/DL Magnesium Level 1.9 1.6-2.4 MG/DL Total Bilirubin 0.6 0.1-1.0 MG/DL Aspartate Amino Transf (AST/SGOT) 28 5-34 U/L Alanine Aminotransferase (ALT/SGPT) 23 0-55 U/L Alkaline Phosphatase 40 40-136 U/L Myoglobin 192.3 H 10.0-92.0 NG/ML Troponin I < 0.028 <0.028 NG/ML B-Type Natriuretic Peptide 19.1 <100.0 PG/ML Total Protein 7.3 6.4-8.2 GM/DL Albumin 4.5 3.2-4.5 GM/DL (JACK NORMAN MD) Vital Signs/I&O 07/03/21 12:18 Temp 36.5 Pulse 94 Resp 18 B/P (MAP) 119/73 (88) Pulse Ox 98 O2 Delivery Room Air (JACK NORMAN MD) Vital Signs/I&O Capillary Refill : (DONYA COOK APRN) Departure Communication (Admissions) Family Conversation I made an appointment on 07/05/[address] hernandez at 1420. 1230-EKG shows sinus rhythm at [address] segment changes and normal intervals. (DONYA COOK APRN) Impression Primary Impression: Chronic chest pain Disposition: 01 HOME, SELF-CARE Condition: Stable Departure-Patient Inst. Decision time for Depature: 12:26 (DONYA COOK APRN) Referrals: [facility] (PCP/Family) Primary Care Physician Patient Instructions: Chest Pain Add. Discharge Instructions: I made an appointment for you with Dr. Hernandez this 07/05/2021 at 2:20 PM. Work/School Note: Work Release Form Date Seen in the Emergency Department: Jul 03, 2021 Return to Work: Jul 04, 2021 ATTENDING PHYSICIAN NOTE: I was physically present as attending physician in the emergency department during the care of this patient, but I was not directly involved in the decision making or delivery of care for this patient. (JACK NORMAN MD) DONYA COOK APRN Jul 03, 2021 12:26 JACK NORMAN MD Jul 04, 2021 21:07
[2021-07-03 12:31] LABS: BASOPHILS # (AUTO) 0.1 10^3/uL (0.0-0.1); BASOPHILS % (AUTO) 1 % (0-10); EOSINOPHILS % (AUTO) 1 % (0-10); HEMATOCRIT 48 % (40-54); HEMOGLOBIN 16.1 g/dL (13.3-17.7); LYMPHOCYTES # (AUTO) 0.8 10^3/uL (1.0-4.0); LYMPHOCYTES % (AUTO) 10 % (12-44); MEAN CORPUSCULAR HEMOGLOBIN 30 pg (25-34); MEAN CORPUSCULAR HGB CONC 34 g/dL (32-36); MEAN CORPUSCULAR VOLUME 89 fL (80-99); MEAN PLATELET VOLUME 11.1 fL (9.0-12.2); MONOCYTES # (AUTO) 0.5 10^3/uL (0.0-1.0); MONOCYTES % (AUTO) 7 % (0-12); NEUTROPHILS # (AUTO) 6.6 10^3/uL (1.8-7.8); NEUTROPHILS % (AUTO) 82 % (42-75); PLATELET COUNT 471 10^3/uL (130-400); WHITE BLOOD COUNT 8.1 10^3/uL (4.3-11.0)
[2021-07-03 12:45] LABS: ALBUMIN 4.5 GM/DL (3.2-4.5); POTASSIUM 3.7 MMOL/L (3.6-5.0)
[2021-07-03 12:46] LABS: CALCIUM 9.2 MG/DL (8.5-10.1)
[2021-07-03 12:47] LABS: INR 1.1 (0.8-1.4); PROTHROMBIN TIME PATIENT 14.2 SEC (12.2-14.7)
[2021-07-03 12:48] LABS: TOTAL PROTEIN 7.3 GM/DL (6.4-8.2)
[2021-07-03 12:49] LABS: BILIRUBIN,TOTAL 0.6 MG/DL (0.1-1.0)
[2021-07-03 12:51] LABS: CREATININE SERUM 0.93 MG/DL (0.60-1.30)
[2021-07-03 12:54] LABS: MAGNESIUM 1.9 MG/DL (1.6-2.4)
--- NOTE | 2021-07-03 13:26 | Diagnostic Imaging Report ---
INDICATION: Chest pain AP view of chest is obtained with comparison made to study of 06/05/2021. Study is limited by suboptimal inspiration. This does lead to crowding of pulmonary markings. There is no pneumothorax or consolidation identified. No definite pleural fluid is seen. IMPRESSION: Findings are likely related to perihilar atelectasis and/or pneumonitis with limited study due to hypoventilation. Dictated by: Dictated on workstation # [id number]
== END 2021-07-03 13:47 | disposition home or self-care (01) ==
LOC: EDUNIT# 12:18 → ER 12:20
DX: G89.29 Other chronic pain (principal); R07.9 Chest pain, unspecified; I10 Essential (primary) hypertension; E78.00 Pure hypercholesterolemia, unspecified; K21.9 Gastro-esophageal reflux disease without esophagitis; F41.9 Anxiety disorder, unspecified; F32.9 Major depressive disorder, single episode, unspecified; Z79.899 Other long term (current) drug therapy
CPT/HCPCS: 36415; 71045; 80053; 83735; 83874; 83880; 84484; 85025; 85379; 85610; 85730; 93005; 93041

== ENCOUNTER 2021-07-10 14:23 | Emergency (ER) | payer SELFPAY ==
--- NOTE | 2021-07-10 14:34 | ED Chest Pain ---
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 He went to [facility] and they referred him here to the emergency room. He requested to come by ambulance. He has been seen here a multitude of times for chest pain and only requests a work note with those visits. I questioned him directly about this at this time asking if he only needed a work note to which she replies "yes". He had an appointment with clinical geneticist Dr. Hernandez yesterday but did not show up to it. He said he did not have a ride. He comes in today stating he needs a work note and "just wants to get to the bottom of this". Timing/Duration: 1-2 days Severity/Quality: moderate Radiation: no radiation Prior CP/Workup: angina ASA po ABSENCE MANAGEMENT CONSULTANT: No NTG SL ABSENCE MANAGEMENT CONSULTANT: No Associated Symptoms: denies symptoms Allergies and Home Medications Allergies Coded Allergies: Penicillins (Unverified Adverse Reaction, Unknown, 06/23/18) Patient Home Medication List Home Medication List Reviewed: Yes Atorvastatin Calcium (Atorvastatin Calcium) 10 Mg Tablet, 10 MG PO DAILY, (Reported) Entered as Reported by: PACO EWING on 08/12/20 1340 Buspirone HCl (Buspirone HCl) 15 Mg Tablet, 15 MG PO TID, (Reported) Entered as Reported by: LISA BROWNE on 03/18/19 2310 Cetirizine HCl (Cetirizine HCl) 10 Mg Tablet, 10 MG PO DAILY, (Reported) Entered as Reported by: PACO EWING on 08/12/20 1340 Citalopram Hydrobromide (Citalopram HBr) 20 Mg Tablet, 20 MG PO DAILY, (Reported) Entered as Reported by: PACO EWING on 08/12/20 1340 Hydroxyzine Pamoate (Hydroxyzine Pamoate) 25 Mg Capsule, 25 MG PO TID PRN for ANXIETY Prescribed by: PEYTON LEYVA on 09/16/20 1722 Lisinopril (Lisinopril) 10 Mg Tablet, 10 MG PO DAILY Prescribed by: DONTE OLIVER on 09/01/202102 Metoprolol Succinate (Metoprolol Succinate) 25 Mg Tab.er.24h, 25 MG PO DAILY, (Reported) Entered as Reported by: PACO EWING on 08/12/20 1340 Omeprazole (Omeprazole) 20 Mg Capsule.dr, 20 MG PO BID Prescribed by: JACK IVY on 02/28/21 155 Pantoprazole Sodium (Pantoprazole Sodium) 40 Mg Tablet.dr, 40 MG PO DAILY, (Reported) Entered as Reported by: PACO EWING on 08/12/20 1340 Tramadol HCl (Ultram) 50 Mg Tablet, 50 MG PO Q6H PRN for PAIN-BREAKTHROUGH Prescribed by: JACK IVY on 02/28/21 155 Tramadol HCl (Ultram) 50 Mg Tablet, 50 MG PO Q6H PRN for PAIN-MODERATE (5-7) Prescribed by: DONYA COOK on 07/10/21 1521 Review of Systems Review of Systems Constitutional: see HPI EENTM: No Symptoms Reported Respiratory: No Symptoms Reported Cardiovascular: See HPI, Chest Pain Gastrointestinal: No Symptoms Reported Genitourinary: No Symptoms Reported Musculoskeletal: no symptoms reported Skin: no symptoms reported Psychiatric/Neurological: No Symptoms Reported Endocrine: No Symptoms Reported Past Asjaiix-Tkjwje-Kjlqhq Hx Immunizations Up To Date Tetanus Booster (TDap): Unknown First/Initial COVID19 Vaccinat: UNSURE OF DATE Second COVID19 Vaccination Jacob: UNSURE OF DATE Seasonal Allergies Seasonal Allergies: Yes Past Medical History Surgery/Hospitalization HX: pmh: htn, anxiety Surgeries: Yes (HERNIA, LOOP RECORDER PLACEMENT) Abdominal Respiratory: No Cardiac: Yes High Cholesterol, Hypertension, Syncope Neurological: No Reproductive Disorders: No Genitourinary: Yes Kidney Stones Gastrointestinal: Yes Gastroesophageal Reflux, Hiatal Hernia Musculoskeletal: No Endocrine: No HEENT: No Cancer: No Psychosocial: Yes Anxiety, Depression Integumentary: No Blood Disorders: No Family Medical History No Pertinent Family Hx Physical Exam Vital Signs Vital Signs - First Documented 07/10/21 14:23 Temp 36.8 Pulse 86 Resp 17 B/P (MAP) 135/89 (104) Pulse Ox 97 O2 Delivery Room Air Capillary Refill : Height, Weight, BMI Height: 5'10.00" Weight: 179lbs. 5.0oz. 81.216938kg; 29.00 BMI Method:Stated General Appearance: No Apparent Distress, WD/WN, Other (He denies feeling anxious he is alert and oriented. Upon arrival to the room he requests the TV remote. He was given 324 mg of aspirin by [facility] and an inch of Nitropaste by EMS.) Respiratory: No Accessory Muscle Use, No Respiratory Distress Cardiovascular: Regular Rate, Rhythm, Normal Peripheral Pulses Gastrointestinal: Normal Bowel Sounds, Non Tender, Soft Neurologic/Psychiatric: Alert, Oriented x3 Skin: Normal Color, Warm/Dry Progress/Results/Core Measures Results/Orders Lab Results Laboratory Tests Test 07/10/21 14:25 Range/Units White Blood Count 10.3 4.3-11.0 10^3/uL Red Blood Count 5.21 4.30-5.52 10^6/uL Hemoglobin 15.7 13.3-17.7 g/dL Hematocrit 47 40-54 % Mean Corpuscular Volume 90 80-99 fL Mean Corpuscular Hemoglobin 30 25-34 pg Mean Corpuscular Hemoglobin Concent 34 32-36 g/dL Red Cell Distribution Width 12.9 10.0-14.5 % Platelet Count 447 H 130-400 10^3/uL Mean Platelet Volume 10.8 9.0-12.2 fL Immature Granulocyte % (Auto) 0 % Neutrophils (%) (Auto) 81 H 42-75 % Lymphocytes (%) (Auto) 10 L 12-44 % Monocytes (%) (Auto) 7 0-12 % Eosinophils (%) (Auto) 1 0-10 % Basophils (%) (Auto) 1 0-10 % Neutrophils # (Auto) 8.3 H 1.8-7.8 10^3/uL Lymphocytes # (Auto) 1.1 1.0-4.0 10^3/uL Monocytes # (Auto) 0.7 0.0-1.0 10^3/uL Eosinophils # (Auto) 0.1 0.0-0.3 10^3/uL Basophils # (Auto) 0.1 0.0-0.1 10^3/uL Immature Granulocyte # (Auto) 0.0 0.0-0.1 10^3/uL Prothrombin Time 14.2 12.2-14.7 SEC INR Comment 1.1 0.8-1.4 Activated Partial Thromboplast Time 31 24-35 SEC Sodium Level 140 135-145 MMOL/L Potassium Level 4.2 3.6-5.0 MMOL/L Chloride Level 106 98-107 MMOL/L Carbon Dioxide Level 24 21-32 MMOL/L Anion Gap 10 5-14 MMOL/L Blood Urea Nitrogen 15 7-18 MG/DL Creatinine 0.90 0.60-1.30 MG/DL Estimat Glomerular Filtration Rate 103 BUN/Creatinine Ratio 17 Glucose Level 68 L 70-105 MG/DL Calcium Level 9.1 8.5-10.1 MG/DL Corrected Calcium 8.9 8.5-10.1 MG/DL Magnesium Level 2.3 1.6-2.4 MG/DL Total Bilirubin 0.3 0.1-1.0 MG/DL Aspartate Amino Transf (AST/SGOT) 25 5-34 U/L Alanine Aminotransferase (ALT/SGPT) 23 0-55 U/L Alkaline Phosphatase 47 40-136 U/L Myoglobin 73.3 10.0-92.0 NG/ML Troponin I < 0.028 <0.028 NG/ML Total Protein 7.0 6.4-8.2 GM/DL Albumin 4.3 3.2-4.5 GM/DL Lipase 16 8-78 U/L My Orders Orders - DONYA COOK APRN Cbc With Automated Diff (07/10/21 14:26) Magnesium (07/10/21 14:26) Ekg Tracing (07/10/21 14:26) Comprehensive Metabolic Panel (07/10/21 14:26) Myoglobin Serum (07/10/21 14:26) Protime With Inr (07/10/21 14:26) Partial Thromboplastin Time (07/10/21 14:26) O2 (07/10/21 14:26) Monitor-Rhythm Ecg Trace Only (07/10/21 14:26) Lipid Panel (07/11/21 06:00) Ed Iv/Invasive Line Start (07/10/21 14:26) Lipase (07/10/21 14:26) Troponin I [place] (07/10/21 14:26) Vital Signs/I&O 07/10/21 14:23 Temp 36.8 Pulse 86 Resp 17 B/P (MAP) 135/89 (104) Pulse Ox 97 O2 Delivery Room Air Departure Impression Primary Impression: Chronic chest pain Disposition: HOME, SELF-CARE Condition: Stable Departure-Patient Inst. Decision time for Depature: 15:16 Referrals: [facility] (PCP/Family) Primary Care Physician Patient Instructions: Chest Pain, Adult ED Add. Discharge Instructions: 1. Follow-up with Dr. Hernandez. Return to ER for any concerns. All discharge instructions reviewed with patient and/or family. Voiced understanding. Scripts Tramadol HCl (Ultram) 50 Mg Tablet 50 MG PO Q6H PRN for PAIN-MODERATE (5-7), #10 TAB Prov: DONYA COOK APRN 07/10/21 DONYA COOK APRN Jul 10, 2021 14:33
[2021-07-10 14:37] LABS: BASOPHILS # (AUTO) 0.1 10^3/uL (0.0-0.1); BASOPHILS % (AUTO) 1 % (0-10); EOSINOPHILS # (AUTO) 0.1 10^3/uL (0.0-0.3); EOSINOPHILS % (AUTO) 1 % (0-10); HEMATOCRIT 47 % (40-54); HEMOGLOBIN 15.7 g/dL (13.3-17.7); LYMPHOCYTES # (AUTO) 1.1 10^3/uL (1.0-4.0); LYMPHOCYTES % (AUTO) 10 % (12-44); MEAN CORPUSCULAR HEMOGLOBIN 30 pg (25-34); MEAN CORPUSCULAR HGB CONC 34 g/dL (32-36); MEAN CORPUSCULAR VOLUME 90 fL (80-99); MEAN PLATELET VOLUME 10.8 fL (9.0-12.2); MONOCYTES # (AUTO) 0.7 10^3/uL (0.0-1.0); MONOCYTES % (AUTO) 7 % (0-12); NEUTROPHILS # (AUTO) 8.3 10^3/uL (1.8-7.8); NEUTROPHILS % (AUTO) 81 % (42-75); PLATELET COUNT 447 10^3/uL (130-400); WHITE BLOOD COUNT 10.3 10^3/uL (4.3-11.0)
[2021-07-10 14:47] LABS: ALBUMIN 4.3 GM/DL (3.2-4.5); POTASSIUM 4.2 MMOL/L (3.6-5.0)
[2021-07-10 14:48] LABS: CALCIUM 9.1 MG/DL (8.5-10.1)
[2021-07-10 14:50] LABS: INR 1.1 (0.8-1.4); PROTHROMBIN TIME PATIENT 14.2 SEC (12.2-14.7)
[2021-07-10 14:51] LABS: BILIRUBIN,TOTAL 0.3 MG/DL (0.1-1.0)
[2021-07-10 14:53] LABS: CREATININE SERUM 0.9 MG/DL (0.60-1.30)
[2021-07-10 14:56] LABS: MAGNESIUM 2.3 MG/DL (1.6-2.4)
[2021-07-10] MEDS ORDERED: TRAM-42 PO (15:20)
[2021-07-10 16:00] VITALS: BP 110/85
== END 2021-07-10 16:02 | disposition home or self-care (01) ==
LOC: ER 14:23
DX: G89.29 Other chronic pain (principal); R07.9 Chest pain, unspecified; I10 Essential (primary) hypertension; E78.00 Pure hypercholesterolemia, unspecified; F41.9 Anxiety disorder, unspecified; F32.9 Major depressive disorder, single episode, unspecified; K21.9 Gastro-esophageal reflux disease without esophagitis; Z79.899 Other long term (current) drug therapy
CPT/HCPCS: 36415; 80053; 83690; 83735; 83874; 84484; 85025; 85610; 85730; 93005; 93041

== ENCOUNTER → 2021-09-18 | Outpatient (REF) ==
--- NOTE | 2021-09-18 10:55 | Diagnostic Imaging Report ---
INDICATION: Right elbow pain COMPARISON: None. FINDINGS: 3 views of the right elbow show no fractures, dislocations, or other acute bony abnormalities identified. Joint spaces are well maintained throughout. The soft tissues appear unremarkable. No radiopaque foreign bodies are identified. IMPRESSION: No acute fractures or dislocations of the right elbow. Dictated by: Dictated on workstation # [id number]
== END ==
LOC: OCC 10:27
PROVIDERS: ATTEND Family Medicine
DX: M25.521 Pain in right elbow (principal)
CPT/HCPCS: 73080

== ENCOUNTER 2022-02-03 17:18 | Emergency (ER) | payer SELFPAY ==
[~2022-02-03] VITALS: Ht 172 cm; Wt 77.0 kg
[~2022-02-03 17:18] MED LIST changes: +OMEP20TA56 PO; -OMEP20TA7 PO
[2022-02-03 18:02] LABS: BASOPHILS # (AUTO) 0.1 10^3/uL (0.0-0.1); BASOPHILS % (AUTO) 1 % (0-10); EOSINOPHILS # (AUTO) 0.2 10^3/uL (0.0-0.3); EOSINOPHILS % (AUTO) 2 % (0-10); HEMATOCRIT 46 % (40-54); HEMOGLOBIN 16.1 g/dL (13.3-17.7); LYMPHOCYTES # (AUTO) 1.2 10^3/uL (1.0-4.0); LYMPHOCYTES % (AUTO) 12 % (12-44); MEAN CORPUSCULAR HEMOGLOBIN 30 pg (25-34); MEAN CORPUSCULAR HGB CONC 35 g/dL (32-36); MEAN CORPUSCULAR VOLUME 87 fL (80-99); MEAN PLATELET VOLUME 10.9 fL (9.0-12.2); MONOCYTES # (AUTO) 0.8 10^3/uL (0.0-1.0); MONOCYTES % (AUTO) 8 % (0-12); NEUTROPHILS # (AUTO) 7.7 10^3/uL (1.8-7.8); NEUTROPHILS % (AUTO) 77 % (42-75); PLATELET COUNT 391 10^3/uL (130-400)
--- NOTE | 2022-02-03 18:05 | Diagnostic Imaging Report ---
CLINICAL INDICATION: Patient with hypertension and feels like heart is racing. EXAM: Portable chest x-ray upright view. COMPARISON: Chest x-ray dated 07/03/2021. FINDINGS: Lungs/pleura: There is interval improved aeration of both lungs. Lungs are now clear. There is no pneumothorax. There is no pleural effusion. Mediastinum: Unremarkable. Pulmonary vasculature: Unremarkable. Heart: Heart size is within normal limits for portable projection. Loop recorder is again seen overlying the left chest. Bones/extrathoracic soft tissue: There are degenerative spurs involving the thoracic spine. IMPRESSION: There is no radiographic evidence of acute cardiopulmonary process. Dictated by: Dictated on workstation # [id number]
[2022-02-03] MEDS: hydrALAZINE (APESOLINE) 20 MG/ML VIAL IV ONE ×2 (18:06→18:09)
[2022-02-03 18:09] LABS: ALBUMIN 4.2 GM/DL (3.2-4.5); CHLORIDE 107 MMOL/L (98-107); POTASSIUM 4.1 MMOL/L (3.6-5.0); SODIUM 143 MMOL/L (135-145)
[2022-02-03 18:11] LABS: GLUCOSE 94 MG/DL (70-105); TOTAL PROTEIN 6.8 GM/DL (6.4-8.2)
--- NOTE | 2022-02-03 18:11 | ED General ---
General Chief Complaint: Cardiac/General Problems Stated Complaint: SHAKING/ELEVATED BP Nursing Triage Note: Patient presented to the ER today with complaints of feeling shaky. He denies pain in his chest but states he felt like his heart was racing earlier. Patient states he has a hx of hypertension and that he has been out of his medications x 2 days. Source of Information: Patient (PT IS A VERY VAGUE AND LIMITED HISTORIAN), Old Records History of Present Illness Date Seen by Provider: Feb 03, 2022 Time Seen by Provider: 17:47 Initial Comments PT ARRIVES VIA POV--SENT FROM [facility] C/O FEELING REALLY SHAKEY SINCE AROUND 1300 TODAY--WAS SITTING IN A CAR WHEN SYMPTOMS BEGAN WENT TO [facility] AND BP WAS ELEVATED ( PT DOES NOT KNOW HOW HIGH HIS BP WAS AT [facility]), SO THEY SENT HIM HERE PT IS SUPPOSED TO BE ON BLOOD PRESSURE MEDICATION--HE HAS NO IDEA WHAT BP HE HAS BEEN ON, AND HAS NO IDEA HOW LONG HE HAS HAD HTN, AND DOES NOT KNOW IF HIS DOSES HAVE BEEN CHANGED AT ANY TIME. HE DOESN'T KNOW HOW LONG IT HAS BEEN SINCE HE LAST WENT TO [facility] OR ANY DR. 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 GETS MEDICATIONS FROM [facility] AT [facility]. THEY DID NOT GIVE HIM ANY MEDICATIONS TODAY AT [facility], AND HE DID NOT MOUNTING INSPECTOR HIS MEDICATIONS FROM THE PHARMACY AT [facility] TODAY ( FRIDAY NIGHT/HOLIDAY WEEKEND AND THEY ARE CLOSED TOMORROW FOR ) PT ALSO IS PRESCRIBED ANXIETY MEDICATION, AND STATES HE STILL HAS THAT MEDICATION AT HOME, BUT HAS NOT TAKEN ANY TODAY--HAS NO IDEA WHAT THE NAME OF THAT MEDICATION IS EITHER PT STATES HE DOES NOT TAKE ANY OTHER MEDICATIONS FOR ANYTHING C/O FEELING VERY SHAKEY NO CHEST PAIN NO SHORTNESS OF BREATH STATES HE FELT LIKE HIS HEART WAS BEATING FAST EARLIER, BUT NOT NOW NO SWEATS NO SWELLING IN LEGS/ FEET OR PAIN IN CALVES NO DIZZINESS OR SYNCOPE NO GI SYMPTOMS NO HEADACHE NO VISION CHANGES NO PARESTHESIAS OR MOTOR DEFICITS NO FEVER OR RECENT ILLNESS PT HAS HAS MULTIPLE ER VISITS FOR CHRONIC CHEST PAIN COMPLAINTS AND ANXIETY PREVIOUS CARDIAC WORK UP'S HAVE ALL BEEN NEGATIVE, INCLUDING STRESS TESTS PT DID HAVE LOOP RECORDER PLACED BY DR. OJEDA 05/08/2020 FOR A SINGLE EPISODE OF SYNCOPE PCP: [facility] Allergies and Home Medications Allergies Coded Allergies: Penicillins (Unverified Adverse Reaction, Unknown, 06/23/18) Patient Home Medication List Home Medication List Reviewed: Yes Atorvastatin Calcium (Atorvastatin Calcium) 10 Mg Tablet, 10 MG PO DAILY, (Reported) Entered as Reported by: PACO EWING on 08/12/20 1340 Buspirone HCl (Buspirone HCl) 15 Mg Tablet, 15 MG PO TID, (Reported) Entered as Reported by: LISA BROWNE on 03/18/19 2310 Cetirizine HCl (Cetirizine HCl) 10 Mg Tablet, 10 MG PO DAILY, (Reported) Entered as Reported by: PACO EWING on 08/12/20 1340 Citalopram Hydrobromide (Citalopram HBr) 20 Mg Tablet, 20 MG PO DAILY, (Reported) Entered as Reported by: PACO EWING on 08/12/20 1340 Hydroxyzine Pamoate (Hydroxyzine Pamoate) 25 Mg Capsule, 25 MG PO TID PRN for ANXIETY Prescribed by: PEYTON LEYVA on 09/16/20 1722 Lisinopril (Lisinopril) 10 Mg Tablet, 10 MG PO DAILY Prescribed by: DONTE OLIVER on 09/01/20 210 Metoprolol Succinate (Metoprolol Succinate) 25 Mg Tab.er.24h, 25 MG PO DAILY, (Reported) Entered as Reported by: PACO EWING on 08/12/20 1340 Omeprazole (Omeprazole) 20 Mg Capsule.dr, 20 MG PO BID Prescribed by: JACK IVY on 02/28/21 155 Pantoprazole Sodium (Pantoprazole Sodium) 40 Mg Tablet.dr, 40 MG PO DAILY, (Reported) Entered as Reported by: PACO EWING on 08/12/20 1340 Tramadol HCl (Ultram) 50 Mg Tablet, 50 MG PO Q6H PRN for PAIN-BREAKTHROUGH Prescribed by: JACK IVY on 02/28/21 1559 Tramadol HCl (Ultram) 50 Mg Tablet, 50 MG PO Q6H PRN for PAIN-MODERATE (5-7) Prescribed by: DONYA COOK on 07/10/21 1521 Review of Systems Review of Systems Constitutional: see HPI EENTM: no symptoms reported Respiratory: no symptoms reported Cardiovascular: see HPI Gastrointestinal: no symptoms reported Genitourinary: no symptoms reported Musculoskeletal: no symptoms reported Skin: no symptoms reported Psychiatric/Neurological: See HPI Hematologic/Lymphatic: No Symptoms Reported Immunological/Allergic: no symptoms reported Past Izazgee-Qartff-Kkebus Hx Patient Social History Tobacco Use?: Yes Tobacco type used: Cigarettes Smoking Status: Current Everyday Smoker Smokeless Tobacco Frequency: Current Everyday User Substance use?: No Alcohol Use?: No Immunizations Up To Date Tetanus Booster (TDap): Unknown First/Initial COVID19 Vaccinat: UNSURE OF DATE Second COVID19 Vaccination Jacob: UNSURE OF DATE Third COVID19 Vaccination Date: UNSURE OF DATE Seasonal Allergies Seasonal Allergies: Yes Past Medical History Surgery/Hospitalization HX: pmh: htn, anxiety Surgeries: Yes (HERNIA, LOOP RECORDER PLACEMENT) Abdominal, Cardiac Respiratory: No Cardiac: Yes (LOOP RECORDER;CHRONIC CHEST PAIN ) High Cholesterol, Hypertension, Syncope Neurological: No Reproductive Disorders: No Genitourinary: Yes Kidney Stones Gastrointestinal: Yes Gastroesophageal Reflux, Hiatal Hernia Musculoskeletal: No Endocrine: No HEENT: No Cancer: No Psychosocial: Yes Anxiety, Depression Integumentary: No Blood Disorders: No Family Medical History No Pertinent Family Hx ADDITIONAL PMH: -PT HAD SINGLE EPISODE OF SYNCOPE 05/2020 AND HAD A LOOP RECORDER PLACED 05/08/[address] OJEDA--NO REPORTED ARRHYTYMIAS PER OLD RECORDS, OF 02/03/22 -CHRONIC CHEST PAIN COMPLAINTS, WORK UP'S NEGATIVE, INCLUDING STRESS TESTS. LAST STRESS TEST 07/28/[address] OJEDA: CONCLUSION: 1. Fair exercise tolerance for a total of 5 minutes on standard Vicente protocol, 7 METS achieving 95% of maximum expected heart rate. 2. Nondiagnostic EKG changes with exercise returned to baseline during recovery. 3. Mild hypertensive response to exercise with peak blood pressure 174/79 returned to baseline during recovery. 4. Diaphragmatic attenuation with no significant ischemia or infarction on SPECT images. 5. Normal left ventricular size with normal contractility. Calculated ejection fraction 68%. Physical Exam Vital Signs Vital Signs - First Documented 02/03/22 17:41 Pulse 90 Resp 14 B/P (MAP) 159/113 (128) Pulse Ox 98 O2 Delivery Room Air Capillary Refill : Less Than 3 Seconds Height, Weight, BMI Height: 5'10.00" Weight: 179lbs. 5.0oz. 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 II- 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 Norm as Tested, Other (MILDLY ANXIOUS) Skin: Normal Color, Warm/Dry Progress/Results/Core Measures Suspected Sepsis SIRS Temperature: Pulse: 90 Respiratory Rate: 14 Laboratory Tests 02/03/22 17:40: White Blood Count 10.0 Blood Pressure 159 /113 Mean: 128 Laboratory Tests 02/03/22 17:40: Creatinine 0.82, Platelet Count 391, Total Bilirubin 0.4 Results/Orders Lab Results Laboratory Tests Test 02/03/22 17:38 02/03/22 17:40 02/03/22 18:03 Range/Units Glucometer 94 70-110 MG/DL White Blood Count 10.0 4.3-11.0 10^3/uL Red Blood Count 5.30 4.30-5.52 10^6/uL Hemoglobin 16.1 13.3-17.7 g/dL Hematocrit 46 40-54 % Mean Corpuscular Volume 87 80-99 fL Mean Corpuscular Hemoglobin 30 25-34 pg Mean Corpuscular Hemoglobin Concent 35 32-36 g/dL Red Cell Distribution Width 13.0 10.0-14.5 % Platelet Count 391 130-400 10^3/uL Mean Platelet Volume 10.9 9.0-12.2 fL Immature Granulocyte % (Auto) 0 % Neutrophils (%) (Auto) 77 H 42-75 % Lymphocytes (%) (Auto) 12 12-44 % Monocytes (%) (Auto) 8 0-12 % Eosinophils (%) (Auto) 2 0-10 % Basophils (%) (Auto) 1 0-10 % Neutrophils # (Auto) 7.7 1.8-7.8 10^3/uL Lymphocytes # (Auto) 1.2 1.0-4.0 10^3/uL Monocytes # (Auto) 0.8 0.0-1.0 10^3/uL Eosinophils # (Auto) 0.2 0.0-0.3 10^3/uL Basophils # (Auto) 0.1 0.0-0.1 10^3/uL Immature Granulocyte # (Auto) 0.0 0.0-0.1 10^3/uL Sodium Level 143 135-145 MMOL/L Potassium Level 4.1 3.6-5.0 MMOL/L Chloride Level 107 98-107 MMOL/L Carbon Dioxide Level 23 21-32 MMOL/L Anion Gap 13 5-14 MMOL/L Blood Urea Nitrogen 11 7-18 MG/DL Creatinine 0.82 0.60-1.30 MG/DL Estimat Glomerular Filtration Rate 106 BUN/Creatinine Ratio 13 Glucose Level 94 70-105 MG/DL Calcium Level 9.0 8.5-10.1 MG/DL Corrected Calcium 8.8 8.5-10.1 MG/DL Magnesium Level 2.3 1.6-2.4 MG/DL Total Bilirubin 0.4 0.1-1.0 MG/DL Aspartate Amino Transf (AST/SGOT) 14 5-34 U/L Alanine Aminotransferase (ALT/SGPT) 15 0-55 U/L Alkaline Phosphatase 43 40-136 U/L Troponin I < 0.028 <0.028 NG/ML Total Protein 6.8 6.4-8.2 GM/DL Albumin 4.2 3.2-4.5 GM/DL TSH [place] Testing 0.78 0.35-4.94 UIU/ML Urine Opiates Screen NEGATIVE NEGATIVE Urine Oxycodone Screen NEGATIVE NEGATIVE Urine Methadone Screen NEGATIVE NEGATIVE Urine Propoxyphene Screen NEGATIVE NEGATIVE Urine Barbiturates Screen NEGATIVE NEGATIVE Ur Tricyclic Antidepressants Screen NEGATIVE NEGATIVE Urine Phencyclidine Screen NEGATIVE NEGATIVE Urine Amphetamines Screen NEGATIVE NEGATIVE Urine Methamphetamines Screen NEGATIVE NEGATIVE Urine Benzodiazepines Screen NEGATIVE NEGATIVE Urine Cocaine Screen NEGATIVE NEGATIVE Urine Cannabinoids Screen NEGATIVE NEGATIVE My Orders Orders - SONA STEVEN DO Ed Iv/Invasive Line Start (02/03/22 17:48) Ekg Tracing (02/03/22 17:48) Monitor-Rhythm Ecg Trace Only (02/03/22 17:48) Chest 1 View, Ap/Pa Only (02/03/22 17:48) Cbc With Automated Diff (02/03/22 17:48) Comprehensive Metabolic Panel (02/03/22 17:48) Drug Screen Stat (Urine) (02/03/22 17:48) Magnesium (02/03/22 17:48) Thyroid Analyzer (02/03/22 17:48) Troponin I Morrow (02/03/22 17:48) Hydralazine Injection (Apresoline Inject (02/03/22 18:00) Lisinopril Tablet (Zestril Tablet) (02/03/22 18:45) Lisinopril Tablet (Zestril Tablet) (02/03/22 18:45) Vital Signs/I&O 02/03/22 02/03/22 17:41 18:44 Pulse 90 86 Resp 14 16 B/P (MAP) 159/113 (128) 133/94 Pulse Ox 98 98 O2 Delivery Room Air Room Air Capillary Refill : Less Than 3 Seconds Blood Pressure Mean: 128 Point of Care Testing Finger Stick Blood Glucose: 94 Progress Note : Progress Note BP DOWN TO 130'S/90'S SHORTLY AFTER ARRIVAL, WITHOUT TREATMENT, SO HYDRALAZINE IV WAS HELD LATER RECEIVED A FAX FOR [facility]HE[facility] FROM [facility]--SEE SCANNED COPY OF THIS LIST PT HAS BEEN PRESCRIBED: -OMEPRAZOLE 40 MG 1 DAILY #60 WITH 2 REFILLS ON 11/06/21 -LISINOPRIL 10 MG 1 DAILY #45 WITH 0 REFILLS ON 11/23/21 -BUSPIRONE 15 MG 1 BID #180 WITH 2 REFILLS ON 11/23/21 -HYDROXYZINE 25 MG 1 TID WITH 0 REFILLS ON 01/26/22 GIVEN LISINOPRIL 10 MG HERE, AND 1 SENT HOME WITH PATIENT, PHARMACIES ARE CLOSED TOMORROW NO SYMPTOMS OF ANY KIND DURING ER STAY NO ARRYTHMIAS DURING ER STAY ECG Initial ECG Impression Date: Feb 03, 2022 Initial ECG Impression Time: 17:54 Initial ECG Rate: 92 Initial ECG Rhythm: Normal Sinus Initial ECG Impression: Normal Diagnostic Imaging Comments CXR--PER RADIOLOGIST REPORT AT 1814 FINDINGS: Lungs/pleura: There is interval improved aeration of both lungs. Lungs are now clear. There is no pneumothorax. There is no pleural effusion. Mediastinum: Unremarkable. Pulmonary vasculature: Unremarkable. Heart: Heart size is within normal limits for portable projection. Loop recorder is again seen overlying the left chest. Bones/extrathoracic soft tissue: There are degenerative spurs involving the thoracic spine. IMPRESSION: There is no radiographic evidence of acute cardiopulmonary process. Reviewed: Reviewed by Me Departure Impression Primary Impression: HTN (hypertension) Additional Impressions: Anxiety Non-compliance Disposition: HOME, SELF-CARE Condition: Stable Departure-Patient Inst. Decision time for Depature: 18:40 Referrals: [facility] (PCP/Family) Primary Care Physician Patient Instructions: High Blood Pressure ED, Anxiety, Adult ED, Why Taking Your Medicine or Drug as Ordered Is Important Add. Discharge Instructions: HOME, REST TAKE YOUR MEDICATIONS PRESCRIBED--DO NOT MISS ANY DOSES-AND MOUNTING INSPECTOR YOUR PRESCRIPTIONS ON FRIDAY FOLLOW UP WITH [facility] ON FRIDAY FOR FURTHER CARE All discharge instructions reviewed with patient and/or family. Voiced understanding. SONA STEVEN DO Feb 03, 2022 18:11
[2022-02-03 18:12] LABS: CARBON DIOXIDE 23 MMOL/L (21-32)
[2022-02-03 18:13] LABS: BILIRUBIN,TOTAL 0.4 MG/DL (0.1-1.0)
[2022-02-03 18:15] LABS: ALKALINE PHOSPHATASE 43 U/L (40-136); CREATININE SERUM 0.82 MG/DL (0.60-1.30); GFR ESTIMATED 106
[2022-02-03 18:16] LABS: BUN/CREATININE RATIO 13
[2022-02-03 18:18] LABS: ALANINE AMINOTRANSFERASE 15 U/L (0-55); MAGNESIUM 2.3 MG/DL (1.6-2.4)
[2022-02-03 18:33] LABS: AMPHETAMINE SCREEN, URINE NEGATIVE (NEGATIVE); BARBITURATE SCREEN URINE NEGATIVE (NEGATIVE); BENZODIAZEPINES SCREEN URINE NEGATIVE (NEGATIVE); CANNABINOID SCREEN, URINE NEGATIVE (NEGATIVE); COCAINE SCREEN URINE NEGATIVE (NEGATIVE); METHADONE STAT NEGATIVE (NEGATIVE); OPIATE SCREEN URINE NEGATIVE (NEGATIVE); OXYCODONE STAT NEGATIVE (NEGATIVE); PROPOXYPHENE STAT NEGATIVE (NEGATIVE); TRICYCLIC ANTIDEPRESSANTS SCRE NEGATIVE (NEGATIVE)
[2022-02-03 18:38] LABS: TSH (THYROID ANALYZER) 0.78 UIU/ML (0.35-4.94)
[2022-02-03 18:44] VITALS: BP 133/94
[2022-02-03] MEDS ORDERED: lisINopril 10 MG (PRINIVIL) TABLET PO ONE ×2 (18:45)
== END 2022-02-03 18:49 | disposition home or self-care (01) ==
LOC: EDUNIT# 17:18 → ER 17:20
DX: I10 Essential (primary) hypertension (principal); F41.9 Anxiety disorder, unspecified; F17.210 Nicotine dependence, cigarettes, uncomplicated; Z91.14 Patient's other noncompliance with medication regimen
CPT/HCPCS: 36415; 71045; 80053; 80306; 82947; 83735; 84443; 84484; 85025; 93005; 93041

== ENCOUNTER 2022-04-29 13:23 | Emergency (ER) | payer SELFPAY ==
[~2022-04-29] VITALS: Ht 173 cm; Wt 73.5 kg
--- NOTE | 2022-04-29 13:49 | ED Chest Pain ---
General Chief Complaint: Chest Pain Stated Complaint: CHEST AND NECK PAINS Nursing Triage Note: PT AMB TO ED BY POV WITH C/O CP AND NECK TIGHTNESS. PT REPORTS SUDDEN ONSET CP WHILE ON HIS LUNCH BREAK SHORTLY SPRING FITTER. DENIES ANY DIZZINESS, N/V, SOB, BAIRES OR ANY OTHER SX AT THIS TIME. NECK TIGHTNESS BEGAN WHEN THE CP BEGAN. Source: patient Exam Limitations: no limitations History of Present Illness Date Seen by Provider: Apr 29, 2022 Time Seen by Provider: 13:48 Initial Comments This is a 51-year-old male with a history of hypertension who presented to the ER with complaints of sudden onset of dyspnea, neck tightness. Allergies and Home Medications Allergies Coded Allergies: Penicillins (Unverified Adverse Reaction, Unknown, 06/23/18) Patient Home Medication List Atorvastatin Calcium (Atorvastatin Calcium) 10 Mg Tablet, 10 MG PO DAILY, (Reported) Entered as Reported by: APCO EWING on 08/12/20 1340 Buspirone HCl (Buspirone HCl) 15 Mg Tablet, 15 MG PO TID, (Reported) Entered as Reported by: LISA BROWNE on 03/18/19 2310 Cetirizine HCl (Cetirizine HCl) 10 Mg Tablet, 10 MG PO DAILY, (Reported) Entered as Reported by: PACO EWING on 08/12/20 1340 Citalopram Hydrobromide (Citalopram HBr) 20 Mg Tablet, 20 MG PO DAILY, (Reported) Entered as Reported by: PACO EWING on 08/12/20 1340 Hydroxyzine Pamoate (Hydroxyzine Pamoate) 25 Mg Capsule, 25 MG PO TID PRN for ANXIETY Prescribed by: PEYTON LEYVA on 09/16/20 1722 Lisinopril (Lisinopril) 10 Mg Tablet, 10 MG PO DAILY Prescribed by: DONTE OLIVER on 09/01/20 210 Metoprolol Succinate (Metoprolol Succinate) 25 Mg Tab.er.24h, 25 MG PO DAILY, (Reported) Entered as Reported by: PACO EWING on 08/12/20 1340 Omeprazole (Omeprazole) 20 Mg Capsule.dr, 20 MG PO BID Prescribed by: JACK IVY on 02/28/21 1559 Pantoprazole Sodium (Pantoprazole Sodium) 40 Mg Tablet., 40 MG PO DAILY, (Reported) Entered as Reported by: PACO EWING on 08/12/20 1340 Tramadol HCl (Ultram) 50 Mg Tablet, 50 MG PO Q6H PRN for PAIN-BREAKTHROUGH Prescribed by: JACK IVY on 02/28/21 1559 Tramadol HCl (Ultram) 50 Mg Tablet, 50 MG PO Q6H PRN for PAIN-MODERATE (5-7) Prescribed by: DONYA COOK on 07/10/21 1521 Past Wcfmcsu-Nlowhj-Pzppfm Hx Patient Social History Tobacco Use?: Yes Smokeless Tobacco Frequency: Current Everyday User Use of E-Cig and/or Vaping dev: No Substance use?: No Alcohol Use?: No Pt feels they are or have been: No Immunizations Up To Date Tetanus Booster (TDap): Unknown Influenza Vaccine Up-to-Date: Yes; Up-to-Date First/Initial COVID19 Vaccinat: UNSURE OF DATE Second COVID19 Vaccination Jacob: UNSURE OF DATE Third COVID19 Vaccination Date: UNSURE OF DATE Seasonal Allergies Seasonal Allergies: Yes Past Medical History Surgery/Hospitalization HX: pmh: htn, anxiety Surgeries: Yes (HERNIA, LOOP RECORDER PLACEMENT) Abdominal, Cardiac Respiratory: No Cardiac: Yes (LOOP RECORDER;CHRONIC CHEST PAIN ) High Cholesterol, Hypertension, Syncope Neurological: No Reproductive Disorders: No Genitourinary: Yes Kidney Stones Gastrointestinal: Yes Gastroesophageal Reflux, Hiatal Hernia Musculoskeletal: No Endocrine: No HEENT: No Cancer: No Psychosocial: Yes Anxiety, Depression Integumentary: No Blood Disorders: No Family Medical History No Pertinent Family Hx ADDITIONAL PMH: -PT HAD SINGLE EPISODE OF SYNCOPE 05/2020 AND HAD A LOOP RECORDER PLACED 05/08/[address] OJEDA--NO REPORTED ARRHYTYMIAS PER OLD RECORDS, OF 02/03/22 -CHRONIC CHEST PAIN COMPLAINTS, WORK UP'S NEGATIVE, INCLUDING STRESS TESTS. LAST STRESS TEST 07/28/[address] OJEDA: CONCLUSION: 1. Fair exercise tolerance for a total of 5 minutes on standard Vicente protocol, 7 METS achieving 95% of maximum expected heart rate. 2. Nondiagnostic EKG changes with exercise returned to baseline during recovery. 3. Mild hypertensive response to exercise with peak blood pressure 174/79 returned to baseline during recovery. 4. Diaphragmatic attenuation with no significant ischemia or infarction on SPECT images. 5. Normal left ventricular size with normal contractility. Calculated ejection fraction 68%. Physical Exam Vital Signs Vital Signs - First Documented 04/29/22 13:32 Temp 36.6 Pulse 106 Resp 12 B/P (MAP) 131/88 (102) Pulse Ox 98 O2 Delivery Room Air Capillary Refill : Less Than 3 Seconds Height, Weight, BMI Height: 5'10.00" Weight: 179lbs. 5.0oz. 81.423008oa; 24.00 BMI Method:Stated Progress/Results/Core Measures Results/Orders Lab Results Laboratory Tests Test 04/29/22 13:40 04/29/22 16:38 Range/Units White Blood Count 10.9 4.3-11.0 10^3/uL Red Blood Count 5.44 4.30-5.52 10^6/uL Hemoglobin 16.5 13.3-17.7 g/dL Hematocrit 48 40-54 % Mean Corpuscular Volume 88 80-99 fL Mean Corpuscular Hemoglobin 30 25-34 pg Mean Corpuscular Hemoglobin Concent 34 32-36 g/dL Red Cell Distribution Width 12.9 10.0-14.5 % Platelet Count 463 H 130-400 10^3/uL Mean Platelet Volume 10.6 9.0-12.2 fL Immature Granulocyte % (Auto) 0 % Neutrophils (%) (Auto) 81 H 42-75 % Lymphocytes (%) (Auto) 10 L 12-44 % Monocytes (%) (Auto) 6 0-12 % Eosinophils (%) (Auto) 1 0-10 % Basophils (%) (Auto) 1 0-10 % Neutrophils # (Auto) 8.9 H 1.8-7.8 10^3/uL Lymphocytes # (Auto) 1.1 1.0-4.0 10^3/uL Monocytes # (Auto) 0.7 0.0-1.0 10^3/uL Eosinophils # (Auto) 0.1 0.0-0.3 10^3/uL Basophils # (Auto) 0.1 0.0-0.1 10^3/uL Immature Granulocyte # (Auto) 0.0 0.0-0.1 10^3/uL Prothrombin Time 13.2 12.2-14.7 SEC INR Comment 1.0 0.8-1.4 Activated Partial Thromboplast Time 28 24-35 SEC D-Dimer 0.28 0.00-0.49 UG/ML Sodium Level 140 138 135-145 MMOL/L Potassium Level 4.2 4.1 3.6-5.0 MMOL/L Chloride Level 102 104 98-107 MMOL/L Carbon Dioxide Level 27 25 21-32 MMOL/L Anion Gap 11 9 5-14 MMOL/L Blood Urea Nitrogen 16 14 7-18 MG/DL Creatinine 0.85 0.78 0.60-1.30 MG/DL Estimat Glomerular Filtration Rate 105 107 BUN/Creatinine Ratio 19 18 Glucose Level 103 119 H 70-105 MG/DL Calcium Level 9.4 8.8 8.5-10.1 MG/DL Corrected Calcium 9.1 8.8 8.5-10.1 MG/DL Magnesium Level 2.1 2.1 1.6-2.4 MG/DL Total Bilirubin 0.5 0.5 0.1-1.0 MG/DL Aspartate Amino Transf (AST/SGOT) 14 16 5-34 U/L Alanine Aminotransferase (ALT/SGPT) 15 13 0-55 U/L Alkaline Phosphatase 35 L 32 L 40-136 U/L Total Creatine Kinase 101 80 30-200 U/L Creatine Kinase MB 1.9 1.5 <6.6 NG/ML Myoglobin 50.3 37.4 10.0-92.0 NG/ML Troponin I < 0.028 < 0.028 <0.028 NG/ML B-Type Natriuretic Peptide 11.7 <100.0 PG/ML Total Protein 7.1 6.4 6.4-8.2 GM/DL Albumin 4.4 4.0 3.2-4.5 GM/DL Amylase Level 41 39 25-125 U/L Lipase 11 12 8-78 U/L My Orders Orders - SHELL [employer] SUPERVISOR Cbc With Automated Diff (04/29/22 13:25) Magnesium (04/29/22 13:25) Chest 1 View, Ap/Pa Only (04/29/22 13:25) Ekg Tracing (04/29/22 13:25) Comprehensive Metabolic Panel (04/29/22 13:25) Myoglobin Serum (04/29/22 13:25) Protime With Inr (04/29/22 13:25) Partial Thromboplastin Time (04/29/22 13:25) O2 (04/29/22 13:25) Monitor-Rhythm Ecg Trace Only (04/29/22 13:25) Ed Iv/Invasive Line Start (04/29/22 13:25) Creatine Kinase (04/29/22 13:25) Creatine Kinase Mb (04/29/22 13:25) Lipase (04/29/22 13:25) Amylase (04/29/22 13:25) Bnp Faustino (04/29/22 13:25) Fibrin Degradation Products (04/29/22 13:25) Troponin I Faustino (04/29/22 13:25) Lidocaine 2% Viscous 15 Ml (Xylocaine Vi (04/29/22 15:00) Antacid Suspension (Mylanta Suspension (04/29/22 15:00) Troponin I Sutton (04/29/22 16:40) Magnesium (04/29/22 16:09) Comprehensive Metabolic Panel (04/29/22 16:09) Myoglobin Serum (04/29/22 16:09) Creatine Kinase (04/29/22 16:09) Creatine Kinase Mb (04/29/22 16:09) Lipase (04/29/22 16:09) Amylase (04/29/22 16:09) Morphine Injection (Morphine Injection (04/29/22 16:09) Aspirin Chewable Tablet (Baby Aspirin Ch (04/29/22 16:15) Medications Given in ED Current Medications Medications Dose Ordered Sig/Yobany Route Start Time Stop Time Status Last Admin Dose Admin Al Hydrox/Mg Hydrox/Simethicone 30 ml ONCE ONCE PO 04/29/22 15:00 04/29/22 15:01 DC 04/29/22 15:36 30 ML Aspirin 324 mg ONCE ONCE PO 04/29/22 16:15 04/29/22 16:16 DC 04/29/22 16:15 324 MG Lidocaine HCl 15 ml ONCE ONCE PO 04/29/22 15:00 04/29/22 15:01 DC 04/29/22 15:36 15 ML Vital Signs/I&O 04/29/22 13:32 Temp 36.6 Pulse 106 Resp 12 B/P (MAP) 131/88 (102) Pulse Ox 98 O2 Delivery Room Air Blood Pressure Mean: 102 Departure Impression Primary Impression: Chest pain Disposition: 01 HOME, SELF-CARE Condition: Improved Departure-Patient Inst. Decision time for Depature: 17:28 Referrals: [facility] (PCP/Family) Primary Care Physician Patient Instructions: Chest Pain (DC) Add. Discharge Instructions: Plan: 1. Rest, limit physical activity over the next couple days. 2. Have close follow-up with your primary care provider. 3. Return to the ER if you have any new, concerning, worsening symptoms. All discharge instructions reviewed with patient and/or family. Voiced understanding. SHELL GOM[employer] SUPERVISOR Apr 29, 2022 13:49
[2022-04-29 13:50] LABS: BASOPHILS # (AUTO) 0.1 10^3/uL (0.0-0.1); BASOPHILS % (AUTO) 1 % (0-10); EOSINOPHILS # (AUTO) 0.1 10^3/uL (0.0-0.3); EOSINOPHILS % (AUTO) 1 % (0-10); HEMATOCRIT 48 % (40-54); HEMOGLOBIN 16.5 g/dL (13.3-17.7); LYMPHOCYTES # (AUTO) 1.1 10^3/uL (1.0-4.0); LYMPHOCYTES % (AUTO) 10 % (12-44); MEAN CORPUSCULAR HEMOGLOBIN 30 pg (25-34); MEAN CORPUSCULAR HGB CONC 34 g/dL (32-36); MEAN CORPUSCULAR VOLUME 88 fL (80-99); MEAN PLATELET VOLUME 10.6 fL (9.0-12.2); MONOCYTES # (AUTO) 0.7 10^3/uL (0.0-1.0); MONOCYTES % (AUTO) 6 % (0-12); NEUTROPHILS # (AUTO) 8.9 10^3/uL (1.8-7.8); NEUTROPHILS % (AUTO) 81 % (42-75); PLATELET COUNT 463 10^3/uL (130-400); WHITE BLOOD COUNT 10.9 10^3/uL (4.3-11.0)
--- NOTE | 2022-04-29 14:11 | Diagnostic Imaging Report ---
INDICATION: Chest pain. COMPARISON: Exam compared to 02/03/2022. FINDINGS: Lungs are clear. No failure, effusion, or pneumothorax. IMPRESSION: No acute-appearing abnormality. Dictated by: Dictated on workstation # [id number]
[2022-04-29 14:16] LABS: ALBUMIN 4.4 GM/DL (3.2-4.5); BILIRUBIN,TOTAL 0.5 MG/DL (0.1-1.0); CALCIUM 9.4 MG/DL (8.5-10.1); CREATININE SERUM 0.85 MG/DL (0.60-1.30); MAGNESIUM 2.1 MG/DL (1.6-2.4); POTASSIUM 4.2 MMOL/L (3.6-5.0); TOTAL PROTEIN 7.1 GM/DL (6.4-8.2)
[2022-04-29 14:22] LABS: CREATINE KINASE MB 1.9 NG/ML (<6.6)
[2022-04-29 14:35] LABS: PROTHROMBIN TIME PATIENT 13.2 SEC (12.2-14.7)
[2022-04-29] MEDS ORDERED: LIDOCAINE 2% VISCOUS 15 ML UDC PO ONE (15:00)
[2022-04-29] MEDS ORDERED: ANTACID SUSP 30 ML UDC (MYLANTA) PO ONE (15:00)
[2022-04-29] MEDS ORDERED: morphine INJ 10 MG/ML 1ML (SYR OR VIAL) IVP STA (16:09)
[2022-04-29] MEDS ORDERED: ASPIRIN 81 MG CHEW (CHILDREN'S ASA) PO ONE (16:15)
[2022-04-29 17:09] LABS: BILIRUBIN,TOTAL 0.5 MG/DL (0.1-1.0); CALCIUM 8.8 MG/DL (8.5-10.1); CREATININE SERUM 0.78 MG/DL (0.60-1.30); MAGNESIUM 2.1 MG/DL (1.6-2.4); POTASSIUM 4.1 MMOL/L (3.6-5.0); TOTAL PROTEIN 6.4 GM/DL (6.4-8.2)
[2022-04-29 17:15] LABS: CREATINE KINASE MB 1.5 NG/ML (<6.6)
[2022-04-29] MEDS ORDERED: NITROGLYCERIN 0.4 MG SL TABS BTL 25'S SL PRN (17:45)
[2022-04-29 18:30] VITALS: BP 112/74
== END 2022-04-29 18:30 | disposition home or self-care (01) ==
LOC: EDUNIT# 13:23 → ER 13:25
DX: R07.9 Chest pain, unspecified (principal); M54.2 Cervicalgia; F17.220 Nicotine dependence, chewing tobacco, uncomplicated; Z28.311 Partially vaccinated for COVID-19
CPT/HCPCS: 36415; 71045; 80053; 82150; 82550; 82553; 83690; 83735; 83874; 83880; 84484; 85025; 85379; 85610; 85730; 93005; 93041

== ENCOUNTER 2022-07-26 23:40 | Emergency (ER) | payer SELFPAY ==
[~2022-07-26] VITALS: Ht 173 cm; Wt 73.5 kg
[2022-07-26 23:46] VITALS: BP 128/76
--- NOTE | 2022-07-26 23:53 | ED General ---
General Chief Complaint: General Problems/Pain Stated Complaint: HANDS SHAKING Source of Information: Patient Exam Limitations: No Limitations History of Present Illness Date Seen by Provider: Jul 26, 2022 Time Seen by Provider: 23:53 Initial Comments Patient is a 51-year-old male who presents to the emergency room with a chief complaint of "my hands are shaking". Patient states he was sitting in his car and noticed a couple of hours prior to arrival that his hands were shaking. He denies any associated symptoms of headache, vision change, URI symptoms. No chest pain, shortness of breath cough. No abdominal pain, nausea vomiting or diarrhea. No swelling in his legs. No recent traumas or major stressors. Patient states that he used to take medication for anxiety, BuSpar but "they took it off the market". He states that he saw his mental health provider a week ago. They did not make any changes or additions to his meds. He states that he did have a beer a couple of hours prior to coming to the emergency room. He was concerned because his hands would not stop shaking. Timing/Duration: 1-3 Hours Severity: Mild Associated Systoms: Denies Symptoms Allergies and Home Medications Allergies Coded Allergies: Penicillins (Unverified Adverse Reaction, Unknown, 06/23/18) Patient Home Medication List Home Medication List Reviewed: Yes Atorvastatin Calcium (Atorvastatin Calcium) 10 Mg Tablet, 10 MG PO DAILY, (Rep orted) Entered as Reported by: PACO EWING on 08/12/20 1340 Buspirone HCl (Buspirone HCl) 15 Mg Tablet, 15 MG PO TID, (Reported) Entered as Reported by: LISA BROWNE on 03/18/19 2310 Cetirizine HCl (Cetirizine HCl) 10 Mg Tablet, 10 MG PO DAILY, (Reported) Entered as Reported by: PACO EWING on 08/12/20 1340 Citalopram Hydrobromide (Citalopram HBr) 20 Mg Tablet, 20 MG PO DAILY, (Reported) Entered as Reported by: PACO EWING on 08/12/20 1340 Hydroxyzine Pamoate (Hydroxyzine Pamoate) 25 Mg Capsule, 25 MG PO TID PRN for ANXIETY Prescribed by: PEYTON LEYVA on 09/16/20 172 Lisinopril (Lisinopril) 10 Mg Tablet, 10 MG PO DAILY Prescribed by: DONTE OLIVER on 09/01/202102 Metoprolol Succinate (Metoprolol Succinate) 25 Mg Tab.er.24h, 25 MG PO DAILY, (Reported) Entered as Reported by: PACO EWING on 08/12/20 1340 Omeprazole (Omeprazole) 20 Mg Capsule.dr, 20 MG PO BID Prescribed by: JACK IVY on 02/28/21 155 Pantoprazole Sodium (Pantoprazole Sodium) 40 Mg Tablet.dr, 40 MG PO DAILY, (Reported) Entered as Reported by: PACO EWING on 08/12/20 1340 Tramadol HCl (Ultram) 50 Mg Tablet, 50 MG PO Q6H PRN for PAIN-BREAKTHROUGH Prescribed by: JACK IVY on 02/28/21 155 Tramadol HCl (Ultram) 50 Mg Tablet, 50 MG PO Q6H PRN for PAIN-MODERATE (5-7) Prescribed by: DONYA COOK on 07/10/21 1521 Review of Systems Review of Systems Constitutional: see HPI EENTM: no symptoms reported Respiratory: no symptoms reported Cardiovascular: no symptoms reported Gastrointestinal: no symptoms reported Genitourinary: no symptoms reported Musculoskeletal: no symptoms reported Skin: no symptoms reported Psychiatric/Neurological: Tremors Hematologic/Lymphatic: No Symptoms Reported All Other Systems Reviewed Negative Unless Noted: Yes Past Rqkvnzp-Ixkpum-Slwrlk Hx Immunizations Up To Date Tetanus Booster (TDap): Unknown First/Initial COVID19 Vaccinat: UNSURE OF DATE Second COVID19 Vaccination Jacob: UNSURE OF DATE Third COVID19 Vaccination Date: UNSURE OF DATE Seasonal Allergies Seasonal Allergies: Yes Past Medical History Surgery/Hospitalization HX: pmh: htn, anxiety Surgeries: Yes (HERNIA, LOOP RECORDER PLACEMENT) Abdominal, Cardiac Respiratory: No Cardiac: Yes (LOOP RECORDER;CHRONIC CHEST PAIN ) High Cholesterol, Hypertension, Syncope Neurological: No Reproductive Disorders: No Genitourinary: Yes Kidney Stones Gastrointestinal: Yes Gastroesophageal Reflux, Hiatal Hernia Musculoskeletal: No Endocrine: No HEENT: No Cancer: No Psychosocial: Yes Anxiety, Depression Integumentary: No Blood Disorders: No Family Medical History No Pertinent Family Hx ADDITIONAL PMH: -PT HAD SINGLE EPISODE OF SYNCOPE 05/2020 AND HAD A LOOP RECORDER PLACED 05/08/[address] OJEDA--NO REPORTED ARRHYTYMIAS PER OLD RECORDS, OF 02/03/22 -CHRONIC CHEST PAIN COMPLAINTS, WORK UP'S NEGATIVE, INCLUDING STRESS TESTS. LAST STRESS TEST 07/28/[address] OJEDA: CONCLUSION: 1. Fair exercise tolerance for a total of 5 minutes on standard Vicente protocol, 7 METS achieving 95% of maximum expected heart rate. 2. Nondiagnostic EKG changes with exercise returned to baseline during recovery. 3. Mild hypertensive response to exercise with peak blood pressure 174/79 returned to baseline during recovery. 4. Diaphragmatic attenuation with no significant ischemia or infarction on SPECT images. 5. Normal left ventricular size with normal contractility. Calculated ejection fraction 68%. Physical Exam Vital Signs Vital Signs - First Documented 07/26/22 23:46 Temp 36.6 Pulse 100 Resp 16 B/P (MAP) 128/76 (93) Pulse Ox 95 O2 Delivery Room Air Capillary Refill : Height, Weight, BMI Height: 5'10.00" Weight: 179lbs. 5.0oz. [id number]; 24.00 BMI Method:Stated General Appearance: No Apparent Distress, WD/WN Eyes: Bilateral Eye Normal Inspection, Bilateral Eye PERRL, Bilateral Eye EOMI HEENT: PERRL/EOMI Neck: Normal Inspection Respiratory: Lungs Clear, Normal Breath Sounds, No Accessory Muscle Use, No Respiratory Distress Cardiovascular: Regular Rate, Rhythm, Normal Peripheral Pulses Extremity: Normal Capillary Refill, Normal Inspection, Normal Range of Motion, Non Tender, No Calf Tenderness Neurologic/Psychiatric: Alert, Oriented x3, No Motor/Sensory Deficits, Normal Mood/Affect, Other (no pronator drift - patient demonstrates no tremor when drift is tested.) Skin: Normal Color, Warm/Dry Progress/Results/Core Measures Suspected Sepsis SIRS Temperature: Pulse: Respiratory Rate: Blood Pressure / Mean: Results/Orders My Orders Orders - DONTE OLIVER MD Hydroxyzine Cap/Tab (Vistaril) (07/27/22 00:00) Medications Given in ED Current Medications Medications Dose Ordered Sig/Yobany Route Start Time Stop Time Status Last Admin Dose Admin Hydroxyzine Pamoate 25 mg ONCE ONCE PO 07/27/22 00:00 07/27/22 00:01 DC 07/27/22 00:05 25 MG Vital Signs/I&O 07/26/22 23:46 Temp 36.6 Pulse 100 Resp 16 B/P (MAP) 128/76 (93) Pulse Ox 95 O2 Delivery Room Air Capillary Refill : Progress Note : Time: 00:00 Progress Note Patient seen and evaluated, 51-year-old with "hand shaking". Evaluation today includes a physical exam. Patient's exam is unremarkable for any acute neurologic deficits. With intention he has no tremor. With pronator drift testing he has no tremor. When he holds his left hand up in the air it seems to shake just at the hand not in the arm. His vital signs are stable. He is awake alert, oriented. No other pertinent findings on physical exam. Differential diagnosis based on history and physical, acute anxiety Parkinson's withdrawal. Consideration for laboratory studies, imaging however history and physical do not support the need. Patient was offered Vistaril for anxiety which she accepted. Recommended he follow up with his mental health provider as well as his primary care. No clinical or objective findings in the emergency department at this point to warrant further emergency care. Patient is discharged home Departure Impression Primary Impression: Tremor Additional Impression: History of anxiety disorder Disposition: 01 HOME, SELF-CARE Condition: Stable Departure-Patient Inst. Decision time for Depature: 00:00 Referrals: [facility] (PCP/Family) Primary Care Physician Patient Instructions: Tremor Add. Discharge Instructions: Please continue your routine daily medications. Discuss with your mental health provider at [facility] starting a new anxiety medication. If you have any other concerns please follow up with [facility] or return to the Emergency Department for any new, emergent complaints, Copy Copies To 1: BAUTISTA DARLING KATHRYN M MD Jul 26, 2022 23:53
[2022-07-27] MEDS ORDERED: hydrOXYzine (VISTARIL/ATARAX) 25 MG capsule/tablet PO ONE
== END 2022-07-27 00:07 | disposition home or self-care (01) ==
LOC: EDUNIT# 23:40 → ER 23:42
DX: R25.1 Tremor, unspecified (principal); Z86.59 Personal history of other mental and behavioral disorders
CPT/HCPCS: 99283

== ENCOUNTER 2022-11-19 02:27 | Emergency (ER) | payer OTHER ==
[~2022-11-19] VITALS: Ht 172.7 cm; Wt 69.0 kg
[2022-11-19 02:41] VITALS: BP 148/88
[2022-11-19] MEDS ORDERED: DIAZ5TAB PO (02:51)
--- NOTE | 2022-11-19 02:52 | ED General ---
General Stated Complaint: BLOOD PRESSURE 139/91,PT STATES THIS IS HIGH Source of Information: Patient Exam Limitations: No Limitations History of Present Illness Date Seen by Provider: Nov 19, 2022 Time Seen by Provider: 02:41 Initial Comments 51-year-old male presents to the emergency department today for elevated blood pressure. He states his blood pressure was 139/91 at home. He is concerned because he was slightly dizzy. He describes a room spinning sensation. Similar symptoms couple weeks ago was seen at the [facility] and had labs and other testing which were negative. He did not have any further treatment. He had recurrence of his symptoms when he woke up this morning. Symptoms are worse when he closes his eyes and will continue to open skin. No nausea or vomiting. No blurred or double vision. No dysarthria upper or lower extremity weakness numbness or tingling. He does take lisinopril for blood pressure. All other systems reviewed and negative except documented per HPI. Voice recognition software was used to help create this chart Allergies and Home Medications Allergies Coded Allergies: Penicillins (Unverified Adverse Reaction, Unknown, 06/23/18) Patient Home Medication List Home Medication List Reviewed: Yes Atorvastatin Calcium (Atorvastatin Calcium) 10 Mg Tablet, 10 MG PO DAILY, (Reported) Entered as Reported by: PACO EWING on 08/12/20 1340 Buspirone HCl (Buspirone HCl) 15 Mg Tablet, 15 MG PO TID, (Reported) Entered as Reported by: LISA BROWNE on 03/18/19 2310 Cetirizine HCl (Cetirizine HCl) 10 Mg Tablet, 10 MG PO DAILY, (Reported) Entered as Reported by: PACO EWING on 08/12/20 1340 Citalopram Hydrobromide (Citalopram HBr) 20 Mg Tablet, 20 MG PO DAILY, (Reported) Entered as Reported by: PACO EWING on 08/12/20 1340 Diazepam (Valium) 5 Mg Tablet, 5 MG PO Q6H Prescribed by: MARIAN AYOUB MD on 11/19/22 0252 Hydroxyzine Pamoate (Hydroxyzine Pamoate) 25 Mg Capsule, 25 MG PO TID PRN for ANXIETY Prescribed by: PEYTON LEYVA on 09/16/20 1722 Lisinopril (Lisinopril) 10 Mg Tablet, 10 MG PO DAILY Prescribed by: DONTE OLIVER on 09/01/20 210 Metoprolol Succinate (Metoprolol Succinate) 25 Mg Tab.er.24h, 25 MG PO DAILY, (Reported) Entered as Reported by: PACO EWING on 08/12/20 1340 Omeprazole (Omeprazole) 20 Mg Capsule.dr, 20 MG PO BID Prescribed by: JACK IVY on 02/28/21 1559 Pantoprazole Sodium (Pantoprazole Sodium) 40 Mg Tablet.dr, 40 MG PO DAILY, (Reported) Entered as Reported by: PACO EWING on 08/12/20 1340 Tramadol HCl (Ultram) 50 Mg Tablet, 50 MG PO Q6H PRN for PAIN-BREAKTHROUGH Prescribed by: JACK IVY on 02/28/21 1559 Tramadol HCl (Ultram) 50 Mg Tablet, 50 MG PO Q6H PRN for PAIN-MODERATE (5-7) Prescribed by: DONYA COOK on 07/10/21 1521 Review of Systems Review of Systems Constitutional: see HPI Past Stzpfuy-Vqsivo-Ccgshi Hx Patient Social History Tobacco Use?: No Use of E-Cig and/or Vaping dev: No Substance use?: No Alcohol Use?: No Immunizations Up To Date Tetanus Booster (TDap): Unknown First/Initial COVID19 Vaccinat: x1 Second COVID19 Vaccination Jacob: UNSURE OF DATE Third COVID19 Vaccination Date: UNSURE OF DATE Seasonal Allergies Seasonal Allergies: Yes Past Medical History Surgery/Hospitalization HX: htn, chronic chest pain, hld, gerd, syncope, anxiety, depression, hernia repair, loop recorder Surgeries: Yes (HERNIA, LOOP RECORDER PLACEMENT) Abdominal, Cardiac Respiratory: No Cardiac: Yes (LOOP RECORDER;CHRONIC CHEST PAIN ) High Cholesterol, Hypertension, Syncope Neurological: No Reproductive Disorders: No Genitourinary: Yes Kidney Stones Gastrointestinal: Yes Gastroesophageal Reflux, Hiatal Hernia Musculoskeletal: No Endocrine: No HEENT: No Cancer: No Psychosocial: Yes Anxiety, Depression Integumentary: No Blood Disorders: No Family Medical History No Pertinent Family Hx ADDITIONAL PMH: -PT HAD SINGLE EPISODE OF SYNCOPE 05/2020 AND HAD A LOOP RECORDER PLACED 05/08/[address] OJEDA--NO REPORTED ARRHYTYMIAS PER OLD RECORDS, OF 02/03/22 -CHRONIC CHEST PAIN COMPLAINTS, WORK UP'S NEGATIVE, INCLUDING STRESS TESTS. LAST STRESS TEST 07/28/[address] OJEDA: CONCLUSION: 1. Fair exercise tolerance for a total of 5 minutes on standard Vicente protocol, 7 METS achieving 95% of maximum expected heart rate. 2. Nondiagnostic EKG changes with exercise returned to baseline during recovery. 3. Mild hypertensive response to exercise with peak blood pressure 174/79 returned to baseline during recovery. 4. Diaphragmatic attenuation with no significant ischemia or infarction on SPECT images. 5. Normal left ventricular size with normal contractility. Calculated ejection fraction 68%. Physical Exam Vital Signs Vital Signs - First Documented 11/19/22 02:41 Temp 36.8 Pulse 84 Resp 18 B/P (MAP) 148/88 (108) Pulse Ox 96 O2 Delivery Room Air Capillary Refill : Height, Weight, BMI Height: 5'10.00" Weight: 179lbs. 5.0oz. 81.461860aj; 24.00 BMI Method:Stated General Appearance: No Apparent Distress, WD/WN Eyes: Bilateral Eye Normal Inspection, Bilateral Eye PERRL, Bilateral Eye EOMI, Bilateral Eye Other (Fatigable nystagmus to the right) HEENT: PERRL/EOMI, TMs Normal, Normal ENT Inspection, Pharynx Normal Neck: Full Range of Motion, Normal Inspection, Non Tender, Supple Respiratory: Chest Non Tender, Lungs Clear, Normal Breath Sounds, No Accessory Muscle Use, No Respiratory Distress Cardiovascular: Regular Rate, Rhythm, No Edema, No Gallop, No JVD, No Murmur, Normal Peripheral Pulses Gastrointestinal: Normal Bowel Sounds, No Organomegaly, Non Tender, Soft Back: Normal Inspection, No Vertebral Tenderness Extremity: Normal Capillary Refill, Normal Inspection, Normal Range of Motion, Non Tender, No Calf Tenderness Neurologic/Psychiatric: Alert, Oriented x3, No Motor/Sensory Deficits, Normal 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 Has what appears to be peripheral vertigo on exam. No evidence for central cause. Labs obtained and are unremarkable. No indication for imaging at this time. We discharged home with p.o. Valium valles pportive care and close follow-up. Impression Primary Impression: Peripheral vertigo Qualified Codes: H81.391 - Other peripheral vertigo, right ear Disposition: HOME, SELF-CARE Condition: Stable Departure-Patient Inst. Referrals: [facility] [place] Primary Care Physician Patient Instructions: Vertigo ED Add. Discharge Instructions: Take Valium as prescribed as needed. This may make you drowsy so do not drive or make important decisions while taking it. Should your symptoms persist follow-up with primary doctor. Return to the emergency department for any severe concerns Scripts Diazepam (Valium) 5 Mg Tablet 5 MG PO Q6H for Dizziness for 5 Days, #20 TAB Prov: MARIAN AYOUB DO 11/19/22 Work/School Note: Work Release Form Date Seen in the Emergency Department: Nov 19, 2022 Return to Work: Nov 21, 2022 Restrictions: No Restrictions MARIAN AYOUB DO Nov 19, 2022 02:52
[2022-11-19] MEDS ORDERED: RX-DIAZEPAM 5 MG (VALIUM) TAB PPK#4 PO ONE (03:00)
== END 2022-11-19 03:01 | disposition home or self-care (01) ==
LOC: EDUNIT# 02:27 → ER 02:32
DX: H81.391 Other peripheral vertigo, right ear (principal); I10 Essential (primary) hypertension; Z79.899 Other long term (current) drug therapy
CPT/HCPCS: 99283

== ENCOUNTER 2023-01-22 16:23 | Emergency (ER) | payer SELFPAY ==
[~2023-01-22 16:23] MED LIST changes: +DIAZ5TAB PO
[2023-01-22 17:30] LABS: BASOPHILS # (AUTO) 0.1 10^3/uL (0.0-0.1); BASOPHILS % (AUTO) 1 % (0-10); EOSINOPHILS % (AUTO) 0 % (0-10); HEMATOCRIT 44 % (40-54); HEMOGLOBIN 15.1 g/dL (13.3-17.7); LYMPHOCYTES # (AUTO) 0.8 10^3/uL (1.0-4.0); LYMPHOCYTES % (AUTO) 5 % (12-44); MEAN CORPUSCULAR HEMOGLOBIN 30 pg (25-34); MEAN CORPUSCULAR HGB CONC 34 g/dL (32-36); MEAN CORPUSCULAR VOLUME 88 fL (80-99); MEAN PLATELET VOLUME 10.7 fL (9.0-12.2); MONOCYTES # (AUTO) 1.1 10^3/uL (0.0-1.0); MONOCYTES % (AUTO) 7 % (0-12); NEUTROPHILS # (AUTO) 14.1 10^3/uL (1.8-7.8); NEUTROPHILS % (AUTO) 87 % (42-75); PLATELET COUNT 490 10^3/uL (130-400); WHITE BLOOD COUNT 16.1 10^3/uL (4.3-11.0)
[2023-01-22] MEDS ORDERED: NS IV 1000 ML 1,000 ML IV ONE (17:30)
--- NOTE | 2023-01-22 17:36 | Diagnostic Imaging Report ---
INDICATION: Chest pain, passing out. COMPARISON: 04/21/2022. TECHNIQUE: Single radiograph of the chest dated 01/22/2023. FINDINGS: Loop recorder is again identified overlying the left chest. The cardiac silhouette is within normal limits in size. No significant pulmonary vascular congestion. The lungs are clear of focal pulmonary opacity. No pleural effusion. No pneumothorax. No acute osseous abnormality. IMPRESSION: Stable-appearing examination without acute cardiopulmonary abnormality. Dictated by: Dictated on workstation # [id number]
[2023-01-22 17:38] LABS: ALBUMIN 4.4 GM/DL (3.2-4.5)
[2023-01-22 17:39] LABS: CHLORIDE 105 MMOL/L (98-107); SODIUM 141 MMOL/L (135-145)
[2023-01-22 17:40] LABS: CALCIUM 9.4 MG/DL (8.5-10.1); INR 1.1 (0.8-1.4); PROTHROMBIN TIME PATIENT 13.9 SEC (12.2-14.7)
[2023-01-22 17:41] LABS: GLUCOSE 96 MG/DL (70-105); TOTAL PROTEIN 6.5 GM/DL (6.4-8.2)
[2023-01-22 17:42] LABS: CARBON DIOXIDE 23 MMOL/L (21-32)
[2023-01-22 17:43] LABS: BILIRUBIN,TOTAL 0.6 MG/DL (0.1-1.0)
[2023-01-22 17:44] LABS: ALKALINE PHOSPHATASE 36 U/L (40-136)
[2023-01-22 17:45] LABS: GFR ESTIMATED 55
[2023-01-22 17:46] LABS: BUN/CREATININE RATIO 13
[2023-01-22 17:47] LABS: ALANINE AMINOTRANSFERASE 16 U/L (0-55); BAND NEUTROPHILS 0 %; BASOPHILS % (MANUAL) 0 %; EOSINOPHILS % (MANUAL) 0 %; LYMPHOCYTES % (MANUAL) 7 %; MONOCYTES % (MANUAL) 8 %; NEUTROPHILS % (MANUAL) 85 %; RBC MORPH NORMAL
[2023-01-22 17:48] LABS: MAGNESIUM 2.3 MG/DL (1.6-2.4)
[2023-01-22 17:49] LABS: LIPASE 5 U/L (8-78)
--- NOTE | 2023-01-22 17:49 | Diagnostic Imaging Report ---
PROCEDURE: CT head without contrast. TECHNIQUE: Multiple contiguous axial images were obtained through the brain without the use of intravenous contrast. Auto Exposure Controls were utilized during the CT exam to meet ALARA standards for radiation dose reduction. INDICATION: Syncope COMPARISON: None. FINDINGS: No acute intracranial hemorrhage. The mathis-white matter differentiation is preserved. The ventricles and cortical sulci are normal. No midline shift or mass effect. No intracranial mass or fluid collection. The subarachnoid cisterns are normal. The skull is intact. Paranasal sinuses and mastoids are clear. IMPRESSION: No acute intracranial hemorrhage. No large vascular territory shaw-white loss. No intracranial mass, midline shift, or hydrocephalus. Dictated by: Dictated on workstation # [id number]
--- NOTE | 2023-01-22 17:59 | ED General ---
General Chief Complaint: Neurological Problems Stated Complaint: PASSED OUT AT WORK Nursing Triage Note: PT AMB TO RM 4 WITH C/O "PASSING OUT" AT WORK AT APPROX 1200. PT STATES IT WAS WITTNESSED BY A CO-WORKER. 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 PT UNK IF HIT HEAD. PT A&OX4 Source of Information: Patient Exam Limitations: No Limitations History of Present Illness Date Seen by Provider: Jan 22, 2023 Time Seen by Provider: 17:57 Initial Comments Patient is a 52-year-old male who presents the ED for a syncopal episode. Patient was cleaning trash outside. Patient states around 12:00 bent over to product picker trash and fell to the ground. He believes he was out for around 5 minutes according to his coworker. Patient states he felt hot and was sweating. Woke up feeling dizzy lightheaded. Patient states symptoms appear to be improving. Had similar episode while outside on Friday. Denied if any chest pain or shortness of breath before the episode. Denies of any head pain. States he feels tired at this time with mild weakness. Feels over heated. Patient denies of any cough, runny nose, sore throat, headache, visual changes, unilateral muscle weakness or sensory changes, urinary symptoms. Denies history of syncope in the past. No history of coronary artery disease. Allergies and Home Medications Allergies Coded Allergies: Penicillins (Unverified Adverse Reaction, Unknown, 06/23/18) Patient Home Medication List Home Medication List Reviewed: Yes Atorvastatin Calcium (Atorvastatin Calcium) 10 Mg Tablet, 10 MG PO DAILY, (Reported) Entered as Reported by: PACO EWING on 08/12/20 1340 Buspirone HCl (Buspirone HCl) 15 Mg Tablet, 15 MG PO TID, (Reported) Entered as Reported by: LISA BROWNE on 03/18/19 2310 Cetirizine HCl (Cetirizine HCl) 10 Mg Tablet, 10 MG PO DAILY, (Reported) Entered as Reported by: PACO EWING on 08/12/20 1340 Citalopram Hydrobromide (Citalopram HBr) 20 Mg Tablet, 20 MG PO DAILY, (Reported) Entered as Reported by: PACO EWING on 08/12/20 1340 Diazepam (Valium) 5 Mg Tablet, 5 MG PO Q6H Prescribed by: MARIAN AYOUB MD on 11/19/22 0252 Hydroxyzine Pamoate (Hydroxyzine Pamoate) 25 Mg Capsule, 25 MG PO TID PRN for ANXIETY Prescribed by: PEYTON LEYVA on 09/16/20 1722 Lisinopril (Lisinopril) 10 Mg Tablet, 10 MG PO DAILY Prescribed by: DONTE OLIVER on 09/01/20 210 Metoprolol Succinate (Metoprolol Succinate) 25 Mg Tab.er.24h, 25 MG PO DAILY, (Reported) Entered as Reported by: PACO EWING on 08/12/20 1340 Omeprazole (Omeprazole) 20 Mg Capsule.dr, 20 MG PO BID Prescribed by: JACK IVY on 02/28/21 1559 Pantoprazole Sodium (Pantoprazole Sodium) 40 Mg Tablet.dr, 40 MG PO DAILY, (Reported) Entered as Reported by: PACO EWING on 08/12/20 1340 Tramadol HCl (Ultram) 50 Mg Tablet, 50 MG PO Q6H PRN for PAIN-BREAKTHROUGH Prescribed by: JACK IVY on 02/28/21 1559 Tramadol HCl (Ultram) 50 Mg Tablet, 50 MG PO Q6H PRN for PAIN-MODERATE (5-7) Prescribed by: DONYA COOK on 07/10/21 1521 Review of Systems Review of Systems Constitutional: No chills, No diaphoresis EENTM: No ear pain, No blurred vision, No double vision Respiratory: No cough, No dyspnea on exertion Cardiovascular: No chest pain Gastrointestinal: No abdominal pain, No diarrhea, No nausea Genitourinary: No decreased output, No discharge Musculoskeletal: No back pain, No joint pain Skin: No change in color All Other Systems Reviewed Negative Unless Noted: Yes Past Wzhddec-Odxjeu-Onpsni Hx Patient Social History Tobacco Use?: No Substance use?: No Alcohol Use?: No Pt feels they are or have been: No Immunizations Up To Date Tetanus Booster (TDap): Unknown First/Initial COVID19 Vaccinat: x1 Second COVID19 Vaccination Jacob: x1 Third COVID19 Vaccination Date: x1 Seasonal Allergies Seasonal Allergies: Yes Past Medical History Surgery/Hospitalization HX: htn, chronic chest pain, hld, gerd, syncope, anxiety, depression, hernia repair, loop recorder Surgeries: Yes (HERNIA, LOOP RECORDER PLACEMENT) Abdominal, Cardiac Respiratory: No Cardiac: Yes (LOOP RECORDER;CHRONIC CHEST PAIN ) High Cholesterol, Hypertension, Syncope Neurological: No Reproductive Disorders: No Genitourinary: Yes Kidney Stones Gastrointestinal: Yes Gastroesophageal Reflux, Hiatal Hernia Musculoskeletal: No Endocrine: No HEENT: No Cancer: No Psychosocial: Yes Anxiety, Depression Integumentary: No Blood Disorders: No Family Medical History No Pertinent Family Hx ADDITIONAL PMH: -PT HAD SINGLE EPISODE OF SYNCOPE 05/2020 AND HAD A LOOP RECORDER PLACED 05/08/[address] OJEDA--NO REPORTED ARRHYTYMIAS PER OLD RECORDS, OF 02/03/22 -CHRONIC CHEST PAIN COMPLAINTS, WORK UP'S NEGATIVE, INCLUDING STRESS TESTS. LAST STRESS TEST 07/28/[address] OJEDA: CONCLUSION: 1. Fair exercise tolerance for a total of 5 minutes on standard Vicente protocol, 7 METS achieving 95% of maximum expected heart rate. 2. Nondiagnostic EKG changes with exercise returned to baseline during recovery. 3. Mild hypertensive response to exercise with peak blood pressure 174/79 returned to baseline during recovery. 4. Diaphragmatic attenuation with no significant ischemia or infarction on SPECT images. 5. Normal left ventricular size with normal contractility. Calculated ejection fraction 68%. Physical Exam Vital Signs Vital Signs - First Documented 01/22/23 17:00 Temp 36.7 Pulse 92 Resp 16 B/P (MAP) 117/76 (90) Pulse Ox 97 O2 Delivery Room Air Capillary Refill : Less Than 3 Seconds Height, Weight, BMI Height: 5'10.00" Weight: 179lbs. 5.0oz. [id number]; 23.00 BMI Method:Stated General Appearance: No Apparent Distress, WD/WN Eyes: Bilateral Eye Normal Inspection, Bilateral Eye PERRL, Bilateral Eye EOMI HEENT: PERRL/EOMI, TMs Normal, Normal ENT Inspection, Pharynx Normal Neck: Full Range of Motion, Normal Inspection, Non Tender, Supple Respiratory: Chest Non Tender, Lungs Clear, Normal Breath Sounds, No Accessory Muscle Use, No Respiratory Distress Cardiovascular: Regular Rate, Rhythm, No Edema, No Gallop, No JVD Gastrointestinal: Normal Bowel Sounds, No Organomegaly, No Pulsatile Mass Back: Normal Inspection, No CVA Tenderness Extremity: Normal Capillary Refill, Normal Inspection, Normal Range of Motion, Non Tender Neurologic/Psychiatric: Alert, Oriented x3, No Motor/Sensory Deficits, Normal Mood/Affect, stitch burnisher II-XII Norm as Tested Skin: Normal Color Progress/Results/Core Measures Suspected Sepsis SIRS Temperature: Pulse: 92 Respiratory Rate: 16 Laboratory Tests 01/22/23 17:07: White Blood Count 16.1H Blood Pressure 117 /76 Mean: 90 Laboratory Tests 01/22/23 17:07: Creatinine 1.50H, INR Comment 1.1, Platelet Count 490H, Total Bilirubin 0.6 Results/Orders Lab Results Laboratory Tests Test 01/22/23 17:07 01/22/23 18:39 Range/Units White Blood Count 16.1 H 4.3-11.0 10^3/uL Red Blood Count 4.97 4.30-5.52 10^6/uL Hemoglobin 15.1 13.3-17.7 g/dL Hematocrit 44 40-54 % Mean Corpuscular Volume 88 80-99 fL Mean Corpuscular Hemoglobin 30 25-34 pg Mean Corpuscular Hemoglobin Concent 34 32-36 g/dL Red Cell Distribution Width 13.6 10.0-14.5 % Platelet Count 490 H 130-400 10^3/uL Mean Platelet Volume 10.7 9.0-12.2 fL Immature Granulocyte % (Auto) 1 % Neutrophils (%) (Auto) 87 H 42-75 % Lymphocytes (%) (Auto) 5 L 12-44 % Monocytes (%) (Auto) 7 0-12 % Eosinophils (%) (Auto) 0 0-10 % Basophils (%) (Auto) 1 0-10 % Neutrophils # (Auto) 14.1 H 1.8-7.8 10^3/uL Lymphocytes # (Auto) 0.8 L 1.0-4.0 10^3/uL Monocytes # (Auto) 1.1 H 0.0-1.0 10^3/uL Eosinophils # (Auto) 0.0 0.0-0.3 10^3/uL Basophils # (Auto) 0.1 0.0-0.1 10^3/uL Immature Granulocyte # (Auto) 0.1 0.0-0.1 10^3/uL Neutrophils % (Manual) 85 % Lymphocytes % (Manual) 7 % Monocytes % (Manual) 8 % Eosinophils % (Manual) 0 % Basophils % (Manual) 0 % Band Neutrophils 0 % Blood Morphology Comment NORMAL Prothrombin Time 13.9 12.2-14.7 SEC INR Comment 1.1 0.8-1.4 Activated Partial Thromboplast Time 28 24-35 SEC Sodium Level 141 135-145 MMOL/L Potassium Level 4.0 3.6-5.0 MMOL/L Chloride Level 105 98-107 MMOL/L Carbon Dioxide Level 23 21-32 MMOL/L Anion Gap 13 5-14 MMOL/L Blood Urea Nitrogen 20 H 7-18 MG/DL Creatinine 1.50 H 0.60-1.30 MG/DL Estimat Glomerular Filtration Rate 55 BUN/Creatinine Ratio 13 Glucose Level 96 70-105 MG/DL Calcium Level 9.4 8.5-10.1 MG/DL Corrected Calcium 9.1 8.5-10.1 MG/DL Magnesium Level 2.3 1.6-2.4 MG/DL Total Bilirubin 0.6 0.1-1.0 MG/DL Aspartate Amino Transf (AST/SGOT) 18 5-34 U/L Alanine Aminotransferase (ALT/SGPT) 16 0-55 U/L Alkaline Phosphatase 36 L 40-136 U/L Myoglobin 82.2 10.0-92.0 NG/ML Troponin I < 0.028 <0.028 NG/ML B-Type Natriuretic Peptide 20.5 <100.0 PG/ML Total Protein 6.5 6.4-8.2 GM/DL Albumin 4.4 3.2-4.5 GM/DL Lipase 5 L 8-78 U/L Urine Color YELLOW Urine Clarity SLIGHTLY CLOUDY Urine pH 5.5 5-9 Urine Specific Howard >=1.030 1.016-1.022 Urine Protein 2+ H NEGATIVE Urine Glucose (UA) NEGATIVE NEGATIVE Urine Ketones TRACE H NEGATIVE Urine Nitrite NEGATIVE NEGATIVE Urine Bilirubin 2+ H NEGATIVE Urine Urobilinogen 0.2 < = 1.0 MG/DL Urine Leukocyte Esterase NEGATIVE NEGATIVE Urine RBC (Auto) TRACE H NEGATIVE Urine RBC RARE /HPF Urine WBC 2-5 /HPF Urine Squamous Epithelial Cells NONE /HPF Urine Crystals PRESENT H /LPF Urine Calcium Oxalate Crystals FEW H /LPF Urine Bacteria NEGATIVE /HPF Urine Casts PRESENT /LPF Urine Hyaline Casts 10-25 H /LPF Urine Mucus MODERATE H /LPF Urine Culture Indicated NO My Orders Orders - ZONIA TORRES PA Cbc With Automated Diff (01/22/23 17:20) Magnesium (01/22/23 17:20) Chest 1 View, Ap/Pa Only (01/22/23 17:20) Ekg Tracing (01/22/23 17:20) Comprehensive Metabolic Panel (01/22/23 17:20) Myoglobin Serum (01/22/23 17:20) Protime With Inr (01/22/23 17:20) Partial Thromboplastin Time (01/22/23 17:20) O2 (01/22/23 17:20) Monitor-Rhythm Ecg Trace Only (01/22/23 17:20) Ed Iv/Invasive Line Start (01/22/23 17:20) Lipase (01/22/23 17:20) Bnp Marion (01/22/23 17:20) Troponin I Faustino (01/22/23 17:20) Ua Culture If Indicated (01/22/23 17:20) Ct Head Wo (01/22/23 17:20) Ns Iv 1000 Ml (Ns Iv 1000 Ml) (01/22/23 17:30) Manual Differential (01/22/23 17:07) Ns Iv 1000 Ml (Ns Iv 1000 Ml) (01/22/23 18:07) Medications Given in ED Current Medications Medications Dose Ordered Sig/Yobany Route Start Time Stop Time Status Last Admin Dose Admin Sodium Chloride 1,000 ml @ 0 mls/hr Q0M ONCE IV 01/22/23 17:30 01/22/23 17:31 DC 01/22/23 17:31 1,000 MLS/HR Vital Signs/I&O 01/22/23 01/22/23 17:00 19:41 Temp 36.7 36.7 Pulse 92 68 Resp 16 16 B/P (MAP) 117/76 (90) 108/75 Pulse Ox 97 98 O2 Delivery Room Air Room Air Capillary Refill : Less Than 3 Seconds Blood Pressure Mean: 90 Departure Communication (PCP) Differential diagnosis, vasovagal response, dehydration, electrolyte abnormality, arrhythmia, ACS, stroke, seizure. Patient is a 52-year-old male with a history of hypertension who presents to ED with a syncopal episode. Around 12:00 patient was working outside. Patient had a syncopal episode while picking up trash. States he felt hot, lightheaded and weak right before. coworker states he passed out for at least 5 minutes. No seizure-like activity. May be a similar episode on Friday. He had no predisposed chest pain or shortness of breath or headache. Denies history of similar symptoms. No known cardiac history. Patient Was seen at the [facility] sent to the ED for concern for low blood pressure. On arrival vital signs stable. States he feels tired. No current chest pain, shortness of breath, headache, visual changes, unilateral muscle weakness or sensory changes. CT scan of the head, cardiac work-up and started on a liter of fluid concern for dehydration. He was afebrile and not tachycardic. No leg cramping or vomiting. No specific pain. CBC showed a white blood count 16. Platelet 490. BUN 20, creatinine 1.50 which appears new. Patient finished his first liter of fluid and started on a second liter. CT scan of the head was negative for acute abnormality. EKG showed normal sinus rhythm. Cardiac work-up was unremarkable. No recent travels or surgeries. No known blood disorders. Currently asymptomatic. Patient was not orthostatic hypotensive. Patient symptoms does not appear to be related to a stroke or seizure. He has no neurological red flag findings at this time. Electrolytes appear to be within normal limits. Patient is slightly dehydrated with acute kidney insufficiency. Received 2 L of fluid. He urinated without evidence of infection. Chest x-ray was negative for pneumonia. Patient had no predisposed chest pain or chest pain during his symptoms. Did discussed admission for observation, cardiac work-up versus discharge. Patient would rather be discharged at this time. Provided work note for a few days. Recommend follow-up your PCP in 2 days for reevaluation. Cardiac work-up for syncope. Impression Primary Impression: Syncope Additional Impression: Acute kidney insufficiency Disposition: HOME, SELF-CARE Condition: Stable Departure-Patient Inst. Decision time for Depature: 19:04 Referrals: [facility] (PCP/Family) Primary Care Physician Patient Instructions: Syncope (fainting) Add. Discharge Instructions: Recommend following up with your PCP in 2 for reevaluation. Recommend rest. Recommend staying hydrated with water and Gatorade. If any worsening symptoms such as syncope or developing chest pain or shortness of breath return back to ED All discharge instructions reviewed with patient and/or family. Voiced understanding. Work/School Note: Work Release Form Date Seen in the Emergency Department: Jan 22, 2023 Return to Work: Jan 25, 2023 ZONIA TORRES Jan 22, 2023 17:58
[2023-01-22] MEDS ORDERED: NS IV 1000 ML 1,000 ML IV STA (18:07)
[2023-01-22 18:49] LABS: CLARITY,URINE SLIGHTLY CLOUDY; COLOR,URINE YELLOW; GLUCOSE, URINE (UA) NEGATIVE (NEGATIVE); PH,URINE 5.5 (5-9); PROTEIN,URINE 2+ (NEGATIVE)
[2023-01-22 18:50] LABS: BILIRUBIN,URINE 2+ (NEGATIVE); KETONES,URINE TRACE (NEGATIVE); LEUKOCYTE ESTERASE ,URINE NEGATIVE (NEGATIVE); NITRITE,URINE NEGATIVE (NEGATIVE)
[2023-01-22 18:57] LABS: BACTERIA,URINE NEGATIVE /HPF; CALCIUM OXALATE CRYSTALS,UR FEW /LPF; RBC,URINE RARE /HPF
[2023-01-22 19:41] VITALS: BP 108/75
== END 2023-01-22 19:41 | disposition home or self-care (01) ==
LOC: EDUNIT# 16:23 → ER 16:24
DX: R55 Syncope and collapse (principal); N28.9 Disorder of kidney and ureter, unspecified
CPT/HCPCS: 36415; 70450; 71045; 80053; 81000; 83690; 83735; 83874; 83880; 84484; 85007; 85027; 85610; 85730; 93005; 93041

== ENCOUNTER 2023-03-16 10:43 | Emergency (ER) | payer OTHER ==
[~2023-03-16] VITALS: Ht 172 cm; Wt 72.0 kg
[~2023-03-16 10:43] MED LIST changes: -MECL-149 PO; +MECL-291 PO
[2023-03-16] MEDS ORDERED: IBUPROFEN 800 MG TABLET PO ONE ×2 (10:49→11:00)
--- NOTE | 2023-03-16 10:55 | ED Headache ---
General Chief Complaint: Head/Cervical Problems Stated Complaint: BAIRES Nursing Triage Note: PT TO RM 6 [facility] WITH CC OF HEADACHE, TIGHTNESS IN THE BACK OF THE NECK. OUT OF BP MEDS SINCE FRIDAY, PAIN STARTED THIS MORNING Source: patient Exam Limitations: no limitations History of Present Illness Date Seen by Provider: Mar 16, 2023 Time Seen by Provider: 10:53 Initial Comments 52-year-old male presents by ambulance secondary to lack of personal transportation to the emergency department stating he ran out of his 30 mg lisinopril Friday he is slightly hypertensive 140s over 90s, states he has a headache but denies worst headache of his life. No recent trauma. When asked if he gets headaches frequently he states yes and states this is typical of his previous headaches. He is not photophobic he is able to move his head, full range of motion, no neurologic deficits, no nausea vomiting. He is conversive and polite. States he is supposed to be at work at 1:00. States he has his medications at the pharmacy just did not have a ride to go pick them up. We will provide him with his lisinopril dose as well as ibuprofen as he does not want a Toradol shot. Patient agrees. Allergies and Home Medications Allergies Coded Allergies: Penicillins (Unverified Adverse Reaction, Unknown, 06/23/18) Patient Home Medication List Home Medication List Reviewed: Yes Atorvastatin Calcium (Atorvastatin Calcium) 10 Mg Tablet, 10 MG PO DAILY, (Reported) Entered as Reported by: PACO EWING on 08/12/20 1340 Buspirone HCl (Buspirone HCl) 15 Mg Tablet, 15 MG PO TID, (Reported) Entered as Reported by: LISA BROWNE on 03/18/19 2310 Cetirizine HCl (Cetirizine HCl) 10 Mg Tablet, 10 MG PO DAILY, (Reported) Entered as Reported by: PACO EWING on 08/12/20 1340 Citalopram Hydrobromide (Citalopram HBr) 20 Mg Tablet, 20 MG PO DAILY, (Reported) Entered as Reported by: PACO EWING on 08/12/20 1340 Diazepam (Valium) 5 Mg Tablet, 5 MG PO Q6H Prescribed by: MARIAN AYOUB MD on 11/19/22 0252 Hydroxyzine Pamoate (Hydroxyzine Pamoate) 25 Mg Capsule, 25 MG PO TID PRN for ANXIETY Prescribed by: PEYTON LEYVA on 09/16/20 1722 Lisinopril (Lisinopril) 10 Mg Tablet, 10 MG PO DAILY Prescribed by: DONTE OLIVER on 09/01/20 210 Metoprolol Succinate (Metoprolol Succinate) 25 Mg Tab.er.24h, 25 MG PO DAILY, (Reported) Entered as Reported by: PACO EWING on 08/12/20 1340 Omeprazole (Omeprazole) 20 Mg Capsule.dr, 20 MG PO BID Prescribed by: JACK IVY on 02/28/21 155 Pantoprazole Sodium (Pantoprazole Sodium) 40 Mg Tablet.dr, 40 MG PO DAILY, (Reported) Entered as Reported by: PACO EWING on 08/12/20 1340 Tramadol HCl (Ultram) 50 Mg Tablet, 50 MG PO Q6H PRN for PAIN-BREAKTHROUGH Prescribed by: JACK IVY on 02/28/21 1559 Tramadol HCl (Ultram) 50 Mg Tablet, 50 MG PO Q6H PRN for PAIN-MODERATE (5-7) Prescribed by: DONYA COOK on 07/10/21 1521 Review of Systems Review of Systems Constitutional: no symptoms reported Eyes: No Symptoms Reported Ears, Nose, Mouth, Throat: no symptoms reported Respiratory: no symptoms reported Cardiovascular: no symptoms reported Gastrointestinal: no symptoms reported Genitourinary: no symptoms reported Musculoskeletal: no symptoms reported Skin: no symptoms reported Psychiatric/Neurological: See HPI, Headache All Other Systems Reviewed Negative Unless Noted: Yes Past Ahmtiyi-Nosinb-Cnpqqh Hx Patient Social History Tobacco Use?: Yes Substance use?: No Alcohol Use?: No Immunizations Up To Date Tetanus Booster (TDap): Unknown First/Initial COVID19 Vaccinat: x1 Second COVID19 Vaccination Jacob: x1 Third COVID19 Vaccination Date: x1 Seasonal Allergies Seasonal Allergies: Yes Past Medical History Surgery/Hospitalization HX: htn, chronic chest pain, hld, gerd, syncope, anxiety, depression, hernia repair, loop recorder Surgeries: Yes (HERNIA, LOOP RECORDER PLACEMENT) Abdominal, Cardiac Respiratory: No Cardiac: Yes (LOOP RECORDER;CHRONIC CHEST PAIN ) High Cholesterol, Hypertension, Syncope Neurological: No Reproductive Disorders: No Genitourinary: Yes Kidney Stones Gastrointestinal: Yes Gastroesophageal Reflux, Hiatal Hernia Musculoskeletal: No Endocrine: No HEENT: No Cancer: No Psychosocial: Yes Anxiety, Depression Integumentary: No Blood Disorders: No Family Medical History No Pertinent Family Hx ADDITIONAL PMH: -PT HAD SINGLE EPISODE OF SYNCOPE 05/2020 AND HAD A LOOP RECORDER PLACED 05/08/[address] OJEDA--NO REPORTED ARRHYTYMIAS PER OLD RECORDS, OF 02/03/22 -CHRONIC CHEST PAIN COMPLAINTS, WORK UP'S NEGATIVE, INCLUDING STRESS TESTS. LAST STRESS TEST 07/28/[address] OJEDA: CONCLUSION: 1. Fair exercise tolerance for a total of 5 minutes on standard Vicente protocol, 7 METS achieving 95% of maximum expected heart rate. 2. Nondiagnostic EKG changes with exercise returned to baseline during recovery. 3. Mild hypertensive response to exercise with peak blood pressure 174/79 returned to baseline during recovery. 4. Diaphragmatic attenuation with no significant ischemia or infarction on SPECT images. 5. Normal left ventricular size with normal contractility. Calculated ejection fraction 68%. Physical Exam Vital Signs Vital Signs - First Documented 03/16/23 10:44 Temp 36.9 Pulse 68 Resp 18 B/P (MAP) 143/96 (112) Pulse Ox 96 O2 Delivery Room Air Capillary Refill : Less Than 3 Seconds Height, Weight, BMI Height: 5'10.00" Weight: 179lbs. 5.0oz. 81.222019ia; 24.00 BMI Method:Stated General Appearance: WD/WN, no apparent distress HEENT: PERRL/EOMI, normal ENT inspection Neck: non-tender, full range of motion, supple, normal inspection Cardiovascular: regular rate, rhythm Respiratory: chest non-tender, normal breath sounds Gastrointestinal: non tender Back: no vertebral tenderness Extremities: normal range of motion, non-tender Psychiatric: alert, oriented x 3 Crainal Nerves: normal hearing, normal speech, PERRL Coordination/Gait: normal gait Motor/Sensory: no motor deficit, no sensory deficit Skin: normal color, warm/dry Lymphatic: no adenopathy Progress/Results/Core Measures Results/Orders My Orders Orders - RIKKI MCRAE DO Lisinopril Tablet (Lisinopril Tablet) (03/16/23 11:00) Lisinopril Tablet (Lisinopril Tablet) (03/16/23 11:00) Ibuprofen Tablet (Ibuprofen Tablet) (03/16/23 11:00) Vital Signs/I&O 03/16/23 10:44 Temp 36.9 Pulse 68 Resp 18 B/P (MAP) 143/96 (112) Pulse Ox 96 O2 Delivery Room Air Blood Pressure Mean: 112 Progress Progress Note : Progress Note 1050 patient is a 52-year-old male with a history of hypertension who presents by ambulance with headache and high blood pressure. Patient states he ran out of his 30 mg lisinopril Friday, states the pharmacy has his medications he just does not have a ride to come pick them up. States he also has a headache but states this is typical of his usual headaches denies worst headache of his life denies injury denies nausea vomiting denies nuchal rigidity he is alert and oriented and answering all questions appropriately no photosensitivity. States he usually takes Aleve for he declines a Toradol shot because he does not like shots but agrees to take 800 mg ibuprofen. We will also give him his 30 mg lisinopril while here as he is slightly hypertensive at 143/96. Patient states he is supposed to work at 1, advised that more than likely would be able to get him home so that he does not miss his shift. Patient already is normotensive at 126/85 heart rate 63 asking for the TV remote we will discharge him home with advice contact pharmacy as they may have a delivery service. Departure Impression Primary Impression: Tension type headache Qualified Codes: G44.209 - Tension-type headache, unspecified, not intractable Additional Impression: HTN (hypertension) Qualified Codes: I10 - Essential (primary) hypertension Disposition: 01 HOME, SELF-CARE Condition: Improved Departure-Patient Inst. Referrals: [facility] (PCP/Family) Primary Care Physician Patient Instructions: Headache, Adult (DC) RIKKI MCRAE DO Mar 16, 2023 10:54
[2023-03-16 11:14] VITALS: BP 122/83
== END 2023-03-16 11:14 | disposition home or self-care (01) ==
LOC: EDUNIT# 10:43 → ER 10:44
DX: G44.209 Tension-type headache, unspecified, not intractable (principal); I10 Essential (primary) hypertension; T46.5X6A Underdosing of other antihypertensive drugs, initial encounter; Z91.130 Patient's unintentional underdosing of medication regimen due to age-related debility
CPT/HCPCS: 99283

== ENCOUNTER → 2023-05-07 | Outpatient (CLI) | payer OTHER ==
[2023-05-07 10:34] VITALS: BP 114/67
--- NOTE | 2023-05-07 13:05 | Cardiology Stress Test Report ---
Stress Test Report Date of Procedure/Referring: Date of Procedure: May 07, 2023 [facility] Admitting Physician Admitting Physician: Attending Physician: Mary Álvarez Pa-C Baseline Heart Rate: 56 Baseline Blood Pressure: Blood Pressure Systolic: 114 Blood Pressure Diastolic: 67 Baseline EKG: Baseline EKG: NSR Summary/Conclusion: Summary: In summary, the patient started exercising with a baseline heart rate, blood pressure and EKG mentioned above Patient was able to exercise for a total of 9 minutes on Vicente protocol, METs 10.5 Maximum heart rate 122 Maximum blood pressure 168/83 Stress EKG, Minimal nondiagnostic changes Recovery EKG , Return to baseline Conclusion: Good exercise tolerance for a total of 9 minutes on Vicente protocol, 10.5 METs, achieving 73 percent of maximum expected heart rate Chronotropic incompetence with maximum achieved heart rate after 9 minutes of exercise of 122 which is 73% of maximal expected heart rate Appropriate blood pressure response to exercise Occasional PVCs noted during stress test otherwise no arrhythmia detected Minimal nondiagnostic EKG changes with exercise return to baseline during recovery Copy Copies To 1: [facility]/ROSARIO COWART MD May 07, 2023 13:05
== END ==
LOC: CARD 09:03
PROVIDERS: ATTEND Physician Assistant
DX: R07.9 Chest pain, unspecified (principal)
CPT/HCPCS: 93017